=== PATIENT | female | born 1965 | race Caucasian/White ===

== ENCOUNTER → 2016-10-28 | Outpatient (CLI) | payer OTHER ==
--- NOTE | 2016-10-28 10:38 | MR ---
EXAMINATION TYPE: MR cspine/lspine wo con DATE OF EXAM: 10/28/2016 COMPARISON: NONE HISTORY: Cervicalgia and Lumbago per order. Headaches and back pain per patient. Pain for 5 to 10 yea rs radiating into bilateral buttocks and thighs per patient. TECHNIQUE: Multiplanar, multisequence imaging of the cervical and lumbar spine are performed without IV contrast. FINDINGS: C-SPINE: Exam is suboptimal as there is motion artifact degradation present. FINDINGS: Sagittal images of the cervical spine show the craniocervical junction to appear within nor mal limits. The cervical and upper thoracic spinal cord is likely normal in course, caliber, and sig nal, artifact degradation is noted. Vertebral alignment is anatomic. There is mild disc space narro wing C6-C7 level. Posterior disc herniation at this level effaces anterior thecal sac on sagittal galilea ges. The vertebral body and intravertebral disk heights otherwise are normal. The bone marrow signal intensity is within normal limits. No significant spurring is seen. Axial images show the C2-C3, C3-C4, and C4-C5 levels to appear within normal limits. Axial images at C5-C6 level show small focal central disc protrusion mildly effacing anterior thecal sac and axial image 23, bilateral neural foramina are patent. Axial images at C6-C7 level show broad-based posterior disc protrusion effacing anterior thecal sac a nd causing moderate left greater than right neural foraminal narrowing near axial image 16. Axial images at C7-T1 level are felt within normal limits. IMPRESSION: Disc herniation C6-C7 level effaces anterior thecal sac and causes moderate bilateral lef t greater than right neural foraminal narrowing. L-SPINE: There is slight levoconvex scoliotic curvature centered in the upper to mid lumbar spine seen best on survey images. Sagittal images of the lumbar spine show vertebral body heights and alignment to appe ar satisfactory. Multilevel disc desiccation is seen but disc space heights are fairly well-maintaine d. No large posterior disc herniations are seen on sagittal images. The conus medullaris is normal in position and signal ending at T12-L1 disc space level. The bone marrow signal intensity is within n ormal limits. Mild multilevel anterior spurring is seen. Axial images show the T12-L1 and L1-L2 levels to appear within normal limits. Axial images at the L2-L3 and the L3-L4 level show mild facet degenerative changes bilaterally but sp inal canal is preserved and bilateral neural foramina are patent. Axial images at L4-L5 level show mild to moderate facet degenerative changes and ligamentum flavum hy pertrophy mildly effacing posterior lateral thecal sac. There is broad-based left paracentral disc pr otrusion minimally effacing the anterior thecal sac. Bilateral neural foramina are patent. Axial images at the L5-S1 level show mild/moderate facet degenerative changes bilaterally. There is s mall central disc protrusion but spinal canal is preserved and bilateral neural foramina are patent. There is 4 mm T2 hyperintense lesion mid pole level left kidney on axial image 25 2 small to further characterize but favor simple cyst. Paraspinal muscle bulk is preserved. IMPRESSION: Slight scoliotic curvature with multilevel degenerative changes in the mid to lower lumba r spine as detailed above.
== END ==
LOC: RADMRIMAIN 06:58
PROVIDERS: ATTEND Nurse Practitioner Acute Care
DX: M99.71 Connective tissue and disc stenosis of intervertebral foramina of cervical region (principal); M50.223 Other cervical disc displacement at C6-C7 level; M47.816 Spondylosis without myelopathy or radiculopathy, lumbar region; M41.86 Other forms of scoliosis, lumbar region
CPT/HCPCS: 72141; 72148

== ENCOUNTER 2017-07-19 16:38 | Inpatient (IN) | payer OTHER ==
[2017-07-19] MEDS ORDERED: ACETAMINOPHEN TAB 500 MG TAB PO STA (17:37)
[2017-07-19] MEDS ORDERED: SODIUM CHLORIDE 0.9% 1,000 ML IV ONE (17:37)
[2017-07-19] MEDS ORDERED: SODIUM CHLORIDE 0.9% 500 ML IV ONE (17:37)
[2017-07-19] MEDS ORDERED: methylPREDNISolone SOD SUCCI 125 MG/2 ML VIAL IV STA (17:56)
[2017-07-19] MEDS ORDERED: IPRATROPIUM 0.5 MG/2.5 ML NEBU INHALATION STA (17:56)
[2017-07-19] MEDS ORDERED: ALBUTEROL NEBULIZED (CONC) 5 MG, SODIUM CHLORIDE 0.9% NEBULIZ 3 ML INHALATION STA ×2 (17:56)
[2017-07-19 18:02] LABS: Basophils # (A) 0.1 k/uL (0-0.2); Basophils % (A) 1 %; Eosinophils % (A) 1 %; HCT 50.4 % (34.0-46.0); HGB 17.4 gm/dL (11.4-16.0); Lymphocytes # (A) 1.6 k/uL (1.0-4.8); Lymphocytes % (A) 21 %; MCH 31.6 pg (25.0-35.0); MCHC 34.5 g/dL (31.0-37.0); MCV 91.6 fL (80.0-100.0); Monocytes # (A) 0.4 k/uL (0-1.0); Monocytes % (A) 5 %; Neutrophils # (A) 5.3 k/uL (1.3-7.7); Neutrophils % (A) 69 %; Platelet Count 234 k/uL (150-450); RDW 12.7 % (11.5-15.5); WBC 7.7 k/uL (3.8-10.6)
[2017-07-19 18:12] LABS: ALT 169 U/L (9-52); AST 212 U/L (14-36); Albumin 4.2 g/dL (3.5-5.0); Alkaline Phosphatase 70 U/L (38-126); Anion Gap 16 mmol/L; Blood Urea Nitrogen 11 mg/dL (7-17); Calcium 9.5 mg/dL (8.4-10.2); Carbon Dioxide 24 mmol/L (22-30); Chloride 96 mmol/L (98-107); Glucose 181 mg/dL (74-99); Potassium 3.9 mmol/L (3.5-5.1); Sodium 136 mmol/L (137-145); Total Bilirubin 0.6 mg/dL (0.2-1.3)
[2017-07-19 18:21] LABS: Creatine Kinase 567 U/L (30-135)
--- NOTE | 2017-07-19 18:31 | ED ---
Fever HPI - General Chief Complaint: Fever Stated Complaint: Difficulty Breathing Time Seen by Provider: 07/19/17 17:36 Source: patient Mode of arrival: ambulatory Limitations: no limitations - History of Present Illness Initial Comments: 52-year-old female patient presents to the emergency department today for complaints of cough, shortness of breath, and fever. The patient states that she has been coughing since Friday. Patient states that starting yesterday she became short of breath, started coughing up green to yellow sputum, and experiencing chest tightness. States the shortness of breath worsens with activity or lying down. Patient does have a history of COPD and does currently smoke cigarettes. States that she has had fever and chills at home. She denies any nasal congestion, sore throat, or ear pain. Patient denies any recent rash, abdominal pain, nausea, vomiting, diarrhea, constipation, back pain , numbness, tingling, dizziness, weakness, hematuria, dysuria, urinary urgency, urinary frequency, headache, visual changes, or any other complaints. - Related Data Home Medications Medication Instructions Recorded Confirmed Albuterol Inhaler [Ventolin Hfa 1 puff INHALATION RT-Q6H PRN 11/22/15 01/26/16 Inhaler] Aspirin [Adult Low Dose Aspirin EC] 81 mg PO DAILY 11/22/15 01/26/16 Butalb/APAP/Caff 50-325-40Mg 1 tab PO TID PRN 11/22/15 01/26/16 [Fioricet 50-325-40] DULoxetine HCL [Cymbalta] 60 mg PO DAILY 11/22/15 01/26/16 Flunisolide [Aerospan] 2 puff INHALATION RT-BID PRN 11/22/15 01/26/16 Fluticasone Nasal [place] [Flonase 1 spray EA NOSTRIL DAILY PRN 11/22/15 01/26/16 Nasal [place]] HYDROcodone/APAP 5-325MG [[place] 1 tab PO TID PRN 11/22/15 01/26/16 5-325] Levothyroxine Sodium [Synthroid] 75 mcg PO DAILY 11/22/15 01/26/16 Loratadine [Claritin] 10 mg PO DAILY PRN 11/22/15 01/26/16 Montelukast [Singulair] 10 mg PO DAILY 11/22/15 01/26/16 Multivitamins, Thera [Multivitamin] 1 tab PO DAILY 11/22/15 01/26/16 Simvastatin [Zocor] 20 mg PO DAILY 11/22/15 01/26/16 hydrOXYzine HCL [Atarax] 25 mg PO DAILY PRN 11/22/15 01/26/16 tiZANidine [Zanaflex] 4 mg PO Q8HR PRN 11/22/15 01/26/16 Previous Rx's Medication Instructions Recorded Cephalexin [Keflex] 500 mg PO Q8HR #21 cap 01/26/16 Mupirocin 2% Oint [Bactroban 2% 1 applic TOPICAL TID #1 tube 01/26/16 Oint] Allergies Allergy/AdvReac Type Severity Reaction Status Date / Time morphine Allergy Rash/Hives Verified 07/19/17 16:41 pregabalin [From Lyrica] Allergy Unknown Verified 07/19/17 16:41 Review of Systems ROS Statement: Those systems with pertinent positive or pertinent negative responses have been documented in the HPI. ROS Other: All systems not noted in ROS Statement are negative. Past Medical History Past Medical History: Fibromyalgia, Hypertension, Thyroid Disorder Additional Past Medical History / Comment(s): back pain History of Any Multi-Drug Resistant Organisms: None Reported Past Surgical History: Section, Cholecystectomy, Tonsillectomy Additional Past Surgical History / Comment(s): tumor removal leep procedure Past Psychological History: Depression Smoking Status: Current every day smoker Past Alcohol Use History: None Reported Past Drug Use History: None Reported General Exam Limitations: no limitations General appearance: alert, in no apparent distress, other (This is a well- developed, well-nourished adult female patient in no acute distress. Vital signs upon presentation are temperature 101.8F, pulse 118, respirations 20, blood pressure 122/86, pulse ox 92% on room air.) Eye exam: Present: normal appearance, PERRL, EOMI. Absent: scleral icterus, conjunctival injection, periorbital swelling ENT exam: Present: normal exam, normal oropharynx, mucous membranes moist Neck exam: Present: normal inspection. Absent: tenderness, meningismus, lymphadenopathy Respiratory exam: Present: wheezes (Tight expiratory wheezing throughout all posterior lung desouza), decreased breath sounds, other (Minimal air movement). Absent: normal lung sounds bilaterally, respiratory distress, rales, rhonchi, stridor Cardiovascular Exam: Present: normal rhythm, tachycardia, normal heart sounds. Absent: systolic murmur, diastolic murmur, rubs, gallop, clicks GI/Abdominal exam: Present: soft, normal bowel sounds. Absent: distended, tenderness, guarding, rebound, rigid Extremities exam: Present: normal inspection, full ROM, normal capillary refill , other (No edema). Absent: tenderness, pedal edema, joint swelling, calf tenderness Neurological exam: Present: alert, oriented X3, CN II-XII intact Psychiatric exam: Present: normal affect, normal mood Skin exam: Present: warm, dry, intact, normal color. Absent: rash Course Vital Signs 07/19/17 07/19/17 07/19/17 16:39 18:10 18:22 Temperature 101.8 F H Pulse Rate 118 H 105 H 106 H Pulse Rate [ Left Pulse Oximetery] Respiratory 20 20 Rate Blood Pressure 122/86 115/66 Blood Pressure [Left Arm] O2 Sat by Pulse 92 L 96 Oximetry 07/19/17 07/19/17 07/19/17 18:43 20:40 21:36 Temperature 99.3 F Pulse Rate 108 H 94 79 Pulse Rate [ Left Pulse Oximetery] Respiratory 20 20 Rate Blood Pressure 107/61 98/64 Blood Pressure [Left Arm] O2 Sat by Pulse 91 L 94 L Oximetry 07/19/17 07/19/17 21:51 22:25 Temperature 98.0 F Pulse Rate Pulse Rate [ 93 93 Left Pulse Oximetery] Respiratory 16 16 Rate Blood Pressure Blood Pressure 115/61 [Left Arm] O2 Sat by Pulse 93 L Oximetry Medical Decision Making - Medical Decision Making 52-year-old female patient presents to the emergency department today for complaints of dyspnea, cough, and fever. Physical examination reveals tight expiratory wheezing with minimal air movement. Labs reviewed and did show mild elevation in her liver enzymes. White blood cell count is normal. Patient did have a fever of 102 upon arrival. Lactic acid is negative. Chest x-ray is negative for any evidence of pneumonia. Patient does have history of COPD. We will admit for COPD exacerbation. We'll start her on antibiotics that she is meet sepsis criteria. She'll be provided with breathing treatments and steroids as well. - Lab Data Result diagrams: 07/19/17 17:40 07/19/17 17:40 Lab Results 07/19/17 07/19/17 07/19/17 Range/Units 17:40 17:40 17:40 WBC 7.7 (3.8-10.6) k/uL RBC 5.50 H (3.80-5.40) m/uL Hgb 17.4 H (11.4-16.0) gm/dL Hct 50.4 H (34.0-46.0) % MCV 91.6 (80.0-100.0) fL MCH 31.6 (25.0-35.0) pg MCHC 34.5 (31.0-37.0) g/dL RDW 12.7 (11.5-15.5) % Plt Count 234 (150-450) k/uL Neutrophils % 69 % Lymphocytes % 21 % Monocytes % 5 % Eosinophils % 1 % Basophils % 1 % Neutrophils # 5.3 (1.3-7.7) k/uL Lymphocytes # 1.6 (1.0-4.8) k/uL Monocytes # 0.4 (0-1.0) k/uL Eosinophils # 0.0 (0-0.7) k/uL Basophils # 0.1 (0-0.2) k/uL Sodium 136 L (137-145) mmol/L Potassium 3.9 (3.5-5.1) mmol/L Chloride 96 L (98-107) mmol/L Carbon Dioxide 24 (22-30) mmol/L Anion Gap 16 mmol/L BUN 11 (7-17) mg/dL Creatinine 0.60 (0.52-1.04) mg/dL Est GFR (CKD-EPI)AfAm >90 (>60 ml/min/1.73 sqM) Est GFR (CKD-EPI)NonAf >90 (>60 ml/min/1.73 sqM) Glucose 181 H (74-99) mg/dL Plasma Lactic Acid Deandre (0.7-2.0) mmol/L Calcium 9.5 (8.4-10.2) mg/dL Total Bilirubin 0.6 (0.2-1.3) mg/dL AST 212 H (14-36) U/L ALT 169 H (9-52) U/L Alkaline Phosphatase 70 (38-126) U/L Total Creatine Kinase 567 H (30-135) U/L CK-MB (CK-2) 0.3 (0.0-2.4) ng/mL CK-MB (CK-2) Rel Index 0.1 Troponin I <0.012 (0.000-0.034) ng/mL NT-Pro-B Natriuret Pep pg/mL Total Protein 7.0 (6.3-8.2) g/dL Albumin 4.2 (3.5-5.0) g/dL Influenza Type A RNA (Not Detectd) Influenza Type B (PCR) (Not Detectd) 07/19/17 07/19/17 07/19/17 Range/Units 17:40 17:40 18:18 WBC (3.8-10.6) k/uL RBC (3.80-5.40) m/uL Hgb (11.4-16.0) gm/dL Hct (34.0-46.0) % MCV (80.0-100.0) fL MCH (25.0-35.0) pg MCHC (31.0-37.0) g/dL RDW (11.5-15.5) % Plt Count (150-450) k/uL Neutrophils % % Lymphocytes % % Monocytes % % Eosinophils % % Basophils % % Neutrophils # (1.3-7.7) k/uL Lymphocytes # (1.0-4.8) k/uL Monocytes # (0-1.0) k/uL Eosinophils # (0-0.7) k/uL Basophils # (0-0.2) k/uL Sodium (137-145) mmol/L Potassium (3.5-5.1) mmol/L Chloride (98-107) mmol/L Carbon Dioxide (22-30) mmol/L Anion Gap mmol/L BUN (7-17) mg/dL Creatinine (0.52-1.04) mg/dL Est GFR (CKD-EPI)AfAm (>60 ml/min/1.73 sqM) Est GFR (CKD-EPI)NonAf (>60 ml/min/1.73 sqM) Glucose (74-99) mg/dL Plasma Lactic Acid Deandre 1.7 (0.7-2.0) mmol/L Calcium (8.4-10.2) mg/dL Total Bilirubin (0.2-1.3) mg/dL AST (14-36) U/L ALT (9-52) U/L Alkaline Phosphatase (38-126) U/L Total Creatine Kinase (30-135) U/L CK-MB (CK-2) (0.0-2.4) ng/mL CK-MB (CK-2) Rel Index Troponin I (0.000-0.034) ng/mL NT-Pro-B Natriuret Pep 88 pg/mL Total Protein (6.3-8.2) g/dL Albumin (3.5-5.0) g/dL Influenza Type A RNA Not Detected (Not Detectd) Influenza Type B (PCR) Not Detected (Not Detectd) - EKG Data -: EKG Interpreted by Me EKG Comments: EKG obtained at 1734 shows sinus tachycardia with right atrial enlargement. Ventricular rate is 118, LA interval 120, QR anglican 72, QT 332, QTc 465. No evidence of ST elevation or depression. - Radiology Data Radiology results: report reviewed, image reviewed Two-view x-ray of the chest is obtained. There is no focal airspace opacity, pleural effusion, or pneumothorax. There are overlying cardiac leads. The cardiac silhouette size is within normal limits. The osseous structures are intact. Impression by Dr. Richards shows no acute cardiopulmonary process. Disposition Clinical Impression: COPD with acute exacerbation, Hypoxia, Sepsis Disposition: ADMITTED IP TO THIS HOSP Condition: Serious Decision to Admit Reason: Admit from EC Decision Date: 07/19/17 Decision Time: 21:26
[2017-07-19 18:34] LABS: Creatine Kinase MB 0.3 ng/mL (0.0-2.4); Troponin I <0.012 ng/mL (0.000-0.034)
--- NOTE | 2017-07-19 19:54 | XR ---
EXAMINATION TYPE: XR chest 2V DATE OF EXAM: 07/19/2017 COMPARISON: NONE HISTORY: Shortness of breath TECHNIQUE: Frontal and lateral views of the chest are obtained. FINDINGS: There is no focal air space opacity, pleural effusion, or pneumothorax seen. There are ov erlying cardiac leads. The cardiac silhouette size is within normal limits. The osseous structures are intact. IMPRESSION: No acute cardiopulmonary process.
[2017-07-19] MEDS ORDERED: NALOXONE 0.4 MG/ML 1 ML VIAL IV PRN (21:05)
[2017-07-19] MEDS ORDERED: ACETAMINOPHEN TAB 325 MG TAB PO PRN (21:05)
[2017-07-19] MEDS ORDERED: IPRATROPIUM-ALBUTEROL 3 ML NEB INHALATION PRN (21:07)
[2017-07-19] MEDS ORDERED: LEVOFLOXACIN 750MG-D5W PMX 750 MG in DEXTROSE/WATER 1 150ML.BAG IVPB STA (21:07)
[2017-07-19] MEDS: SODIUM CHLORIDE 0.9% 1,000 ML IV SCH (21:33)
[2017-07-19 22:25] VITALS: BMI 30.2
[2017-07-19] MEDS: IPRATROPIUM-ALBUTEROL 3 ML NEB INHALATION SCH (23:15)
[2017-07-19] MEDS: methylPREDNISolone SOD SUCCI 125 MG/2 ML VIAL IV SCH (23:52)
[2017-07-20] MEDS: IPRATROPIUM-ALBUTEROL 3 ML NEB INHALATION SCH ×6 (03:13→20:14)
[2017-07-20] MEDS: methylPREDNISolone SOD SUCCI 125 MG/2 ML VIAL IV SCH ×4 (07:03→23:16)
[2017-07-20] MEDS: SODIUM CHLORIDE 0.9% 1,000 ML IV SCH (11:33)
[2017-07-20 11:50] LABS: ALT 146 U/L (9-52); AST 143 U/L (14-36); Albumin 3.7 g/dL (3.5-5.0); Alkaline Phosphatase 58 U/L (38-126); Anion Gap 13 mmol/L; Blood Urea Nitrogen 10 mg/dL (7-17); Calcium 8.6 mg/dL (8.4-10.2); Carbon Dioxide 24 mmol/L (22-30); Chloride 100 mmol/L (98-107); Glucose 289 mg/dL (74-99); Potassium 3.9 mmol/L (3.5-5.1); Sodium 137 mmol/L (137-145); Total Bilirubin 0.4 mg/dL (0.2-1.3); Total Protein 6.3 g/dL (6.3-8.2)
[2017-07-20 11:56] LABS: Basophils % (A) 1 %; Eosinophils % (A) 0 %; HCT 43.7 % (34.0-46.0); HGB 14.9 gm/dL (11.4-16.0); Lymphocytes % (A) 18 %; MCH 31.4 pg (25.0-35.0); MCHC 34.1 g/dL (31.0-37.0); MCV 92.2 fL (80.0-100.0); Monocytes # (A) 0.2 k/uL (0-1.0); Monocytes % (A) 3 %; Neutrophils # (A) 4.2 k/uL (1.3-7.7); Neutrophils % (A) 74 %; Platelet Count 211 k/uL (150-450); RBC 4.75 m/uL (3.80-5.40); RDW 12.7 % (11.5-15.5); WBC 5.7 k/uL (3.8-10.6)
[2017-07-20] MEDS ORDERED: CYCLOBENZAPRINE 10 MG TAB PO PRN (12:47)
[2017-07-20] MEDS ORDERED: BUTALB/APAP/CAFF 50-325-40MG TAB PO PRN (12:47)
[2017-07-20] MEDS ORDERED: FLUTICASONE 50MCG/SPRAY NASAL 16GM EA NOSTRIL PRN (12:47)
--- NOTE | 2017-07-20 12:56 | P.HPIM ---
History of Present Illness H&P Date: 07/20/17 Chief Complaint: Dyspnea This is 52 years old female who presented to the emergency department with worsening shortness breath. Patient reported starting symptoms on Friday where she was having upper respiratory symptoms including runny [place] runny eyes and felt to be related to her ALLERGIES level patient continue to use her breathing machine without any improvement and the day of yesterday she presented to the emergency with worsening nonproductive cough and worsening shortness breath where patient was using accessory muscles and able to breathe when walking and has to take a break every time she walked inside her house. Patient reported no fever no chills no chest pain or lightheadedness. She and was advised by her primary care physician to quit smoking and went down to 10 cigarettes per day with the nicotine patches metastases back at 1 pack per day as she feels frustrated and cannot quit smoking patient denied alcohol or drug abuse. Patient was worked out with GI specialist outpatient for her elevated liver enzymes are as it runs in her family and both patient and her son has seen GI specialist for the same reason and it has been monitored for a long time Review of Systems All 14 systems reviewed and negative except as above Past Medical History Past Medical History: Fibromyalgia, Hypertension, Thyroid Disorder Additional Past Medical History / Comment(s): back pain History of Any Multi-Drug Resistant Organisms: None Reported Past Surgical History: Section, Cholecystectomy, Tonsillectomy Additional Past Surgical History / Comment(s): tumor removal leep procedure Past Anesthesia/Blood Transfusion Reactions: No Reported Reaction Past Psychological History: Depression Smoking Status: Current every day smoker Past Alcohol Use History: None Reported Past Drug Use History: None Reported Medications and Allergies Home Medications Medication Instructions Recorded Confirmed Type Albuterol Inhaler [Ventolin Hfa 1 puff INHALATION RT-Q6H PRN 11/22/15 07/20/17 History Inhaler] Aspirin [Adult Low Dose Aspirin EC] 81 mg PO DAILY 11/22/15 07/20/17 History Butalb/APAP/Caff 50-325-40Mg 1 tab PO TID PRN 11/22/15 07/20/17 History [Fioricet 50-325-40] DULoxetine HCL [Cymbalta] 60 mg PO DAILY 11/22/15 07/20/17 History Fluticasone Nasal [place] [Flonase 1 spray EA NOSTRIL DAILY PRN 11/22/15 07/20/17 History Nasal [place]] HYDROcodone/APAP 5-325MG [[place] 1 tab PO TID PRN 11/22/15 07/20/17 History 5-325] Levothyroxine Sodium [Synthroid] 75 mcg PO DAILY 11/22/15 07/20/17 History Montelukast [Singulair] 10 mg PO DAILY 11/22/15 07/20/17 History Multivitamins, Thera [Multivitamin] 1 tab PO DAILY 11/22/15 07/20/17 History Simvastatin [Zocor] 20 mg PO HS 11/22/15 07/20/17 History Beclomethasone Dipropionate [Qvar 2 puff INHALATION DAILY 07/20/17 07/20/17 History Redihaler] Bisoprolol-Hctz 10-6.25 mg [[place] 1 tab PO DAILY 07/20/17 07/20/17 History 10-6.25 MG] Cyclobenzaprine [Flexeril] 10 mg PO TID PRN 07/20/17 07/20/17 History Famotidine [Pepcid] 20 mg PO HS 07/20/17 07/20/17 History Mirtazapine [Remeron] 15 mg PO HS 07/20/17 07/20/17 History glipiZIDE [Glucotrol] 5 mg PO AC-BRKFST 07/20/17 07/20/17 History metFORMIN HCL 1,000 mg PO BID 07/20/17 07/20/17 History Allergies Allergy/AdvReac Type Severity Reaction Status Date / Time morphine Allergy Rash/Hives Verified 07/19/17 16:41 pregabalin [From Lyrica] Allergy Unknown Verified 07/19/17 16:41 Physical Exam Vitals: Vital Signs Temp Pulse Pulse Resp BP BP Pulse Ox 07/20/17 11:15 88 07/20/17 11:00 88 07/20/17 07:22 92 07/20/17 07:10 82 07/20/17 07:00 97.7 F 96 18 100/60 95 07/20/17 03:22 84 07/20/17 03:13 88 07/19/17 23:29 84 07/19/17 23:19 91 87 L 07/19/17 22:25 93 16 07/19/17 21:51 98.0 F 93 16 115/61 93 L 07/19/17 21:36 79 20 98/64 94 L 07/19/17 20:40 99.3 F 94 20 107/61 91 L 07/19/17 18:43 108 H 07/19/17 18:22 106 H 07/19/17 18:10 105 H 20 115/66 96 07/19/17 16:39 101.8 F H 118 H 20 122/86 92 L Intake and Output 07/19/17 07/20/17 07/20/17 22:59 06:59 14:59 Intake Total 1100 150 Balance 1100 150 Intake: Amount of Fluid Infused ( 1100 ml) Intake, IV Titration 150 Amount Sodium Chloride 0.9% 1, 150 000 ml @ 75 mls/hr IV . [id number] [facility] Rx#:[id number] Other: Voiding Method Toilet # Voids 2 Weight 72.575 kg 72.575 kg Gen.: In mild distress using accessory muscles during conversation Heart: Normal S1-S2 Lungs: Use wheezing with scattered rhonchi. Positive for decreased air entry Abdomen: Soft, no tenderness, positive bowel sounds in all 4 quadrant no guarding or rebound Skin: No new rash Psych: Alert and oriented 3 Neuro: No focal deficit Results CBC & Chem 7: 07/20/17 11:09 07/20/17 11:09 Labs: Abnormal Lab Results - Last 24 Hours (Table) 07/19/17 07/19/17 07/19/17 Range/Units 17:40 17:40 17:40 RBC 5.50 H (3.80-5.40) m/uL Hgb 17.4 H (11.4-16.0) gm/dL Hct 50.4 H (34.0-46.0) % Sodium 136 L (137-145) mmol/L Chloride 96 L (98-107) mmol/L Creatinine (0.52-1.04) mg/dL Glucose 181 H (74-99) mg/dL AST 212 H (14-36) U/L ALT 169 H (9-52) U/L Total Creatine Kinase 567 H (30-135) U/L 07/20/17 Range/Units 11:09 RBC (3.80-5.40) m/uL Hgb (11.4-16.0) gm/dL Hct (34.0-46.0) % Sodium (137-145) mmol/L Chloride (98-107) mmol/L Creatinine 0.43 L (0.52-1.04) mg/dL Glucose 289 H (74-99) mg/dL AST 143 H (14-36) U/L ALT 146 H (9-52) U/L Total Creatine Kinase (30-135) U/L Thrombosis Risk Factor Assmnt - Choose All That Apply Any of the Below Risk Factors Present?: No Other Risk Factors: No Thrombosis Risk Factor Assessment Level: Very Low Risk Assessment and Plan Assessment: 1. Dyspnea. 2. COPD with acute exacerbation. 3. Recent diagnosis of onset emphysema with moderate COPD level on recent pulmonary function test as patient indicated area 4. Ongoing tobacco abuse. 5. Acute tracheobronchitis. 6. Uncontrolled diabetes with hyperglycemia related to steroids use. 7. Anxiety and depression. 8. Hypertension. 9. Hyperlipidemia. 10. Elevated liver enzymes, chronic. 11. Fibromyalgia. Plan: I would like to start patients on Solu-Medrol 60 every 6, start patients on Zithromax 500 IV daily for total of 5 days, I would like to continue with aggressive pulmonary hygiene and consider starting patient's on Spiriva and steroid-based inhaler per memory recommendation. I have counseled patient regarding smoking cessation and she is willing to try one more time on discharge date. We will have home O2 evaluation prior to discharge. I would like to continue her home regimen for her diabetes including metformin and glipizide and I would like to placed patient's on insulin sliding scale given the current hyperglycemia resume her home medication start patients on proton pump inhibitors while she is on steroids and consider discharge once she is done. I would like to have patient's on Lovenox 40 mg subcu daily for DVT prophylaxis. Plan discussed with the patient in the presence of the nursing staff
[2017-07-20] MEDS: PANTOPRAZOLE 40 MG TABLET PO SCH ×2 (12:57→18:29)
[2017-07-20] MEDS: INSULIN ASPART 100 UNIT/ML 1 ML 10 ML VIAL SQ SCH ×3 (13:08→20:57)
[2017-07-20 13:16] LABS: Glucose,Whole Blood 340 mg/dL (75-99)
[2017-07-20] MEDS: ENOXAPARIN 40 MG/0.4 ML SYRINGE SQ SCH (14:30)
[2017-07-20] MEDS: AZITHROMYCIN 500 MG TAB PO SCH (14:30)
[2017-07-20] MEDS: glipiZIDE 5 MG TAB PO SCH (14:31)
[2017-07-20] MEDS: LEVOTHYROXINE 75 MCG TAB PO SCH (14:31)
[2017-07-20] MEDS: DULoxetine HCL 60 MG CAPSULE.DR PO SCH (14:31)
[2017-07-20] MEDS: BISOPROLOL-HCTZ 10-6.25 MG 1 EACH TAB PO SCH (14:31)
[2017-07-20] MEDS: MONTELUKAST 10 MG TAB PO SCH (14:32)
[2017-07-20] MEDS: HYDROcodone/APAP 5-325MG 1 EACH TAB PO PRN (14:38)
[2017-07-20 17:17] LABS: Glucose,Whole Blood 266 mg/dL (75-99)
--- NOTE | 2017-07-20 17:41 | P.CNPUL ---
History of Present Illness Consult date: 07/20/17 Requesting physician: Antonette Babb Reason for consult: COPD Chief complaint: Shortness of breath, cough and wheezing. History of present illness: This is a 52-year-old female with history of hypertension, fibromyalgia, hypothyroidism, smoker, known history of COPD, maintained on albuterol and Qvar for her COPD. Patient presented to the ER with 4 days history of increased shortness of breath, productive cough, wheezing, and chest tightness. No fever , no chills, no hemoptysis, no nausea no vomiting no abdominal pain, no melena, no hematemesis, no dysuria and no frequency no urgency. Chest x-ray upon evaluation in the ER was relatively unremarkable. Labs were normal. No evidence of leukocytosis, basic metabolic profile was normal. Sugar was noted to be high. Patient was admitted and this consult was initiated. Review of Systems 14 point review of systems were obtained, please refer to pertinent positives in HPI, otherwise remaining systems are negative. Past Medical History Past Medical History: Fibromyalgia, Hypertension, Thyroid Disorder Additional Past Medical History / Comment(s): back pain History of Any Multi-Drug Resistant Organisms: None Reported Past Surgical History: Section, Cholecystectomy, Tonsillectomy Additional Past Surgical History / Comment(s): tumor removal leep procedure Past Anesthesia/Blood Transfusion Reactions: No Reported Reaction Past Psychological History: Depression Smoking Status: Current every day smoker Past Alcohol Use History: None Reported Past Drug Use History: None Reported Medications and Allergies Home Medications Medication Instructions Recorded Confirmed Type Albuterol Inhaler [Ventolin Hfa 2 puff INHALATION RT-Q6H PRN 11/22/15 07/20/17 History Inhaler] Aspirin [Adult Low Dose Aspirin EC] 81 mg PO DAILY 11/22/15 07/20/17 History Butalb/APAP/Caff 50-325-40Mg 1 tab PO Q8H PRN 11/22/15 07/20/17 History [Fioricet 50-325-40] DULoxetine HCL [Cymbalta] 60 mg PO DAILY 11/22/15 07/20/17 History Fluticasone Nasal [place] [Flonase 1 spray EA NOSTRIL DAILY PRN 11/22/15 07/20/17 History Nasal [place]] HYDROcodone/APAP 5-325MG [[place] 1 tab PO TID PRN 11/22/15 07/20/17 History 5-325] Levothyroxine Sodium [Synthroid] 75 mcg PO DAILY 11/22/15 07/20/17 History Montelukast [Singulair] 10 mg PO DAILY 11/22/15 07/20/17 History Multivitamins, Thera [Multivitamin] 1 tab PO DAILY 11/22/15 07/20/17 History Simvastatin [Zocor] 20 mg PO HS 11/22/15 07/20/17 History Beclomethasone Dipropionate [Qvar 2 puff INHALATION RT-BID 07/20/17 07/20/17 History Redihaler] Bisoprolol-Hctz 10-6.25 mg [Ziac 1 tab PO DAILY 07/20/17 07/20/17 History 10-6.25 MG] Cyclobenzaprine [Flexeril] 10 mg PO BID PRN 07/20/17 07/20/17 History Famotidine [Pepcid] 20 mg PO HS 07/20/17 07/20/17 History Loratadine [Claritin] 10 mg PO DAILY PRN 07/20/17 07/20/17 History Mirtazapine [Remeron] 15 mg PO HS 07/20/17 07/20/17 History glipiZIDE XL [Glucotrol Xl] 5 mg PO DAILY 07/20/17 07/20/17 History metFORMIN HCL 1,000 mg PO BID 07/20/17 07/20/17 History Allergies Allergy/AdvReac Type Severity Reaction Status Date / Time morphine Allergy Rash/Hives Verified 07/20/17 14:24 pregabalin [From Lyrica] Allergy Unknown Verified 07/20/17 14:24 Physical Exam Vitals: Vital Signs Temp Pulse Pulse Resp BP BP Pulse Ox 07/20/17 15:06 108 H 07/20/17 15:00 97.1 F L 115 H 20 125/66 91 L 07/20/17 14:52 110 H 94 L 07/20/17 11:15 88 07/20/17 11:00 88 07/20/17 07:22 92 07/20/17 07:10 82 07/20/17 07:00 97.7 F 96 18 100/60 95 07/20/17 03:22 84 07/20/17 03:13 88 07/19/17 23:29 84 07/19/17 23:19 91 87 L 07/19/17 22:25 93 16 07/19/17 21:51 98.0 F 93 16 115/61 93 L 07/19/17 21:36 79 20 98/64 94 L 07/19/17 20:40 99.3 F 94 20 107/61 91 L 07/19/17 18:43 108 H 07/19/17 18:22 106 H 07/19/17 18:10 105 H 20 115/66 96 Intake and Output 07/20/17 07/20/17 07/20/17 06:59 14:59 22:59 Intake Total 150 1385 Balance 150 1385 Intake: Intake, IV Titration 150 375 Amount Sodium Chloride 0.9% 1, 150 375 000 ml @ 75 mls/hr IV . [id number] [facility] Rx#:[id number] Oral 1010 Other: # Voids 2 3 # Bowel Movements 1 Weight 72.575 kg Physical Exam: Revealed a 52-year-old female in no distress. Head: Atraumatic, normocephalic. HEENT: PERRLA, EOMI. [Neck is supple.] [No neck masses.] [No thyromegaly.] [No JVD.] Moist mucous membranes. Chest: [Diffuse rhonchi and wheezes noted bilaterally. Symmetrical chest expansion. No chest wall tenderness.] Cardiac Exam: [Normal S1 and S2, no S3 gallop, no murmur.] Abdomen: [Soft, nontender, no megaly, no rebound, no guarding, normal bowel sounds.] Extremities: [No clubbing, no edema, no cyanosis.] Neurological Exam: [No focal neurologic deficit.] Psychiatric: Normal mood affect and mental status examination. Lymphatics: No lymphadenopathy. Results - Laboratory Findings CBC and BMP: 07/20/17 11:09 07/20/17 11:09 Abnormal lab findings: Abnormal Labs 07/19/17 07/19/17 07/19/17 17:40 17:40 17:40 RBC 5.50 H Hgb 17.4 H Hct 50.4 H Sodium 136 L Chloride 96 L Creatinine Glucose 181 H POC Glucose (mg/dL) AST 212 H ALT 169 H Total Creatine Kinase 567 H 07/20/17 07/20/17 07/20/17 11:09 13:06 17:15 RBC Hgb Hct Sodium Chloride Creatinine 0.43 L Glucose 289 H POC Glucose (mg/dL) 340 H 266 H AST 143 H ALT 146 H Total Creatine Kinase - Diagnostic Findings Chest x-ray: image reviewed (Unremarkable chest, no acute cardiopulmonary process.) Assessment and Plan Assessment: Impression: 1 acute hypoxic respiratory failure secondary to acute exacerbation of COPD 2 acute purulent tracheobronchitis. 3 tobacco dependence syndrome. 4 benign essential hypertension 5 fibromyalgia 6 chronically elevated liver enzymes, will need to be further investigated on outpatient basis. 7 history of anxiety and depression. 8 suspect uncontrolled diabetes with hyperglycemia, worsened with steroids use. Recommendation: Continue present course of bronchodilators including albuterol with Atrovent, Symbicort, continue antibiotics, counseled regarding smoking cessation, placed on Protonix because of her history of severe GERD. We'll continue to follow. Time with Patient: Greater than 30
[2017-07-20] MEDS: SYMBICORT 160-4.5 MCG INHALER INHALATION SCH (18:59)
[2017-07-20 20:48] LABS: Glucose,Whole Blood 220 mg/dL (75-99)
[2017-07-20] MEDS: ATORVASTATIN 10 MG TAB PO SCH (20:58)
[2017-07-20] MEDS: FAMOTIDINE 20 MG TAB PO SCH (20:58)
[2017-07-20] MEDS: MIRTAZAPINE 15 MG TAB PO SCH (20:58)
[2017-07-21] MEDS: methylPREDNISolone SOD SUCCI 125 MG/2 ML VIAL IV SCH (06:19)
[2017-07-21] MEDS: LEVOTHYROXINE 75 MCG TAB PO SCH (06:19)
[2017-07-21 06:59] LABS: Glucose,Whole Blood 294 mg/dL (75-99)
[2017-07-21] MEDS: MONTELUKAST 10 MG TAB PO SCH (07:29)
[2017-07-21] MEDS: INSULIN ASPART 100 UNIT/ML 1 ML 10 ML VIAL SQ SCH ×4 (07:29→22:02)
[2017-07-21] MEDS: PANTOPRAZOLE 40 MG TABLET PO SCH ×2 (07:29→18:17)
[2017-07-21] MEDS: AZITHROMYCIN 500 MG TAB PO SCH (07:29)
[2017-07-21] MEDS: BISOPROLOL-HCTZ 10-6.25 MG 1 EACH TAB PO SCH (07:29)
[2017-07-21] MEDS: ASPIRIN 81 MG PO SCH (07:29)
[2017-07-21] MEDS: glipiZIDE 5 MG TAB PO SCH (07:29)
[2017-07-21] MEDS: ENOXAPARIN 40 MG/0.4 ML SYRINGE SQ SCH (07:29)
[2017-07-21] MEDS: DULoxetine HCL 60 MG CAPSULE.DR PO SCH (07:29)
[2017-07-21] MEDS: IPRATROPIUM-ALBUTEROL 3 ML NEB INHALATION SCH ×4 (07:58→19:29)
[2017-07-21] MEDS: SYMBICORT 160-4.5 MCG INHALER INHALATION SCH ×2 (07:58→19:25)
[2017-07-21] MEDS: metFORMIN 500 MG TAB PO SCH ×2 (10:12→18:17)
[2017-07-21 11:26] LABS: Glucose,Whole Blood 239 mg/dL (75-99)
[2017-07-21] MEDS ORDERED: MULTIVITAMINS, THERA 1 EACH TAB PO SCH (12:00)
[2017-07-21] MEDS: predniSONE 20 MG TAB PO SCH (12:14)
--- NOTE | 2017-07-21 12:28 | P.PN ---
Subjective Progress Note Date: 07/21/17 Principal diagnosis: Respiratory failure, COPD exacerbation, severe tracheal bronchitis, uncontrolled diabetes, hypertension, hyperlipidemia, elevated liver function test. This is 52 years old female who presented to the emergency department with worsening shortness breath. Patient reported starting symptoms on Friday where she was having upper respiratory symptoms including runny [place] runny eyes and felt to be related to her ALLERGIES level patient continue to use her breathing machine without any improvement and the day of yesterday she presented to the emergency with worsening nonproductive cough and worsening shortness breath where patient was using accessory muscles and able to breathe when walking and has to take a break every time she walked inside her house. Patient reported no fever no chills no chest pain or lightheadedness. She and was advised by her primary care physician to quit smoking and went down to 10 cigarettes per day with the nicotine patches metastases back at 1 pack per day as she feels frustrated and cannot quit smoking patient denied alcohol or drug abuse. Patient was worked out with GI specialist outpatient for her elevated liver enzymes are as it runs in her family and both patient and her son has seen GI specialist for the same reason and it has been monitored for a long time 07/21: Patient is feeling much better specially with the steroid dose did very well and responded to azithromycin so far, was seen pulmonary and agree with the current treatment. We'll switch her Solu-Medrol to oral prednisone if she is doing well by tomorrow should be able to let her go home Objective - Vital Signs Vital signs: Vital Signs Temp 97.4 F L 07/21/17 06:56 Pulse 92 07/21/17 08:09 Resp 16 07/21/17 06:56 BP 110/80 07/21/17 06:56 Pulse Ox 90 L 07/21/17 06:56 Intake & Output 07/20/17 07/21/17 07/21/17 18:59 06:59 18:59 Intake Total 1385 540 Balance 1385 540 Weight 72.575 kg Intake: Intake, IV Titration 375 Amount Sodium Chloride 0.9% 1, 375 000 ml @ 75 mls/hr IV . [id number] [facility] Rx#:[id number] Oral 1010 540 Other: Voiding Method Toilet # Voids 3 2 # Bowel Movements 1 - Constitutional General appearance: Present: cooperative, no acute distress. Absent: average body habitus, disheveled, mild distress, morbidly obese, obese, severe distress , thin - EENT Eyes: Present: normal appearance. Absent: abnormal pupil, anicteric sclerae, disc margins sharp, edentulous, EOMI, PERRLA, fundus normal, photophobia, dentition normal, poor dentition, ptosis, scleral icterus ENT: Present: normal oropharynx. Absent: hard of hearing, hearing grossly normal, NA/AT, other, pharyngeal erythema, thrush, tonsillar exudates, tonsillar swelling Ears: bilateral: normal - Neck Neck: Present: normal ROM. Absent: lymphadenopathy, other, rigidity, stridor, thyromegaly Carotids: bilateral: upstroke normal Thyroid: bilateral: normal size - Respiratory Respiratory: bilateral: diminished, dullness, rales, rhonchi, wheezing - Cardiovascular Rhythm: regular Abnormal Heart Sounds: Present: systolic murmur. Absent: diastolic murmur, rub , S3 Gallop, S4 Gallop, click, other - Gastrointestinal General gastrointestinal: Present: decreased bowel sounds, normal bowel sounds, soft. Absent: absent bowel sounds, distended, hepatomegaly, hyperactive bowel sounds, organomegaly, rigid, scaphoid, splenomegaly, tenderness, umbilical hernia, ventral hernia - Integumentary Integumentary: Present: normal, pale. Absent: calor, cellulitis, cyanotic, decreased turgor, flushed, jaundiced, normal turgor, rash, ulcer - Neurologic Neurologic: Present: CNII-XII intact - Musculoskeletal Musculoskeletal: Present: gait normal, generalized weakness, strength equal bilaterally - Psychiatric Psychiatric: Present: A&O x's 3, appropriate affect - Labs CBC & Chem 7: 07/20/17 11:09 07/20/17 11:09 Labs: Abnormal Lab Results - Last 24 Hours (Table) 07/20/17 07/20/17 07/20/17 Range/Units 13:06 17:15 20:23 POC Glucose (mg/dL) 340 H 266 H 220 H (75-99) mg/dL 07/21/17 07/21/17 Range/Units 06:57 11:23 POC Glucose (mg/dL) 294 H 239 H (75-99) mg/dL Microbiology - Last 24 Hours (Table) 07/19/17 17:40 Blood Culture - Preliminary Blood No Growth after 24 hours Assessment and Plan Plan: 1. Dyspnea: Secondary to COPD exacerbation and severe tracheal bronchitis, continue current treatment. 2. COPD with acute exacerbation: Still on steroid was switched to oral prednisone 40 mg daily continue patient on updraft treatment continue on Pulmicort as well. 3. Recent diagnosis of onset emphysema with moderate COPD level on recent pulmonary function test as patient indicated area. 4. Ongoing tobacco abuse: Smoking cessation was addressed and patient will be agreeable to nicotine patch. 5. Acute tracheobronchitis: Continue azithromycin. 6. Uncontrolled diabetes with hyperglycemia related to steroids use. Continue patient on current dose of insulin for now we will titrate longer term insulin needed. 7. Anxiety and depression: Stable and well controlled. 8. Hypertension: Not on any medication currently. 9. Hyperlipidemia, on atorvastatin. 10. Elevated liver enzymes, chronic, will do an ultrasound of the liver also add hepatitis panel. 11. Fibromyalgia, stable and no change. 12 GI prophylaxis: Patient will continue pantoprazole 40 mg daily. 13 DVT prophylaxis: Remain on Lovenox 40 mg a day. CODE STATUS: Full code. Expectation: Patient be discharged home tomorrow.
--- NOTE | 2017-07-21 13:36 | P.PN ---
Subjective Progress Note Date: 07/21/17 Principal diagnosis: Acute hypoxic respiratory failure secondary to acute exacerbation of COPD and acute purulent tracheobronchitis This is a 52-year-old female with history of hypertension, fibromyalgia, hypothyroidism, smoker, known history of COPD, maintained on albuterol and Qvar for her COPD. Patient presented to the ER with 4 days history of increased shortness of breath, productive cough, wheezing, and chest tightness. No fever , no chills, no hemoptysis, no nausea no vomiting no abdominal pain, no melena, no hematemesis, no dysuria and no frequency no urgency. Chest x-ray upon evaluation in the ER was relatively unremarkable. Labs were normal. No evidence of leukocytosis, basic metabolic profile was normal. Sugar was noted to be high. Patient was admitted and this consult was initiated. On 07/21/2017 patient seen in follow-up. She is calm and comfortable, in no acute distress, currently on room air with O2 sat between 90-93%, hemodynamically stable, afebrile. Denies any worsening dyspnea, she states she is feeling somewhat better today, although lung sounds remain tight and wheezy, with diminished breath sounds bilaterally. Chest x-ray was reviewed, showed no acute cardiopulmonary process. Influenza screen was negative, she denies any chest pain, denies any chest wall tightness, denies any hemoptysis. Blood culture is negative after 24 hours. She continues on antibiotics in the form of Zithromax, nebulized bronchodilators, Symbicort, her IV steroids have been transitioned to oral. Smoking cessation was strongly encouraged, she will need outpatient follow-up in the office, continue current medical treatment. Objective - Vital Signs Vital signs: Vital Signs Temp 97.4 F L 07/21/17 06:56 Pulse 88 07/21/17 13:15 Resp 16 07/21/17 06:56 BP 110/80 07/21/17 06:56 Pulse Ox 90 L 07/21/17 06:56 Intake & Output 07/20/17 07/21/17 07/21/17 18:59 06:59 18:59 Intake Total 1385 540 Balance 1385 540 Weight 72.575 kg Intake: Intake, IV Titration 375 Amount Sodium Chloride 0.9% 1, 375 000 ml @ 75 mls/hr IV . [id number] [facility] Rx#:[id number] Oral 1010 540 Other: Voiding Method Toilet # Voids 3 2 # Bowel Movements 1 - Exam Physical Exam: Revealed a 52-year-old female in no distress. Head: Atraumatic, normocephalic. HEENT: PERRLA, EOMI. [Neck is supple.] [No neck masses.] [No thyromegaly.] [No JVD.] Moist mucous membranes. Chest: [Diffuse rhonchi and wheezes noted bilaterally. Symmetrical chest expansion. No chest wall tenderness.] Cardiac Exam: [Normal S1 and S2, no S3 gallop, no murmur.] Abdomen: [Soft, nontender, no megaly, no rebound, no guarding, normal bowel sounds.] Extremities: [No clubbing, no edema, no cyanosis.] Neurological Exam: [No focal neurologic deficit.] Psychiatric: Normal mood affect and mental status examination. Lymphatics: No lymphadenopathy. - Labs CBC & Chem 7: 07/20/17 11:09 07/20/17 11:09 Labs: Abnormal Lab Results - Last 24 Hours (Table) 07/20/17 07/20/17 07/21/17 Range/Units 17:15 20:23 06:57 POC Glucose (mg/dL) 266 H 220 H 294 H (75-99) mg/dL 07/21/17 Range/Units 11:23 POC Glucose (mg/dL) 239 H (75-99) mg/dL Microbiology - Last 24 Hours (Table) 07/19/17 17:40 Blood Culture - Preliminary Blood No Growth after 24 hours Assessment and Plan Plan: Assessment: 1 acute hypoxic respiratory failure secondary to acute exacerbation of COPD 2 acute purulent tracheobronchitis. 3 tobacco dependence syndrome. 4 benign essential hypertension 5 fibromyalgia 6 chronically elevated liver enzymes, will need to be further investigated on outpatient basis. 7 history of anxiety and depression. 8 suspect uncontrolled diabetes with hyperglycemia, worsened with steroids use. Plan: Continue current plan of treatment, continue nebulized bronchodilators, empiric antibiotics, Symbicort. Smoking cessation was again strongly encouraged, patient will need outpatient follow-up in the pulmonary office for outpatient PFT and further optimization of her pulmonary function. I performed a history & physical examination of the patient and discussed their management with my nurse practitioner, Alisia Coombs. I reviewed the nurse practitioner's note and agree with the documented findings and plan of care. Lung sounds are diminished breath sounds, with scattered wheezes and rhonchi. The findings and the impression was discussed with the patient. I attest to the documentation by the nurse practitioner. Time with Patient: Less than 30
[2017-07-21 16:58] LABS: Glucose,Whole Blood 135 mg/dL (75-99)
[2017-07-21 20:28] LABS: Glucose,Whole Blood 274 mg/dL (75-99)
[2017-07-21 20:42] LABS: Hepatitis B Core IgM Non-Reactive (Non-Reactive)
[2017-07-21] MEDS ORDERED: INSULIN ASPART 100 UNIT/ML 1 ML 10 ML VIAL SQ ONE (21:43)
[2017-07-21] MEDS: MIRTAZAPINE 15 MG TAB PO SCH (22:02)
[2017-07-21] MEDS: ATORVASTATIN 10 MG TAB PO SCH (22:02)
[2017-07-21] MEDS: FAMOTIDINE 20 MG TAB PO SCH (22:02)
[2017-07-21 22:54] VITALS: RESP 20
[2017-07-22] MEDS: LEVOTHYROXINE 75 MCG TAB PO SCH (05:38)
[2017-07-22 06:34] VITALS: BP 151/80; TEMP 97.5
[2017-07-22 07:01] LABS: Glucose,Whole Blood 122 mg/dL (75-99)
[2017-07-22] MEDS: SYMBICORT 160-4.5 MCG INHALER INHALATION SCH (07:16)
[2017-07-22] MEDS: IPRATROPIUM-ALBUTEROL 3 ML NEB INHALATION SCH ×2 (07:16→11:25)
[2017-07-22 07:27] VITALS: PULSE 84
[2017-07-22 07:34] LABS: Hepatitis A Antibody IgM Reactive (Non-Reactive)
[2017-07-22] MEDS: INSULIN ASPART 100 UNIT/ML 1 ML 10 ML VIAL SQ SCH (08:03)
[2017-07-22] MEDS: HYDROcodone/APAP 5-325MG 1 EACH TAB PO PRN (08:05)
[2017-07-22] MEDS: predniSONE 20 MG TAB PO SCH (08:06)
[2017-07-22] MEDS: metFORMIN 500 MG TAB PO SCH (08:06)
[2017-07-22] MEDS: ASPIRIN 81 MG PO SCH (08:06)
[2017-07-22] MEDS: PANTOPRAZOLE 40 MG TABLET PO SCH (08:06)
[2017-07-22] MEDS: AZITHROMYCIN 500 MG TAB PO SCH (08:06)
[2017-07-22] MEDS: BISOPROLOL-HCTZ 10-6.25 MG 1 EACH TAB PO SCH (08:07)
[2017-07-22] MEDS: MONTELUKAST 10 MG TAB PO SCH (08:07)
[2017-07-22] MEDS: DULoxetine HCL 60 MG CAPSULE.DR PO SCH (08:07)
[2017-07-22] MEDS: ENOXAPARIN 40 MG/0.4 ML SYRINGE SQ SCH (08:07)
[2017-07-22] MEDS: glipiZIDE 5 MG TAB PO SCH (08:07)
--- NOTE | 2017-07-22 08:28 | US ---
EXAMINATION TYPE: US abdomen complete DATE OF EXAM: 07/22/2017 COMPARISON: CLINICAL HISTORY: 52-year-old female with abnormal LFT. Abnormal labs. Hx of fatty liver. GB remove d x 1-2 years ago. TECHNIQUE: Multiple sonographic images of the abdomen are obtained. FINDINGS: EXAM MEASUREMENTS: Liver Length: 15.2 cm CHD: 0.9 cm Spleen: 8.7 cm Right Kidney: 9.8 x 4.6 x3.7 cm Left Kidney: 9.9 x 4.2 x 4.2 cm Pancreas: Tail obscured by bowel gas. Head and body appears echogenic. Liver: Diffusely echogenic. No focal lesion seen. Gallbladder: Surgically absent Evidence for sonographic Erazo's sign: neg CBD: Dilated but within normal limits postcholecystectomy status. Spleen: wnl Right Kidney: No hydronephrosis. Left Kidney: The optical model maker and tester indicates a Dromedary hump which is not well seen on the provided images . No hydronephrosis. Upper IVC: wnl Abd Aorta: Portions obscured by overlying bowel gas IMPRESSION: Echogenic liver suggesting at least moderate hepatic steatosis. Mild dilatation of the bile duct is w ithin normal limits postcholecystectomy status.
[2017-07-22 09:20] LABS: Basophils % (A) 0 %; Eosinophils % (A) 0 %; HGB 15.1 gm/dL (11.4-16.0); Lymphocytes # (A) 3.9 k/uL (1.0-4.8); Lymphocytes % (A) 29 %; MCH 31.3 pg (25.0-35.0); MCHC 33.5 g/dL (31.0-37.0); MCV 93.3 fL (80.0-100.0); Mean Platelet Volume 7.1; Monocytes # (A) 0.6 k/uL (0-1.0); Monocytes % (A) 4 %; Neutrophils # (A) 8.2 k/uL (1.3-7.7); Neutrophils % (A) 62 %; Platelet Count 298 k/uL (150-450); RBC 4.82 m/uL (3.80-5.40); RDW 12.8 % (11.5-15.5); WBC 13.2 k/uL (3.8-10.6)
[2017-07-22 09:46] LABS: AST 142 U/L (14-36); Albumin 3.5 g/dL (3.5-5.0); Alkaline Phosphatase 56 U/L (38-126); Anion Gap 11 mmol/L; Blood Urea Nitrogen 16 mg/dL (7-17); Calcium 8.4 mg/dL (8.4-10.2); Carbon Dioxide 28 mmol/L (22-30); Chloride 102 mmol/L (98-107); Glucose 116 mg/dL (74-99); Potassium 3.5 mmol/L (3.5-5.1); Sodium 141 mmol/L (137-145); Total Bilirubin 0.4 mg/dL (0.2-1.3); Total Protein 6.1 g/dL (6.3-8.2)
[2017-07-22 09:51] LABS: ALT 131 U/L (9-52)
--- NOTE | 2017-07-22 10:33 | P.PN ---
Subjective Progress Note Date: 07/22/17 Principal diagnosis: Acute hypoxic respiratory failure secondary to acute exacerbation of COPD and acute purulent tracheobronchitis This is a 52-year-old female with history of hypertension, fibromyalgia, hypothyroidism, smoker, known history of COPD, maintained on albuterol and Qvar for her COPD. Patient presented to the ER with 4 days history of increased shortness of breath, productive cough, wheezing, and chest tightness. No fever , no chills, no hemoptysis, no nausea no vomiting no abdominal pain, no melena, no hematemesis, no dysuria and no frequency no urgency. Chest x-ray upon evaluation in the ER was relatively unremarkable. Labs were normal. No evidence of leukocytosis, basic metabolic profile was normal. Sugar was noted to be high. Patient was admitted and this consult was initiated. On 07/21/2017 patient seen in follow-up. She is calm and comfortable, in no acute distress, currently on room air with O2 sat between 90-93%, hemodynamically stable, afebrile. Denies any worsening dyspnea, she states she is feeling somewhat better today, although lung sounds remain tight and wheezy, with diminished breath sounds bilaterally. Chest x-ray was reviewed, showed no acute cardiopulmonary process. Influenza screen was negative, she denies any chest pain, denies any chest wall tightness, denies any hemoptysis. Blood culture is negative after 24 hours. She continues on antibiotics in the form of Zithromax, nebulized bronchodilators, Symbicort, her IV steroids have been transitioned to oral. Smoking cessation was strongly encouraged, she will need outpatient follow-up in the office, continue current medical treatment. On 07/22/2017 patient seen in follow-up. Reports feeling much better, denies any dyspnea dyspnea, chest tightness, chest congestion. 2 L per nasal cannula with O2 sat 91%, afebrile, vital signs are stable. Patient is stable for discharge home today from pulmonary standpoint. Objective - Vital Signs Vital signs: Vital Signs Temp 97.5 F L 07/22/17 06:33 Pulse 84 07/22/17 07:27 Resp 20 07/22/17 06:33 BP 151/80 07/22/17 06:33 Pulse Ox 91 L 07/22/17 07:18 Intake & Output 07/21/17 07/22/17 07/22/17 18:59 06:59 18:59 Intake Total 600 Balance 600 Intake: Oral 600 Other: Voiding Method Toilet # Voids 3 1 - Exam Physical Exam: Revealed a 52-year-old female in no distress. Head: Atraumatic, normocephalic. HEENT: PERRLA, EOMI. [Neck is supple.] [No neck masses.] [No thyromegaly.] [No JVD.] Moist mucous membranes. Chest: [Diffuse minimal wheezes noted bilaterally. Symmetrical chest expansion. No chest wall tenderness.] Cardiac Exam: [Normal S1 and S2, no S3 gallop, no murmur.] Abdomen: [Soft, nontender, no megaly, no rebound, no guarding, normal bowel sounds.] Extremities: [No clubbing, no edema, no cyanosis.] Neurological Exam: [No focal neurologic deficit.] Psychiatric: Normal mood affect and mental status examination. Lymphatics: No lymphadenopathy. - Labs CBC & Chem 7: 07/22/17 08:21 07/22/17 08:21 Labs: Abnormal Lab Results - Last 24 Hours (Table) 07/20/17 07/21/17 07/21/17 Range/Units 11:09 11:23 16:55 WBC (3.8-10.6) k/uL Neutrophils # (1.3-7.7) k/uL Creatinine (0.52-1.04) mg/dL Glucose (74-99) mg/dL POC Glucose (mg/dL) 239 H 135 H (75-99) mg/dL AST (14-36) U/L ALT (9-52) U/L Total Protein (6.3-8.2) g/dL Hepatitis A IgM Ab Reactive H (Non-Reactive) 07/21/17 07/22/17 07/22/17 Range/Units 20:27 06:59 08:21 WBC 13.2 H (3.8-10.6) k/uL Neutrophils # 8.2 H (1.3-7.7) k/uL Creatinine (0.52-1.04) mg/dL Glucose (74-99) mg/dL POC Glucose (mg/dL) 274 H 122 H (75-99) mg/dL AST (14-36) U/L ALT (9-52) U/L Total Protein (6.3-8.2) g/dL Hepatitis A IgM Ab (Non-Reactive) 07/22/17 Range/Units 08:21 WBC (3.8-10.6) k/uL Neutrophils # (1.3-7.7) k/uL Creatinine 0.50 L (0.52-1.04) mg/dL Glucose 116 H (74-99) mg/dL POC Glucose (mg/dL) (75-99) mg/dL AST 142 H (14-36) U/L ALT 131 H (9-52) U/L Total Protein 6.1 L (6.3-8.2) g/dL Hepatitis A IgM Ab (Non-Reactive) Microbiology - Last 24 Hours (Table) 07/19/17 17:40 Blood Culture - Preliminary Blood No Growth after 48 hours Assessment and Plan Plan: Assessment: 1 acute hypoxic respiratory failure secondary to acute exacerbation of COPD 2 acute purulent tracheobronchitis. 3 tobacco dependence syndrome. 4 benign essential hypertension 5 fibromyalgia 6 chronically elevated liver enzymes, will need to be further investigated on outpatient basis. 7 history of anxiety and depression. 8 suspect uncontrolled diabetes with hyperglycemia, worsened with steroids use. Plan: Patient remains stable from pulmonary standpoint, no acute complaints, her breathing is improving, she is tolerating ambulation, she is on room air, no fever, no chills, no chest wall tenderness. Patient will need follow-up with active Edd in the office in 7-10 days. I performed a history & physical examination of the patient and discussed their management with my nurse practitioner, Aliisa Coombs. I reviewed the nurse practitioner's note and agree with the documented findings and plan of care. Lung sounds are diminished breath sounds, with scattered wheezes. The findings and the impression was discussed with the patient. I attest to the documentation by the nurse practitioner. Time with Patient: Less than 30
--- NOTE | 2017-07-22 15:25 | P.DS ---
Providers Date of admission: 07/19/17 21:01 Expected date of discharge: 07/22/17 Attending physician: Antonette Babb Consults: 07/19/17 21:06 Consult Physician Routine Consulting Provider: Rei Vogel Consult Reason/Comments: COPD exacerbation Do you want consulting provider notified?: Yes Primary care physician: [facility] Course: This is 52 years old female who presented to the emergency department with worsening shortness breath. Patient reported starting symptoms on Friday where she was having upper respiratory symptoms including runny [place] runny eyes and felt to be related to her ALLERGIES level patient continue to use her breathing machine without any improvement and the day of yesterday she presented to the emergency with worsening nonproductive cough and worsening shortness breath where patient was using accessory muscles and able to breathe when walking and has to take a break every time she walked inside her house. Patient reported no fever no chills no chest pain or lightheadedness. She and was advised by her primary care physician to quit smoking and went down to 10 cigarettes per day with the nicotine patches metastases back at 1 pack per day as she feels frustrated and cannot quit smoking patient denied alcohol or drug abuse. Patient was worked out with GI specialist outpatient for her elevated liver enzymes are as it runs in her family and both patient and her son has seen GI specialist for the same reason and it has been monitored for a long time 07/21: Patient is feeling much better specially with the steroid dose did very well and responded to azithromycin so far, was seen pulmonary and agree with the current treatment. We'll switch her Solu-Medrol to oral prednisone if she is doing well by tomorrow should be able to let her go home 07/22: Patient has been cleared for discharge by Dr. Park. Patient will be given prednisone taper for home and continue on a Zithromax for 5 more days. At the time of discharge, liver function tests remain elevated with AST 142 and ALT 131. Abdominal x-ray showed moderate hepatic steatosis. Mild dilation of the bile duct is within normal limits. Hepatitis a IgM antibody was reactive. Patient did receive hepatitis B vaccine. Patient's breathing status is improved and she will be discharged home today in stable condition. Discharge diagnoses: 1. Dyspnea: Secondary to COPD exacerbation and severe tracheal bronchitis 2. COPD with acute exacerbation 3. Recent diagnosis of onset emphysema with moderate COPD level on recent pulmonary function test 4. Ongoing tobacco abuse: Smoking cessation was addressed 5. Acute tracheobronchitis 6. Uncontrolled diabetes with hyperglycemia related to steroids use. 7. Generalized anxiety disorder and recurrent depression 8. Hypertension 9. Hyperlipidemia 10. Elevated liver enzymes, chronic, 11. Fibromyalgia, stable Discharge plan: Home Impression and plan of care have been directed as dictated by the signing physician. Orquidea Steibnerg nurse practitioner acting as scribe for signing physician. Patient Condition at Discharge: Good Plan - Discharge Summary Discharge Rx Participant: Yes New Discharge Prescriptions: New Azithromycin [Zithromax] 500 mg PO DAILY #5 tab predniSONE 0 mg PO DIRECTED #40 tab Continue Fluticasone Nasal [place] [Flonase Nasal [place]] 1 spray EA NOSTRIL DAILY PRN PRN Reason: Allergy Symptoms Butalb/APAP/Caff 50-325-40Mg [Fioricet 50-325-40] 1 tab PO Q8H PRN PRN Reason: Headache Albuterol Inhaler [Ventolin Hfa Inhaler] 2 puff INHALATION RT-Q6H PRN PRN Reason: Shortness Of Breath HYDROcodone/APAP 5-325MG [[place] 5-325] 1 tab PO TID PRN PRN Reason: Pain Simvastatin [Zocor] 20 mg PO HS Montelukast [Singulair] 10 mg PO DAILY Levothyroxine Sodium [Synthroid] 75 mcg PO DAILY DULoxetine HCL [Cymbalta] 60 mg PO DAILY Multivitamins, Thera [Multivitamin (formulary)] 1 tab PO DAILY Aspirin [Adult Low Dose Aspirin EC] 81 mg PO DAILY Mirtazapine [Remeron] 15 mg PO HS Cyclobenzaprine [Flexeril] 10 mg PO BID PRN PRN Reason: Muscle Spasm Famotidine [Pepcid] 20 mg PO HS Bisoprolol-Hctz 10-6.25 mg [Ziac 10-6.25 MG] 1 tab PO DAILY Beclomethasone Dipropionate [Qvar Redihaler] 2 puff INHALATION RT-BID metFORMIN HCL 1,000 mg PO BID Loratadine [Claritin] 10 mg PO DAILY PRN PRN Reason: Allergy Symptoms glipiZIDE XL [Glucotrol XL] 5 mg PO DAILY Discharge Medication List Albuterol Inhaler [Ventolin Hfa Inhaler] 2 puff INHALATION RT-Q6H PRN 09/21/16 [ History] Aspirin [Adult Low Dose Aspirin EC] 81 mg PO DAILY 11/22/15 [History] Butalb/APAP/Caff 50-325-40Mg [Fioricet 50-325-40] 1 tab PO Q8H PRN 11/22/15 [ History] DULoxetine HCL [Cymbalta] 60 mg PO DAILY 11/22/15 [History] Fluticasone Nasal [place] [Flonase Nasal [place]] 1 spray EA NOSTRIL DAILY PRN 11/21 [History] HYDROcodone/APAP 5-325MG [[place] 5-325] 1 tab PO TID PRN 11/22/15 [History] Levothyroxine Sodium [Synthroid] 75 mcg PO DAILY 11/22/15 [History] Montelukast [Singulair] 10 mg PO DAILY 11/22/15 [History] Multivitamins, Thera [Multivitamin (formulary)] 1 tab PO DAILY 11/22/15 [History ] Simvastatin [Zocor] 20 mg PO HS 11/22/15 [History] Beclomethasone Dipropionate [Qvar Redihaler] 2 puff INHALATION RT-BID 07/20/17 [ History] Bisoprolol-Hctz 10-6.25 mg [[place] 10-6.25 MG] 1 tab PO DAILY 07/20/17 [History] Cyclobenzaprine [Flexeril] 10 mg PO BID PRN 07/20/17 [History] Famotidine [Pepcid] 20 mg PO HS 07/20/17 [History] Loratadine [Claritin] 10 mg PO DAILY PRN 07/20/17 [History] Mirtazapine [Remeron] 15 mg PO HS 07/20/17 [History] glipiZIDE XL [Glucotrol XL] 5 mg PO DAILY 07/20/17 [History] metFORMIN HCL 1,000 mg PO BID 07/20/17 [History] Azithromycin [Zithromax] 500 mg PO DAILY #5 tab 07/22/17 [Rx] predniSONE 0 mg PO DIRECTED #40 tab 07/22/17 [Rx] Follow up Appointment(s)/Referral(s): Rei Vogel MD [STAFF PHYSICIAN] - 07/31/17 1:30 pm Hayder Mays MD [Primary Care Provider] - 07/29/17 1:30 pm Patient Instructions/Handouts: Prednisone (By mouth), Azithromycin (By mouth), COPD (Chronic Obstructive Pulmonary Disease) (DC), Hypoxia (GEN) Discharge Disposition: HOME SELF-CARE
--- NOTE | 2017-07-26 09:56 | CDI ---
Last Revision, January 2017 Documentation Clarification Form Date: 07/26/17 From: Griselda Esquivel Phone: If you have a question regarding this query, please contact Valencia Addison at [phone] between 8am and 5pm. Admit Date: 07/19/2017 9:01:00 PM Patient Name: Mae Villasenor Visit Number: [id number] Discharge Date: 07/22/17 ATTENTION: The Clinical Documentation Specialists (CDI) and [facility] Coding Staff appreciate your assistance in clarifying documentation. Please respond to the clarification below the line at the bottom and electronically sign. The CDI & [facility] Coding staff will review the response and follow-up if needed. Please note: Queries are made part of the Legal Health Record. If you have any questions, please contact the author of this message via ITS. Dr. Uriah Dinh Sepsis is documented in the ED note. History/Risk Factors: Patient was admitted for COPD exacerbation and acute tracheobronchitis. Clinical Indicators: Fever and chills WBC/Left Shift: 7.7/5.3 on admission Lactic acid: 1.7 Blood cultures: No growth after 144 hours Vitals signs on admission: T. 101.8, P. 118, R. 20, BP 122/86 Treatment: Antibiotics: IV Levofloxacin, PO Zithromax IV Bolus: Sodium Chloride 1,000 mls @ 999 mls/hr In your professional opinion, please clarify if these findings signify one of the following conditions? Sepsis ruled out SIRS, without underlying infectious process Sepsis Severe Sepsis Septic Shock Other, please specify Unable to determine Identify the (suspected) organism Link or clarify if there is associated (due to/with): Organ failure Shock No Sepsis MTDD
== END 2017-07-22 11:30 | disposition home or self-care (01) | DRG 190 ==
LOC: EC 16:38 → 5MS5E 21:01
PROVIDERS: ADMIT Internal Medicine; ATTEND Internal Medicine
DX: J44.0 Chronic obstructive pulmonary disease with (acute) lower respiratory infection (principal); J96.01 Acute respiratory failure with hypoxia; F33.9 Major depressive disorder, recurrent, unspecified; E03.9 Hypothyroidism, unspecified; J44.1 Chronic obstructive pulmonary disease with (acute) exacerbation; E11.65 Type 2 diabetes mellitus with hyperglycemia; E78.5 Hyperlipidemia, unspecified; F17.210 Nicotine dependence, cigarettes, uncomplicated; F41.1 Generalized anxiety disorder; I10 Essential (primary) hypertension; J20.9 Acute bronchitis, unspecified; K76.0 Fatty (change of) liver, not elsewhere classified; M79.7 Fibromyalgia; R74.8 Abnormal levels of other serum enzymes; Z79.84 Long term (current) use of oral hypoglycemic drugs; Z79.82 Long term (current) use of aspirin; Z79.899 Other long term (current) drug therapy; Z79.890 Hormone replacement therapy; Z88.5 Allergy status to narcotic agent; Z88.8 Allergy status to other drugs, medicaments and biological substances; Z71.6 Tobacco abuse counseling
CPT/HCPCS: 36415; 71046; 76700; 80053; 80074; 82550; 82553; 83605; 83880; 84484; 85025; 87040; 87502; 93005; 94640; 94760; 96361; 96365; 96375; 99284

== ENCOUNTER → 2019-02-12 | Outpatient (CLI) | payer OTHER ==
[2019-02-12 18:31] LABS: ALT 60 U/L (8-44); AST 54 U/L (13-35); African American GFR (CKD) 118.9 (60.0-200.0); Alkaline Phosphatase 82 U/L (41-126); BUN/Creat Ratio 18.33 Ratio (12.00-20.00); Bilirubin, Conjugated <0.20 mg/dL (0.20-0.40); Calcium 9.4 mg/dL (8.7-10.3); Carbon Dioxide 25.4 mmol/L (21.6-31.8); Chloride 104 mmol/L (96-109); Globulin 2.1 g/dL (1.6-3.3); Glucose 168 mg/dL (70-110); Non-African American GFR(CKD) 102.6 (60.0-200.0); Potassium 4.3 mmol/L (3.5-5.5); Sodium 139 mmol/L (135-145); Total Bilirubin 0.6 mg/dL (0.2-1.2); Total Protein 6.5 g/dL (6.2-8.2)
== END | disposition home or self-care (01) ==
LOC: LABWHC1 10:27
PROVIDERS: ATTEND Physician Assistant
DX: E03.9 Hypothyroidism, unspecified (principal); E11.9 Type 2 diabetes mellitus without complications; R74.8 Abnormal levels of other serum enzymes
CPT/HCPCS: 36415; 80053; 82248; 83036; 84443

== ENCOUNTER → 2021-06-13 | Outpatient (CLI) | payer OTHER ==
--- NOTE | 2021-06-14 04:03 | MR ---
EXAMINATION TYPE: MR cervical spine wo con DATE OF EXAM: 06/13/2021 COMPARISON: 10/28/2016 HISTORY: Dizziness, pain x 6 months Multiplanar multi echo imaging of the cervical spine without contrast. The cervical vertebra have normal alignment. There is mild narrowing at the C6-7 level. There is post erior concentric disc herniation at C6-7 into the spinal canal. Spinal canal is narrowed to 7.5 mm. C ervical cord shows no definite edema. The brainstem is intact. There is no paraspinal mass. Posterior elements are intact. The other disc spaces of the cervical spine appear intact. IMPRESSION: Degenerative disc space narrowing and posterior disc herniation at C6-7 which has progressed slightly compared to the old exam. Disc herniation slightly increased. No fracture.
== END | disposition home or self-care (01) ==
LOC: RADMRIMAIN 11:08
PROVIDERS: ATTEND Orthopaedic Surgery
DX: M50.223 Other cervical disc displacement at C6-C7 level (principal); M50.30 Other cervical disc degeneration, unspecified cervical region
CPT/HCPCS: 72141

== ENCOUNTER 2021-06-30 18:41 | Inpatient (IN) | payer OTHER ==
--- NOTE | 2021-06-30 19:27 | ED ---
General Adult HPI - General Source: patient, family Mode of arrival: ambulatory Limitations: no limitations <Cornell Isabel - Last Filed: 06/30/21 20:42> <Kiarra Mercedes - Last Filed: 07/01/21 23:56> - General Chief complaint: Arrhythmia/Palpitations Stated complaint: Palpitations Time Seen by Provider: 06/30/21 18:59 - History of Present Illness Initial comments: Patient is a pleasant 56-year-old female presenting to the emergency department with palpitations. Patient had symptoms over the past week, worse today. Patient feels her heart is doing funny things. Patient has associated lightheadedness. Patient checks her heart rate and has been down as low as the 40s or 50s. Sometimes this lasts a couple minutes, today one time that lasted almost 20 minutes. Patient may have had similar episodes once remotely however is unclear. No chest pain. Patient currently symptom-free. (Cornell Isabel) - Related Data Home Medications Medication Instructions Recorded Confirmed Aspirin [Adult Low Dose Aspirin EC] 81 mg PO HS 11/22/15 07/01/21 Butalb/APAP/Caff 50-325-40Mg 1 tab PO TID PRN 11/22/15 07/01/21 [Fioricet 50-325-40] DULoxetine HCL [Cymbalta] 60 mg PO HS 11/22/15 07/01/21 Fluticasone Nasal [place] [Flonase 1 - 2 spr EA NOSTRIL DAILY 11/22/15 07/01/21 Nasal [place]] HYDROcodone/APAP 5-325MG [[place] 1 tab PO TID 11/22/15 07/01/21 5-325] Levothyroxine Sodium [Synthroid] 75 mcg PO DAILY 11/22/15 07/01/21 Montelukast [Singulair] 10 mg PO DAILY 11/22/15 07/01/21 Multivitamins, Thera [Multivitamin 1 tab PO DAILY 11/22/15 07/01/21 (formulary)] Bisoprolol-Hctz 10-6.25 mg [Ziac 1 tab PO DAILY 07/20/17 07/01/21 10-6.25 MG] Cyclobenzaprine [Flexeril] 10 mg PO BID PRN 07/20/17 07/01/21 Loratadine [Claritin] 10 mg PO DAILY 07/20/17 07/01/21 Mirtazapine [Remeron] 15 mg PO HS 07/20/17 07/01/21 metFORMIN HCL [Glucophage] 1,000 mg PO BID 07/20/17 07/01/21 Albuterol Sulfate [Albuterol 2 puff INHALATION RT-QID PRN 07/01/21 07/01/21 Sulfate Hfa] Atorvastatin Calcium [Lipitor] 10 mg PO HS 07/01/21 07/01/21 Diclofenac Sodium Gel [Voltaren 2 gm TOPICAL QID PRN 07/01/21 07/01/21 Gel] Escitalopram [Lexapro] 5 mg PO DAILY 07/01/21 07/01/21 Ibuprofen [Motrin] 800 mg PO BID PRN 07/01/21 07/01/21 Omeprazole 20 mg PO DAILY 07/01/21 07/01/21 glipiZIDE [Glucotrol] 10 mg PO BID 07/01/21 07/01/21 Allergies Allergy/AdvReac Type Severity Reaction Status Date / Time morphine Allergy Rash/Hives/Shortness Verified 07/01/21 12:48 of breath pregabalin [From Lyrica] Allergy Rash/Hives/Skin Verified 07/01/21 12:48 peels Review of Systems ROS Other: All systems not noted in ROS Statement are negative. Constitutional: Denies: fever Eyes: Denies: eye pain ENT: Denies: ear pain Respiratory: Denies: cough Cardiovascular: Reports: as per HPI, palpitations Endocrine: Denies: fatigue Gastrointestinal: Denies: abdominal pain Genitourinary: Denies: dysuria Musculoskeletal: Denies: back pain Skin: Denies: rash Neurological: Denies: weakness <Cornell Isabel - Last Filed: 06/30/21 20:42> ROS Other: All systems not noted in ROS Statement are negative. <Kiarra Mercedes - Last Filed: 07/01/21 23:56> ROS Statement: Those systems with pertinent positive or pertinent negative responses have been documented in the HPI. Past Medical History Past Medical History: Diabetes Mellitus, Fibromyalgia, Hypertension, Thyroid Disorder Additional Past Medical History / Comment(s): back pain History of Any Multi-Drug Resistant Organisms: None Reported Past Surgical History: Section, Cholecystectomy, Tonsillectomy Additional Past Surgical History / Comment(s): tumor removal leep procedure Past Anesthesia/Blood Transfusion Reactions: No Reported Reaction Past Psychological History: Depression Smoking Status: Current every day smoker Past Alcohol Use History: None Reported Past Drug Use History: None Reported - Past Family History Mother Family Medical History: Cancer, COPD, Diabetes Mellitus, GERD/Reflux, Hypertension, Osteoarthritis (OA), Sleep Apnea/CPAP/BIPAP Sister(s) Additional Family Medical History / Comment(s): elevated liver enzymes <Cornell Isabel Last Filed: 06/30/21 20:42> General Exam Limitations: no limitations General appearance: alert, in no apparent distress Head exam: Present: normocephalic Eye exam: Present: normal appearance Neck exam: Present: normal inspection Respiratory exam: Present: normal lung sounds bilaterally Cardiovascular Exam: Present: regular rate, normal rhythm, normal heart sounds Expanded Peripheral pulses: 2+: Radial (R), Radial (L), Dorsalis Pedis (R), Dorsalis Pedis (L) GI/Abdominal exam: Present: soft. Absent: tenderness Extremities exam: Present: normal inspection. Absent: pedal edema, calf tenderness Neurological exam: Present: alert Psychiatric exam: Present: normal affect, normal mood Skin exam: Present: normal color <Cornell Isabel Last Filed: 06/30/21 20:42> Course Vital Signs 06/30/21 06/30/21 06/30/21 18:42 19:54 21:43 Temperature 98.6 F Pulse Rate 51 L 92 84 Respiratory 20 18 20 Rate Blood Pressure 157/112 143/90 134/90 O2 Sat by Pulse 96 95 97 Oximetry 06/30/21 23:44 Temperature Pulse Rate 66 Respiratory 18 Rate Blood Pressure 113/63 O2 Sat by Pulse 97 Oximetry EKG Findings - EKG Comments: EKG Findings:: Sinus rhythm 78. UT 148. QRS 81. QT 34. QTC 418. Normal axis. Normal QRS. Nonspecific ST-T. <Cornell Isabel Last Filed: 06/30/21 20:42> - EKG Comments: EKG Findings:: Repeat EKG done at 2231 demonstrates a sinus rhythm with a rate of 76. UT interval 142. QRS 84. QTC of 415. No acute ST segment elevations or depressions <Kiarra Mercedes - Last Filed: 07/01/21 23:56> Medical Decision Making - Lab Data Result diagrams: 06/30/21 19:41 <Cornell Isabel - Last Filed: 06/30/21 20:42> - Lab Data Result diagrams: 07/01/21 06:03 07/01/21 06:03 <Kiarra Mercedes - Last Filed: 07/01/21 23:56> - Medical Decision Making Case is endorsed Dr. Richards at shift change for final disposition. CT and labs pending. (Cornell Isabel) I was called to evaluate the patient. Nurse had noticed that the patient's began having a heart rate of 160. EKG was attempted however demonstrates normal sinus rhythm. I reviewed the patient's tele monitor which does demonstrate that she went into A. fib with RVR. Because of this the patient is given 1 g of magnesium for her low mag level. I will anticoagulate the patient. Recommended admission for cardiac monitoring and cardiac consultation. Spoke with Dr. Dinh who agreed to admit the patient. Patient did agree to the treatment plan and she is awaiting a bed on the floor (Kiarra Mercedes) - Lab Data Lab Results 06/30/21 06/30/21 06/30/21 Range/Units 19:41 19:41 20:45 WBC 11.2 H (3.8-10.6) k/uL RBC 4.75 (3.80-5.40) m/uL Hgb 15.2 (11.4-16.0) gm/dL Hct 45.0 (34.0-46.0) % MCV 94.6 (80.0-100.0) fL MCH 32.0 (25.0-35.0) pg MCHC 33.8 (31.0-37.0) g/dL RDW 13.7 (11.5-15.5) % Plt Count 372 (150-450) k/uL MPV 7.2 Neutrophils % 49 % Lymphocytes % 43 % Monocytes % 4 % Eosinophils % 2 % Basophils % 1 % Neutrophils # 5.4 (1.3-7.7) k/uL Lymphocytes # 4.8 (1.0-4.8) k/uL Monocytes # 0.4 (0-1.0) k/uL Eosinophils # 0.2 (0-0.7) k/uL Basophils # 0.1 (0-0.2) k/uL PT 10.2 (9.0-12.0) sec INR 0.9 (<1.2) APTT 25.0 (22.0-30.0) sec D-Dimer 1.00 H (<0.60) mg/L FEU Sodium (137-145) mmol/L Potassium (3.5-5.1) mmol/L Chloride (98-107) mmol/L Carbon Dioxide (22-30) mmol/L Anion Gap mmol/L BUN (7-17) mg/dL Creatinine (0.52-1.04) mg/dL Est GFR (CKD-EPI)AfAm (>60 ml/min/1.73 sqM) Est GFR (CKD-EPI)NonAf (>60 ml/min/1.73 sqM) Glucose (74-99) mg/dL Calcium (8.4-10.2) mg/dL Magnesium (1.6-2.3) mg/dL Total Bilirubin (0.2-1.3) mg/dL AST (14-36) U/L ALT (4-34) U/L Alkaline Phosphatase (38-126) U/L Troponin I <0.012 (0.000-0.034) ng/mL Total Protein (6.3-8.2) g/dL Albumin (3.5-5.0) g/dL TSH (0.465-4.680) mIU/L Free T4 (0.78-2.19) ng/dL 06/30/21 Range/Units 20:45 WBC (3.8-10.6) k/uL RBC (3.80-5.40) m/uL Hgb (11.4-16.0) gm/dL Hct (34.0-46.0) % MCV (80.0-100.0) fL MCH (25.0-35.0) pg MCHC (31.0-37.0) g/dL RDW (11.5-15.5) % Plt Count (150-450) k/uL MPV Neutrophils % % Lymphocytes % % Monocytes % % Eosinophils % % Basophils % % Neutrophils # (1.3-7.7) k/uL Lymphocytes # (1.0-4.8) k/uL Monocytes # (0-1.0) k/uL Eosinophils # (0-0.7) k/uL Basophils # (0-0.2) k/uL PT (9.0-12.0) sec INR (<1.2) APTT (22.0-30.0) sec D-Dimer (<0.60) mg/L FEU Sodium 138 (137-145) mmol/L Potassium 3.5 (3.5-5.1) mmol/L Chloride 104 (98-107) mmol/L Carbon Dioxide 27 (22-30) mmol/L Anion Gap 7 mmol/L BUN 12 (7-17) mg/dL Creatinine 0.48 L (0.52-1.04) mg/dL Est GFR (CKD-EPI)AfAm >90 (>60 ml/min/1.73 sqM) Est GFR (CKD-EPI)NonAf >90 (>60 ml/min/1.73 sqM) Glucose 157 H (74-99) mg/dL Calcium 9.1 (8.4-10.2) mg/dL Magnesium 1.7 (1.6-2.3) mg/dL Total Bilirubin 0.6 (0.2-1.3) mg/dL AST 32 (14-36) U/L ALT 24 (4-34) U/L Alkaline Phosphatase 58 (38-126) U/L Troponin I (0.000-0.034) ng/mL Total Protein 6.6 (6.3-8.2) g/dL Albumin 3.8 (3.5-5.0) g/dL TSH 1.190 (0.465-4.680) mIU/L Free T4 1.70 (0.78-2.19) ng/dL Critical Care Time Critical Care Time: Yes <Kiarra Mercedes - Last Filed: 07/01/21 23:56> Critical Care Time: 32 minutes (Kiarra Mercedes) Disposition <Cornell Isabel - Last Filed: 06/30/21 20:42> Is patient prescribed a controlled substance at d/c from ED?: No Decision to Admit Reason: Admit from EC Decision Date: 06/30/21 Decision Time: 22:54 <Kiarra Mercedes - Last Filed: 07/01/21 23:56> Clinical Impression: Atrial fibrillation with RVR, Palpitations Disposition: ADMITTED IP TO THIS HOSP Condition: Stable
[2021-06-30 19:54] LABS: Basophils # (A) 0.1 k/uL (0-0.2); Basophils % (A) 1 %; Eosinophils # (A) 0.2 k/uL (0-0.7); Eosinophils % (A) 2 %; HGB 15.2 gm/dL (11.4-16.0); Lymphocytes # (A) 4.8 k/uL (1.0-4.8); Lymphocytes % (A) 43 %; MCHC 33.8 g/dL (31.0-37.0); MCV 94.6 fL (80.0-100.0); Mean Platelet Volume 7.2; Monocytes # (A) 0.4 k/uL (0-1.0); Monocytes % (A) 4 %; Neutrophils # (A) 5.4 k/uL (1.3-7.7); Neutrophils % (A) 49 %; Platelet Count 372 k/uL (150-450); RBC 4.75 m/uL (3.80-5.40); RDW 13.7 % (11.5-15.5); WBC 11.2 k/uL (3.8-10.6)
[2021-06-30 20:06] LABS: INR 0.9 (<1.2); Prothrombin Time 10.2 sec (9.0-12.0)
[2021-06-30 21:21] LABS: ALT 24 U/L (4-34); AST 32 U/L (14-36); African American GFR (CKD) >90 (>60 ml/min/1.73 sqM); Albumin 3.8 g/dL (3.5-5.0); Alkaline Phosphatase 58 U/L (38-126); Anion Gap 7 mmol/L; Blood Urea Nitrogen 12 mg/dL (7-17); Calcium 9.1 mg/dL (8.4-10.2); Carbon Dioxide 27 mmol/L (22-30); Chloride 104 mmol/L (98-107); Glucose 157 mg/dL (74-99); Magnesium 1.7 mg/dL (1.6-2.3); Non-African American GFR(CKD) >90 (>60 ml/min/1.73 sqM); Potassium 3.5 mmol/L (3.5-5.1); Sodium 138 mmol/L (137-145); Total Bilirubin 0.6 mg/dL (0.2-1.3); Total Protein 6.6 g/dL (6.3-8.2)
--- NOTE | 2021-06-30 22:14 | CT ---
EXAMINATION TYPE: CT angio chest DATE OF EXAM: 06/30/2021 COMPARISON: None HISTORY: palpitations, a fib, elevated d dimer CT DLP: 318.2 mGycm Automated exposure control for dose reduction was used. CONTRAST: Performed with IV Contrast, patient injected with 80 mL of Isovue 370. There are Three-D postprocessed images. There is no pleural effusion. Heart size is normal. No pericardial effusion. Lungs are clear of conso lidation. There is no evidence of a pulmonary mass. There is no mediastinal adenopathy. There are no hilar masses. Thoracic aorta measures 3.9 cm involvi ng the ascending aorta. Descending aorta appears normal. There is no evidence of filling defect in th e pulmonary arteries. The thoracic spine is intact. No compression fracture. No paraspinal mass. Upper abdominal soft tissu es appear intact. IMPRESSION: No evidence of pulmonary embolism. There is mild aneurysm of the ascending aorta.
[2021-06-30] MEDS ORDERED: MAGNESIUM SULFATE-D5W PMX 1 GM in DEXTROSE/WATER 1 100ML.BAG IVPB ONE (22:54)
[2021-06-30] MEDS ORDERED: NALOXONE 0.4 MG/ML 1 ML VIAL IV PRN (22:54)
[2021-06-30] MEDS ORDERED: HEPARIN SODIUM 1,000 UN/ML (10ML VL) IV PRN (22:56)
[2021-06-30] MEDS ORDERED: HEPARIN SOD,PORK IN 0.45% NACL 25,000 UNIT in 0.45% NACL 1 250ML.BAG IV SCH (23:00)
[2021-07-01 06:22] LABS: Basophils # (A) 0.1 k/uL (0-0.2); Basophils % (A) 1 %; Eosinophils # (A) 0.2 k/uL (0-0.7); Eosinophils % (A) 2 %; HCT 44.9 % (34.0-46.0); HGB 14.8 gm/dL (11.4-16.0); Lymphocytes % (A) 36 %; MCH 31.2 pg (25.0-35.0); MCHC 32.9 g/dL (31.0-37.0); Mean Platelet Volume 6.7; Monocytes # (A) 0.5 k/uL (0-1.0); Monocytes % (A) 4 %; Neutrophils # (A) 6.3 k/uL (1.3-7.7); Neutrophils % (A) 56 %; Platelet Count 342 k/uL (150-450); RBC 4.73 m/uL (3.80-5.40); RDW 13.5 % (11.5-15.5); WBC 11.2 k/uL (3.8-10.6)
[2021-07-01 06:49] LABS: African American GFR (CKD) >90 (>60 ml/min/1.73 sqM); Anion Gap 5 mmol/L; Blood Urea Nitrogen 10 mg/dL (7-17); Calcium 8.8 mg/dL (8.4-10.2); Carbon Dioxide 28 mmol/L (22-30); Chloride 106 mmol/L (98-107); Glucose 144 mg/dL (74-99); Non-African American GFR(CKD) >90 (>60 ml/min/1.73 sqM); Potassium 3.7 mmol/L (3.5-5.1); Sodium 139 mmol/L (137-145)
[2021-07-01 06:59] LABS: Glucose,Whole Blood 162 mg/dL (75-99)
[2021-07-01] MEDS ORDERED: LORATADINE 10 MG TAB PO PRN (10:00)
[2021-07-01] MEDS ORDERED: CYCLOBENZAPRINE 10 MG TAB PO PRN (10:00)
[2021-07-01] MEDS ORDERED: ALBUTEROL NEBULIZED 2.5 MG/3 ML INHALATION PRN (10:00)
[2021-07-01] MEDS ORDERED: HYDROcodone/APAP 5-325MG 1 EACH TAB PO PRN (10:00)
[2021-07-01] MEDS ORDERED: FLUTICASONE 50MCG/SPRAY NASAL 16GM EA NOSTRIL PRN (10:00)
[2021-07-01] MEDS ORDERED: BUTALB/APAP/CAFF 50-325-40MG TAB PO PRN (10:00)
[2021-07-01] MEDS: PANTOPRAZOLE 40 MG TABLET PO SCH (10:51)
[2021-07-01] MEDS: glipiZIDE 10 MG TAB PO SCH ×2 (10:53→17:26)
--- NOTE | 2021-07-01 11:10 | P.CRDCN ---
History of Present Illness History of present illness: 56-year-old lady comes to the emergency room complaining of palpitations. Her history is significant for hypertension diabetes and dyslipidemia. She has had on and off episodes of palpitations which she mostly felt has slow heart rates. When she arrived in the emergency room she was in sinus rhythm and apparently has had self-limited runs of atrial fibrillation for which she is started on heparin and admitted to hospital. Since being admitted she has had short runs of atrial fibrillation. She is otherwise very stable and is currently free of cardiac symptoms. Cardiac enzymes have been negative. EKG doesn't reveal ischemic changes. Patient has paroxysmal atrial fibrillation and multiple risk factors for stroke including diabetes and hypertension. I was started on Eliquis 5 mg twice a day. She will need an echo and stress tests which can be done as outpatient. She has seen Dr. Mathis in the office will set it up to him.Constitutional: Denies chills. Denies fever. Eyes: Denies blurred vision. Denies pain. Ears, nose, mouth and throat: Denies headache. Denies sore throat. Cardiovascular: Denies chest pain. Denies shortness of breath. Significant for palpitations Respiratory: Denies cough. Gastrointestinal: Denies abdominal pain. Denies diarrhea. Denies nausea. Denies vomiting. Musculoskeletal: Denies myalgias. Integumentary: Denies pruritus. Denies rash. Neurological: Denies numbness. Denies weakness. Psychiatric: Denies anxiety. Denies depression. Endocrine: Denies fatigue. Denies weight change. Genitourinary: Denies burning, hematuria, frequency of urination. Hematological: No anemia or excess bleeding. General: The patient is awake and alert, in no distress, and does not appear acutely ill. Skin: Skin is warm and dry and no rashes or lesions are noted. Eye: Pupils are equal, round and reactive to light, extra-ocular movements are intact; there is normal conjunctiva bilaterally. Ears, nose, mouth and throat: There are moist mucous membranes and no oral lesions. Neck: The neck is supple, there is no tenderness or JVD. Cardiovascular: There is a regular rate and rhythm. No murmur, rub or gallop is appreciated. Respiratory: Lungs are clear to auscultation, respirations are non-labored, breath sounds are equal. Gastrointestinal: Soft, non-distended, non-tender abdomen without masses or organomegaly noted. There is no rebound or guarding present. Bowel sounds are unremarkable. Back: There is no tenderness to palpation in the midline. There is no obvious deformity. Musculoskeletal: Normal ROM, no tenderness, There is no pedal edema. There is no calf tenderness or swelling. Extremities: No edema. Vascular: Femoral pulse is normal. Posterior tibial pulses are normal .Dorsalis pedis is palpable. Neurological: CN II-XII intact. There are no obvious motor or sensory deficits. Speech is normal. Psychiatric: Cooperative, appropriate mood & affect, normal judgment. Assessment and plan: Paroxysmal atrial fibrillation Hypertension Saa-[id number] diabetes We'll start the patient on Eliquis stop the IV heparin Further workup as outpatient patient is very eager to go home Past Medical History Past Medical History: Diabetes Mellitus, Fibromyalgia, Hypertension, Thyroid Disorder Additional Past Medical History / Comment(s): back pain History of Any Multi-Drug Resistant Organisms: None Reported Past Surgical History: Section, Cholecystectomy, Hysterectomy, Tonsillectomy Additional Past Surgical History / Comment(s): tumor removal leep procedure, Past Anesthesia/Blood Transfusion Reactions: No Reported Reaction Past Psychological History: Depression Smoking Status: Current every day smoker, Smoker, current status unknown Past Alcohol Use History: None Reported Past Drug Use History: None Reported - Past Family History Mother Family Medical History: Cancer, COPD, Diabetes Mellitus, GERD/Reflux, Hypertension, Osteoarthritis (OA), Sleep Apnea/CPAP/BIPAP Sister(s) Additional Family Medical History / Comment(s): elevated liver enzymes Medications and Allergies Home Medications Medication Instructions Recorded Confirmed Type Albuterol Inhaler (Mhu) [Ventolin 2 puff INHALATION RT-Q6H PRN 11/22/15 07/20/17 History Hfa Inhaler (Mhu)] Aspirin [Adult Low Dose Aspirin EC] 81 mg PO DAILY 11/22/15 07/20/17 History Butalb/APAP/Caff 50-325-40Mg 1 tab PO Q8H PRN 11/22/15 07/20/17 History [Fioricet 50-325-40] DULoxetine HCL [Cymbalta] 60 mg PO DAILY 11/22/15 07/20/17 History Fluticasone Nasal [place] [Flonase 1 spray EA NOSTRIL DAILY PRN 11/22/15 07/20/17 History Nasal [place]] HYDROcodone/APAP 5-325MG [[place] 1 tab PO TID PRN 11/22/15 07/20/17 History 5-325] Levothyroxine Sodium [Synthroid] 75 mcg PO DAILY 11/22/15 07/20/17 History Montelukast [Singulair] 10 mg PO DAILY 11/22/15 07/20/17 History Multivitamins, Thera [Multivitamin 1 tab PO DAILY 11/22/15 07/20/17 History (formulary)] Simvastatin [Zocor] 20 mg PO HS 11/22/15 07/20/17 History Beclomethasone Dipropionate [Qvar 2 puff INHALATION RT-BID 07/20/17 07/20/17 History 40 mcg Redihaler] Bisoprolol-Hctz 10-6.25 mg [Ziac 1 tab PO DAILY 07/20/17 07/20/17 History 10-6.25 MG] Cyclobenzaprine [Flexeril] 10 mg PO BID PRN 07/20/17 07/20/17 History Famotidine [Pepcid] 20 mg PO HS 07/20/17 07/20/17 History Loratadine [Claritin] 10 mg PO DAILY PRN 07/20/17 07/20/17 History Mirtazapine [Remeron] 15 mg PO HS 07/20/17 07/20/17 History glipiZIDE XL [Glucotrol XL] 5 mg PO DAILY 07/20/17 07/20/17 History metFORMIN HCL [Glucophage] 1,000 mg PO BID 07/20/17 07/20/17 History Azithromycin [Zithromax] 500 mg PO DAILY #5 tab 07/22/17 Rx predniSONE 0 mg PO DIRECTED #40 tab 07/22/17 Rx Allergies Allergy/AdvReac Type Severity Reaction Status Date / Time morphine Allergy Rash/Hives Verified 06/30/21 18:45 pregabalin [From Lyrica] Allergy Unknown Verified 06/30/21 18:45 Physical Exam Vitals: Vital Signs Temp Pulse Pulse Resp BP BP BP 07/01/21 08:00 47 L 16 07/01/21 07:00 97.9 F 47 L 16 133/86 07/01/21 02:00 17 07/01/21 00:45 97.9 F 47 L 17 137/80 06/30/21 23:44 66 18 113/63 06/30/21 21:43 84 20 134/90 06/30/21 19:54 92 18 143/90 06/30/21 18:42 98.6 F 51 L 20 157/112 Pulse Ox 07/01/21 08:00 07/01/21 07:00 94 L 07/01/21 02:00 07/01/21 00:45 96 06/30/21 23:44 97 06/30/21 21:43 97 06/30/21 19:54 95 06/30/21 18:42 96 Intake and Output 06/30/21 07/01/21 07/01/21 22:59 06:59 14:59 Other: Voiding Method Toilet # Voids 1 Weight 66.678 kg 66.678 kg Results 07/01/21 06:03 07/01/21 06:03 Cardiac Enzymes 06/30/21 06/30/21 06/30/21 Range/Units 20:45 20:45 23:35 AST 32 (14-36) U/L Troponin I <0.012 <0.012 (0.000-0.034) ng/mL 07/01/21 Range/Units 02:29 AST (14-36) U/L Troponin I <0.012 (0.000-0.034) ng/mL Coagulation 06/30/21 07/01/21 Range/Units 19:41 06:03 PT 10.2 (9.0-12.0) sec APTT 25.0 35.5 H (22.0-30.0) sec CBC 06/30/21 07/01/21 Range/Units 19:41 06:03 WBC 11.2 H 11.2 H (3.8-10.6) k/uL RBC 4.75 4.73 (3.80-5.40) m/uL Hgb 15.2 14.8 (11.4-16.0) gm/dL Hct 45.0 44.9 (34.0-46.0) % Plt Count 372 342 (150-450) k/uL Comprehensive Metabolic Panel 06/30/21 07/01/21 Range/Units 20:45 06:03 Sodium 138 139 (137-145) mmol/L Potassium 3.5 3.7 (3.5-5.1) mmol/L Chloride 104 106 (98-107) mmol/L Carbon Dioxide 27 28 (22-30) mmol/L BUN 12 10 (7-17) mg/dL Creatinine 0.48 L 0.49 L (0.52-1.04) mg/dL Glucose 157 H 144 H (74-99) mg/dL Calcium 9.1 8.8 (8.4-10.2) mg/dL AST 32 (14-36) U/L ALT 24 (4-34) U/L Alkaline Phosphatase 58 (38-126) U/L Total Protein 6.6 (6.3-8.2) g/dL Albumin 3.8 (3.5-5.0) g/dL Current Medications Generic Name Dose Route Start Last Admin Trade Name Freq PRN Reason Stop Dose Admin Acetaminophen/Butalbital/Caffeine 1 each 07/01/21 10:00 Butalb/Apap/Caff 50-325-40mg Tab PO Q8H PRN Headache Hydrocodone Bitart/Acetaminophen 1 each 07/01/21 10:00 Hydrocodone/Apap 5-325mg 1 Each Tab PO TID PRN Pain Albuterol Sulfate 2.5 mg 07/01/21 10:00 Albuterol Nebulized 2.5 Mg/3 Ml INHALATION RT-Q6H PRN Shortness Of Breath Apixaban 5 mg 07/01/21 10:45 Apixaban 5 Mg Tab PO BID [facility] Protocol Atorvastatin Calcium 10 mg 07/02/21 09:00 Atorvastatin 10 Mg Tab PO DAILY [facility] Bisoprolol Fumarate 1 each 07/02/21 09:00 Bisoprolol-Hctz 10-6.25 Mg 1 Each Tab PO DAILY [facility] Cyclobenzaprine HCl 10 mg 07/01/21 10:00 Cyclobenzaprine 10 Mg Tab PO BID PRN Muscle Spasm Duloxetine HCl 60 mg 07/02/21 09:00 Duloxetine Hcl 60 Mg Capsule.Dr PO DAILY [facility] Escitalopram Oxalate 10 mg 07/02/21 09:00 Escitalopram 10 Mg Tab PO DAILY [facility] Fluticasone Propionate 1 puff 07/01/21 20:00 Fluticasone 110 Mcg Inhaler INHALATION RT-BID [facility] Fluticasone Propionate 1 spray 07/01/21 10:00 Fluticasone 50mcg/[place] Nasal 16gm EA NOSTRIL DAILY PRN Allergy Symptoms Glipizide 10 mg 07/01/21 10:15 07/01/21 10:53 Glipizide 10 Mg Tab PO 10 mg AC-BID ALYSSA Administration Levothyroxine Sodium 75 mcg 07/02/21 06:30 Levothyroxine 75 Mcg Tab PO DAILY@0630 ALYSSA Loratadine 10 mg 07/01/21 10:00 Loratadine 10 Mg Tab PO DAILY PRN Allergy Symptoms Metformin HCl 1,000 mg 07/01/21 17:30 Metformin 500 Mg Tab PO BID-W/MEALS [facility] Mirtazapine 15 mg 07/01/21 21:00 Mirtazapine 15 Mg Tab PO HS [facility] Montelukast Sodium 10 mg 07/02/21 09:00 Montelukast 10 Mg Tab PO DAILY [facility] Multivitamins 1 each 07/02/21 09:00 Multivitamins, Thera 1 Each Tab PO DAILY ALYSSA Naloxone HCl 0.2 mg 06/30/21 22:54 Naloxone 0.4 Mg/Ml 1 Ml Vial IV Q2M PRN Opioid Reversal Pantoprazole Sodium 40 mg 07/01/21 10:15 07/01/21 10:51 Pantoprazole 40 Mg Tablet PO 40 mg [id number] ALYSSA Administration Intake and Output 06/30/21 07/01/21 07/01/21 22:59 06:59 14:59 Other: Voiding Method Toilet # Voids 1 Weight 66.678 kg 66.678 kg 07/01/21 06:03 07/01/21 06:03
[2021-07-01] MEDS ORDERED: DILTIAZEM DRIP BOLUS FROM BAG 1 MG SOLN IV STA (11:13)
[2021-07-01] MEDS ORDERED: DILTIAZEM 125 MG in SODIUM CHLORIDE 0.9% 100 ML IV SCH (11:15)
[2021-07-01] MEDS: APIXABAN 5 MG TAB PO SCH ×2 (11:35→20:59)
[2021-07-01 12:02] LABS: Glucose,Whole Blood 185 mg/dL (75-99)
--- NOTE | 2021-07-01 14:12 | P.HPIM ---
History of Present Illness H&P Date: 07/01/21 HISTORY OF PRESENT ILLNESS 56-year-old female one of Dr. Medellin Patient with past medical history of type 2 diabetes, fibromyalgia, hypertension, hypothyroidism hyperlipidemia who apparently had procedure this last week by Dr. Katie Esteban on hospital for laparoscopy nephrectomy and acute resection for right cystic mass. Patient was recovering nicely when she felt that her pulse was threatening well. Patient start checking her pulse on one of the electrical device found to be bradycardic and irregular pulse. She ended up coming to the emergency department at [facility] and was evaluated no major finding with to EKG both showed normal sinus rhythm. Found to have mild hypomagnesemia and was doing replacement therapy in the emergency department, patient was supposed to be discharged home when the provider found her to be in A. fib with RVR on a strip patient was started on heparin drip before starting on Cardizem patient was converted back into slower pulse running in the 60s and 70 did not require any Cardizem drip at this time. Patient was started on anticoagulation and admitted to the hospital will be seen cardiology echocardiogram will be done continue to watch her pulse carefully. REVIEW OF SYSTEMS Constitutional: No fever, no chills, no night sweats. No weight change. No weakness, fatigue or lethargy. No daytime sleepiness. EENT: No headache. No blurred vision or double vision, no loss of vision. No loss of Hearing, no ringing in the ears, no dizziness. No nasal drainage or congestion. No epistaxis. No sore throat. Lungs: No shortness of breath, cough, no sputum production. No wheezing. Cardiovascular: Significant arrhythmia or palpitation bradycardia and tachycardia no chest pain or angina. Abdominal: No abdominal pain. No nausea, vomiting. No diarrhea. No constipation. No bloody or tarry stools.. No loss of appetite. Genitourinary: Mild pelvic discomfort since her surgery last week. Musculoskeletal: No myalgias. No muscle weakness, no gait dysfunction, no frequent falls. No back pain. No neck pain. Integumentary: No wounds, no lesions. No rash or pruritus. No unusual bruising. No change in hair or nails. Neurologic: No aphasia. No facial droop. No change in mentation. No head injury. No headache. No paralysis. No paresthesia. Psychiatric: No depression. No anxiety. No mood swings. Endocrine: No abnormal blood sugars. No weight change. No excessive sweating or thirst. No cold intolerance. SOCIAL HISTORY She smokes half pack a day for 40 years, no alcohol abuse, no marijuana use, does not use any CPAP or updraft she does not work she is on disability for back injury. FAMILY HISTORY She has one child who is living and well, 2 siblings with no major medical problem, her father age 76 from CAD, mother age 80 from old age and CAD. PHYSICAL EXAMINATION Gen: This is a well-developed in no acute respiratory distress. HEENT: Head is atraumatic, normocephalic. Pupils equal, round. Sclerae is anicteric. NECK: Supple. No JVD. No lymphadenopathy. No thyromegaly. LUNGS: Clear to auscultation. No wheezes or rhonchi. No intercostal retractions. HEART: Regular rate and rhythm. No murmur. ABDOMEN: Soft. Bowel sounds are present. No masses. No tenderness. EXTREMITIES: No pedal edema. No calf tenderness. NEUROLOGICAL: Patient is awake, alert and oriented x3. Cranial nerves 2 through 12 are grossly intact. ASSESSMENT AND PLAN 1. A. fib with RVR: New onset not clear etiology at this point, patient will be hospitalized will be seen cardiology, echocardiogram was order CK with troponin to be done patient to continue on anticoagulation for now. 2 hypertension: She had been on lisinopril old 12/06.25 mg daily will benefit from adding smaller dose of NARCISO inhibitor and titrate beta ky if needed. 3 type 2 diabetes: Remain on the Glucophage 1000 mg twice a day along with glipizide 10 mg twice a day continue Accu-Chek with sliding scales coverage. 4 hyperlipidemia: Continue atorvastatin 10 mg daily. 5 hypothyroidism: Remain on levothyroxine 75 g daily. 6 electrical imbalance with mild hypo-magnesium anemia: Post replacement therapy . 7 chronic depression: Has been on Lexapro 5 mg a day along with Loxitane and mirtazapine. 8 chronic pain syndrome and chronic fibromyalgia: Has been on Flexeril, and Loxitane and [place]. 9 chronic history of asthma/COPD: Remain on Singulair along with Ventolin HFA. 10 chronic headache and migraine: Remain on Fioricet on as needed basis. 11 GI prophylaxis: Continue patient on omeprazole which will be switched to pantoprazole hospital. 12 DVT prophylaxis: Patient will be on heparin drip. CODE STATUS: Full code. Patient will be admitted to the hospital for a minimum of 2 night stay. Past Medical History Past Medical History: Diabetes Mellitus, Fibromyalgia, Hypertension, Thyroid Disorder Additional Past Medical History / Comment(s): back pain History of Any Multi-Drug Resistant Organisms: None Reported Past Surgical History: Section, Cholecystectomy, Hysterectomy, Tonsillectomy Additional Past Surgical History / Comment(s): tumor removal leep procedure, Past Anesthesia/Blood Transfusion Reactions: No Reported Reaction Past Psychological History: Depression Smoking Status: Current every day smoker, Smoker, current status unknown Past Alcohol Use History: None Reported Past Drug Use History: None Reported - Past Family History Mother Family Medical History: Cancer, COPD, Diabetes Mellitus, GERD/Reflux, Hypertension, Osteoarthritis (OA), Sleep Apnea/CPAP/BIPAP Sister(s) Additional Family Medical History / Comment(s): elevated liver enzymes Medications and Allergies Home Medications Medication Instructions Recorded Confirmed Type Aspirin [Adult Low Dose Aspirin EC] 81 mg PO HS 11/22/15 07/01/21 History Butalb/APAP/Caff 50-325-40Mg 1 tab PO TID PRN 11/22/15 07/01/21 History [Fioricet 50-325-40] DULoxetine HCL [Cymbalta] 60 mg PO HS 11/22/15 07/01/21 History Fluticasone Nasal [place] [Flonase 1 - 2 spr EA NOSTRIL DAILY 11/22/15 07/01/21 History Nasal [place]] HYDROcodone/APAP 5-325MG [[place] 1 tab PO TID 11/22/15 07/01/21 History 5-325] Levothyroxine Sodium [Synthroid] 75 mcg PO DAILY 11/22/15 07/01/21 History Montelukast [Singulair] 10 mg PO DAILY 11/22/15 07/01/21 History Multivitamins, Thera [Multivitamin 1 tab PO DAILY 11/22/15 07/01/21 History (formulary)] Bisoprolol-Hctz 10-6.25 mg [Ziac 1 tab PO DAILY 07/20/17 07/01/21 History 10-6.25 MG] Cyclobenzaprine [Flexeril] 10 mg PO BID PRN 07/20/17 07/01/21 History Loratadine [Claritin] 10 mg PO DAILY 07/20/17 07/01/21 History Mirtazapine [Remeron] 15 mg PO HS 07/20/17 07/01/21 History metFORMIN HCL [Glucophage] 1,000 mg PO BID 07/20/17 07/01/21 History Albuterol Sulfate [Albuterol 2 puff INHALATION RT-QID PRN 07/01/21 07/01/21 History Sulfate Hfa] Atorvastatin Calcium [Lipitor] 10 mg PO HS 07/01/21 07/01/21 History Diclofenac Sodium Gel [Voltaren 2 gm TOPICAL QID PRN 07/01/21 07/01/21 History Gel] Escitalopram [Lexapro] 5 mg PO DAILY 07/01/21 07/01/21 History Ibuprofen [Motrin] 800 mg PO BID PRN 07/01/21 07/01/21 History Omeprazole 20 mg PO DAILY 07/01/21 07/01/21 History glipiZIDE [Glucotrol] 10 mg PO BID 07/01/21 07/01/21 History Allergies Allergy/AdvReac Type Severity Reaction Status Date / Time morphine Allergy Rash/Hives/Shortness Verified 07/01/21 12:48 of breath pregabalin [From Lyrica] Allergy Rash/Hives/Skin Verified 07/01/21 12:48 peels Physical Exam Vitals: Vital Signs Temp Pulse Pulse Resp BP BP BP 07/01/21 08:00 47 L 16 07/01/21 07:00 97.9 F 47 L 16 133/86 07/01/21 02:00 17 07/01/21 00:45 97.9 F 47 L 17 137/80 06/30/21 23:44 66 18 113/63 06/30/21 21:43 84 20 134/90 06/30/21 19:54 92 18 143/90 06/30/21 18:42 98.6 F 51 L 20 157/112 Pulse Ox 07/01/21 08:00 07/01/21 07:00 94 L 07/01/21 02:00 07/01/21 00:45 96 06/30/21 23:44 97 06/30/21 21:43 97 06/30/21 19:54 95 06/30/21 18:42 96 Intake and Output 06/30/21 07/01/21 07/01/21 22:59 06:59 14:59 Other: Voiding Method Toilet # Voids 1 Weight 66.678 kg 66.678 kg Results CBC & Chem 7: 07/01/21 06:03 07/01/21 06:03 Labs: Abnormal Lab Results - Last 24 Hours (Table) 06/30/21 06/30/21 06/30/21 Range/Units 19:41 19:41 20:45 WBC 11.2 H (3.8-10.6) k/uL APTT (22.0-30.0) sec D-Dimer 1.00 H (<0.60) mg/L FEU Creatinine 0.48 L (0.52-1.04) mg/dL Glucose 157 H (74-99) mg/dL POC Glucose (mg/dL) (75-99) mg/dL 07/01/21 07/01/21 07/01/21 Range/Units 06:03 06:03 06:03 WBC 11.2 H (3.8-10.6) k/uL APTT 35.5 H (22.0-30.0) sec D-Dimer (<0.60) mg/L FEU Creatinine 0.49 L (0.52-1.04) mg/dL Glucose 144 H (74-99) mg/dL POC Glucose (mg/dL) (75-99) mg/dL 07/01/21 Range/Units 06:58 WBC (3.8-10.6) k/uL APTT (22.0-30.0) sec D-Dimer (<0.60) mg/L FEU Creatinine (0.52-1.04) mg/dL Glucose (74-99) mg/dL POC Glucose (mg/dL) 162 H (75-99) mg/dL Thrombosis Risk Factor Assmnt - Choose All That Apply Any of the Below Risk Factors Present?: Yes Each Factor Represents 1 point: Age 41-60 years, Obesity (BMI >25) Other Risk Factors: No Other congenital or acquired thrombophilia - If yes, enter type in comment: No Thrombosis Risk Factor Assessment Total Risk Factor Score: 2 Thrombosis Risk Factor Assessment Level: Low Risk
[2021-07-01 16:21] LABS: Glucose,Whole Blood 134 mg/dL (75-99)
[2021-07-01] MEDS: metFORMIN 500 MG TAB PO SCH (17:26)
[2021-07-01] MEDS: FLUTICASONE 110 MCG INHALER INHALATION SCH (20:34)
[2021-07-01 20:39] LABS: Glucose,Whole Blood 93 mg/dL (75-99)
[2021-07-01] MEDS: MIRTAZAPINE 15 MG TAB PO SCH (20:59)
[2021-07-01] MEDS ORDERED: FAMOTIDINE 20 MG TAB PO SCH (21:00)
[2021-07-01] MEDS ORDERED: ATORVASTATIN 10 MG TAB PO SCH (21:00)
[2021-07-02] MEDS: LEVOTHYROXINE 75 MCG TAB PO SCH (05:41)
[2021-07-02 07:40] LABS: Glucose,Whole Blood 161 mg/dL (75-99)
[2021-07-02] MEDS: FLUTICASONE 110 MCG INHALER INHALATION SCH ×2 (07:51→20:36)
[2021-07-02] MEDS: glipiZIDE 10 MG TAB PO SCH ×2 (08:33→18:13)
[2021-07-02] MEDS: METOPROLOL TARTRATE 25 MG TAB PO SCH ×2 (08:33→20:57)
[2021-07-02] MEDS: MONTELUKAST 10 MG TAB PO SCH (08:33)
[2021-07-02] MEDS: ATORVASTATIN 10 MG TAB PO SCH (08:33)
[2021-07-02] MEDS: metFORMIN 500 MG TAB PO SCH ×2 (08:34→18:13)
[2021-07-02] MEDS: APIXABAN 5 MG TAB PO SCH ×2 (08:34→20:30)
[2021-07-02] MEDS: PANTOPRAZOLE 40 MG TABLET PO SCH (08:34)
[2021-07-02] MEDS: MULTIVITAMINS, THERA 1 EACH TAB PO SCH (08:35)
[2021-07-02] MEDS: ESCITALOPRAM 10 MG TAB PO SCH ×2 (08:35)
[2021-07-02] MEDS: DULoxetine HCL 60 MG CAPSULE.DR PO SCH (08:35)
[2021-07-02] MEDS ORDERED: BISOPROLOL-HCTZ 10-6.25 MG 1 EACH TAB PO SCH (09:00)
[2021-07-02] MEDS ORDERED: ASPIRIN 81 MG PO SCH (09:00)
--- NOTE | 2021-07-02 10:04 | P.PN ---
Subjective Progress Note Date: 07/02/21 HISTORY OF PRESENT ILLNESS: 56-year-old lady comes to the emergency room complaining of palpitations. Her history is significant for hypertension diabetes and dyslipidemia. She has had on and off episodes of palpitations which she mostly felt has slow heart rates. When she arrived in the emergency room she was in sinus rhythm and apparently has had self-limited runs of atrial fibrillation for which she is started on heparin and admitted to hospital. Since being admitted she has had short runs of atrial fibrillation. She is otherwise very stable and is currently free of cardiac symptoms. Cardiac enzymes have been negative. EKG doesn't reveal ischemic changes. Patient has paroxysmal atrial fibrillation and multiple risk factors for stroke including diabetes and hypertension. I was started on Eliquis 5 mg twice a day. She will need an echo and stress tests which can be done as outpatient. She has seen Dr. Mathis in the office will set it up to him. 07/02/2021 Patient examined this morning at the bedside. Patient denies chest pain or pressure. She denies shortness of breath. Patient continues to have runs of A. fib with RVR this morning with heart rates up in the 170s. Patient's vital signs are stable. Preliminary echocardiogram reveals preserved LV function. PHYSICAL EXAM: VITAL SIGNS: Reviewed. GENERAL: Well-developed in no acute distress. NECK: Supple. No JVD or thyromegaly LUNGS: Respirations even and unlabored. Lungs essentially clear to auscultation bilaterally. HEART: Irregular rate and rhythm. S1 and S2 heard. Systolic murmur noted. EXTREMITIES: Normal range of motion. No clubbing or cyanosis. Peripheral pulses intact. No lower extremity edema ASSESSMENT: Paroxysmal atrial fibrillation with RVR Hypertension Diabetes Hypothyroidism PLAN: Await final report of 2D echo Continue telemetry monitoring Discontinue Ziac Begin metoprolol 25mg BID. Would ideally like to increase dosage to 50mg BID or add Multaq. However, unsure if patients heart rate will be able to tolerate as she does have some intermittent bradycardia when she is in sinus mechanism. We will adjust medications slowly Further recommendations pending patient course Nurse practitioner note has been reviewed by physician. Signing provider agrees with the documented findings, assessment, and plan of care. Objective - Vital Signs Vital signs: Vital Signs Temp 98.1 F 07/02/21 07:00 Pulse 92 07/02/21 08:00 Resp 18 07/02/21 08:00 BP 137/85 07/02/21 07:00 Pulse Ox 95 07/02/21 07:00 Intake & Output 07/01/21 07/02/21 07/02/21 18:59 06:59 18:59 Intake Total 236 240 Balance 236 240 Intake: Oral 236 240 Other: Voiding Method Toilet Toilet Toilet # Voids 4 2 - Labs CBC & Chem 7: 07/01/21 06:03 07/01/21 06:03 Labs: Abnormal Lab Results - Last 24 Hours (Table) 07/01/21 07/01/21 07/02/21 Range/Units 12:00 16:19 07:23 POC Glucose (mg/dL) 185 H 134 H 161 H (75-99) mg/dL
--- NOTE | 2021-07-02 11:56 | P.PN ---
Subjective Progress Note Date: 07/02/21 HISTORY OF PRESENT ILLNESS 56-year-old female one of Dr. Medellin Patient with past medical history of type 2 diabetes, fibromyalgia, hypertension, hypothyroidism hyperlipidemia who ap parently had procedure this last week by Dr. Katie Esteban on hospital for laparoscopy nephrectomy and acute resection for right cystic mass. Patient was recovering nicely when she felt that her pulse was threatening well. Patient start checking her pulse on one of the electrical device found to be bradycardic and irregular pulse. She ended up coming to the emergency department at [facility] and was evaluated no major finding with to EKG both showed normal sinus rhythm. Found to have mild hypomagnesemia and was doing replacement therapy in the emergency department, patient was supposed to be discharged home when the provider found her to be in A. fib with RVR on a strip patient was started on heparin drip before starting on Cardizem patient was converted back into slower pulse running in the 60s and 70 did not require any Cardizem drip at this time. Patient was started on anticoagulation and admitted to the hospital will be seen cardiology echocardiogram will be done continue to watch her pulse carefully. 07/02: Patient has been seen by cardiology and started patient on eliquis y esterday discontinued heparin and cleared the patient for discharge. chemist water purification has been a sinus rhythm in the 80s and 90s but apparently has had some episodes of RVR. Cardiology would like to monitor overnight and has made some changes to her medications including adding Lopressor 25 mg twice daily and discontinue Ziac.. Blood pressure 137/85 and pulse ox 95% on room air. Capillary blood glucose running 93-161. REVIEW OF SYSTEMS Constitutional: No fever, no chills, no night sweats. No weight change. No weakness, fatigue or lethargy. No daytime sleepiness. EENT: No headache. No blurred vision or double vision, no loss of vision. No loss of Hearing, no ringing in the ears, no dizziness. No nasal drainage or congestion. No epistaxis. No sore throat. Lungs: No shortness of breath, cough, no sputum production. No wheezing. Cardiovascular: Significant arrhythmia denies palpitation, no chest pain or angina. Abdominal: No abdominal pain. No nausea, vomiting. No diarrhea. No constipation. No bloody or tarry stools.. No loss of appetite. Genitourinary: Mild pelvic discomfort since her surgery last week. Musculoskeletal: No myalgias. No muscle weakness, no gait dysfunction, no frequent falls. No back pain. No neck pain. Integumentary: No wounds, no lesions. No rash or pruritus. No unusual bruising. No change in hair or nails. Neurologic: No aphasia. No facial droop. No change in mentation. No head injury. No headache. No paralysis. No paresthesia. Psychiatric: No depression. No anxiety. No mood swings. Endocrine: No abnormal blood sugars. No weight change. No excessive sweating or thirst. No cold intolerance. PHYSICAL EXAMINATION Gen: This is a well-developed 56-year-old female in no acute respiratory distress. HEENT: Head is atraumatic, normocephalic. Pupils equal, round. Sclerae is anict spenser. NECK: Supple. No JVD. No lymphadenopathy. No thyromegaly. LUNGS: Clear to auscultation. No wheezes or rhonchi. No intercostal retractions. HEART: Regular rate and rhythm. No murmur. ABDOMEN: Soft. Bowel sounds are present. No masses. No tenderness. EXTREMITIES: No pedal edema. No calf tenderness. NEUROLOGICAL: Patient is awake, alert and oriented x3. Cranial nerves 2 through 12 are grossly intact. ASSESSMENT AND PLAN 1. A. fib with RVR, paroxysmal atrial fibrillation: New onset not clear etiology at this point, patient will be hospitalized will be seen cardiology, echocardiogram was order CK with troponin to be done patient to continue on anticoagulation for now. 2 hypertension: She had been on lisinopril old 12/06.25 mg daily will benefit from adding smaller dose of NARCISO inhibitor and titrate beta ky if needed. 3 type 2 diabetes: Remain on the Glucophage 1000 mg twice a day along with glipizide 10 mg twice a day continue Accu-Chek with sliding scales coverage. 4 hyperlipidemia: Continue atorvastatin 10 mg daily. 5 hypothyroidism: Remain on levothyroxine 75 g daily. 6 electrical imbalance with mild hypo-magnesium anemia: Post replacement therapy. 7 chronic depression: Has been on Lexapro 5 mg a day along with Loxitane and mirtazapine. 8 chronic pain syndrome and chronic fibromyalgia: Has been on Flexeril, and Loxitane and [place]. 9 chronic history of asthma/COPD: Remain on Singulair along with Ventolin HFA. 10 chronic headache and migraine: Remain on Fioricet on as needed basis. 11 GI prophylaxis: Continue patient on omeprazole which will be switched to pantoprazole hospital. 12 DVT prophylaxis: Patient will be on heparin drip. CODE STATUS: Full code. DISCHARGE PLAN Home Impression and plan of care have been directed as dictated by the signing physician. Orquidea Steinberg nurse practitioner acting as scribe for signing physician. Objective - Vital Signs Vital signs: Vital Signs Temp 98.1 F 07/02/21 07:00 Pulse 92 07/02/21 08:00 Resp 18 07/02/21 08:00 BP 137/85 07/02/21 07:00 Pulse Ox 95 07/02/21 07:00 Intake & Output 07/01/21 07/02/21 07/02/21 18:59 06:59 18:59 Intake Total 236 240 Balance 236 240 Intake: Oral 236 240 Other: Voiding Method Toilet Toilet Toilet # Voids 4 2 - Labs CBC & Chem 7: 07/01/21 06:03 07/01/21 06:03 Labs: Abnormal Lab Results - Last 24 Hours (Table) 07/01/21 07/01/21 07/02/21 Range/Units 12:00 16:19 07:23 POC Glucose (mg/dL) 185 H 134 H 161 H (75-99) mg/dL
[2021-07-02 12:02] LABS: Glucose,Whole Blood 133 mg/dL (75-99)
[2021-07-02 17:46] LABS: Glucose,Whole Blood 188 mg/dL (75-99)
[2021-07-02 20:08] LABS: Glucose,Whole Blood 151 mg/dL (75-99)
[2021-07-02] MEDS: MIRTAZAPINE 15 MG TAB PO SCH (20:30)
[2021-07-03] MEDS: LEVOTHYROXINE 75 MCG TAB PO SCH (05:48)
--- NOTE | 2021-07-03 07:05 | CA ---
Transthoracic Echo Report Name: Mae Villasenor Age: 56 Gender: F : 1965 Exam Date: 07/02/2021 08:03 Exam Location: [facility] Ht (in): 61 Wt (lb): 147 Ordering Physician: Uriah Dinh MD Attending/Referring Phys: Onboarding Specialist Nadia Cheung RDCS Procedure CPT: Indications: lvfunction Cardiac Hx: Hx of SVT and murmur. Technical Quality: Technically difficult study Contrast 1: Lumason Total Dose (mL): .25 Contrast 2: Total Dose (mL): MEASUREMENTS (Male / Female) Normal Values 2D ECHO LV Diastolic Diameter PLAX 3.7 cm 4.2 - 5.9 / 3.9 - 5.3 cm LV Systolic Diameter PLAX 2.8 cm IVS Diastolic Thickness 1.0 cm 0.6 - 1.0 / 0.6 - 0.9 cm LVPW Diastolic Thickness 1.1 cm 0.6 - 1.0 / 0.6 - 0.9 cm LV Relative Wall Thickness 0.6 M-MODE Aortic Root Diameter MM 2.9 cm LA Systolic Diameter MM 2.7 cm LA Ao Ratio MM 0.9 MV E Point Septal Separation 1.6 cm AV Cusp Separation MM 1.7 cm DOPPLER AV Peak Velocity 281.5 cm/s AV Peak Gradient 31.7 mmHg AV Mean Velocity 232.1 cm/s AV Mean Gradient 23.5 mmHg AV Velocity Time Integral 56.8 cm LVOT Peak Velocity 152.4 cm/s LVOT Peak Gradient 9.3 mmHg MV Area PHT 5.7 cm??? MR Peak Velocity 102.5 cm/s MR Peak Gradient 4.2 mmHg Mitral E Point Velocity 77.2 cm/s Mitral A Point Velocity 85.3 cm/s Mitral E to A Ratio 0.9 MV Deceleration Time 134.0 ms TR Peak Velocity 118.0 cm/s TR Peak Gradient 5.6 mmHg Right Ventricular Systolic Press 10.4 mmHg FINDINGS Left Ventricle Mild LVH. Left ventricular ejection fraction is estimated at 55-60left ventricular cavity size normal. %. Right Ventricle Right ventricle not well visualized. Right ventricular systolic pressure within normal limits. Right Atrium Right atrium not well visualized. Left Atrium Normal left atrial size. Mitral Valve Structurally normal mitral valve. Trace mitral regurgitation. Mild mitral regurgitation. Aortic Valve Moderate aortic stenosis with a peak gradient of diffuse thickening of the aortic valve cusps with reduced excursion. 31 mmHg and a mean gradient of 23 mmHg. Tricuspid Valve Structurally normal tricuspid valve without significant stenosis. Pulmonary artery systolic pressure is normal. Mild tricuspid regurgitation. Pulmonic Valve Structurally normal pulmonic valve without significant stenosis. There is no pulmonic regurgitation. Pericardium Normal pericardium without effusion. Aorta Normal aortic root dimension. CONCLUSIONS Preserved LV systolic function with mild-moderate aortic stenosis Previewed by: Dr. Ming Bazzi MD (Electronically Signed) Final Date: 03 Jul 2021 07:04
[2021-07-03 07:48] LABS: Glucose,Whole Blood 161 mg/dL (75-99)
--- NOTE | 2021-07-03 07:49 | P.DS ---
Providers Date of admission: 06/30/21 22:54 Expected date of discharge: 07/03/21 Attending physician: Uriah Dinh Consults: 06/30/21 22:55 Consult Physician Urgent Consulting Provider: [facility] Consult Reason/Comments: acute palpitations, new onset afib Do you want consulting provider notified?: Yes [facility]: HISTORY OF PRESENT ILLNESS 56-year-old female one of Dr. Medellin Patient with past medical history of type 2 diabetes, fibromyalgia, hypertension, hypothyroidism hyperlipidemia who appar ently had procedure this last week by Dr. Katie Esteban on hospital for laparoscopy nephrectomy and acute resection for right cystic mass. Patient was recovering nicely when she felt that her pulse was threatening well. Patient start checking her pulse on one of the electrical device found to be bradycardic and irregular pulse. She ended up coming to the emergency department at [facility] and was evaluated no major finding with to EKG both showed normal sinus rhythm. Found to have mild hypomagnesemia and was doing replacement therapy in the emergency department, patient was supposed to be discharged home when the provider found her to be in A. fib with RVR on a strip patient was started on heparin drip before starting on Cardizem patient was converted back into slower pulse running in the 60s and 70 did not require any Cardizem drip at this time. Patient was started on anticoagulation and admitted to the hospital will be seen cardiology echocardiogram will be done continue to watch her pulse carefully. 07/02: Patient has been seen by cardiology and started patient on eliquis yesterday discontinued heparin and cleared the patient for discharge. night monitor has been a sinus rhythm in the 80s and 90s but apparently has had some episodes of RVR. Cardiology would like to monitor overnight and has made some changes to her medications including adding Lopressor 25 mg twice daily and discontinue Ziac.. Blood pressure 137/85 and pulse ox 95% on room air. Capillary blood glucose running 93-161. 07/03: patient has been afebrile, heart rate from 58-89, blood pressure 141/74, pulse ox 99% on room air. Capillary blood glucose running between 151 and 188. Patient denies any chest pain, shortness of breath, palpitations, lightheadedness or dizziness. Patient will be discharged home today in stable condition. DISCHARGE DIAGNOSES 1. A. fib with RVR: New onset paroxysmal A Fib 2 hypertension 3 type 2 diabetes 4 hyperlipidemia 5 hypothyroidism 6 electrical imbalance with mild hypo-magnesium 7 chronic depression 8 chronic pain syndrome and chronic fibromyalgia 9 chronic history of mild intermittent asthma/COPD without exacerbation 10 chronic headache and migraine DISCHARGE PLAN Home Discharge note Impression and plan of care have been directed as dictated by the signing physician. Orquidea Steinberg nurse practitioner acting as scribe for signing physician. Patient Condition at Discharge: Good Plan - Discharge Summary Discharge Rx Participant: No New Discharge Prescriptions: New Apixaban [Eliquis] 5 mg PO BID #60 tab Metoprolol Tartrate [Lopressor] 25 mg PO BID #60 tab Flecainide [Tambocor] 50 mg PO Q12HR #60 tablet Continue Fluticasone Nasal Dutton [Flonase Nasal Dutton] 1 - 2 spr EA NOSTRIL DAILY Butalb/APAP/Caff 50-325-40Mg [Fioricet 50-325-40] 1 tab PO TID PRN PRN Reason: Headache HYDROcodone/APAP 5-325MG [[place] 5-325] 1 tab PO TID Montelukast [Singulair] 10 mg PO DAILY Levothyroxine Sodium [Synthroid] 75 mcg PO DAILY DULoxetine HCL [Cymbalta] 60 mg PO HS Multivitamins, Thera [Multivitamin (formulary)] 1 tab PO DAILY Aspirin [Adult Low Dose Aspirin EC] 81 mg PO HS Mirtazapine [Remeron] 15 mg PO HS Cyclobenzaprine [Flexeril] 10 mg PO BID PRN PRN Reason: Muscle Spasm metFORMIN HCL [Glucophage] 1,000 mg PO BID Loratadine [Claritin] 10 mg PO DAILY Atorvastatin Calcium [Lipitor] 10 mg PO HS glipiZIDE [Glucotrol] 10 mg PO BID Albuterol Sulfate [Albuterol Sulfate Hfa] 2 puff INHALATION RT-QID PRN PRN Reason: Shortness Of Breath Diclofenac Sodium Gel [Voltaren Gel] 2 gm TOPICAL QID PRN PRN Reason: Pain Escitalopram [Lexapro] 5 mg PO DAILY Omeprazole 20 mg PO DAILY Discontinued Bisoprolol-Hctz 10-6.25 mg [Ziac 10-6.25 MG] 1 tab PO DAILY Ibuprofen [Motrin] 800 mg PO BID PRN PRN Reason: Pain Discharge Medication List Aspirin [Adult Low Dose Aspirin EC] 81 mg PO HS 11/22/15 [History] Butalb/APAP/Caff 50-325-40Mg [Fioricet 50-325-40] 1 tab PO TID PRN 11/22/15 [History] DULoxetine HCL [Cymbalta] 60 mg PO HS 11/22/15 [History] Fluticasone Nasal Dutton [Flonase Nasal Dutton] 1 - 2 spr EA NOSTRIL DAILY 11/22/15 [History] HYDROcodone/APAP 5-325MG [[place] 5-325] 1 tab PO TID 11/22/15 [History] Levothyroxine Sodium [Synthroid] 75 mcg PO DAILY 11/22/15 [History] Montelukast [Singulair] 10 mg PO DAILY 11/22/15 [History] Multivitamins, Thera [Multivitamin (formulary)] 1 tab PO DAILY 11/22/15 [History] Cyclobenzaprine [Flexeril] 10 mg PO BID PRN 07/20/17 [History] Loratadine [Claritin] 10 mg PO DAILY 07/20/17 [History] Mirtazapine [Remeron] 15 mg PO HS 07/20/17 [History] metFORMIN HCL [Glucophage] 1,000 mg PO BID 07/20/17 [History] Albuterol Sulfate [Albuterol Sulfate Hfa] 2 puff INHALATION RT-QID PRN 07/01/21 [History] Atorvastatin Calcium [Lipitor] 10 mg PO HS 07/01/21 [History] Diclofenac Sodium Gel [Voltaren Gel] 2 gm TOPICAL QID PRN 07/01/21 [History] Escitalopram [Lexapro] 5 mg PO DAILY 07/01/21 [History] Omeprazole 20 mg PO DAILY 07/01/21 [History] glipiZIDE [Glucotrol] 10 mg PO BID 07/01/21 [History] Apixaban [Eliquis] 5 mg PO BID #60 tab 07/02/21 [Rx] Flecainide [Tambocor] 50 mg PO Q12HR #60 tablet 07/03/21 [Rx] Metoprolol Tartrate [Lopressor] 25 mg PO BID #60 tab 07/03/21 [Rx] Follow up Appointment(s)/Referral(s): Pantera Jha MD [Primary Care Provider] - 1 Week Hussain Polo MD [STAFF PHYSICIAN] - 1 Week Activity/Diet/Wound Care/Special Instructions: please call dr. dela cruz's office when you are discharged for follow up and staple removal. [phone]. appointment for 07/02/21 at 1 pm was cancelled. Discharge Disposition: HOME SELF-CARE
[2021-07-03 08:00] VITALS: BP 141/74; RESP 18; TEMP 98
[2021-07-03] MEDS: FLUTICASONE 110 MCG INHALER INHALATION SCH (08:43)
[2021-07-03] MEDS ORDERED: FLECAINIDE 50 MG TAB PO SCH (09:00)
[2021-07-03 09:14] VITALS: PULSE 58
[2021-07-03] MEDS: DULoxetine HCL 60 MG CAPSULE.DR PO SCH (09:15)
[2021-07-03] MEDS: glipiZIDE 10 MG TAB PO SCH (09:15)
[2021-07-03] MEDS: APIXABAN 5 MG TAB PO SCH (09:16)
[2021-07-03] MEDS: metFORMIN 500 MG TAB PO SCH (09:16)
[2021-07-03] MEDS: ATORVASTATIN 10 MG TAB PO SCH (09:16)
[2021-07-03] MEDS: ESCITALOPRAM 10 MG TAB PO SCH (09:16)
[2021-07-03] MEDS: MONTELUKAST 10 MG TAB PO SCH (09:16)
[2021-07-03] MEDS: PANTOPRAZOLE 40 MG TABLET PO SCH (09:17)
[2021-07-03] MEDS: METOPROLOL TARTRATE 25 MG TAB PO SCH (09:17)
[2021-07-03] MEDS: MULTIVITAMINS, THERA 1 EACH TAB PO SCH (09:18)
--- NOTE | 2021-07-03 11:14 | P.PN ---
Subjective Progress Note Date: 07/03/21 HISTORY OF PRESENT ILLNESS: 56-year-old lady comes to the emergency room complaining of palpitations. Her history is significant for hypertension diabetes and dyslipidemia. She has had on and off episodes of palpitations which she mostly felt has slow heart rates. When she arrived in the emergency room she was in sinus rhythm and apparently has had self-limited runs of atrial fibrillation for which she is started on heparin and admitted to hospital. Since being admitted she has had short runs of atrial fibrillation. She is otherwise very stable and is currently free of cardiac symptoms. Cardiac enzymes have been negative. EKG doesn't reveal ischemic changes. Patient has paroxysmal atrial fibrillation and multiple risk factors for stroke including diabetes and hypertension. I was started on Eliquis 5 mg twice a day. She will need an echo and stress tests which can be done as outpatient. She has seen Dr. Mathis in the office will set it up to him. 07/02/2021 Patient examined this morning at the bedside. Patient denies chest pain or pressure. She denies shortness of breath. Patient continues to have runs of A. fib with RVR this morning with heart rates up in the 170s. Patient's vital signs are stable. Preliminary echocardiogram reveals preserved LV function. 07/03/2021 patient examined this morning at the bedside. Patient denies chest pain or pressure. She denies shortness of breath. Patient did have a short run of A. fib with RVR this morning PHYSICAL EXAM: VITAL SIGNS: Reviewed. GENERAL: Well-developed in no acute distress. NECK: Supple. No JVD or thyromegaly LUNGS: Respirations even and unlabored. Lungs essentially clear to auscultation bilaterally. HEART: regular rate and rhythm. S1 and S2 heard. Systolic murmur noted. EXTREMITIES: Normal range of motion. No clubbing or cyanosis. Peripheral pulse s intact. No lower extremity edema ASSESSMENT: Paroxysmal atrial fibrillation with RVR Hypertension Diabetes Hypothyroidism PLAN: Continue metoprolol Add flecainide 50 mg twice a day Patient may be discharged home today from a cardiac standpoint and follow up on an outpatient basis Further recommendations pending patient course Nurse practitioner note has been reviewed by physician. Signing provider agrees with the documented findings, assessment, and plan of care. Objective - Vital Signs Vital signs: Vital Signs Temp 98.0 F 07/03/21 07:59 Pulse 58 L 07/03/21 09:14 Resp 18 07/03/21 07:59 BP 141/74 07/03/21 07:59 Pulse Ox 99 07/03/21 07:59 Intake & Output 07/02/21 07/03/21 07/03/21 18:59 06:59 18:59 Intake Total 720 240 Balance 720 240 Intake: Oral 720 240 Other: Voiding Method Toilet Toilet # Voids 1 1 1 - Labs CBC & Chem 7: 07/01/21 06:03 07/01/21 06:03 Labs: Abnormal Lab Results - Last 24 Hours (Table) 07/02/21 07/02/21 07/02/21 Range/Units 11:56 17:35 20:07 POC Glucose (mg/dL) 133 H 188 H 151 H (75-99) mg/dL 07/03/21 Range/Units 07:46 POC Glucose (mg/dL) 161 H (75-99) mg/dL
== END 2021-07-03 11:03 | disposition home or self-care (01) | DRG 310 ==
LOC: EC 18:41 → 6NMEDSUR 22:54 → OBSVTOIN 07-02 11:49
PROVIDERS: ADMIT Internal Medicine Geriatric Medicine; ATTEND Internal Medicine Geriatric Medicine
DX: I48.0 Paroxysmal atrial fibrillation (principal); E03.9 Hypothyroidism, unspecified; D64.9 Anemia, unspecified; E11.9 Type 2 diabetes mellitus without complications; E78.5 Hyperlipidemia, unspecified; E83.42 Hypomagnesemia; F17.210 Nicotine dependence, cigarettes, uncomplicated; F32.A Depression, unspecified; G43.909 Migraine, unspecified, not intractable, without status migrainosus; G89.4 Chronic pain syndrome; I10 Essential (primary) hypertension; R01.1 Cardiac murmur, unspecified; I08.2 Rheumatic disorders of both aortic and tricuspid valves; J44.9 Chronic obstructive pulmonary disease, unspecified; J45.20 Mild intermittent asthma, uncomplicated; M79.7 Fibromyalgia; Z63.4 Disappearance and death of family member; Z79.82 Long term (current) use of aspirin; Z79.84 Long term (current) use of oral hypoglycemic drugs; Z79.890 Hormone replacement therapy; Z79.899 Other long term (current) drug therapy; Z82.49 Family history of ischemic heart disease and other diseases of the circulatory system; Z82.5 Family history of asthma and other chronic lower respiratory diseases; Z83.3 Family history of diabetes mellitus; Z90.5 Acquired absence of kidney; Z90.710 Acquired absence of both cervix and uterus; Z90.49 Acquired absence of other specified parts of digestive tract; Z88.5 Allergy status to narcotic agent; Z88.8 Allergy status to other drugs, medicaments and biological substances
CPT/HCPCS: 36415; 71275; 80048; 80053; 83735; 84439; 84443; 84484; 85025; 85379; 85610; 85730; 93005; 93306; 94640; 94760; 96365; 96368; 99291

== ENCOUNTER 2022-02-03 21:11 | Inpatient (IN) | payer OTHER ==
[2022-02-03 22:35] VITALS: TEMP 97.7
[2022-02-03] MEDS ORDERED: DEXAMETHASONE SOD PHOSPHATE 10 MG/ML 1 ML VIAL IM STA (23:32)
--- NOTE | 2022-02-03 23:35 | ED ---
URI HPI - General Chief Complaint: Upper Respiratory Infection Stated Complaint: COVID+, sob Time Seen by Provider: 02/03/22 23:22 Source: patient, RN notes reviewed, old records reviewed Mode of arrival: ambulatory Limitations: no limitations - History of Present Illness Initial Comments: This is a nontoxic-appearing 48 female that presents to the emergency room with cough and shortness of breath and fevers for the past 2 days. The test at home positive today with peripheral coronavirus. Family at bedside also positive for coronavirus. She does have a history of diabetes, hypertension, fibromyalgia. States that she had a recent cardiac workup and stress test with Dr. Polo that was normal. She is a daily smoker. MD Complaint: fever, cough, other (Shortness of breath) -: days(s) (2) Severity scale (1-10): 5 Associated Symptoms: fever, cough, shortness of breath - Related Data Home Medications Medication Instructions Recorded Confirmed Butalb/APAP/Caff 50-325-40Mg 1 tab PO TID PRN 11/22/15 12/06/21 [Fioricet 50-325-40] DULoxetine HCL [Cymbalta] 60 mg PO HS 11/22/15 12/06/21 Fluticasone Nasal [place] [Flonase 1 - 2 spr EA NOSTRIL DAILY 11/22/15 12/06/21 Nasal [place]] HYDROcodone/APAP 5-325MG [[place] 1 tab PO TID PRN 11/22/15 12/06/21 5-325] Levothyroxine Sodium [Synthroid] 75 mcg PO DAILY 11/22/15 12/11/21 Montelukast [Singulair] 10 mg PO DAILY 11/22/15 12/11/21 Multivitamins, Thera [Multivitamin 1 tab PO DAILY 11/22/15 12/06/21 (formulary)] Cyclobenzaprine [Flexeril] 10 mg PO BID PRN 07/20/17 12/06/21 Loratadine [Claritin] 10 mg PO DAILY 07/20/17 12/11/21 Mirtazapine [Remeron] 15 mg PO HS 07/20/17 12/06/21 Albuterol Sulfate [Albuterol 2 puff INHALATION RT-QID PRN 07/01/21 12/06/21 Sulfate Hfa] Atorvastatin Calcium [Lipitor] 10 mg PO HS 07/01/21 12/06/21 Diclofenac Sodium Gel [Voltaren 2 gm TOPICAL QID PRN 07/01/21 12/06/21 Gel] Omeprazole 20 mg PO DAILY 07/01/21 12/06/21 glipiZIDE [Glucotrol] 10 mg PO BID 07/01/21 12/06/21 Previous Rx's Medication Instructions Recorded Apixaban [Eliquis] 5 mg PO BID #60 tab 07/02/21 Flecainide [Tambocor] 50 mg PO Q12HR #60 tablet 07/03/21 Metoprolol Tartrate [Lopressor] 25 mg PO BID #60 tab 07/03/21 Allergies Allergy/AdvReac Type Severity Reaction Status Date / Time morphine Allergy Rash/Hives/Shortness Verified 02/03/22 22:35 of breath pregabalin [From Lyrica] Allergy Rash/Hives/Skin Verified 02/03/22 22:35 [place] Review of Systems ROS Statement: Those systems with pertinent positive or pertinent negative responses have been documented in the HPI. ROS Other: All systems not noted in ROS Statement are negative. Past Medical History Past Medical History: Diabetes Mellitus, Fibromyalgia, Hyperlipidemia, Hypertension, Osteoarthritis (OA), Thyroid Disorder Additional Past Medical History / Comment(s): back pain "pretty much all the time" History of Any Multi-Drug Resistant Organisms: None Reported Past Surgical History: Section, Cholecystectomy, Hysterectomy, Tonsillectomy Additional Past Surgical History / Comment(s): tumor removal from rt lower pelvis with partial hysterectomy, leep procedure, Past Anesthesia/Blood Transfusion Reactions: No Reported Reaction Past Psychological History: Anxiety, Depression Smoking Status: Current every day smoker Past Alcohol Use History: None Reported Past Drug Use History: None Reported - Past Family History Mother Family Medical History: Cancer, COPD, Diabetes Mellitus, GERD/Reflux, Hypertension, Osteoarthritis (OA), Sleep Apnea/CPAP/BIPAP Sister(s) Additional Family Medical History / Comment(s): elevated liver enzymes General Exam Limitations: no limitations General appearance: alert, in no apparent distress Head exam: Present: atraumatic, normocephalic, normal inspection Eye exam: Present: normal appearance. Absent: scleral icterus, conjunctival injection, periorbital swelling, periorbital tenderness ENT exam: Present: mucous membranes dry Neck exam: Present: normal inspection, full ROM. Absent: tenderness, meningismus, lymphadenopathy Respiratory exam: Present: normal lung sounds bilaterally. Absent: respiratory distress, wheezes, rales, rhonchi, stridor, chest wall tenderness, accessory muscle use Cardiovascular Exam: Present: regular rate GI/Abdominal exam: Present: soft. Absent: distended, tenderness, rigid Extremities exam: Present: normal inspection, full ROM, normal capillary refill. Absent: tenderness, pedal edema Back exam: Present: full ROM. Absent: tenderness, CVA tenderness (R), CVA tenderness (L) Neurological exam: Present: alert, oriented X3 Psychiatric exam: Present: normal affect, normal mood Skin exam: Present: warm, dry, normal color. Absent: cyanosis, diaphoretic, petechiae, pallor Course Vital Signs 02/03/22 02/03/22 02/04/22 22:33 23:48 00:02 Temperature 97.7 F Pulse Rate 93 98 Respiratory 20 18 Rate Blood Pressure 162/96 147/96 O2 Sat by Pulse 93 L 94 L 93 L Oximetry - Reevaluation(s) Reevaluation #1: 02/04/22 00:46 Patient up ambulating in the room oxygen saturation 88% on her pulse ox. She states that she just didn 2 puffs of her inhaler. I did point to her that she should be admitted for hypoxia and she states she just wants to go home. Time: 00:46 Medical Decision Making - Medical Decision Making Patient presents with complaints of oxygen saturation 88% at home, shortness of breath with exertion and tested positive for coronavirus at home today. Has been vaccinated and had boosters for coronavirus. She denies any nausea vomiting or diarrhea. She has had a history of diabetes, fibromyalgia, hypertension, is a daily smoker. She does have an albuterol inhaler that she has been using. She did have a cardiac catheterization performed by Dr. Mathis on 12/11/2021 showed a dominant left coronary system, normal left coronary system area intermediate lesion involving a medium caliber nondominant right coronary artery. Chest x-ray interpreted by me shows no evidence of consolidation. Heart normal size. Radiologist interpretation lungs are clear and normal chest. Pulse ox 93%. No respiratory distress. No retractions Labs show mild leukocytosis. Magnesium is 1.5, given oral Mag-Ox. Case discussed with Dr. Myles who recommended admission. With much hesitation patient is agreeable to this plan of care. - Lab Data Result diagrams: 02/04/22 01:08 02/04/22 01:08 Lab Results 02/04/22 02/04/22 02/04/22 Range/Units 01:08 01:08 01:25 WBC 10.9 H (3.8-10.6) k/uL RBC 4.67 (3.80-5.40) m/uL Hgb 14.6 (11.4-16.0) gm/dL Hct 42.1 (34.0-46.0) % MCV 90.2 (80.0-100.0) fL MCH 31.3 (25.0-35.0) pg MCHC 34.7 (31.0-37.0) g/dL RDW 13.1 (11.5-15.5) % Plt Count 259 (150-450) k/uL MPV 7.4 Neutrophils % 88 % Lymphocytes % 6 % Monocytes % 3 % Eosinophils % 2 % Basophils % 0 % Neutrophils # 9.7 H (1.3-7.7) k/uL Lymphocytes # 0.6 L (1.0-4.8) k/uL Monocytes # 0.3 (0-1.0) k/uL Eosinophils # 0.2 (0-0.7) k/uL Basophils # 0.0 (0-0.2) k/uL PT (9.0-12.0) sec INR (<1.2) APTT (22.0-30.0) sec Sodium 136 L (137-145) mmol/L Potassium 4.2 (3.5-5.1) mmol/L Chloride 102 (98-107) mmol/L Carbon Dioxide 25 (22-30) mmol/L Anion Gap 9 mmol/L BUN 9 (7-17) mg/dL Creatinine 0.41 L (0.52-1.04) mg/dL Est GFR (CKD-EPI)AfAm >90 (>60 ml/min/1.73 sqM) Est GFR (CKD-EPI)NonAf >90 (>60 ml/min/1.73 sqM) Glucose 168 H (74-99) mg/dL Plasma Lactic Acid Deandre (0.7-2.0) mmol/L Calcium 9.3 (8.4-10.2) mg/dL Magnesium 1.5 L (1.6-2.3) mg/dL Total Bilirubin 0.6 (0.2-1.3) mg/dL AST 72 H (14-36) U/L ALT 41 H (4-34) U/L Alkaline Phosphatase 85 (38-126) U/L Lactate Dehydrogenase (313-618) U/L C-Reactive Protein (<1.0) mg/dL Total Protein 7.3 (6.3-8.2) g/dL Albumin 4.3 (3.5-5.0) g/dL Influenza Type A (PCR) Not Detected (Not Detectd) Influenza Type B (PCR) Not Detected (Not Detectd) RSV (PCR) Not Detected (Not Detectd) SARS-CoV-2 (PCR) Detected A (Not Detectd) 02/04/22 02/04/22 02/04/22 Range/Units 01:47 01:47 01:47 WBC (3.8-10.6) k/uL RBC (3.80-5.40) m/uL Hgb (11.4-16.0) gm/dL Hct (34.0-46.0) % MCV (80.0-100.0) fL MCH (25.0-35.0) pg MCHC (31.0-37.0) g/dL RDW (11.5-15.5) % Plt Count (150-450) k/uL MPV Neutrophils % % Lymphocytes % % Monocytes % % Eosinophils % % Basophils % % Neutrophils # (1.3-7.7) k/uL Lymphocytes # (1.0-4.8) k/uL Monocytes # (0-1.0) k/uL Eosinophils # (0-0.7) k/uL Basophils # (0-0.2) k/uL PT 10.6 (9.0-12.0) sec INR 1.0 (<1.2) APTT 26.9 (22.0-30.0) sec Sodium (137-145) mmol/L Potassium (3.5-5.1) mmol/L Chloride (98-107) mmol/L Carbon Dioxide (22-30) mmol/L Anion Gap mmol/L BUN (7-17) mg/dL Creatinine (0.52-1.04) mg/dL Est GFR (CKD-EPI)AfAm (>60 ml/min/1.73 sqM) Est GFR (CKD-EPI)NonAf (>60 ml/min/1.73 sqM) Glucose (74-99) mg/dL Plasma Lactic Acid Deandre 1.1 (0.7-2.0) mmol/L Calcium (8.4-10.2) mg/dL Magnesium 1.5 L (1.6-2.3) mg/dL Total Bilirubin (0.2-1.3) mg/dL AST (14-36) U/L ALT (4-34) U/L Alkaline Phosphatase (38-126) U/L Lactate Dehydrogenase 1068 H (313-618) U/L C-Reactive Protein 2.7 H (<1.0) mg/dL Total Protein (6.3-8.2) g/dL Albumin (3.5-5.0) g/dL Influenza Type A (PCR) (Not Detectd) Influenza Type B (PCR) (Not Detectd) RSV (PCR) (Not Detectd) SARS-CoV-2 (PCR) (Not Detectd) - EKG Data -: EKG Interpreted by Me (Ventricular rate 105, WV interval .152, QRS 0.77, QTC 0.344, normal axis) EKG shows normal: sinus rhythm Rate: tachycardia Disposition Clinical Impression: COVID-19, Hypoxia Disposition: ADMITTED IP TO THIS [facility] Decision Date: 02/04/22 Decision Time: 00:48
--- NOTE | 2022-02-03 23:52 | XR ---
EXAMINATION TYPE: XR chest 2V DATE OF EXAM: 02/03/2022 COMPARISON: 07/31/2017 HISTORY: Short of breath TECHNIQUE: FINDINGS: Heart is normal. Lungs are clear. Diaphragm is normal. Bony thorax appears normal IMPRESSION: Normal chest. No change.
[2022-02-04] MEDS ORDERED: ALBUTEROL HFA INHALER INHALATION STA (00:05)
[2022-02-04] MEDS ORDERED: SODIUM CHLORIDE 0.9% 1,000 ML IV STA (00:51)
[2022-02-04 01:15] LABS: Basophils % (A) 0 %; Eosinophils # (A) 0.2 k/uL (0-0.7); Eosinophils % (A) 2 %; HCT 42.1 % (34.0-46.0); HGB 14.6 gm/dL (11.4-16.0); Lymphocytes # (A) 0.6 k/uL (1.0-4.8); Lymphocytes % (A) 6 %; MCH 31.3 pg (25.0-35.0); MCHC 34.7 g/dL (31.0-37.0); MCV 90.2 fL (80.0-100.0); Mean Platelet Volume 7.4; Monocytes # (A) 0.3 k/uL (0-1.0); Monocytes % (A) 3 %; Neutrophils # (A) 9.7 k/uL (1.3-7.7); Neutrophils % (A) 88 %; Platelet Count 259 k/uL (150-450); RBC 4.67 m/uL (3.80-5.40); RDW 13.1 % (11.5-15.5); WBC 10.9 k/uL (3.8-10.6)
[2022-02-04 01:28] LABS: ALT 41 U/L (4-34); AST 72 U/L (14-36); African American GFR (CKD) >90 (>60 ml/min/1.73 sqM); Albumin 4.3 g/dL (3.5-5.0); Alkaline Phosphatase 85 U/L (38-126); Anion Gap 9 mmol/L; Blood Urea Nitrogen 9 mg/dL (7-17); Calcium 9.3 mg/dL (8.4-10.2); Carbon Dioxide 25 mmol/L (22-30); Chloride 102 mmol/L (98-107); Glucose 168 mg/dL (74-99); Magnesium 1.5 mg/dL (1.6-2.3); Non-African American GFR(CKD) >90 (>60 ml/min/1.73 sqM); Potassium 4.2 mmol/L (3.5-5.1); Sodium 136 mmol/L (137-145); Total Bilirubin 0.6 mg/dL (0.2-1.3); Total Protein 7.3 g/dL (6.3-8.2)
[2022-02-04] MEDS ORDERED: ACETAMINOPHEN TAB 325 MG TAB PO PRN (01:38)
[2022-02-04] MEDS ORDERED: NALOXONE 0.4 MG/ML 1 ML VIAL IV PRN (01:38)
[2022-02-04] MEDS ORDERED: MAGNESIUM OXIDE 400 MG TAB PO STA (01:51)
[2022-02-04 02:16] LABS: Partial Thromboplastin Time 26.9 sec (22.0-30.0); Prothrombin Time 10.6 sec (9.0-12.0)
[2022-02-04 02:17] LABS: C Reactive Protein 2.7 mg/dL (<1.0); Magnesium 1.5 mg/dL (1.6-2.3)
[2022-02-04] MEDS: ALBUTEROL HFA INHALER INHALATION PRN ×2 (07:35→12:04)
[2022-02-04] MEDS ORDERED: IPRATROPIUM-ALBUTEROL 3 ML NEB INHALATION PRN (08:32)
[2022-02-04] MEDS ORDERED: CYCLOBENZAPRINE 10 MG TAB PO PRN (08:32)
[2022-02-04] MEDS ORDERED: BUTALB/APAP/CAFF 50-325-40MG TAB PO PRN (08:32)
[2022-02-04] MEDS ORDERED: HYDROcodone/APAP 5-325MG 1 EACH TAB PO PRN (08:32)
--- NOTE | 2022-02-04 08:35 | P.HPIM ---
History of Present Illness This is a pleasant 56 years old female with past medical history of multiple medical problems as below presents because of dyspnea Presents because of dyspnea of one-day duration associated with some coughing and sneezing. Also she has clear phlegm. Patient says that her symptoms started 1-2 days ago and she tested positive for Covid yesterday as well as her son after he came in from the [employer] game. However she she has chronic headache because of migraine and she follow up with a neurologist Dr. Goodman denies chest pain. She denies any GI symptoms like no vomiting or diarrhea or abdominal pain. Also she denies neurological symptoms, no dysuria urgency. No dizziness or weakness or numbness She does not follow up with psychological anthropologist regularly Patient today she feels well generally and ask when she can be discharged, her questions were answered On admission patient is tachycardic and tachypneic, heart rate of 102, breathing recurrent 18 2020, she is saturating 94% on room air. And she is afebrile. mild leukocytosis of 10.9, rest of cbc, inr, bmp are unremarkable Glucose 168, lactic acid 1.1, magnesium level I.5. LDH is elevated at 1068 and C-reactive protein is 2.7. Coronavirus not detected Chest x-ray looks normal Covid test positive Review of Systems Review of systems CONSTITUTIONAL: No fever, no malaise, no fatigue. HEENT: No recent visual problems or hearing problems. Denied any sore throat. CARDIOVASCULAR: No orthopnea, PND, no palpitations, no syncope. PULMONARY: No chest wall tenderness, no hemoptysis. GASTROINTESTINAL: No diarrhea, no nausea, no vomiting, no abdominal pain. Normoactive bowel sounds. NEUROLOGICAL: No headaches, no weakness, no numbness. HEMATOLOGICAL: Denies any bleeding or petechiae. GENITOURINARY: Denies any burning micturition, frequency, or urgency. MUSCULOSKELETAL/RHEUMATOLOGICAL: Denies any joint pain, swelling, or any muscle pain. ENDOCRINE: Denies any polyuria or polydipsia. Past Medical History Past Medical History: Diabetes Mellitus, Fibromyalgia, Hyperlipidemia, Hypertension, Osteoarthritis (OA), Thyroid Disorder Additional Past Medical History / Comment(s): back pain "pretty much all the time" History of Any Multi-Drug Resistant Organisms: None Reported Past Surgical History: Section, Cholecystectomy, Hysterectomy, Tonsillectomy Additional Past Surgical History / Comment(s): tumor removal from rt lower pelvis with partial hysterectomy, leep procedure, Past Anesthesia/Blood Transfusion Reactions: No Reported Reaction Past Psychological History: Anxiety, Depression Smoking Status: Current every day smoker Past Alcohol Use History: None Reported Past Drug Use History: None Reported - Past Family History Mother Family Medical History: Cancer, COPD, Diabetes Mellitus, GERD/Reflux, Hypertension, Osteoarthritis (OA), Sleep Apnea/CPAP/BIPAP Sister(s) Additional Family Medical History / Comment(s): elevated liver enzymes Medications and Allergies Home Medications Medication Instructions Recorded Confirmed Type Butalb/APAP/Caff 50-325-40Mg 1 tab PO TID PRN 11/22/15 02/04/22 History [Fioricet 50-325-40] DULoxetine HCL [Cymbalta] 60 mg PO HS 11/22/15 02/04/22 History Fluticasone Nasal [place] [Flonase 1 - 2 spr EA NOSTRIL DAILY 11/22/15 02/04/22 History Nasal [place]] HYDROcodone/APAP 5-325MG [[place] 1 tab PO TID PRN 11/22/15 02/04/22 History 5-325] Levothyroxine Sodium [Synthroid] 75 mcg PO DAILY 11/22/15 02/04/22 History Montelukast [Singulair] 10 mg PO DAILY 11/22/15 02/04/22 History Multivitamins, Thera [Multivitamin 1 tab PO DAILY 11/22/15 02/04/22 History (formulary)] Cyclobenzaprine [Flexeril] 10 mg PO BID PRN 07/20/17 02/04/22 History Loratadine [Claritin] 10 mg PO DAILY 07/20/17 02/04/22 History Mirtazapine [Remeron] 15 mg PO HS 07/20/17 02/04/22 History Albuterol Sulfate [Albuterol 2 puff INHALATION RT-QID PRN 07/01/21 02/04/22 History Sulfate Hfa] Atorvastatin Calcium [Lipitor] 10 mg PO HS 07/01/21 02/04/22 History Diclofenac Sodium Gel [Voltaren 2 gm TOPICAL QID PRN 07/01/21 02/04/22 History Gel] Omeprazole 20 mg PO DAILY 07/01/21 02/04/22 History glipiZIDE [Glucotrol] 10 mg PO BID 07/01/21 02/04/22 History Apixaban [Eliquis] 5 mg PO BID #60 tab 07/02/21 02/04/22 Rx Metoprolol Tartrate [Lopressor] 25 mg PO BID #60 tab 07/03/21 02/04/22 Rx Flecainide [Tambocor] 50 mg PO Q12H 02/04/22 02/04/22 History Ipratropium-Albuterol Nebulize 3 ml INHALATION RT-QID PRN 02/04/22 02/04/22 History [Duoneb 0.5 mg-3 mg/3 ml Soln] PARoxetine HCL [Paxil] 30 mg PO DAILY 02/04/22 02/04/22 History metFORMIN HCL [Glucophage] 1,000 mg PO BID 02/04/22 02/04/22 History Allergies Allergy/AdvReac Type Severity Reaction Status Date / Time morphine Allergy Rash/Hives/Shortness Verified 02/04/22 08:03 of breath pregabalin [From Lyrica] Allergy Rash/Hives/Skin Verified 02/04/22 08:03 peels Physical Exam Vitals: Vital Signs Temp Pulse Resp BP Pulse Ox 02/04/22 06:33 102 H 18 133/95 94 L 02/04/22 05:00 101 H 18 02/04/22 04:00 102 H 18 92 L 02/04/22 03:00 100 20 92 L 02/04/22 02:00 105 H 18 159/93 92 L 02/04/22 01:00 106 H 20 91 L 02/04/22 00:02 93 L 02/03/22 23:48 98 18 147/96 94 L 02/03/22 22:33 97.7 F 93 20 162/96 93 L Intake and Output 02/03/22 02/03/22 02/04/22 14:59 22:59 06:59 Other: Weight 64.41 kg GENERAL: The patient is alert and oriented x3, not in any acute distress. Well developed, well nourished. HEENT: Pupils are round and equally reacting to light. EOMI. No scleral icterus. No conjunctival pallor. Normocephalic, atraumatic. No pharyngeal erythema. No thyromegaly. CARDIOVASCULAR: S1 and S2 present. No murmurs, rubs, or gallops. PULMONARY: Chest is clear to auscultation, no wheezing or crackles. ABDOMEN: Soft, nontender, nondistended, normoactive bowel sounds. No palpable organomegaly. MUSCULOSKELETAL: No joint swelling or deformity. EXTREMITIES: No cyanosis, clubbing, or pedal edema. NEUROLOGICAL: Gross neurological examination did not reveal any focal deficits. SKIN: No rashes. no petechiae. Results CBC & Chem 7: 02/04/22 01:08 02/04/22 01:08 Labs: Abnormal Lab Results - Last 24 Hours (Table) 02/04/22 02/04/22 02/04/22 Range/Units 01:08 01:08 01:25 WBC 10.9 H (3.8-10.6) k/uL Neutrophils # 9.7 H (1.3-7.7) k/uL Lymphocytes # 0.6 L (1.0-4.8) k/uL Sodium 136 L (137-145) mmol/L Creatinine 0.41 L (0.52-1.04) mg/dL Glucose 168 H (74-99) mg/dL Magnesium 1.5 L (1.6-2.3) mg/dL AST 72 H (14-36) U/L ALT 41 H (4-34) U/L Lactate Dehydrogenase (313-618) U/L C-Reactive Protein (<1.0) mg/dL SARS-CoV-2 (PCR) Detected A (Not Detectd) 02/04/22 Range/Units 01:47 WBC (3.8-10.6) k/uL Neutrophils # (1.3-7.7) k/uL Lymphocytes # (1.0-4.8) k/uL Sodium (137-145) mmol/L Creatinine (0.52-1.04) mg/dL Glucose (74-99) mg/dL Magnesium 1.5 L (1.6-2.3) mg/dL AST (14-36) U/L ALT (4-34) U/L Lactate Dehydrogenase 1068 H (313-618) U/L C-Reactive Protein 2.7 H (<1.0) mg/dL SARS-CoV-2 (PCR) (Not Detectd) Assessment and Plan Assessment: Covid infection without pneumonia, with increased inflammatory markers History of A. fib Nicotine dependence Diabetes mellitus Hypertension Hyperlipidemia History of fibromyalgia Hypothyroidism History of anxiety and depression, not an active issue Plan: continue with steroids Continue with a bronchodilator oxygen as needed Pulmonary consult Multiple vitamins Labs and medication were reviewed.. Continue same treatment. Continue with symptomatic treatment. Resume home medication. Monitor labs and vitals. DVT and GI prophylaxis. Further recommendations as per clinical course of the patient DVT prophylaxis: Eliquis GI Prophylaxis: Pepcid PT/OT: Pending Prognosis is guarded
[2022-02-04] MEDS ORDERED: FLECAINIDE 50 MG TAB PO SCH (09:00)
[2022-02-04] MEDS ORDERED: PARoxetine 10 MG TAB PO SCH (09:00)
[2022-02-04] MEDS ORDERED: METOPROLOL TARTRATE 25 MG TAB PO SCH (09:00)
[2022-02-04] MEDS ORDERED: LEVOTHYROXINE 75 MCG TAB PO SCH (09:00)
[2022-02-04] MEDS ORDERED: LORATADINE 10 MG TAB PO SCH (09:00)
[2022-02-04] MEDS ORDERED: MONTELUKAST 10 MG TAB PO SCH (09:00)
[2022-02-04] MEDS ORDERED: APIXABAN 5 MG TAB PO SCH (09:00)
[2022-02-04] MEDS ORDERED: MULTIVITAMINS, THERA 1 EACH TAB PO SCH (09:00)
[2022-02-04] MEDS ORDERED: metFORMIN 500 MG TAB PO SCH (09:00)
[2022-02-04] MEDS ORDERED: glipiZIDE 10 MG TAB PO SCH (09:00)
[2022-02-04 09:46] LABS: Ferritin 58.3 ng/mL (10.0-291.0)
--- NOTE | 2022-02-04 10:40 | P.CNPUL ---
History of Present Illness Consult date: 02/04/22 Requesting physician: Krish Aden Reason for consult: dyspnea, cough Chief complaint: cough and shortness of breath. History of present illness: Pulmonary consult dated 02/04/2022. 56-year-old female seen in the emergency department, on February 03. She apparently presented with an upper respiratory tract infection. The patient states that she tested positive for coronavirus yesterday. Both her and her son were not feeling well. The patient states that her primary complaints included cough, mild temperature elevation, and shortness of breath. Currently, she is seen in the emergency room. She is not on any supplemental oxygen or IV fluids. She apparently was read admitted to the hospital but I mention to the nurse that she could probably go home. The patient is okay with that. She does smoke on a daily basis. She has a history of diabetes, fibromyalgia, hyperlipidemia, hypertension, and osteoarthritis. White count 10.9, within normal hemoglobin hematocrit and platelet count. Coagulation studies were normal. Sodium 136, creatinine 0.41, and mild elevations of the AST and ALT. Review of Systems REVIEW OF SYSTEMS: CONSTITUTIONAL: [Negative.] NEUROLOGIC: [ Negative.] HEENT: [ Negative.] CARDIAC: [Negative.] PULMONARY: shortness of breath and cough. GI: [Negative.] : [Negative.] RHEUMATOLOGIC: [ Negative.] IMMUNOLOGIC: [ Negative.] ENDOCRINE: [Negative. ] DERMATOLOGIC: [Negative.] Past Medical History Past Medical History: Diabetes Mellitus, Fibromyalgia, Hyperlipidemia, Hyperten marlene, Osteoarthritis (OA), Thyroid Disorder Additional Past Medical History / Comment(s): back pain "pretty much all the time" History of Any Multi-Drug Resistant Organisms: None Reported Past Surgical History: Section, Cholecystectomy, Hysterectomy, Tonsillectomy Additional Past Surgical History / Comment(s): tumor removal from rt lower pelvis with partial hysterectomy, leep procedure, Past Anesthesia/Blood Transfusion Reactions: No Reported Reaction Past Psychological History: Anxiety, Depression Smoking Status: Current every day smoker Past Alcohol Use History: None Reported Past Drug Use History: None Reported - Past Family History Mother Family Medical History: Cancer, COPD, Diabetes Mellitus, GERD/Reflux, Hypertension, Osteoarthritis (OA), Sleep Apnea/CPAP/BIPAP Sister(s) Additional Family Medical History / Comment(s): elevated liver enzymes Medications and Allergies Home Medications Medication Instructions Recorded Confirmed Type Butalb/APAP/Caff 50-325-40Mg 1 tab PO TID PRN 11/22/15 02/04/22 History [Fioricet 50-325-40] DULoxetine HCL [Cymbalta] 60 mg PO HS 11/22/15 02/04/22 History Fluticasone Nasal [place] [Flonase 1 - 2 spr EA NOSTRIL DAILY 11/22/15 02/04/22 History Nasal [place]] HYDROcodone/APAP 5-325MG [[place] 1 tab PO TID PRN 11/22/15 02/04/22 History 5-325] Levothyroxine Sodium [Synthroid] 75 mcg PO DAILY 11/22/15 02/04/22 History Montelukast [Singulair] 10 mg PO DAILY 11/22/15 02/04/22 History Multivitamins, Thera [Multivitamin 1 tab PO DAILY 11/22/15 02/04/22 History (formulary)] Cyclobenzaprine [Flexeril] 10 mg PO BID PRN 07/20/17 02/04/22 History Loratadine [Claritin] 10 mg PO DAILY 07/20/17 02/04/22 History Mirtazapine [Remeron] 15 mg PO HS 07/20/17 02/04/22 History Albuterol Sulfate [Albuterol 2 puff INHALATION RT-QID PRN 07/01/21 02/04/22 H istory Sulfate Hfa] Atorvastatin Calcium [Lipitor] 10 mg PO HS 07/01/21 02/04/22 History Diclofenac Sodium Gel [Voltaren 2 gm TOPICAL QID PRN 07/01/21 02/04/22 History Gel] Omeprazole 20 mg PO DAILY 07/01/21 02/04/22 History glipiZIDE [Glucotrol] 10 mg PO BID 07/01/21 02/04/22 History Apixaban [Eliquis] 5 mg PO BID #60 tab 07/02/21 02/04/22 Rx Metoprolol Tartrate [Lopressor] 25 mg PO BID #60 tab 07/03/21 02/04/22 Rx Flecainide [Tambocor] 50 mg PO Q12H 02/04/22 02/04/22 History Ipratropium-Albuterol Nebulize 3 ml INHALATION RT-QID PRN 02/04/22 02/04/22 History [Duoneb 0.5 mg-3 mg/3 ml Soln] PARoxetine HCL [Paxil] 30 mg PO DAILY 02/04/22 02/04/22 History metFORMIN HCL [Glucophage] 1,000 mg PO BID 02/04/22 02/04/22 History Allergies Allergy/AdvReac Type Severity Reaction Status Date / Time morphine Allergy Rash/Hives/Shortness Verified 02/04/22 08:03 of breath pregabalin [From Lyrica] Allergy Rash/Hives/Skin Verified 02/04/22 08:03 peels Physical Exam Osteopathic Statement: *. No significant issues noted on an osteopathic structural exam other than those noted in the History and Physical/Consult. Vitals: Vital Signs Temp Pulse Resp BP Pulse Ox 02/04/22 09:09 101 H 16 125/72 94 L 02/04/22 06:33 102 H 18 133/95 94 L 02/04/22 05:00 101 H 18 02/04/22 04:00 102 H 18 92 L 02/04/22 03:00 100 20 92 L 02/04/22 02:00 105 H 18 159/93 92 L 02/04/22 01:00 106 H 20 91 L 02/04/22 00:02 93 L 02/03/22 23:48 98 18 147/96 94 L 02/03/22 22:33 97.7 F 93 20 162/96 93 L Intake and Output 02/03/22 02/04/22 02/04/22 22:59 06:59 14:59 Other: Weight 64.41 kg No acute distress, oriented 3. Frequent cough. HEENT examination is grossly unremarkable. Mucous membranes are moist. No oral lesions. Neck supple. Full range of motion. No adenopathy thyromegaly or neck vein distention. Cardiovascular examination reveals regular rhythm rate. S1-S2 normal. No S3 or S4. No discernible murmur noted. Heart rate 100 bpm. Lungs reveal scattered mild rhonchi. No wheezes. No crackles. Room air saturation 95%. Abdomen soft bowel sounds are heard. No masses or tenderness. Extremities are intact. No cyanosis clubbing or edema. Skin is without rash or lesion. Neurologic examination is brief but nonfocal. Results - Laboratory Findings CBC and BMP: 02/04/22 01:08 02/04/22 01:08 PT/INR, D-dimer PT 10.6 sec (9.0-12.0) 02/04/22 01:47 INR 1.0 (<1.2) 02/04/22 01:47 Abnormal lab findings: Abnormal Labs 02/04/22 02/04/22 02/04/22 01:08 01:08 01:25 WBC 10.9 H Neutrophils # 9.7 H Lymphocytes # 0.6 L Sodium 136 L Creatinine 0.41 L Glucose 168 H Magnesium 1.5 L AST 72 H ALT 41 H Lactate Dehydrogenase C-Reactive Protein SARS-CoV-2 (PCR) Detected A 02/04/22 01:47 WBC Neutrophils # Lymphocytes # Sodium Creatinine Glucose Magnesium 1.5 L AST ALT Lactate Dehydrogenase 1068 H C-Reactive Protein 2.7 H SARS-CoV-2 (PCR) - Diagnostic Findings Chest x-ray: image reviewed Assessment and Plan Assessment: Coronavirus infection, without coronavirus associated pneumonia. Upper respiratory tract infection, likely triggered by coronavirus infection. History of diabetes, fibromyalgia, hyperlipidemia, hypertension,and hypothyroid ism. Plan: Plan dated 02/04/2022. The patient appears rather stable. She's not on any supplemental oxygen. She could be discharged home on a couple days of Decadron, for her cough, and be given a prescription for Paxlovid. I asked the nurse in the emergency room to call the attending physician, and relay my message about possible discharge. The patient can always come back to the emergency room, Time with Patient: Greater than 30
[2022-02-04] MEDS ORDERED: dexAMETHasone 2 MG TAB PO SCH (13:30)
[2022-02-04 13:52] VITALS: BP 117/96; PULSE 86; RESP 18
[2022-02-04] MEDS ORDERED: ATORVASTATIN 10 MG TAB PO SCH (21:00)
[2022-02-04] MEDS ORDERED: DULoxetine HCL 60 MG CAPSULE.DR PO SCH (21:00)
[2022-02-04] MEDS ORDERED: MIRTAZAPINE 15 MG TAB PO SCH (21:00)
== END 2022-02-04 16:40 | disposition home or self-care (01) | DRG 179 ==
LOC: EC 21:11 → 4SSUR 02-04 01:58
PROVIDERS: ADMIT Family Medicine; ATTEND Family Medicine
DX: U07.1 COVID-19 (principal); E03.9 Hypothyroidism, unspecified; Z79.890 Hormone replacement therapy; E11.9 Type 2 diabetes mellitus without complications; E78.5 Hyperlipidemia, unspecified; Z71.6 Tobacco abuse counseling; F17.200 Nicotine dependence, unspecified, uncomplicated; F32.A Depression, unspecified; R00.0 Tachycardia, unspecified; F41.9 Anxiety disorder, unspecified; G43.909 Migraine, unspecified, not intractable, without status migrainosus; I10 Essential (primary) hypertension; M79.7 Fibromyalgia; R09.02 Hypoxemia; Z79.01 Long term (current) use of anticoagulants; Z79.84 Long term (current) use of oral hypoglycemic drugs; Z79.899 Other long term (current) drug therapy; Z90.711 Acquired absence of uterus with remaining cervical stump; Z82.5 Family history of asthma and other chronic lower respiratory diseases; Z82.49 Family history of ischemic heart disease and other diseases of the circulatory system; Z88.5 Allergy status to narcotic agent; Z88.8 Allergy status to other drugs, medicaments and biological substances; Z90.49 Acquired absence of other specified parts of digestive tract
CPT/HCPCS: 36415; 71046; 80053; 82728; 83605; 83615; 83735; 84145; 85025; 85610; 85730; 86140; 87636; 93005; 94640; 96372; 99285

== ENCOUNTER 2023-05-21 10:27 | Emergency (ER) | payer OTHER ==
[2023-05-21 11:01] VITALS: RESP 18; TEMP 98.8
[2023-05-21 11:18] LABS: Basophils % (A) 0 %; Eosinophils # (A) 0.1 k/uL (0-0.7); Eosinophils % (A) 1 %; HCT 33.4 % (34.0-46.0); HGB 10.3 gm/dL (11.4-16.0); Hypochromasia Moderate; Lymphocytes # (A) 2.9 k/uL (1.0-4.8); Lymphocytes % (A) 22 %; MCH 23.7 pg (25.0-35.0); MCHC 30.7 g/dL (31.0-37.0); MCV 77.3 fL (80.0-100.0); Mean Platelet Volume 7.3; Microcytosis Slight; Monocytes # (A) 0.5 k/uL (0-1.0); Monocytes % (A) 4 %; Neutrophils # (A) 9.2 k/uL (1.3-7.7); Neutrophils % (A) 71 %; Platelet Count 390 k/uL (150-450); RBC 4.33 m/uL (3.80-5.40); RDW 15.7 % (11.5-15.5); WBC 12.9 k/uL (3.8-10.6)
[2023-05-21 11:30] LABS: ALT 25 U/L (4-34); AST 44 U/L (14-36); African American GFR (CKD) >90 (>60 ml/min/1.73 sqM); Albumin 4.4 g/dL (3.5-5.0); Alkaline Phosphatase 66 U/L (38-126); Anion Gap 12 mmol/L; Blood Urea Nitrogen 10 mg/dL (7-17); Calcium 9.1 mg/dL (8.4-10.2); Carbon Dioxide 22 mmol/L (22-30); Chloride 104 mmol/L (98-107); Glucose 157 mg/dL (74-99); Non-African American GFR(CKD) >90 (>60 ml/min/1.73 sqM); Potassium 4.1 mmol/L (3.5-5.1); Sodium 138 mmol/L (137-145); Total Bilirubin 0.5 mg/dL (0.2-1.3); Total Protein 7.5 g/dL (6.3-8.2)
[2023-05-21 11:39] LABS: NT-Pro-B-Type Natriuretic Pept 1900 pg/mL
--- NOTE | 2023-05-21 11:46 | XR ---
EXAMINATION TYPE: XR chest 2V DATE OF EXAM: 05/21/2023 COMPARISON: 02/03/2022 HISTORY: 58-year-old female shortness of breath, difficulty breathing TECHNIQUE: Frontal and lateral views FINDINGS: The cardiomediastinal silhouette, aorta, and pulmonary vasculature are within normal limits. Mild int erstitial prominence and some peribronchial cuffing. No consolidation or pleural effusion. IMPRESSION: Correlate for bronchitis or asthma. No focal infiltrate seen.
[2023-05-21 12:14] VITALS: BP 125/98; PULSE 80
--- NOTE | 2023-05-21 12:25 | ED ---
SOB HPI - General Chief Complaint: Shortness of Breath Stated Complaint: SOB,dizziness Time Seen by Provider: 05/21/23 10:35 Source: patient Mode of arrival: ambulatory Limitations: no limitations - History of Present Illness Initial Comments: 58-year-old female past medical history of asthma who presents emergency department reporting shortness of breath. States that she has had shortness of breath for the past week and a half. States her breathing gets worse when she lays down at night to sleep. She will usually wake up from the symptoms. Repo rts that it will persist for a few hours and then eventually go away. She denies fevers, chills or cough. No chest pain. No lower extremity swelling. No history of DVT or PE. No history of congestive heart failure. No other alleviating, precipitating modifying factors - Related Data Home Medications Medication Instructions Recorded Confirmed Butalb/APAP/Caff 50-325-40Mg 1 tab PO TID PRN 11/22/15 05/21/23 [Fioricet 50-325-40] DULoxetine HCL [Cymbalta] 60 mg PO HS 11/22/15 05/21/23 Fluticasone Nasal [place] [Flonase 1 - 2 spr EA NOSTRIL DAILY 11/22/15 05/21/23 Nasal [place]] HYDROcodone/APAP 5-325MG [[place] 1 tab PO TID PRN 11/22/15 05/21/23 5-325] Levothyroxine Sodium [Synthroid] 75 mcg PO DAILY 11/22/15 05/21/23 Montelukast [Singulair] 10 mg PO DAILY 11/22/15 05/21/23 Multivitamins, Thera [Multivitamin 1 tab PO DAILY 11/22/15 05/21/23 (formulary)] Cyclobenzaprine [Flexeril] 10 mg PO BID PRN 07/20/17 05/21/23 Loratadine [Claritin] 10 mg PO DAILY 07/20/17 05/21/23 Mirtazapine [Remeron] 15 mg PO HS 07/20/17 05/21/23 Albuterol Sulfate [Albuterol 2 puff INHALATION RT-QID PRN 07/01/21 05/21/23 Sulfate Hfa] Atorvastatin Calcium [Lipitor] 10 mg PO HS 07/01/21 05/21/23 Diclofenac Sodium Gel [Voltaren 1% 2 gm TOPICAL QID PRN 07/01/21 05/21/23 Gel] Omeprazole 20 mg PO DAILY 07/01/21 05/21/23 glipiZIDE [Glucotrol] 10 mg PO BID 07/01/21 05/21/23 Flecainide [Tambocor] 50 mg PO Q12H 02/04/22 05/21/23 Ipratropium-Albuterol Nebulize 3 ml INHALATION RT-QID PRN 02/04/22 05/21/23 [Duoneb 0.5 mg-3 mg/3 ml Soln] PARoxetine HCL [Paxil] 30 mg PO DAILY 02/04/22 05/21/23 metFORMIN HCL [Glucophage] 1,000 mg PO BID 02/04/22 05/21/23 Previous Rx's Medication Instructions Recorded Apixaban [Eliquis] 5 mg PO BID #60 tab 07/02/21 Metoprolol Tartrate [Lopressor] 25 mg PO BID #60 tab 07/03/21 predniSONE [Deltasone] 20 mg PO BID #10 tab 05/21/23 Allergies Allergy/AdvReac Type Severity Reaction Status Date / Time morphine Allergy Rash/Hives/Shortness Verified 05/21/23 12:25 of breath pregabalin [From Lyrica] Allergy Rash/Hives/Skin Verified 05/21/23 12:25 peels Review of Systems ROS Statement: Those systems with pertinent positive or pertinent negative responses have been documented in the HPI. ROS Other: All systems not noted in ROS Statement are negative. Past Medical History Past Medical History: Atrial Fibrillation, Diabetes Mellitus, Fibromyalgia, Hyperlipidemia, Hypertension, Osteoarthritis (OA), Thyroid Disorder Additional Past Medical History / Comment(s): back pain "pretty much all the time" History of Any Multi-Drug Resistant Organisms: None Reported Past Surgical History: Section, Cholecystectomy, Hysterectomy, Tonsillectomy Additional Past Surgical History / Comment(s): tumor removal from rt lower pelvis with partial hysterectomy, leep procedure, Past Anesthesia/Blood Transfusion Reactions: No Reported Reaction Past Psychological History: Anxiety, Depression Smoking Status: Current every day smoker Past Alcohol Use History: None Reported Past Drug Use History: None Reported - Past Family History Mother Family Medical History: Cancer, COPD, Diabetes Mellitus, GERD/Reflux, Hyper tension, Osteoarthritis (OA), Sleep Apnea/CPAP/BIPAP Sister(s) Additional Family Medical History / Comment(s): elevated liver enzymes General Exam Limitations: no limitations General appearance: alert, in no apparent distress Head exam: Present: atraumatic, normocephalic, normal inspection Eye exam: Present: normal appearance, PERRL, EOMI. Absent: scleral icterus, conjunctival injection, periorbital swelling ENT exam: Present: normal exam, mucous membranes moist Neck exam: Present: normal inspection. Absent: tenderness, meningismus, lymphadenopathy Respiratory exam: Present: normal lung sounds bilaterally. Absent: respiratory distress, wheezes, rales, rhonchi, stridor Cardiovascular Exam: Present: regular rate, normal rhythm, systolic murmur. Absent: diastolic murmur, rubs, gallop, clicks GI/Abdominal exam: Present: soft, normal bowel sounds. Absent: distended, tenderness, guarding, rebound, rigid Extremities exam: Present: normal inspection, full ROM, normal capillary refill. Absent: tenderness, pedal edema, joint swelling, calf tenderness Back exam: Present: normal inspection Neurological exam: Present: alert, oriented X3, CN II-XII intact Psychiatric exam: Present: normal affect, normal mood Skin exam: Present: warm, dry, intact, normal color. Absent: rash Course Vital Signs 05/21/23 05/21/23 10:28 11:55 Temperature 98.8 F Pulse Rate 91 80 Respiratory 18 18 Rate Blood Pressure 167/73 125/98 O2 Sat by Pulse 95 96 Oximetry Procedures - [place] Protocol (Time Out) Nurse: Uriah Friedman Medical Decision Making - Medical Decision Making Was pt. sent in by a medical professional or institution (, PA, MOTION PICTURE PHOTOGRAPHER, urgent care, hospital, or fdc...) When possible be specific @ -No Did you speak to anyone other than the patient for history (EMS, parent, family, police, friend...)? What history was obtained from this source @ -No Did you review nursing and triage notes (agree or disagree)? Why? @ -I reviewed and agree with nursing and triage notes Were old charts reviewed (outside hosp., previous admission, EMS record, old EKG, old radiological studies, urgent care reports/EKG's, fdc records)? Report findings @ -I reviewed echo from July 2021 Differential Diagnosis (chest pain, altered mental status, abdominal pain women, abdominal pain men, vaginal bleeding, weakness, fever, dyspnea, syncope, headache, dizziness, GI bleed, back pain, seizure, CVA, palpatations, mental health, musculoskeletal)? @ -Differential Dyspnea: Coronary syndrome, arrhythmia, tamponade, asthma, COPD, pulmonary embolism, pneumonia, pneumothorax, pulmonary effusion, anaphylaxis, diabetic ketoacidosis, flailed chest, pulmonary contusion, diaphragmatic rupture, anemia, neuromus cular, this is not meant to be an all-inclusive list. EKG interpreted by me (3pts min.). @ -Yes and demonstrates sinus rhythm with a rate of 84. TX interval 151. QRS 85. QTc of 425. No acute ST segment elevations or depressions X-rays interpreted by me (1pt min.). @ -Yes and demonstrates no acute process CT interpreted by me (1pt min.). @ -None done U/S interpreted by me (1pt. min.). @ -None done What testing was considered but not performed or refused? (CT, X-rays, U/S, labs)? Why? @ -None What meds were considered but not given or refused? Why? @ -None Did you discuss the management of the patient with other professionals (professionals i.e. , PA, MOTION PICTURE PHOTOGRAPHER, lab, RT, psych nurse, school social worker, gyroscopic instrument mechanic, teacher, inshore undersea warfare officer, director of casework services)? Give summary @ -No Was smoking cessation discussed for >3mins.? @ -No Was critical care preformed (if so, how long)? @ -No Were there social determinants of health that impacted care today? How? (Homelessness, low income, unemployed, alcoholism, drug addiction, transportation, low edu. Level, literacy, decrease access to med. care, assisted, rehab)? @ -No Was there de-escalation of care discussed even if they declined (Discuss DNR or withdrawal of care, Hospice)? DNR status @ -No What co-morbidities impacted this encounter? (DM, HTN, Smoking, COPD, CAD, Cancer, CVA, ARF, Chemo, Hep., AIDS, mental health diagnosis, sleep apnea, mor bid obesity)? @ -Asthma Was patient admitted / discharged? Hospital course, mention meds given and route, prescriptions, significant lab abnormalities, going to OR and other pertinent info. @ -Upon arrival patient was seen and evaluated in room 26. Thorough history and physical exam was performed. Patient was resting comfortably in the exam room with normal vitals. She does not demonstrate any signs of respiratory distress. Lung sounds are clear. Laboratory studies are conducted. Chest x- ray was performed. Patient does have audible systolic murmur. She states that this is known. She does have an upcoming echo. I discussed the possible diagnosis. Patient is symptom-free at this time. I did discuss the need in getting an echo as the patient does have elevated BNP with known aortic stenosis. Patient will be placed on a course of steroids to see if this helps her symptoms with her underlying history of asthma. Patient is to see your doctor within 2 to 4 days. If she has no alleviation in her symptoms with the steroid burst or has worsening symptoms, or develops chest pain, continues to return to the emergency department. Patient was agreeable to this and she was discharged in stable condition Undiagnosed new problem with uncertain prognosis? @ -Yes Drug Therapy requiring intensive monitoring for toxicity (Heparin, Nitro, Insulin, Cardizem)? @ -No Were any procedures done? @ -No Diagnosis/symptom? @ -Acute dyspnea, possible asthma exacerbation, systolic murmur with known aortic stenosis Acute, or Chronic, or Acute on Chronic? @ -Acute Uncomplicated (without systemic symptoms) or Complicated (systemic symptoms)? @ -Complicated Side effects of treatment? @ -No Exacerbation, Progression, or Severe Exacerbation? @ -No Poses a threat to life or bodily function? How? (Chest pain, [place], [place], pneumonia, PE, COPD, DKA, ARF, appy, cholecystitis, CVA, Diverticulitis, Homicidal, Suicidal, threat to staff... and all critical care pts) @ -No - Lab Data Result diagrams: 05/21/23 11:13 05/21/23 11:13 Lab Results 05/21/23 05/21/23 05/21/23 Range/Units 11:13 11:13 11:13 WBC 12.9 H (3.8-10.6) k/uL RBC 4.33 (3.80-5.40) m/uL Hgb 10.3 L (11.4-16.0) gm/dL Hct 33.4 L (34.0-46.0) % MCV 77.3 L (80.0-100.0) fL MCH 23.7 L (25.0-35.0) pg MCHC 30.7 L (31.0-37.0) g/dL RDW 15.7 H (11.5-15.5) % Plt Count 390 (150-450) k/uL MPV 7.3 Neutrophils % 71 % Lymphocytes % 22 % Monocytes % 4 % Eosinophils % 1 % Basophils % 0 % Neutrophils # 9.2 H (1.3-7.7) k/uL Lymphocytes # 2.9 (1.0-4.8) k/uL Monocytes # 0.5 (0-1.0) k/uL Eosinophils # 0.1 (0-0.7) k/uL Basophils # 0.0 (0-0.2) k/uL Hypochromasia Moderate Microcytosis Slight Sodium 138 (137-145) mmol/L Potassium 4.1 (3.5-5.1) mmol/L Chloride 104 (98-107) mmol/L Carbon Dioxide 22 (22-30) mmol/L Anion Gap 12 mmol/L BUN 10 (7-17) mg/dL Creatinine 0.40 L (0.52-1.04) mg/dL Est GFR (CKD-EPI)AfAm >90 (>60 ml/min/1.73 sqM) Est GFR (CKD-EPI)NonAf >90 (>60 ml/min/1.73 sqM) Glucose 157 H (74-99) mg/dL Lactic Ac Sepsis Rflx Plasma Lactic Acid Deandre 3.7 H* (0.7-2.0) mmol/L Calcium 9.1 (8.4-10.2) mg/dL Total Bilirubin 0.5 (0.2-1.3) mg/dL AST 44 H (14-36) U/L ALT 25 (4-34) U/L Alkaline Phosphatase 66 (38-126) U/L Troponin I (0.000-0.034) ng/mL NT-Pro-B Natriuret Pep 1900 pg/mL Total Protein 7.5 (6.3-8.2) g/dL Albumin 4.4 (3.5-5.0) g/dL Influenza Type A (PCR) (Not Detectd) Influenza Type B (PCR) (Not Detectd) RSV (PCR) (Not Detectd) SARS-CoV-2 (PCR) (Not Detectd) 05/21/23 05/21/23 05/21/23 Range/Units 11:13 11:13 11:42 WBC (3.8-10.6) k/uL RBC (3.80-5.40) m/uL Hgb (11.4-16.0) gm/dL Hct (34.0-46.0) % MCV (80.0-100.0) fL MCH (25.0-35.0) pg MCHC (31.0-37.0) g/dL RDW (11.5-15.5) % Plt Count (150-450) k/uL MPV Neutrophils % % Lymphocytes % % Monocytes % % Eosinophils % % Basophils % % Neutrophils # (1.3-7.7) k/uL Lymphocytes # (1.0-4.8) k/uL Monocytes # (0-1.0) k/uL Eosinophils # (0-0.7) k/uL Basophils # (0-0.2) k/uL Hypochromasia Microcytosis Sodium (137-145) mmol/L Potassium (3.5-5.1) mmol/L Chloride (98-107) mmol/L Carbon Dioxide (22-30) mmol/L Anion Gap mmol/L BUN (7-17) mg/dL Creatinine (0.52-1.04) mg/dL Est GFR (CKD-EPI)AfAm (>60 ml/min/1.73 sqM) Est GFR (CKD-EPI)NonAf (>60 ml/min/1.73 sqM) Glucose (74-99) mg/dL Lactic Ac Sepsis Rflx Y Plasma Lactic Acid Deandre (0.7-2.0) mmol/L Calcium (8.4-10.2) mg/dL Total Bilirubin (0.2-1.3) mg/dL AST (14-36) U/L ALT (4-34) U/L Alkaline Phosphatase (38-126) U/L Troponin I <0.012 (0.000-0.034) ng/mL NT-Pro-B Natriuret Pep pg/mL Total Protein (6.3-8.2) g/dL Albumin (3.5-5.0) g/dL Influenza Type A (PCR) Not Detected (Not Detectd) Influenza Type B (PCR) Not Detected (Not Detectd) RSV (PCR) Not Detected (Not Detectd) SARS-CoV-2 (PCR) Not Detected (Not Detectd) Disposition Clinical Impression: COPD with acute exacerbation, Dyspnea, Elevated brain natriuretic peptide (BNP) level Disposition: HOME SELF-CARE Condition: Stable Instructions (If sedation given, give patient instructions): Dyspnea (ED) Additional Instructions: Please take the steroids starting tomorrow. Use your inhaler or nebulizer every 4 hours. Call the cardiology office to see if you can move up your echo. Ret urn for any new or worsening symptoms Prescriptions: predniSONE [Deltasone] 20 mg PO BID #10 tab Is patient prescribed a controlled substance at d/c from ED?: No Referrals: [facility] [Primary Care Provider] - 1-2 days [facility] [Provider Group] - 1-2 days Time of Disposition: 12:23
[2023-05-21] MEDS: predniSONE 20 MG TAB PO STA (12:41)
== END 2023-05-21 12:57 | disposition home or self-care (01) ==
LOC: EC 10:27
DX: J44.1 Chronic obstructive pulmonary disease with (acute) exacerbation (principal); R79.89 Other specified abnormal findings of blood chemistry; F17.200 Nicotine dependence, unspecified, uncomplicated; Z88.5 Allergy status to narcotic agent; Z88.8 Allergy status to other drugs, medicaments and biological substances
CPT/HCPCS: 36415; 93005; 83880; 80053; 83605; 84484; 85025; 87636; 71046; 99285; J7512

== ENCOUNTER → 2023-07-15 | Outpatient (CLI) | payer OTHER ==
[2023-07-15 18:41] LABS: HCT 42.9 % (37.2-46.3); HGB 12.2 g/dL (12.0-15.0); MCH 24.5 pg (27.0-32.0); MCHC 28.4 g/dL (32.0-37.0); MCV 86.3 FL (80.0-97.0); Mean Platelet Volume 9.4 FL (9.5-12.2); NRBC Per 100 WBC 0 X 10*3/uL (0.00-0.01); Platelet Count 381 X 10*3/uL (140-440); RBC 4.97 X 10*6/uL (4.10-5.20); RDW 23.9 % (11.5-14.5); WBC 10.16 X 10*3/uL (4.50-10.00)
[2023-07-15 20:25] LABS: Blood Urea Nitrogen 11.6 mg/dL (9.0-27.0); Carbon Dioxide 23.8 mmol/L (21.6-31.8); Chloride 100 mmol/L (96-109); Potassium 4.3 mmol/L (3.5-5.5); Sodium 139 mmol/L (135-145)
== END | disposition home or self-care (01) ==
LOC: LABPAT 09:10
PROVIDERS: ATTEND Internal Medicine Interventional Cardiology
DX: Z01.812 Encounter for preprocedural laboratory examination (principal); I35.0 Nonrheumatic aortic (valve) stenosis
CPT/HCPCS: 36415; 80051; 82565; 84520; 85027

== ENCOUNTER → 2023-07-22 | Day surgery (SDC) | payer OTHER ==
[2023-07-18 11:28] VITALS: BMI 25.4
[~2023-07-22] MED LIST: ALPRAZolam 0.25 MG TAB PO PRN; ALPRAZolam 0.5 MG TAB PO PRN; ATORVASTATIN 80 MG TAB PO STA; HEPARIN SODIUM 1,000 UN/ML (10ML VL) ONE; HEPARIN SODIUM,PORCINE (1 ML) 2,500 UNIT in SODIUM CHLORIDE 0.9% 250 ML IRRIGATION PRN; HEPARIN SODIUM,PORCINE 10,000 UNIT in SODIUM CHLORIDE 0.9% 1,000 ML IRRIGATION PRN; LIDOCAINE 1% INJ 10MG/ML (20 ML MDV) ONE; NITROGLYCERIN SL TABS 0.4 MG TAB SUBLINGUAL ONE; NITROGLYCERIN SL TABS 0.4 MG TAB SUBLINGUAL PRN; RX INFO: IV CONTRAST WAS GIVEN 1 EACH MISC MISCELLANE PRN; SODIUM CHLORIDE 0.9% 1,000 ML IV SCH; VERAPAMIL 2.5 MG/ML 2 ML AMP ONE; fentaNYL (PF) 50 MCG/ML 2 ML AMP ONE
[2023-07-22] MEDS: SODIUM CHLORIDE 0.9% 1,000 ML in EMPTY BAG 1 BAG IV SCH (09:35)
[2023-07-22] MEDS: SODIUM CHLORIDE 0.9% 1,000 ML IV ONE ×2 (09:36→12:55)
[2023-07-22 09:44] LABS: Glucose,Whole Blood 144 mg/dL (70-110)
[2023-07-22] MEDS: ASPIRIN 325 MG TAB PO STA (09:45)
[2023-07-22 10:37] VITALS: RESP 16; TEMP 98.3
[2023-07-22] MEDS: BENZOCAINE SPRAY 1 CAN TOPICAL ONE ×2 (12:18→12:42)
[2023-07-22] MEDS: fentaNYL (PF) 50 MCG/ML 2 ML AMP IVP ONE ×2 (12:43→13:04)
[2023-07-22] MEDS: MIDAZOLAM 2 MG/2 ML VIAL IVP ONE ×2 (12:43→12:46)
--- NOTE | 2023-07-22 12:56 | P.PCN ---
Date of Procedure: 07/22/23 Operative Findings: TRANSESOPHAGEAL ECHOCARDIOGRAM AMMUNITION OFFICER: STEFANIA DILLARD MD, RPVI INDICATION: Aortic stenosis SEDATION: Conscious sedation COMPLICATION: None LEVEL OF SEDATION Moderate with sedation length of 20 minutes PROCEDURE DESCRIPTION: After obtaining an informed consent, the patient was brought to transesophageal echocardiogram room. Pulse oximetry and heart monitors were attached to the patient. The patient throat was sprayed using lidocaine. The patient was turned into left lateral position. After that a bite guard was placed. After an appropriate conscious sedation was initiated, the transesophageal echocardiogram was advanced through a bite guard into the mid esophagus. A 2-D echocardiogram images, color Doppler images, continuous wave images, pulse-wave images, of various cardiac structure were performed. After that the transesophageal echocardiogram probe was advanced into the stomach and fixed to obtain transgastric view was. The probe was brought into the mid esophagus. Inter-atrial septum was interrogated using 2D images, color Doppler images, and then contrast study. After that transesophageal echocardiogram was withdrawn out and upon withdrawing the descending thoracic aorta all the way up to the arch was evaluated. CONCLUSION: 1. Bicuspid aortic valve with fusion of the right and left coronary cusps and severe aortic stenosis with a mean gradient of 58 and peak systolic velocity of almost 5 m/s 2. Normal left ventricular dimension and systolic function with mild concentric left ventricular hypertrophy 3. Normal mitral valve leaflets with mild mitral regurgitation 4. Normal tricuspid valve and pulmonary valve 5. Intact left atrial appendage 6. Intact interatrial septum
[2023-07-22] MEDS: LIDOCAINE 1% INJ 10MG/ML (20 ML MDV) SQ ONE (13:01)
[2023-07-22] MEDS: VERAPAMIL SYRINGE (5 MG/10 ML) INTRAARTER ONE (13:01)
[2023-07-22] MEDS: HEPARIN SODIUM 1,000 UN/ML (10ML VL) IVP ONE (13:06)
[2023-07-22] MEDS: NITROGLYCERIN SL TABS 0.4 MG TAB SUBLINGUAL ONE (13:07)
[2023-07-22] MEDS: IOPAMIDOL-370 100ML BTL INJ ONE (13:14)
--- NOTE | 2023-07-22 13:16 | P.PCN ---
Date of Procedure: 07/22/23 Operative Findings: CARDIAC CATHETERIZATION PERFORMING PHYSICIAN: Hussain Polo MD, RPVI PROCEDURE PERFORMED: 1. Selective right and left coronary angiogram 2. Ultrasound-guided access of the right radial artery INDICATION: Aortic stenosis COMPLICATION: None APPROACH: Right radial artery LEVEL OF SEDATION: Moderate with a sedation length of 11 minutes PROCEDURE DESCRIPTION: After obtaining an informed consent, the patient was brought to cardiac medical laboratory assistant. Local anesthesia was performed using lidocaine subcutaneously. The right radial artery was cannulated using Seldinger technique, the guidewire passed easily, following that we advanced a 5-Greenlandic sheath dilator assembly, the wire and dilator were removed and sheath was flushed. Following that, 2 mg of verapamil along with 5000 unit heparin were given. Selective right and left coronary angiogram using a 6-Greenlandic JR4 and JL 3.5 cat heters. The procedure was completed there was no complication. SELECTIVE CORONARY ANGIOGRAM: The right coronary artery: Moderate caliber vessel nondominant vessel Left main: Short and almost nonexistent The left circumflex: Large caliber vessel and a dominant vessel and appears to be angiographically normal. Gives rise into an OM1 which appears to be normal and distally bifurcates into PDA and PLV branches The left anterior descending artery: Large caliber vessel and appears to be angiographically normal and gives rise into the first and second diagonal branches both appear to be normal CONCLUSION: 1. Normal coronary angiogram 2. Dominant left coronary system
[2023-07-22 15:06] LABS: Anisocytosis Moderate; Basophils # (A) 0.1 k/uL (0-0.2); Basophils % (A) 1 %; Eosinophils # (A) 0.2 k/uL (0-0.7); Eosinophils % (A) 3 %; HCT 37.9 % (34.0-46.0); HGB 11.7 gm/dL (11.4-16.0); Hypochromasia Slight; Lymphocytes # (A) 4.1 k/uL (1.0-4.8); Lymphocytes % (A) 47 %; MCH 26.3 pg (25.0-35.0); MCHC 30.9 g/dL (31.0-37.0); Mean Platelet Volume 7.2; Microcytosis Slight; Monocytes # (A) 0.4 k/uL (0-1.0); Monocytes % (A) 5 %; Neutrophils # (A) 3.7 k/uL (1.3-7.7); Neutrophils % (A) 43 %; Platelet Count 287 k/uL (150-450); RBC 4.45 m/uL (3.80-5.40); RDW 21.5 % (11.5-15.5); WBC 8.6 k/uL (3.8-10.6)
[2023-07-22 15:15] LABS: INR 1.1 (<1.2); Prothrombin Time 11.8 sec (10.0-12.5)
[2023-07-22 15:17] LABS: MCV 85.2 fL (80.0-100.0)
[2023-07-22 15:29] LABS: Appearance,Urine Clear (Clear); Bilirubin,Urine Negative (Negative); Blood,Urine Negative (Negative); Color,Urine Yellow; Glucose,Urine (UA) Negative (Negative); Ketones,Urine Trace (Negative); Leukocyte Esterase,Urine Negative (Negative); Nitrite,Urine Negative (Negative); Protein,Urine Trace (Negative); Urobilinogen,Urine <2.0 mg/dL (<2.0)
[2023-07-22 15:45] LABS: ALT 26 U/L (4-34); AST 44 U/L (14-36); African American GFR (CKD) >90 (>60 ml/min/1.73 sqM); Albumin 3.5 g/dL (3.5-5.0); Alkaline Phosphatase 70 U/L (38-126); Anion Gap 6 mmol/L; Blood Urea Nitrogen 8 mg/dL (7-17); Calcium 8.6 mg/dL (8.4-10.2); Carbon Dioxide 25 mmol/L (22-30); Chloride 108 mmol/L (98-107); Glucose 167 mg/dL (74-99); Magnesium 1.6 mg/dL (1.6-2.3); Non-African American GFR(CKD) >90 (>60 ml/min/1.73 sqM); Partial Thromboplastin Time 91.4 sec (22.0-30.0); Potassium 3.6 mmol/L (3.5-5.1); Sodium 139 mmol/L (137-145); Total Bilirubin 0.4 mg/dL (0.2-1.3)
[2023-07-22 15:47] LABS: Specific Gravity,Urine >1.050 (1.001-1.035)
--- NOTE | 2023-07-22 15:47 | P.GSCN ---
History of Present Illness Consult date: 07/22/23 Reason for Consult: Severe aortic valve stenosis Requesting physician: Hussain Polo History of present illness: This is a 58-year-old female patient who follows up for on an outpatient basis with Dr. Pantera Jha for her primary care and with Dr. Polo for her cardiology care. She has a past medical history significant for hypertension, hyperlipidemia, paroxysmal atrial fibrillation on Eliquis for anticoagulation as an outpatient, anemia, a TIA at age 27 with no residual deficits, poor dentition, asthma, COPD, diabetes mellitus type 2, hypothyroid, and remote history of nicotine dependence quit smoking in March 2022. The patient recently presented to the emergency department here at [facility] on May 21, 2023 with complaints of progressive shortness of breath and episodes of dizziness. The patient reports that her shortness of breath is worse when she was laying down at night to sleep. On May 21, 2023 the patient had labs drawn in the emergency department which showed a WBC count of 12.9, hemoglobin 10.3, hematocrit 33.4, platelets 390, sodium 138, potassium 4.1, BUN 10, creatinine 0.40, glucose 157, venous plasma lactic acid 3.7, calcium 9.1, AST 44, ALT 25, troponin less than 0.012 and a proBNP of 1900. The patient also underwent testing for influenza type a, type B, RSV and COVID-19 which all showed not detected. Subsequently, due to the patient's complaints of progre ssive shortness of breath she was seen by Dr. Polo on a routine visit and on June 18, 2023 the patient underwent a transthoracic 2D echocardiogram which demonstrated a normal left ventricular size with normal function, an ejection fraction of 55%, mild concentric left ventricular hypertrophy, possible bicuspid aortic valve, trace aortic valve regurgitation, moderate to severe aortic valve stenosis with an aortic valve area measuring 0.40 cm, a peak gradient of 62 mmHg, a mean gradient of 38 mmHg, mild mitral valve regurgitation, mild tricuspid valve regurgitation, and a pulmonary artery systolic pressure of 27 mmHg. Due to the patient's recent complaints of progressive shortness of breath , episodes of dizziness and findings on the transthoracic 2D echocardiogram the patient was recommended to undergo a cardiac catheterization and transesophageal echocardiogram and which were completed today July 22, [address] Polo. The patient denies any recent fevers, chills, nausea, vomiting, chest pain, chest pressure, headache, visual disturbances, cough, palpitations, presyncope or syncope. The transesophageal echocardiogram completed today revealed a bicuspid aortic valve with fusion of the right and left coronary artery cusps, severe aortic valve stenosis with a mean gradient of 58 mmHg and a peak systolic velocity of almost 5 m/s, a normal left ventricular dimension and systolic f unction with mild concentric left ventricular hypertrophy, normal mitral valve with mild mitral valve regurgitation, and an intact left atrial appendage. The cardiac catheterization demonstrated normal coronary artery angiogram with a dominant left coronary artery system. The findings were discussed with the patient by Dr. Polo and the patient's son and due to the findings on the transesophageal echocardiogram a consult was placed to Dr. Maurice Lind from cardiothoracic surgery for further evaluation and treatment recommendations including surgical aortic valve replacement. Review of Systems A 14 point review of systems was completed and was negative except as mentioned in the HPI. Past Medical History Past Medical History: Atrial Fibrillation, Asthma, COPD, CVA/TIA (TIA at age 27), Diabetes Mellitus, Fibromyalgia, GERD/Reflux, Hyperlipidemia, Hypertension, Osteoarthritis (OA), Thyroid Disorder Additional Past Medical History / Comment(s): heart murmur-Aorta bicuspid valve, SOB, anemia, back pain "pretty much all the time" History of Any Multi-Drug Resistant Organisms: None Reported Past Surgical History: Adenoidectomy, Section, Cholecystectomy, Heart Catheterization, Hysterectomy, Tonsillectomy Additional Past Surgical History / Comment(s): benign tumor removal from rt lower pelvis with partial hysterectomy, leep procedure Past Anesthesia/Blood Transfusion Reactions: Motion Sickness, Postoperative Nausea & Vomiting (PONV) Additional Past Anesthesia/Blood Transfusion Reaction / Comm: no hx blood transfusion. son's hr went into 40s w/ testicular surgery Past Psychological History: Depression Smoking Status: Former smoker (Quit smoking in March 2022) Past Alcohol Use History: None Reported Past Drug Use History: None Reported - Past Family History Mother Family Medical History: Cancer, COPD, Diabetes Mellitus, GERD/Reflux, Hypertension, Osteoarthritis (OA), Sleep Apnea/CPAP/BIPAP Additional Family Medical History / Comment(s): lung CA Sister(s) Family Medical History: Supraventricular Tachycardia (SVT) Additional Family Medical History / Comment(s): elevated liver enzymes,lung CA Son(s) Family Medical History: Cancer, Supraventricular Tachycardia (SVT) Additional Family Medical History / Comment(s): testicular CA Father Additional Family Medical History / Comment(s): Blood clot mesenteric artery Medications and Allergies Home Medications Medication Instructions Recorded Confirmed Type Butalb/APAP/Caff 50-325-40Mg 1 tab PO TID PRN 11/22/15 07/18/23 History [Fioricet 50-325-40] DULoxetine HCL [Cymbalta] 60 mg PO HS 11/22/15 07/18/23 History Fluticasone Nasal [place] [Flonase 1 - 2 spr EA NOSTRIL DAILY PRN 11/22/15 07/18/23 History Nasal [place]] HYDROcodone/APAP 5-325MG [[place] 1 tab PO TID PRN 11/22/15 07/18/23 History 5-325] Levothyroxine Sodium [Synthroid] 75 mcg PO DAILY 11/22/15 07/18/23 History Montelukast [Singulair] 10 mg PO DAILY 11/22/15 07/22/23 History Multivitamins, Thera [Multivitamin 1 tab PO DAILY 11/22/15 07/18/23 History (formulary)] Cyclobenzaprine [Flexeril] 10 mg PO BID PRN 07/20/17 07/18/23 History Loratadine [Claritin] 10 mg PO DAILY 07/20/17 07/22/23 History Mirtazapine [Remeron] 15 mg PO HS 07/20/17 07/18/23 History Albuterol Sulfate [Albuterol 2 puff INHALATION RT-QID PRN 07/01/21 07/18/23 History Sulfate Hfa] Atorvastatin Calcium [Lipitor] 10 mg PO HS 07/01/21 07/18/23 History Omeprazole 20 mg PO DAILY 07/01/21 07/22/23 History glipiZIDE [Glucotrol] 10 mg PO BID 07/01/21 07/22/23 History Metoprolol Tartrate [Lopressor] 25 mg PO BID #60 tab 07/03/21 07/22/23 Rx Flecainide [Tambocor] 50 mg PO Q12H 02/04/22 07/22/23 History Ipratropium-Albuterol Nebulize 3 ml INHALATION RT-QID PRN 12/05/22 05/17/24 History [Duoneb 0.5 mg-3 mg/3 ml Soln] PARoxetine HCL [Paxil] 30 mg PO DAILY 02/04/22 07/18/23 History Ascorbic Acid [Vitamin C] 500 mg PO DAILY 07/18/23 07/18/23 History Ferrous Sulfate [Iron (65 MG 325 mg PO DAILY 07/18/23 07/18/23 History Elemental)] Furosemide [Lasix] 20 mg PO DAILY 07/18/23 07/18/23 History Loperamide [Imodium] 2 mg PO QID PRN 07/18/23 07/18/23 History Allergies Allergy/AdvReac Type Severity Reaction Status Date / Time morphine Allergy Rash/Hives/Shortness Verified 07/18/23 10:42 of breath pregabalin [From Lyrica] Allergy Rash/Hives/Skin Verified 07/18/23 10:42 peels Surgical - Exam Vital Signs Temp Pulse Resp BP Pulse Ox 98.3 F 80 16 169/77 97 07/22/23 09:43 07/22/23 09:43 07/22/23 09:43 07/22/23 09:43 07/22/23 09:43 - General well developed, well nourished, no distress, no pain, chronically ill - Eyes PERRL, normal ocular movement, no pale, no icteric - ENT normal pinna, normal nares, normal mucosa, no hearing loss, no congestion, poor jail - Neck Neck is supple, no lymphadenopathy. no masses, no bruits, trachea midline, no venous distension - Respiratory Lung sounds essentially clear throughout, diminished to her bilateral bases. Respirations are symmetrical and nonlabored. No wheezes, rhonchi or crackles. - Cardiovascular Regular rhythm and rate. S1 and S2 present, negative for S3 or gallop. Systolic murmur heard best to her right sternal border. No peripheral edema. Bedside telemetry showing normal sinus rhythm heart rate 70 bpm. - Abdomen Abdomen is soft, nontender and nondistended. Active bowel sounds present all 4 abdominal quadrants. No guarding or rigidity. No organomegaly appreciated. - Genitourinary Deferred - Rectum Deferred - Integumentary Skin is warm and dry. No clubbing or cyanosis is present. no rash, no growths, no abnormal pigmentation - Neurologic No focal deficits. normal coordination, normal sensation - Musculoskeletal Strength is equal bilateral. Moves all 4 extremities. normal gait, normal posture - Psychiatric oriented to time, oriented to person, oriented to place, speech is normal, memory intact Results - Labs 07/22/23 14:38 07/22/23 14:38 Abnormal Lab Results - Last 24 Hours (Table) 07/22/23 Range/Units 09:40 POC Glucose (mg/dL) 144 H (70-110) mg/dL Assessment and Plan Assessment: Severe aortic valve stenosis by transesophageal echocardiogram with a peak velocity of almost 5 m/s and a mean gradient of 58 mmHg Progressive shortness of breath, likely secondary to above Hypertension Hyperlipidemia Diabetes mellitus type 2 Paroxysmal atrial fibrillation on Eliquis for anticoagulation as an outpatient, currently in normal sinus rhythm Asthma Chronic obstructive pulmonary disease GERD Hypothyroid on levothyroxine as an outpatient History of anemia History of TIA with no residual effects at age 27 Remote history of nicotine dependence quit smoking in March 2022 ADDENDUM: 58-year-old woman with bicuspid aortic valve and severe calcific aortic stenosis. She is quite symptomatic with exertional dyspnea. No chest pain or syncopal symptoms. CT scan from 2 years ago shows 4.2 cm ascending aorta. Patient has paroxysmal atrial fibrillation which was diagnosed about a year and a half ago. Patient is appropriate candidate for surgical aortic valve replacement. She will need dental clearance. We will also obtain a repeat CT angiogram of the ascending aorta to assess size, she may require a ascending aortic replacement versus aortoplasty. We will also perform bilateral pulmonary vein ablation and clipping of the left atrial appendage to try to treat her paroxysmal AF. This plan was discussed with the patient and she is agreeable. Plan for surgery in 2 weeks time. Plan: The patient was seen and examined in conjunction with Dr. Maurice iLnd at her bedside in the extended stay unit. The the patient's son was also present at her bedside. Dr. Lind reviewed the findings on the patient's transesophageal echocardiogram and cardiac cath. Treatment options were discussed including surgical aortic valve replacement. Risks and benefits of surgical aortic valve replacement were discussed with the patient by Dr. Lind and knowing and understanding the risks the patient wished to proceed with the surgical option. The patient will need to have dental clearance prior to surgical aortic valve replacement. Her CTA of the chest from June 30, [address] Maurice Lind. We will obtain a CTA of the chest as an outpatient which is scheduled for July 30, 2023 at 11 AM, the CTA of the chest is to evaluate her a ascending aorta. A 5 m walk test was completed with the patient, the patient tolerated well without complaints. Time 1: 2.23 seconds, time 2: 2.99 seconds, time 3 2.46 seconds. A clinical frailty score was also calculated which equals 3, demonstrating mild frailty. Once all of her preoperative testing has been collected we will calculate an STS risk or which will be discussed with the patient. Preoperative teaching and preoperative testing has been initiated. She is tentatively scheduled for August 06, 2023 for an elective aortic valve repl acement, exclusion left atrial appendage, bilateral pulmonary vein isolation and intraoperative transesophageal echocardiogram to be completed by Dr. Maurice Lind. The surgery is scheduled pending her dental clearance. Continue to maximize medical management. Medical management and other comorbidities per primary care service and cardiology service. Thank you Dr. Polo for this consult and we look forward to working with you in the care of this patient. I have personally seen and examined the patient, performed the documentation and the assessment and plan as written. Number of minutes spent on the visit: 30. MACHO Dawson
[2023-07-22 16:16] VITALS: BP 125/67; PULSE 79
--- NOTE | 2023-07-22 19:50 | US ---
EXAMINATION TYPE: US arterial LE single level DATE OF EXAM: 07/22/2023 4:25 PM CLINICAL INDICATION: Female, 58 years old with history of Ankle Brachial Index (KELLIE) ; pre open heart History of: Smoker: previous Hypertension: y Diabetic: y Hyperlipidemia: y TIA/CVA: n Previous Vascular Surgery: n CAD: n [place]: n Vascular Ulcers: n Claudication: n Gangrene: n Doppler Waveforms: Right: Multiphasic Left: Multiphasic Right Brachial Pressure: deferred, radial cath Left Brachial Pressure: 124 Ankle-Brachial Indices: Right: 1.2 Left: 1.2 (Vessel hardening > 1.4; Normal 0.9 - 1.4, Moderate 0.7 - 0.9, Severe 0.5-0.7) Toe Brachial Indices: Right: 1.2 Left: 1.3 IMPRESSION: Normal ankle brachial indices bilaterally.
--- NOTE | 2023-07-22 19:51 | US ---
EXAMINATION TYPE: US vein mapping BILAT DATE OF EXAM: 07/22/2023 4:05 PM COMPARISON: NONE CLINICAL INDICATION: Female, 58 years old with history of PreOp Cardiac Surgery; pre open heart SIDE PERFORMED: Bilateral TECHNIQUE: Lower extremity saphenous vein is examined and measured utilizing real time linear array sonography. Patient History: Smoker: previous Heart Disease: n Previous DVT: n Vascular Surgery: n Discoloration: n Hypertension: y Diabetes: y Paralysis: n Varicosities: n Edema: n DUPLEX FINDINGS: Greater Saphenous: Color flow seen Measurements in mm: Right Greater Saphenous: Groin: 8.9 x 8.8 mm High Thigh: 4.5 x 5.5 mm Mid Thigh: 3.7 x 4.3 mm Above Knee: 4.3 x 4.9 mm Knee: 3.0 x 3.4 mm Below Knee: 2.2 x 3.1 mm Mid Calf: 1.5 x 1.7 mm At Ankle: 2.3 x 2.8 mm Left Greater Saphenous: Groin: 7.1 x 8.6 mm High Thigh: 4.4 x 4.6 mm Mid Thigh: 3.6 x 3.7 mm Above Knee: 3.7 x 4.5 mm Knee: 3.1 x 4.3 mm Below Knee: 2.8 x 3.1 mm Mid Calf: 1.7 x 1.8 mm At Ankle: 1.9 x 2.3 mm IMPRESSION: 1. Bilateral GSV measurements listed above. 2. Performing surgeon to determine viability as conduit.
--- NOTE | 2023-07-22 19:53 | US ---
EXAMINATION TYPE: US carotid duplex BILAT DATE OF EXAM: 07/22/2023 COMPARISON: NONE CLINICAL INDICATION: Female, 58 years old with history of Pre-Op Cardiac Surgery; pre mitral valve TECHNIQUE: Carotid duplex ultrasound examination. Indirect Doppler criteria was utilized. FINDINGS: EXAM MEASUREMENTS: RIGHT: Peak Systolic Velocity (PSV) cm/sec ----- Right CCA: 77.5 ----- Right ICA: 96.4 ----- Right ECA: 126 ICA/CCA ratio: 1.2 RIGHT: End Diastole cm/sec ----- Right CCA: 19.5 ----- Right ICA: 27.5 ----- Right ECA: 9.0 LEFT: Peak Systolic Velocity (PSV) cm/sec ----- Left CCA: 78.6 ----- Left ICA: 127.0 ----- Left ECA: 96.7 ICA/CCA ratio: 1.6 LEFT: End Diastole cm/sec ----- Left CCA: 26.2 ----- Left ICA: 30.8 ----- Left ECA: 0.0 VERTEBRALS (direction of flow): Right Vertebral: Antegrade Left Vertebral: Antegrade Rhythm: Normal COPY CHIEF NOTES: Mild homogeneous plaque with no stenosis seen IMPRESSION: 1. Less than 50% right carotid bifurcation 2. 50-69% stenosis of the left carotid bifurcation there is peak systolic velocity. Criteria for Assigning % of Stenosis / Diameter reduction (Estimation based on the indirect measurements of the internal carotid artery velocities (ICA PSV). 1. Normal (no stenosis)=ICA PSV < 125 cm/s: ratio < 2.0: ICA EDV<40 cm/s. 2. Less than 50% stenosis=ICA PSV < 125 cm/s: ratio < 2.0: ICA EDV<40 cm/s. 3. 50 to 69% stenosis=ICA PSV of 125 to 230 cm/s: ration 2.0 ? 4.0: ICA EDV 40-100 cm/s. 4. Greater than 70% stenosis to near occlusion= ICA PSV > 230 cm/s: ratio > 4.0: ICA EDV > 100 cm/s. 5. Near occlusion= ICA PSV velocities may be low or undetectable: variable ratio and ICA EDV. 6. Total occlusion=unable to detect flow.
[2023-07-23 00:59] LABS: Hepatitis A Antibody IgM Nonreactive (Nonreactive); Hepatitis B Core IgM Nonreactive (Nonreactive); Hepatitis B Surface Antigen Nonreactive (Nonreactive); Hepatitis C IgG Antibody Nonreactive (Nonreactive)
[2023-07-23 05:25] LABS: Chol/HDL Ratio 2.93 Ratio; LDL Cholesterol,Calculated 79.5 mg/dL (0.0-131.0); VLDL Calculation 19.96 mg/dL (5.00-40.00)
== END ==
LOC: CATHCVL 09:15
PROVIDERS: ATTEND Internal Medicine Interventional Cardiology
DX: I08.0 Rheumatic disorders of both mitral and aortic valves (principal); I25.10 Atherosclerotic heart disease of native coronary artery without angina pectoris; I11.9 Hypertensive heart disease without heart failure; F32.A Depression, unspecified; E78.5 Hyperlipidemia, unspecified; E11.51 Type 2 diabetes mellitus with diabetic peripheral angiopathy without gangrene; E03.9 Hypothyroidism, unspecified; I48.0 Paroxysmal atrial fibrillation; J44.89 Other specified chronic obstructive pulmonary disease; K21.9 Gastro-esophageal reflux disease without esophagitis; M19.90 Unspecified osteoarthritis, unspecified site; M79.7 Fibromyalgia; F17.200 Nicotine dependence, unspecified, uncomplicated; Z79.01 Long term (current) use of anticoagulants; Z79.84 Long term (current) use of oral hypoglycemic drugs; Z79.890 Hormone replacement therapy; Z86.73 Personal history of transient ischemic attack (TIA), and cerebral infarction without residual deficits; Z79.899 Other long term (current) drug therapy
CPT/HCPCS: 93312; 93320; 93325; 93454; 76937; 80061; 80053; 80074; 84443; 83735; 85025; 85610; 85730; 81003; 87070; 83036; 93970; 93922; 93880; C1769; C1894; J2250; J2001; J3010; J1644; Q9967

== ENCOUNTER → 2023-07-30 | Outpatient (CLI) | payer OTHER | END | disposition home or self-care (01) | LOC: RADCTMAIN 10:33 | PROVIDERS: ATTEND Thoracic Surgery (Cardiothoracic Vascular Surgery) | DX: Z53.9 Procedure and treatment not carried out, unspecified reason (principal) ==

== ENCOUNTER → 2023-07-30 | Outpatient (CLI) | payer OTHER ==
[2023-07-30 10:13] LABS: Partial Thromboplastin Time 24.8 sec (22.0-30.0)
[2023-07-30 10:47] LABS: ALT 28 U/L (4-34); AST 41 U/L (14-36); African American GFR (CKD) >90 (>60 ml/min/1.73 sqM); Albumin/Globulin Ratio 1.6; Alkaline Phosphatase 76 U/L (38-126); Anion Gap 4 mmol/L; Blood Urea Nitrogen 10 mg/dL (7-17); Calcium 8.9 mg/dL (8.4-10.2); Carbon Dioxide 28 mmol/L (22-30); Chloride 105 mmol/L (98-107); Globulin 2.5 g/dL; Glucose 221 mg/dL (74-99); Non-African American GFR(CKD) >90 (>60 ml/min/1.73 sqM); Potassium 4.3 mmol/L (3.5-5.1); Sodium 137 mmol/L (137-145); Total Bilirubin 0.4 mg/dL (0.2-1.3); Total Protein 6.5 g/dL (6.3-8.2)
--- NOTE | 2023-07-30 12:38 | CT ---
EXAMINATION TYPE: CT angio chest, without and with contrast DATE OF EXAM: 07/30/2023 COMPARISON: 06/30/2021 HISTORY: 58-year-old female Z01.818, pre op imaging for aorta valve TECHNIQUE: Contiguous axial scanning of the chest before and after the administration of 100 mL of Is ovue 370. Coronal/sagittal reconstructions performed. 3-D reconstructions generated on a dedicated [employer] workstation. CT DLP: 393.2mGycm. Automatic exposure control utilized for a dose reduction. FINDINGS: The heart is normal size without pericardial effusion. [id number] LAD coronary artery calcifica tions. Severe aortic valvular calcifications. Mild aneurysm ascending aorta 4.0 cm similar compared to 3.9 cm, previously. Mild atherosclerotic arch calcifications with conventional arch vessel branching anatomy. No thoracic lymphadenopathy by CT size criteria. Mild to moderate upper lung predominant centrilobular emphysema. Bronchial wall thickening mid and lo wer lung. Some new patchy opacity medial right middle lobe. No other consolidation or pleural effusio n. Visualized upper abdomen shows cholecystectomy clips. Bones: No osseous destructive process. IMPRESSION: 1. Severe aortic valvular calcifications with mild aneurysm of the ascending aorta at 4.0 cm, fairly similar compared to 3.9 cm, previously. 2. COPD with mild to moderate upper lung predominant emphysema. 3. Bronchial wall thickening mid and lower lungs could reflect a prominent component of chronic bronc hitis or superimposed acute bronchitis. Clinically correlate. 4. Some new patchy density medial right middle lobe could represent atelectasis or an early patchy in filtrate. Correlate with symptoms.
[2023-07-30 14:40] LABS: HCT 40.8 % (37.2-46.3); HGB 12.6 g/dL (12.0-15.0); MCH 26.7 pg (27.0-32.0); MCHC 30.9 g/dL (32.0-37.0); MCV 86.4 FL (80.0-97.0); Mean Platelet Volume 10.2 FL (9.5-12.2); NRBC Per 100 WBC 0 X 10*3/uL (0.00-0.01); Platelet Count 315 X 10*3/uL (140-440); RBC 4.72 X 10*6/uL (4.10-5.20); RDW 21.5 % (11.5-14.5); WBC 6.97 X 10*3/uL (4.50-10.00)
== END | disposition home or self-care (01) ==
LOC: LABWHC1 09:10
PROVIDERS: ATTEND Thoracic Surgery (Cardiothoracic Vascular Surgery)
DX: Z01.812 Encounter for preprocedural laboratory examination (principal); I35.0 Nonrheumatic aortic (valve) stenosis
CPT/HCPCS: 80053; 85027; 85610; 85730; 71275; 36415; Q9967; 86850; 86900; 86901; 86920

== ENCOUNTER 2023-08-06 06:00 | Inpatient (IN) | payer OTHER ==
[2023-08-06] MEDS: IV FLUID CONTINUATION 1,000 ML IV ONE (06:07)
[2023-08-06 06:36] LABS: Glucose,Whole Blood 147 mg/dL (70-110)
[2023-08-06] MEDS: LACTATED RINGERS 1,000 ML IV ONE (06:38)
[2023-08-06] MEDS ORDERED: TRANEXAMIC 1,000 MG/100ML-NACL PREMIX BAG ONE (07:58)
[2023-08-06] MEDS ORDERED: VASOPRESSIN 20 UNIT/ML 1 ML VIAL ONE (07:58)
[2023-08-06] MEDS ORDERED: PROPOFOL 10 MG/ML 20 ML VIAL IV ONE (07:58)
[2023-08-06] MEDS ORDERED: fentaNYL (PF) 50 MCG/ML 50 ML VIAL ONE (07:58)
[2023-08-06] MEDS ORDERED: SODIUM CHLORIDE 0.9% IRRIG 1,000 ML BTL IRRIGATION ONE (07:58)
[2023-08-06] MEDS ORDERED: ALBUMIN HUMAN 5% (25gm) 500 ML VIAL IVPB ONE (07:58)
[2023-08-06] MEDS ORDERED: PROTAMINE SULFATE 10 MG/ML 25 ML VIAL IV ONE (07:58)
[2023-08-06] MEDS ORDERED: ELECTROLYTE-R (PH 7.4) 1,000 ML IV.SOLN IV ONE (07:58)
[2023-08-06] MEDS ORDERED: INSULIN REGULAR 100 UNIT/ML VIAL (IV) ONE (07:58)
[2023-08-06] MEDS ORDERED: MIDAZOLAM HCL 10 MG/10 ML VIAL ONE (07:58)
[2023-08-06] MEDS ORDERED: HEPARIN SODIUM,PORCINE 5,000 UNIT/ML 1 ML VIAL ONE (07:58)
[2023-08-06] MEDS ORDERED: HEPARIN SODIUM,PORCINE 10,000 UNIT/ML 1 ML VIAL ONE (07:58)
[2023-08-06] MEDS ORDERED: VECURONIUM 10 MG VIAL IV ONE (07:58)
[2023-08-06 08:34] LABS: ABG Base Excess -0.7 mmol/L; ABG HCO3 26 mmol/L (21-25); ABG Hematocrit 31 % (34.0-46.0); ABG Ionized Calcium 4.8 mg/dL (4.5-5.3); ABG Oxygen Saturation >99.4 % (94-97); ABG PCO2 53 mmHg (35-45); ABG PO2 265 mmHg (83-108); ABG Potassium Whole Blood 3.5 mmol/L (3.4-4.5); ABG Sodium Whole Blood 143 mmol/L (135-146); Allen Test Performed? Yes
[2023-08-06] MEDS: HEPARIN SODIUM,PORCINE (1 ML) 5,000 UNIT in SODIUM CHLORIDE 0.9% 500 ML 500 ML IV ONE (09:10)
[2023-08-06] MEDS: ceFAZolin 1,000 MG in SODIUM CHLORIDE 0.9% IRRIGATIO 1,000 ML IRRIGATION ONE (09:11)
[2023-08-06 09:15] LABS: ABG Base Excess -1.7 mmol/L; ABG HCO3 24 mmol/L (21-25); ABG Hematocrit 28 % (34.0-46.0); ABG Ionized Calcium 4.5 mg/dL (4.5-5.3); ABG Oxygen Saturation 99.3 % (94-97); ABG PCO2 47 mmHg (35-45); ABG PH 7.33 (7.35-7.45); ABG PO2 206 mmHg (83-108); ABG Potassium Whole Blood 3.3 mmol/L (3.4-4.5); ABG Sodium Whole Blood 143 mmol/L (135-146); Allen Test Performed? Yes
[2023-08-06 09:33] LABS: ABG Base Excess 2.5 mmol/L; ABG HCO3 27 mmol/L (21-25); ABG Ionized Calcium 3.7 mg/dL (4.5-5.3); ABG Oxygen Saturation >99.4 % (94-97); ABG PCO2 38 mmHg (35-45); ABG PH 7.45 (7.35-7.45); ABG Potassium Whole Blood 3.6 mmol/L (3.4-4.5); ABG Sodium Whole Blood 144 mmol/L (135-146); Allen Test Performed? Yes
[2023-08-06 10:10] LABS: ABG Base Excess 1.2 mmol/L; ABG HCO3 26 mmol/L (21-25); ABG Ionized Calcium 4.2 mg/dL (4.5-5.3); ABG Oxygen Saturation >99.4 % (94-97); ABG PCO2 38 mmHg (35-45); ABG PH 7.43 (7.35-7.45); ABG Potassium Whole Blood 3.8 mmol/L (3.4-4.5); ABG Sodium Whole Blood 142 mmol/L (135-146); Allen Test Performed? Yes
[2023-08-06 10:39] LABS: ABG Base Excess 1.4 mmol/L; ABG HCO3 25 mmol/L (21-25); ABG Ionized Calcium 4.3 mg/dL (4.5-5.3); ABG Oxygen Saturation >99.4 % (94-97); ABG PCO2 36 mmHg (35-45); ABG PH 7.46 (7.35-7.45); ABG Potassium Whole Blood 4.1 mmol/L (3.4-4.5); ABG Sodium Whole Blood 142 mmol/L (135-146); Allen Test Performed? Yes
[2023-08-06 11:06] LABS: ABG HCO3 25 mmol/L (21-25); ABG Ionized Calcium 4.3 mg/dL (4.5-5.3); ABG Oxygen Saturation >99.4 % (94-97); ABG PCO2 41 mmHg (35-45); ABG PH 7.39 (7.35-7.45); ABG Potassium Whole Blood 4.4 mmol/L (3.4-4.5); ABG Sodium Whole Blood 142 mmol/L (135-146); Allen Test Performed? Yes
[2023-08-06] MEDS: ALBUMIN HUMAN 25% 50 ML IV ONE (11:23)
[2023-08-06] MEDS: ALBUMIN HUMAN 5% 500 ML IVPB ONE (11:23)
[2023-08-06] MEDS: CARDIOPLEGIC SOLN (K+ 16 MEQ/L 1,000 ML with SODIUM BICARB (1 MEQ/ML) 20 ML, LIDOCAINE ... PERFUSION ONE (11:24)
[2023-08-06] MEDS: ASPIRIN 325 MG TAB PO ONE (11:24)
[2023-08-06] MEDS: CLEVIDIPINE BUTYRATE 25 MG in EMPTY BAG 1 BAG IV ONE (11:24)
[2023-08-06] MEDS: CALCIUM CHLORIDE 100 MG/ML 10 ML SYRINGE IV ONE (11:24)
[2023-08-06] MEDS: ATORVASTATIN 10 MG TAB PO ONE (11:24)
[2023-08-06] MEDS: CHLORHEXIDINE GLUCONATE 15 ML CUP MUCOUS MEM ONE (11:24)
[2023-08-06] MEDS: METOPROLOL TARTRATE 12.5 MG TAB PO ONE (11:25)
[2023-08-06] MEDS: MANNITOL 25% 12.5 GM/50 ML VIAL IV ONE (11:25)
[2023-08-06] MEDS: HEPARIN SODIUM 1,000 UN/ML (10ML VL) IV ONE (11:25)
[2023-08-06] MEDS: INSULIN REGULAR 100 UNIT in SODIUM CHLORIDE 0.9% 100 ML IV ONE (11:25)
[2023-08-06] MEDS: MAGNESIUM SULFATE 16.24 MEQ in EMPTY SYRINGE 1 SYR IV ONE (11:25)
[2023-08-06] MEDS: PHENYLEPHRINE 10 MG/ML VIAL IV ONE (11:26)
[2023-08-06] MEDS: NITROGLYCERIN SL TABS 0.4 MG TAB SUBLINGUAL ONE (11:26)
[2023-08-06] MEDS: PHENYLEPHRINE 40 MG in SODIUM CHLORIDE 0.9% 250 ML IV ONE (11:26)
[2023-08-06] MEDS: NITROGLYCERIN-D5W PMX 25 MG/250 ML BTL IV ONE (11:26)
[2023-08-06] MEDS: NOREPINEPHRINE 4 MG in SODIUM CHLORIDE 0.9% 250 ML IV ONE (11:26)
[2023-08-06] MEDS: NITROGLYCERIN-D5W PMX 50 MG in DEXTROSE/WATER 1 250ML.BAG IV ONE (11:26)
[2023-08-06] MEDS: PROTAMINE SULFATE 10 MG/ML 25 ML VIAL IV ONE (11:27)
[2023-08-06] MEDS: propofoL 1,000 MG/100 ML VIAL IV ONE (11:27)
[2023-08-06] MEDS: TRANEXAMIC ACID 2,000 MG in SODIUM CHLORIDE 0.9% 80 ML IV ONE (11:27)
[2023-08-06] MEDS: SODIUM BICARB 8.4% 50 ML SYR (1 MEQ/ML) IV ONE (11:27)
[2023-08-06] MEDS: PROTAMINE SULFATE 250 MG in EMPTY BAG 1 BAG IV ONE (11:27)
[2023-08-06] MEDS: SODIUM CHLORIDE 0.9% 1,000 ML IV ONE (11:27)
[2023-08-06 11:52] LABS: ABG Glucose Whole Blood 128 mg/dL (75-99); ABG Lactic Acid Whole Blood 1.1 mmol/L (0.5-1.6)
[2023-08-06 11:53] LABS: ABG Glucose Whole Blood 121 mg/dL (75-99); ABG Lactic Acid Whole Blood 0.8 mmol/L (0.5-1.6)
[2023-08-06 11:53] LABS: ABG Base Excess -3.1 mmol/L; ABG HCO3 23 mmol/L (21-25); ABG Hematocrit 29 % (34.0-46.0); ABG Ionized Calcium 4.7 mg/dL (4.5-5.3); ABG Oxygen Saturation >99.4 % (94-97); ABG PCO2 44 mmHg (35-45); ABG PH 7.32 (7.35-7.45); ABG Potassium Whole Blood 3.8 mmol/L (3.4-4.5); ABG Sodium Whole Blood 144 mmol/L (135-146); Allen Test Performed? Yes
[2023-08-06 11:54] LABS: ABG Glucose Whole Blood 116 mg/dL (75-99); ABG Hematocrit 20 % (34.0-46.0); ABG PO2 >420 mmHg (83-108)
[2023-08-06 12:00] LABS: ABG Glucose Whole Blood 129 mg/dL (75-99); ABG PO2 >420 mmHg (83-108)
[2023-08-06 12:01] LABS: ABG Hematocrit 22 % (34.0-46.0); ABG Lactic Acid Whole Blood 0.8 mmol/L (0.5-1.6)
[2023-08-06 12:08] LABS: ABG Glucose Whole Blood 132 mg/dL (75-99); ABG Lactic Acid Whole Blood 0.9 mmol/L (0.5-1.6); ABG PO2 >420 mmHg (83-108)
[2023-08-06 12:09] LABS: ABG Hematocrit 21 % (34.0-46.0)
[2023-08-06 12:11] LABS: ABG Glucose Whole Blood 155 mg/dL (75-99); ABG Hematocrit 21 % (34.0-46.0); ABG Lactic Acid Whole Blood 1.6 mmol/L (0.5-1.6); ABG PO2 >420 mmHg (83-108)
[2023-08-06 12:12] LABS: ABG Glucose Whole Blood 185 mg/dL (75-99); ABG Lactic Acid Whole Blood 2.2 mmol/L (0.5-1.6); ABG PO2 >420 mmHg (83-108)
[2023-08-06] MEDS ORDERED: Magnesium Replacement Protocol 1 EACH MISC MISCELLANE PRN (12:43)
[2023-08-06] MEDS ORDERED: CYCLOBENZAPRINE 10 MG TAB PO PRN (12:43)
[2023-08-06] MEDS ORDERED: Potassium Replacement Protocol 1 EACH MISC MISCELLANE PRN (12:43)
[2023-08-06] MEDS ORDERED: CALCIUM GLUCONATE IN NACL 2 GM in SALINE 1 100ML.BAG IVPB PRN (12:43)
[2023-08-06] MEDS ORDERED: ONDANSETRON 4 MG/2 ML VIAL IVP PRN (12:43)
[2023-08-06] MEDS ORDERED: hydrALAZINE HCL 20 MG/ML 1 ML VIAL IVP PRN (12:43)
[2023-08-06] MEDS ORDERED: METOCLOPRAMIDE 5 MG/ML 2 ML VIAL IVP PRN (12:43)
[2023-08-06] MEDS ORDERED: IPRATROPIUM-ALBUTEROL 3 ML NEB INHALATION PRN (12:43)
[2023-08-06] MEDS ORDERED: DEXTROSE 50% SYRINGE 50 ML IVP PRN ×2 (12:43)
[2023-08-06] MEDS ORDERED: DEXMEDETOMIDINE/0.9% NACL(PMX) 400 MCG in EMPTY BAG 1 BAG IV SCH (12:43)
--- NOTE | 2023-08-06 12:55 | P.OP ---
Date of Procedure: 08/06/23 Preoperative Diagnosis: Calcific symptomatic congenital bicuspid aortic stenosis, paroxysmal atrial fibrillation Postoperative Diagnosis: Same Procedure(s) Performed: Aortic valve replacement with 23 mm Inspiris bovine pericardial valve, bilateral pulmonary vein ablation with AtriCure RF clamp, closure of the left atrial appendage with a 35 mm AtriCure clip, epiaortic ultrasonography Implants: 23 mm Inspiris bovine pericardial valve, 35 mm AtriCure clip Anesthesia: GETOmer Surgeon: Maurice Lind Batch Attendant #1: Malcom Reyes Batch Attendant #2: Carito Ramos Estimated Blood Loss (ml): 1,000 IV fluids (ml): 2,000 Urine output (ml): 500 Pathology: other (Aortic valve) Condition: stable Disposition: ICU Indications for Procedure: 58-year-old female with symptomatic calcific aortic stenosis. Echocardiography was consistent with congenital bicuspid aortic valvular disease. Discussion was held with the senior hr business partner and it was felt the best treatment was surgical aortic valve replacement. She also had history of paroxysmal atrial fibrillation. Simultaneous pulmonary vein ablation was planned. Operative Findings: Tissues were very friable. This was particularly true of the right atrial tissue which was very very thin. Aortic valve was bicuspid with fusion of the left and right aortic cusps with a median raphae. There was calcification of the distal ascending aorta as well as calcification of the aortic root and annulus. There was also a bar of calcium that extended down from the aortic mitral curtain onto the anterior leaflet of the mitral valve. Postoperative MEHRAN demonstrated very mild paravalvular leak across the aortic valve as well as mild central mitral regurgitation. Ventricular function was good. Description of Procedure: Patient was brought to the operating room and placed supine on the operating table. Preoperative monitoring lines have been placed in the preop holding area. General anesthesia was induced and MEHRAN probe was placed. The anterior torso and bilateral lower extremities were sterilely prepped and draped in standard fashion. Midline sternotomy was performed. Bilateral pleural spaces were opened. Pericardium was opened in the midline. The heart was exposed with pericardial sutures. Patient was systemically heparinized. Epiaortic ultrasound was performed with findings as noted above. Patient was cannulated for cardiopulmonary bypass with a 6 mm soft flow cannula in the distal ascending aorta and a two-stage venous cannula through the 8 right atrial appendage into the inferior vena cava. Antegrade and retrograde cardioplegia lines were placed in standard fashion. Patient was placed on cardiopulmonary bypass and stabilized. Dissection was carried out around the right-sided pulmonary veins and the left atrium was ablated with multiple firings of the AtriCure clamp at the insertion of the pulmonary veins on the right. Next the left pulmonary veins were exposed. The ligament of Harjit was divided with electrocautery. The left pulmonary veins were encircled with gentle dissection and the left atrium was ablated at the insertion of the left pulmonary veins with multiple firings of the AtriCure clamp. 35 mm AtriCure clip was placed at the base of the left atrial appendage. Heart was lowered in anatomic position. The aorta was crossclamped and arrested with cold crystalloid cardioplegia followed by retrograde cardioplegia. Left atrial vent was placed to the right superior pulmonary vein. Transverse aortotomy was made above the level of the sinotubular junction and carried down to just above the left noncommissure. The aortic valve was exposed and excised. There was complete fusion of the left and right cusps. The annulus was decalcified. Calcium extending onto the anterior leaflet of the mitral valve was excised. Copious irrigation was performed. Circumferential valve sutures with pledgeted 2-0 Tycron were placed with the pledgets on the ventricular side to allow a supra annular implant. The annulus was sized and a 23 mm Inspiris valve was brought up onto the field. Valve sutures were placed through th sewing ring of the valve and it was seated without difficulty. Sutures were tied and cut. Valve was noted to seat well with plenty of space for the coronary ostia. After further irrigation, the aorta was closed with a 2 layer running closure. 4-0 Prolene was utilized. This was reinforced with some CoSeal. Left atrial vent was removed and the pursestring suture tied. Patient was placed in Trendelenburg and the cross- clamp was removed. The heart was de-aired through the aortic root vent. De- airing was monitored on MEHRAN. Lungs were reinflated and after assuring good de- airing, the aortic vent line was removed and the site was reinforced with a 4 oh pledgeted Prolene suture. After appropriate rewarming and reperfusion, the patient was weaned from cardiopulmonary bypass without the need for inotropic support. Patient was decannulated in standard fashion. The right atrial cannulation sites required additional reinforcement sutures with pledgets. Good hemostasis was obtained. The radial arterial line was noted to be 6 severely dampened and a right femoral arterial line was placed under ultrasound guidance. A 4 Danish sheath was utilized for blood pressure monitoring. Postoperative MEHRAN was performed with findings as noted above. Following decannulation and reversal of heparin good hemostasis was obtained. The aortic cannulation sites were reinforced with 4 oh pledgeted Prolene. Bilateral 32 Danish chest tubes were placed in the pleural spaces brought out through separate stab incisions and secured with 0 Ethibond suture. Mediastinum was irrigated with antibiotic solution. 36 Danish chest tube was used to drain the mediastinum. Sternum was closed with 8 sternal wires after assuring good hemostasis. Fascia was closed with 0 Ethibond and the subcutaneous and subcuticular layers were closed with layers of Vicryl suture. Patient was transferred to ICU in stable condition. She did receive 2 units of packed red blood cells.
[2023-08-06] MEDS: LACTATED RINGERS 1,000 ML IV SCH (13:05)
[2023-08-06] MEDS: ALBUMIN HUMAN 5% 250 ML in EMPTY BAG 1 BAG IVPB PRN (13:10)
[2023-08-06 13:26] LABS: Anisocytosis Slight; Basophils % (A) 0 %; Eosinophils # (A) 0.1 k/uL (0-0.7); Eosinophils % (A) 1 %; HCT 28.7 % (34.0-46.0); Hypochromasia Slight; Lymphocytes # (A) 2.3 k/uL (1.0-4.8); Lymphocytes % (A) 25 %; MCH 28.1 pg (25.0-35.0); MCHC 31.6 g/dL (31.0-37.0); MCV 88.7 fL (80.0-100.0); Mean Platelet Volume 8.5; Monocytes # (A) 0.2 k/uL (0-1.0); Monocytes % (A) 2 %; Neutrophils # (A) 6.7 k/uL (1.3-7.7); Neutrophils % (A) 72 %; RBC 3.24 m/uL (3.80-5.40); RDW 18.6 % (11.5-15.5); WBC 9.3 k/uL (3.8-10.6)
[2023-08-06 13:28] LABS: Glucose,Whole Blood 123 mg/dL (70-110)
[2023-08-06 13:32] LABS: ABG Base Excess -5.6 mmol/L; ABG HCO3 23 mmol/L (21-25); ABG Oxygen Saturation 100.4 % (94-97); ABG PCO2 59 mmHg (35-45); ABG PO2 356 mmHg (83-108); ABG TCO2 25 mmol/L (19-24)
[2023-08-06 13:34] LABS: HGB 9.1 gm/dL (11.4-16.0)
[2023-08-06 13:41] LABS: Ionized Calcium 4.6 mg/dL (4.5-5.3)
[2023-08-06 13:44] LABS: INR 1.4 (<1.2); Partial Thromboplastin Time 42.6 sec (22.0-30.0); Prothrombin Time 14.9 sec (10.0-12.5)
[2023-08-06 13:54] LABS: Platelet Count 92 k/uL (150-450)
[2023-08-06] MEDS: CLEVIDIPINE BUTYRATE 25 MG in EMPTY BAG 1 BAG IV SCH (13:55)
[2023-08-06] MEDS: DEXTROSE 5% IN WATER 100 ML with AMIODARONE 150 MG IV PRN (13:58)
[2023-08-06] MEDS: AMIODARONE 360 MG in DEXTROSE 5% IN WATER 200 ML IV ONE (14:00)
[2023-08-06 14:13] LABS: Glucose,Whole Blood 125 mg/dL (70-110)
[2023-08-06 14:17] LABS: ALT 22 U/L (4-34); African American GFR (CKD) >90 (>60 ml/min/1.73 sqM); Albumin 3.5 g/dL (3.5-5.0); Anion Gap 6 mmol/L; Blood Urea Nitrogen 8 mg/dL (7-17); Calcium 7.5 mg/dL (8.4-10.2); Carbon Dioxide 24 mmol/L (22-30); Chloride 114 mmol/L (98-107); Glucose 107 mg/dL (74-99); Non-African American GFR(CKD) >90 (>60 ml/min/1.73 sqM); Sodium 144 mmol/L (137-145); Total Bilirubin 0.9 mg/dL (0.2-1.3); Total Protein 4.9 g/dL (6.3-8.2)
[2023-08-06 14:20] LABS: AST 69 U/L (14-36); Alkaline Phosphatase 34 U/L (38-126); Potassium 3.5 mmol/L (3.5-5.1)
--- NOTE | 2023-08-06 14:25 | XR ---
EXAMINATION TYPE: XR chest 1V portable DATE OF EXAM: 08/06/2023 1:40 PM CLINICAL INDICATION:Female, 58 years old with history of Post Operative Cardiac Surgery; [facility] COMPARISON: Chest radiographs from 05/21/2023 TECHNIQUE: XR chest 1V portable Frontal view of the chest. FINDINGS: Lungs/Pleura: There is no evidence of pleural effusion, focal consolidation, or pneumothorax. Pulmonary vascularity: Unremarkable. Heart/mediastinum: Cardiomediastinal silhouette is unremarkable. Atherosclerotic calcifications are seen in the aorta. Post aortic valve repair changes. Left atrial appendage occlusion device is presen t. Musculoskeletal: No acute osseous pathology. Other findings: None Lines/Tubes: Endotracheal tube with distal tip 3.9 cm above the ade. Nasogastric tube with its distal tip and side-port projecting under the diaphragm. Bilateral thoracotomy tubes are present without evidence of pneumothorax. There is a [place]-Brandy catheter with tip projecting over the left heart and not crossing midline possib ly migrated to. IMPRESSION: Postsurgical changes with [place]-Brandy catheter tip projecting left of midline, correlate for migrated p lacement.
[2023-08-06] MEDS ORDERED: MUPIROCIN 2% OINT 22 GM TUBE NASAL ONE (14:45)
[2023-08-06] MEDS: POTASSIUM CHLORIDE 20 MEQ in WATER FOR INJECTION 1 100ML.BAG IVPB SCH (14:50)
[2023-08-06] MEDS: INSULIN REGULAR 100 UNIT in SODIUM CHLORIDE 0.9% 100 ML IV SCH (15:00)
[2023-08-06 15:01] LABS: Glucose,Whole Blood 144 mg/dL (70-110)
--- NOTE | 2023-08-06 15:33 | P.CNPUL ---
History of Present Illness Consult date: 08/06/23 Requesting physician: Maurice Lind Reason for consult: other (Ventilator/critical care management) Chief complaint: Shortness of breath and dizziness History of present illness: This is a 58-year-old female patient with a history of hypertension, hyperlipidemia, diabetes mellitus, paroxysmal atrial fibrillation anticoagulated with Eliquis, gastroesophageal reflux disease, hypothyroidism, chronic obstructive pulmonary disease, former smoker. She presented here to the emergency room last month with progressive shortness of breath. She was found to have a bicuspid aortic valve with severe aortic valve stenosis. She was brought back today electively for surgery. She had undergone aortic valve replacement with 23 mm Inspiris bovine pericardial valve, bilateral pulmonary vein ablation with atrial cure RF clamp, closure of the left atrial appendage with a 35 mm atrial cure clip and epi aortic ultrasonography. She is seen today postoperatively in the intensive care unit. She is intubated on the mechanical ventilator and assist-control mode at a rate of 12, tidal volume 350, FiO2 100% and a PEEP of 5. Blood gases reveal a PaO2 of 356, pCO2 59 and a pH of 7.19. She is currently sedated on propofol at 30 mcg/kg/min. Amiodarone drip at 1 mg/min. Lactated Ringer's at 20 MLS per hour. She has a right, left and mediastinal split chest tubes in place. She has pacemaker wires in place currently atrial paced. Her cardiac output is 3.4. Cardiac index 2.1. PA pressures 43/14 with a CVP of 22. She has a right IJ Watts-Brandy catheter in place. Right radial arterial line in place. She has received 2 units of packed red blood cells. Current hemoglobin 9.1. Platelets 92,000. White count 9.3. INR 1.4. Sodium 144. Potassium 3.5. Bicarb 24. BUN 8. Creatinine 0.49. Glucose 107. AST 69. ALT 22. Chest x-ray reveals postsurgical changes with Watts-Brandy catheter tip in place. Chest tubes in place. No evidence of pneumothorax. Review of Systems ROS unobtainable: due to endotracheal tube Past Medical History Past Medical History: Atrial Fibrillation, COPD, Diabetes Mellitus, Fibro myalgia, Hyperlipidemia, Hypertension, Osteoarthritis (OA), Thyroid Disorder Additional Past Medical History / Comment(s): back pain "pretty much all the time", SOB w/exertion History of Any Multi-Drug Resistant Organisms: None Reported Past Surgical History: Section, Cholecystectomy, Hysterectomy, Tonsillectomy Additional Past Surgical History / Comment(s): tumor removal from rt lower pe lvis with partial hysterectomy, leep procedure, Past Anesthesia/Blood Transfusion Reactions: No Reported Reaction Smoking Status: Former smoker - Past Family History Mother Family Medical History: Cancer, COPD, Diabetes Mellitus, GERD/Reflux, Hypertension, Osteoarthritis (OA), Sleep Apnea/CPAP/BIPAP Additional Family Medical History / Comment(s): lung CA Sister(s) Family Medical History: Supraventricular Tachycardia (SVT) Additional Family Medical History / Comment(s): elevated liver enzymes,lung CA Son(s) Family Medical History: Cancer, Supraventricular Tachycardia (SVT) Additional Family Medical History / Comment(s): testicular CA Father Additional Family Medical History / Comment(s): Blood clot mesenteric artery Medications and Allergies Home Medications Medication Instructions Recorded Confirmed Type Butalb/APAP/Caff 50-325-40Mg 1 tab PO TID PRN 11/22/15 08/06/23 History [Fioricet 50-325-40] DULoxetine HCL [Cymbalta] 60 mg PO HS 11/22/15 08/06/23 History HYDROcodone/APAP 5-325MG [Mobile 1 tab PO TID PRN 11/22/15 08/06/23 History 5-325] Levothyroxine Sodium [Synthroid] 75 mcg PO DAILY 11/22/15 08/06/23 History Montelukast [Singulair] 10 mg PO DAILY 11/22/15 08/06/23 History Multivitamins, Thera [Multivitamin 1 tab PO DAILY 11/22/15 08/06/23 History (formulary)] Cyclobenzaprine [Flexeril] 10 mg PO BID PRN 07/20/17 08/06/23 History Loratadine [Claritin] 10 mg PO DAILY 07/20/17 08/06/23 History Mirtazapine [Remeron] 15 mg PO HS 07/20/17 08/06/23 History Albuterol Sulfate [Albuterol 2 puff INHALATION RT-QID PRN 07/01/21 08/06/23 History Sulfate Hfa] Atorvastatin Calcium [Lipitor] 10 mg PO HS 07/01/21 08/06/23 History Omeprazole 20 mg PO DAILY 07/01/21 08/06/23 History glipiZIDE [Glucotrol] 10 mg PO BID 07/01/21 08/06/23 History Metoprolol Tartrate [Lopressor] 25 mg PO BID #60 tab 07/03/21 08/06/23 Rx Flecainide [Tambocor] 50 mg PO Q12H 02/04/22 08/06/23 History Ipratropium-Albuterol Nebulize 3 ml INHALATION RT-QID PRN 02/04/22 08/06/23 History [Duoneb 0.5 mg-3 mg/3 ml Soln] PARoxetine HCL [Paxil] 30 mg PO DAILY 02/04/22 08/06/23 History Ascorbic Acid [Vitamin C] 500 mg PO DAILY 07/18/23 08/06/23 History Ferrous Sulfate [Iron (65 MG 325 mg PO DAILY 07/18/23 08/06/23 History Elemental)] Furosemide [Lasix] 20 mg PO DAILY PRN 07/18/23 08/06/23 History Apixaban [Eliquis] 5 mg PO BID 07/30/23 08/06/23 History Fluticasone/Umeclidin/Vilanter 1 inhalation INHALATION DAILY 07/30/23 08/06/23 History [Gabi Figueroata 100-62.5-25] Mupirocin [Mupirocin 2%] 1 applic NASAL BID 07/30/23 08/06/23 History Aspirin 325 mg PO DAILY 08/06/23 08/06/23 History Allergies Allergy/AdvReac Type Severity Reaction Status Date / Time morphine Allergy Rash/Hives/Shortness Verified 08/06/23 06:08 of breath pregabalin [From Lyrica] Allergy Rash/Hives/Skin Verified 08/06/23 06:08 peels Physical Exam Vitals: Vital Signs Temp Pulse Pulse Resp BP BP BP 08/06/23 15:00 96.6 F L 80 18 96/65 08/06/23 14:45 80 18 08/06/23 14:30 80 18 08/06/23 14:15 80 18 08/06/23 14:00 96.1 F L 80 14 96/71 08/06/23 13:48 08/06/23 13:45 80 12 08/06/23 13:30 80 12 08/06/23 13:15 95.5 F L 62 12 85/62 08/06/23 13:00 08/06/23 06:35 97.0 F L 79 16 147/77 162/76 Pulse Ox FiO2 08/06/23 15:00 99 08/06/23 14:45 98 08/06/23 14:30 99 08/06/23 14:15 100 08/06/23 14:00 99 50 08/06/23 13:48 50 08/06/23 13:45 100 08/06/23 13:30 100 08/06/23 13:15 100 08/06/23 13:00 100 08/06/23 06:35 95 Intake and Output 08/06/23 08/06/23 08/06/23 06:59 14:59 22:59 Intake Total 1284.95 Output Total 710 Balance 574.95 Intake: IV 101 ns for cardiac output 40 ns for pressure flush 9 Intake, IV Titration 563.95 Amount Albumin Human 5% 250 ml 500 In Empty Bag 1 bag @ 250 mls/hr IVPB Q1HR PRN Rx#: [id number] Lactated Ringers 1,000 ml 50 @ 50 mls/hr IV .Q20H [facility] Rx#:[id number] propofoL 1,000 mg In 13.95 Empty Bag 1 bag @ Titrate IV .Q0M [facility] Rx#: [id number] Blood Product 620 As-1 Unit 310 [id number] As-1 Unit 310 [id number] Output: Chest Tube Drainage 55 Chest Tube Left 0 Chest Tube Mediastinal 50 Chest Tube Right 5 Urine 155 Estimated Blood Loss 500 Other: Weight 63.5 kg ABP, PAP, CO, CI - Last 8 Hours Arterial Blood Pressure 98/57 Arterial Blood Pressure 100/54 Arterial Blood Pressure 108/60 Arterial Blood Pressure 115/59 Arterial Blood Pressure 116/64 Arterial Blood Pressure 109/54 Arterial Blood Pressure 139/73 Arterial Blood Pressure 86/54 Pulmonary Artery Pressure 42/15 Pulmonary Artery Pressure 44/15 Pulmonary Artery Pressure 44/16 Pulmonary Artery Pressure 45/14 Pulmonary Artery Pressure 49/18 Pulmonary Artery Pressure 49/11 Pulmonary Artery Pressure 52/19 Pulmonary Artery Pressure 41/10 Cardiac Output 3.4 Cardiac Output 3.8 Cardiac Output 3.2 Cardiac Output 2 Cardiac Index 2.1 Cardiac Index 2.3 Cardiac Index 2 Cardiac Index 1.2 GENERAL EXAM: Intubated, sedated 58-year-old female, on the mechanical ventilator, in no apparent distress. HEAD: Normocephalic. EYES: Sluggish reaction of pupils, equal size. NOSE: Clear with pink turbinates. THROAT: Oral endotracheal and gastric tube secured in place. No erythema or exudates. NECK: No masses, no JVD. Right IJ Watts-Brandy catheter in place. CHEST: Sternal dressing dry and intact. Right, left, mediastinal x [address] Pacer wires in place. LUNGS: Equal air entry with no crackles, wheeze, rhonchi or dullness. CVS: S1 and S2 normal with no audible murmur, regular rhythm. ABDOMEN: No hepatosplenomegaly, no guarding or rigidity. SPINE: No scoliosis or deformity SKIN: No rashes CENTRAL NERVOUS SYSTEM: Sedated, tone is normal in all 4 extremities. EXTREMITIES: Right radial arterial line in place. There is no peripheral edema. Peripheral pulses are intact. Results - Laboratory Findings CBC and BMP: 08/06/23 13:15 08/06/23 13:15 ABG ABG pH 7.32 (7.35-7.45) L 08/06/23 11:54 ABG pCO2 44 mmHg (35-45) 08/06/23 11:54 ABG pO2 >420 mmHg (83-108) H 08/06/23 11:54 ABG O2 Saturation >99.4 % (94-97) H 08/06/23 11:54 PT/INR, D-dimer PT 14.9 sec (10.0-12.5) H 08/06/23 13:15 INR 1.4 (<1.2) H 08/06/23 13:15 Abnormal lab findings: Abnormal Labs 07/30/23 08/06/23 08/06/23 09:32 06:33 08:30 RBC Hgb Hct RDW Plt Count PT INR APTT ABG pH 7.30 L ABG pCO2 53 H ABG pO2 265 H ABG HCO3 26 H ABG O2 Saturation >99.4 H ABG Hematocrit 31 L ABG Potassium ABG Ionized Calcium ABG Glucose 128 H ABG Lactic Acid Hemoglobin 10.3 L Chloride Creatinine Glucose POC Glucose (mg/dL) 147 H Calcium Magnesium AST Alkaline Phosphatase Total Protein Arterial Blood Potassium Arterial Blood Glucose 128 H Crossmatch See Detail 08/06/23 08/06/23 08/06/23 09:17 09:36 10:11 RBC Hgb Hct RDW Plt Count PT INR APTT ABG pH 7.33 L ABG pCO2 47 H ABG pO2 206 H >420 H >420 H ABG HCO3 27 H 26 H ABG O2 Saturation 99.3 H >99.4 H >99.4 H ABG Hematocrit 28 L 20 L* 22 L ABG Potassium 3.3 L ABG Ionized Calcium 3.7 L 4.2 L ABG Glucose 121 H 116 H 129 H ABG Lactic Acid Hemoglobin 9.3 L 6.6 L* 7.1 L Chloride Creatinine Glucose POC Glucose (mg/dL) Calcium Magnesium AST Alkaline Phosphatase Total Protein Arterial Blood Potassium 3.3 L Arterial Blood Glucose 121 H 116 H 129 H Crossmatch 08/06/23 08/06/23 08/06/23 10:11 11:07 11:54 RBC Hgb Hct RDW Plt Count PT INR APTT ABG pH 7.46 H 7.32 L ABG pCO2 ABG pO2 >420 H >420 H >420 H ABG HCO3 ABG O2 Saturation >99.4 H >99.4 H >99.4 H ABG Hematocrit 21 L 21 L 29 L ABG Potassium ABG Ionized Calcium 4.3 L 4.3 L ABG Glucose 132 H 155 H 185 H ABG Lactic Acid 2.2 H* Hemoglobin 6.7 L* 6.7 L* 9.5 L Chloride Creatinine Glucose POC Glucose (mg/dL) Calcium Magnesium AST Alkaline Phosphatase Total Protein Arterial Blood Potassium Arterial Blood Glucose 132 H 155 H 185 H Crossmatch 08/06/23 08/06/23 08/06/23 13:15 13:15 13:15 RBC 3.24 L Hgb 9.1 L D Hct 28.7 L RDW 18.6 H Plt Count 92 L D PT 14.9 H INR 1.4 H APTT 42.6 H ABG pH ABG pCO2 ABG pO2 ABG HCO3 ABG O2 Saturation ABG Hematocrit ABG Potassium ABG Ionized Calcium ABG Glucose ABG Lactic Acid Hemoglobin Chloride 114 H Creatinine 0.49 L Glucose 107 H POC Glucose (mg/dL) Calcium 7.5 L Magnesium 3.0 H AST 69 H Alkaline Phosphatase 34 L Total Protein 4.9 L Arterial Blood Potassium Arterial Blood Glucose Crossmatch 08/06/23 08/06/23 08/06/23 13:16 14:11 15:00 RBC Hgb Hct RDW Plt Count PT INR APTT ABG pH ABG pCO2 ABG pO2 ABG HCO3 ABG O2 Saturation ABG Hematocrit ABG Potassium ABG Ionized Calcium ABG Glucose ABG Lactic Acid Hemoglobin Chloride Creatinine Glucose POC Glucose (mg/dL) 123 H 125 H 144 H Calcium Magnesium AST Alkaline Phosphatase Total Protein Arterial Blood Potassium Arterial Blood Glucose Crossmatch - Diagnostic Findings Chest x-ray: image reviewed Assessment and Plan Assessment: Symptomatic congenital bicuspid aortic stenosis. Status post aortic valve replacement with 23 mm Inspiris bovine pericardial valve, bilateral pulmonary vein ablation with atricure RF clamp, closure of the left atrial appendage with a 35 mm atricure clip. Postoperative day #0 History of paroxysmal atrial fibrillation, anticoagulated with Eliquis Chronic obstructive pulmonary disease Former smoker Hypothyroidism Hypertension Hyperlipidemia Diabetes mellitus Gastroesophageal reflux disease History of anemia Plan: The patient was seen and evaluated Chest x-ray, ABGs, labs and medications reviewed Increase the ventilator rate to 18 Decrease the FiO2 to 50% Plan for early extubation protocol if tolerated Continue bronchodilators Heparin for DVT prophylaxis We will continue to follow and make further recommendations based on her clinical status I have personally seen and examined the patient, performed the documentation and the assessment and plan as written. Number of minutes spent on the visit: 20.
[2023-08-06 16:06] LABS: Glucose,Whole Blood 194 mg/dL (70-110)
[2023-08-06] MEDS: ALBUMIN HUMAN 5% 250 ML in EMPTY BAG 1 BAG IVPB STA (16:17)
[2023-08-06 16:26] LABS: Anisocytosis Slight; Basophils % (A) 0 %; Eosinophils % (A) 0 %; HGB 9.6 gm/dL (11.4-16.0); Hypochromasia Slight; Lymphocytes # (A) 1.1 k/uL (1.0-4.8); Lymphocytes % (A) 11 %; MCH 28.1 pg (25.0-35.0); MCHC 31.8 g/dL (31.0-37.0); MCV 88.4 fL (80.0-100.0); Mean Platelet Volume 8.1; Monocytes # (A) 0.4 k/uL (0-1.0); Monocytes % (A) 4 %; Neutrophils # (A) 8.6 k/uL (1.3-7.7); Neutrophils % (A) 84 %; Platelet Count 105 k/uL (150-450); RDW 18.7 % (11.5-15.5); WBC 10.2 k/uL (3.8-10.6)
[2023-08-06] MEDS: HEPARIN SODIUM,PORCINE 5,000 UNIT/ML 1 ML VIAL SQ SCH (16:35)
[2023-08-06] MEDS: ALBUMIN HUMAN 5% 250 ML in EMPTY BAG 1 BAG IVPB ONE (16:45)
[2023-08-06] MEDS: IPRATROPIUM-ALBUTEROL 3 ML NEB INHALATION SCH ×2 (17:09→21:00)
[2023-08-06 17:14] LABS: Glucose,Whole Blood 240 mg/dL (70-110)
[2023-08-06] MEDS: MILRINONE-D5W PMX 20 MG in DEXTROSE/WATER 1 100ML.BAG IV SCH (17:29)
[2023-08-06 18:10] LABS: Glucose,Whole Blood 222 mg/dL (70-110)
[2023-08-06 18:33] LABS: ABG PH 7.19 (7.35-7.45)
[2023-08-06 18:57] LABS: Glucose,Whole Blood 205 mg/dL (70-110)
[2023-08-06] MEDS: ACETAMINOPHEN IV (For NPO) 1,000 MG in EMPTY BAG 1 BAG IVPB SCH (19:05)
[2023-08-06 19:22] LABS: Anisocytosis Slight; Basophils % (A) 0 %; Eosinophils % (A) 0 %; HCT 29.2 % (34.0-46.0); HGB 9.4 gm/dL (11.4-16.0); Hypochromasia Slight; Lymphocytes # (A) 0.9 k/uL (1.0-4.8); Lymphocytes % (A) 8 %; MCH 28.4 pg (25.0-35.0); MCHC 32.1 g/dL (31.0-37.0); MCV 88.5 fL (80.0-100.0); Mean Platelet Volume 7.8; Monocytes # (A) 0.3 k/uL (0-1.0); Monocytes % (A) 3 %; Neutrophils # (A) 9.4 k/uL (1.3-7.7); Neutrophils % (A) 88 %; Platelet Count 115 k/uL (150-450); RDW 18.9 % (11.5-15.5); WBC 10.7 k/uL (3.8-10.6)
--- NOTE | 2023-08-06 19:22 | P.ANPRN ---
Procedure Note - Anesthesia - Invasive Line Right Time Out Performed: Yes Date of Procedure: 08/06/23 Location of Patient: PreOp Preparation: Sterile Prep, Sterile Dressing Central Line Location: Internal Jugular Ultrasound Used: Yes Purpose - Visualization and Identification of Vasculature: Yes Image Stored and Saved: Yes Narrative: Invasive line placement per sterile protocol utilized. Informed consent obtained.Right Internal jugular vein cannulated under aseptic precautions. 3cc 1% lidocaine infiltrated initially after cleaning with iodine based prep and draping. Ultrasound used to locate the vein and Seldinger technique used. 9Fr introduced sheath inserted and after the finding the needle with airline transport pilot needle/catheter. The introducer sheath was sutured in place. After the insertion of PA Catheter the insertion site was dressed with biopatch and tegaderm. Patient tolerated the procedure well. Right [place] Brandy Time Out Performed: Yes Date of Procedure: 08/06/23 Location of Patient: PreOp Preparation: Sterile Prep, Sterile Dressing Central Line Location: Internal Jugular [place] Brandy Line Location: Internal Jugular Ultrasound Used: No Narrative: Invasive line placement per sterile protocol utilized. 8Ff PA catheter threaded through the Right IJ introducer sheath under asepsis with continuous waveform monitoring. Catheter at 52 cms seb. - MEHRAN Intraop Pre Bypass MEHRAN Intraop - Anesthesia Indication: Aortic valve replacement Date of Procedure: 08/06/23 Pre-operative Diagnosis: Severe aortic stenosis Post-operative Diagnosis: Severe aortic stenosis status post aortic valve replacement Surgeon: Maurice Lind Ejection Fraction: Normal Regional Wall Motion Abnormalities: None Left Ventricle Hypertrophy: Yes (Mild) R. Ventricle Function: Normal Aortic Valve: Severely calcified aortic valve noted. Peak gradient across the aortic valve is 58 mm of mercury and mean gradient is 34 mmHg. Anatomy: Trileaflet Aortic Stenosis: Severe Aortic Regurgitation: Mild Mitral Stenosis: None Mitral Regurgitation: Trace Tricuspid Stenosis: Mild Tricuspid Regurgitation: Trace Pulmonic Stenosis: None R. Atrial Dilation: No R. Atrial PFO: No L. Atrial Dilation: No Aortic Dissection: No Aortic Calcification: None - MEHRAN Intraop Post Bypass MEHRAN Intraop Post Bypass Procedure Performed: Aortic valve replacement Ejection Fraction: Normal [place] Wall Motion Abnormalities: None R. Ventricle Function: Normal Aortic Valve: Prosthetic aortic valve noted. Appears to be well seated .There is a mild paravalvular leak which doesn't appear to be hemodynamically significant. Peak gradient across the prosthetic valve is 6 mm of hg and mean gradient is 3 mmHg. Mitral Valve: Unchanged Tricuspid: Unchanged Aortic Dissection: No
[2023-08-06] MEDS: AMIODARONE 450 MG in DEXTROSE 5% IN WATER 250 ML IV SCH (19:52)
[2023-08-06 20:13] LABS: Glucose,Whole Blood 172 mg/dL (70-110)
[2023-08-06 20:22] LABS: ABG HCO3 24 mmol/L (21-25); ABG PCO2 61 mmHg (35-45); ABG PH 7.21 (7.35-7.45); ABG PO2 93 mmHg (83-108); ABG TCO2 26 mmol/L (19-24); Allen Test Performed? Yes
[2023-08-06 21:20] LABS: Glucose,Whole Blood 150 mg/dL (70-110)
[2023-08-06 22:15] LABS: Glucose,Whole Blood 149 mg/dL (70-110)
[2023-08-06] MEDS: DULoxetine HCL 60 MG CAPSULE.DR PO SCH (22:52)
[2023-08-06] MEDS: ATORVASTATIN 10 MG TAB PO SCH (22:52)
[2023-08-06 23:14] LABS: Glucose,Whole Blood 142 mg/dL (70-110)
[2023-08-06] MEDS: MUPIROCIN 2% OINT 22 GM TUBE NASAL SCH (23:54)
[2023-08-07 00:17] LABS: Glucose,Whole Blood 130 mg/dL (70-110)
[2023-08-07 01:08] LABS: Glucose,Whole Blood 123 mg/dL (70-110)
[2023-08-07 02:18] LABS: Glucose,Whole Blood 124 mg/dL (70-110)
[2023-08-07 03:03] LABS: Glucose,Whole Blood 128 mg/dL (70-110)
[2023-08-07 04:06] LABS: Glucose,Whole Blood 123 mg/dL (70-110)
[2023-08-07 04:29] LABS: Anisocytosis Slight; Basophils % (A) 0 %; Eosinophils % (A) 0 %; Hypochromasia Slight; Lymphocytes # (A) 1.7 k/uL (1.0-4.8); Lymphocytes % (A) 14 %; MCH 27.4 pg (25.0-35.0); MCHC 31.1 g/dL (31.0-37.0); MCV 88.1 fL (80.0-100.0); Mean Platelet Volume 8.8; Monocytes # (A) 0.5 k/uL (0-1.0); Monocytes % (A) 4 %; Neutrophils # (A) 9.6 k/uL (1.3-7.7); Neutrophils % (A) 81 %; Platelet Count 123 k/uL (150-450); Poikilocytosis Slight; RBC 3.29 m/uL (3.80-5.40); RDW 18.9 % (11.5-15.5); WBC 11.9 k/uL (3.8-10.6)
[2023-08-07 04:33] LABS: Ionized Calcium 4.8 mg/dL (4.5-5.3)
[2023-08-07 05:05] LABS: Glucose,Whole Blood 109 mg/dL (70-110)
[2023-08-07 06:06] LABS: Glucose,Whole Blood 144 mg/dL (70-110)
[2023-08-07] MEDS: LEVOTHYROXINE 75 MCG TAB PO SCH (06:55)
[2023-08-07 07:01] LABS: Glucose,Whole Blood 136 mg/dL (70-110)
[2023-08-07 07:06] LABS: ALT 31 U/L (4-34); AST 99 U/L (14-36); African American GFR (CKD) >90 (>60 ml/min/1.73 sqM); Albumin 3.9 g/dL (3.5-5.0); Alkaline Phosphatase 38 U/L (38-126); Anion Gap 6 mmol/L; Blood Urea Nitrogen 12 mg/dL (7-17); Carbon Dioxide 22 mmol/L (22-30); Chloride 112 mmol/L (98-107); Glucose 104 mg/dL (74-99); Magnesium 2.5 mg/dL (1.6-2.3); Non-African American GFR(CKD) >90 (>60 ml/min/1.73 sqM); Potassium 4.4 mmol/L (3.5-5.1); Sodium 140 mmol/L (137-145); Total Bilirubin 0.8 mg/dL (0.2-1.3); Total Protein 5.2 g/dL (6.3-8.2)
--- NOTE | 2023-08-07 07:33 | P.CRDCN ---
History of Present Illness Consult date: 08/07/23 Chief complaint: status post aortic valve replacement History of present illness: The patient is a pleasant 58-year-old female patient with a past medical history significant for valvular heart disease and known severe symptomatic aortic stenosis and paroxysmal atrial fibrillation as well as multiple comorbid conditions who was diagnosed recently with severe symptomatic aortic stenosis documented to be bicuspid aortic valve by transesophageal echocardiogram. The patient subsequently underwent a heart catheterization which revealed normal coronaries. Then she referred to undergo aortic valve replacement. Yesterday she underwent electively aortic valve replacement using bioprosthetic valve. This is postoperation day #1. The patient overall seems to be stable. She has been maintaining normal sinus mechanism. Currently she is on amiodarone IV. She will be restarted back on flecainide orally and she was on the flecainide before the surgery. No need for the patient to go on oral amiodarone along with flecainide. Urine output has been adequate. Blood work including CBC and BMP came in to be unremarkable as well. The chest x-ray seems to be slightly wet but she does have marginally low blood pressure. Otherwise she is on aspirin and she is on a statin. The examination is remarkable for stable vital signs with soft blood pressure and diminished breathing sounds bilaterally and she has mild upper and lower extremities edema noted. Assessment Status post aortic valve replacement for severe symptomatic bicuspid aortic valve stenosis Paroxysmal atrial fibrillation Multiple comorbid conditions Plan DC amiodarone and restart the patient back on flecainide Restart the patient back on oral anticoagulation once her pacer wires and lines out Continue monitor the kidney function and electrolytes Continue monitor the urine output Follow-up with the patient Past Medical History Past Medical History: Atrial Fibrillation, COPD, Diabetes Mellitus, Fibromyalgia, Hyperlipidemia, Hypertension, Osteoarthritis (OA), Thyroid Disorder Additional Past Medical History / Comment(s): back pain "pretty much all the time", SOB w/exertion History of Any Multi-Drug Resistant Organisms: None Reported Past Surgical History: Section, Cholecystectomy, Hysterectomy, Tonsillectomy Additional Past Surgical History / Comment(s): tumor removal from rt lower pelvis with partial hysterectomy, leep procedure, Past Anesthesia/Blood Transfusion Reactions: No Reported Reaction Smoking Status: Former smoker - Past Family History Mother Family Medical History: Cancer, COPD, Diabetes Mellitus, GERD/Reflux, Hypertension, Osteoarthritis (OA), Sleep Apnea/CPAP/BIPAP Additional Family Medical History / Comment(s): lung CA Sister(s) Family Medical History: Supraventricular Tachycardia (SVT) Additional Family Medical History / Comment(s): elevated liver enzymes,lung CA Son(s) Family Medical History: Cancer, Supraventricular Tachycardia (SVT) Additional Family Medical History / Comment(s): testicular CA Father Additional Family Medical History / Comment(s): Blood clot mesenteric artery Medications and Allergies Home Medications Medication Instructions Recorded Confirmed Type Butalb/APAP/Caff 50-325-40Mg 1 tab PO TID PRN 11/22/15 08/06/23 History [Fioricet 50-325-40] DULoxetine HCL [Cymbalta] 60 mg PO HS 11/22/15 08/06/23 History HYDROcodone/APAP 5-325MG [[place] 1 tab PO TID PRN 11/22/15 08/06/23 History 5-325] Levothyroxine Sodium [Synthroid] 75 mcg PO DAILY 11/22/15 08/06/23 History Montelukast [Singulair] 10 mg PO DAILY 11/22/15 08/06/23 History Multivitamins, Thera [Multivitamin 1 tab PO DAILY 11/22/15 08/06/23 History (formulary)] Cyclobenzaprine [Flexeril] 10 mg PO BID PRN 07/20/17 08/06/23 History Loratadine [Claritin] 10 mg PO DAILY 07/20/17 08/06/23 History Mirtazapine [Remeron] 15 mg PO HS 07/20/17 08/06/23 History Albuterol Sulfate [Albuterol 2 puff INHALATION RT-QID PRN 07/01/21 08/06/23 History Sulfate Hfa] Atorvastatin Calcium [Lipitor] 10 mg PO HS 07/01/21 08/06/23 History Omeprazole 20 mg PO DAILY 07/01/21 08/06/23 History glipiZIDE [Glucotrol] 10 mg PO BID 07/01/21 08/06/23 History Metoprolol Tartrate [Lopressor] 25 mg PO BID #60 tab 07/03/21 08/06/23 Rx Flecainide [Tambocor] 50 mg PO Q12H 02/04/22 08/06/23 History Ipratropium-Albuterol Nebulize 3 ml INHALATION RT-QID PRN 02/04/22 08/06/23 History [Duoneb 0.5 mg-3 mg/3 ml Soln] PARoxetine HCL [Paxil] 30 mg PO DAILY 02/04/22 08/06/23 History Ascorbic Acid [Vitamin C] 500 mg PO DAILY 07/18/23 08/06/23 History Ferrous Sulfate [Iron (65 MG 325 mg PO DAILY 07/18/23 08/06/23 History Elemental)] Furosemide [Lasix] 20 mg PO DAILY PRN 07/18/23 08/06/23 History Apixaban [Eliquis] 5 mg PO BID 07/30/23 08/06/23 History Fluticasone/Umeclidin/Vilanter 1 inhalation INHALATION DAILY 07/30/23 08/06/23 History [Tatelepanfilo Ellipta 100-62.5-25] Mupirocin [Mupirocin 2%] 1 applic NASAL BID 07/30/23 08/06/23 History Aspirin 325 mg PO DAILY 08/06/23 08/06/23 History Allergies Allergy/AdvReac Type Severity Reaction Status Date / Time morphine Allergy Rash/Hives/Shortness Verified 08/06/23 06:08 of breath pregabalin [From Lyrica] Allergy Rash/Hives/Skin Verified 08/06/23 06:08 peels Physical Exam Vitals: Vital Signs Temp Pulse Resp BP Pulse Ox FiO2 08/07/23 07:00 80 23 106/56 96 08/07/23 06:30 80 20 106/56 97 08/07/23 06:00 80 25 H 114/61 95 08/07/23 05:30 71 23 96 08/07/23 05:00 72 20 96 08/07/23 04:30 71 19 97 08/07/23 04:00 97.9 F 70 16 117/82 97 08/07/23 03:30 72 18 97 08/07/23 03:00 71 17 98 08/07/23 02:30 80 16 97 08/07/23 02:00 80 16 137/76 97 08/07/23 01:30 80 12 137/76 98 08/07/23 01:00 80 11 L 145/74 97 08/07/23 00:30 80 12 134/80 97 08/07/23 00:00 98.0 F 80 16 103/79 98 05 23:30 80 10 L 103/79 97 08/06/23 23:00 80 28 H 106/85 95 08/06/23 22:30 80 19 106/85 95 08/06/23 22:20 80 20 106/85 97 08/06/23 22:15 80 16 106/85 96 08/06/23 22:00 80 13 105/62 97 08/06/23 21:45 80 15 105/62 96 08/06/23 21:30 80 14 105/62 95 08/06/23 21:15 80 11 L 105/62 96 08/06/23 21:11 80 0605 21:02 80 96 08/06/23 21:00 80 13 95 08/06/23 20:45 80 14 96/61 98 08/06/23 20:30 80 14 98 50 08/06/23 20:15 80 14 96/61 97 08/06/23 20:00 98.3 F 80 14 107/65 97 50 08/06/23 19:45 80 19 107/65 93 L 08/06/23 19:38 50 08/06/23 19:30 80 18 107/65 97 05 19:15 80 17 107/65 98 08/06/23 19:00 97.0 F L 80 18 107/65 98 08/06/23 18:45 80 18 98 08/06/23 18:30 80 18 98 08/06/23 18:15 80 18 97 08/06/23 18:00 97.3 F L 80 18 98 08/06/23 17:45 80 18 98 08/06/23 17:30 80 18 99 08/06/23 17:21 84 08/06/23 17:15 80 18 100 08/06/23 17:09 80 08/06/23 17:06 50 08/06/23 17:00 97.3 F L 80 18 87/60 99 08/06/23 16:45 79 8 L 100 08/06/23 16:30 80 18 98 08/06/23 16:15 80 18 99 08/06/23 16:00 97.0 F L 80 18 98/67 99 50 08/06/23 15:45 80 18 99 08/06/23 15:30 80 18 99 08/06/23 15:15 80 18 99 08/06/23 15:00 96.6 F L 80 18 96/65 99 08/06/23 14:45 80 18 98 08/06/23 14:30 80 18 99 08/06/23 14:15 80 18 100 08/06/23 14:00 96.1 F L 80 14 96/71 99 50 08/06/23 13:48 50 08/06/23 13:45 80 12 100 08/06/23 13:30 80 12 100 50 08/06/23 13:15 95.5 F L 62 12 85/62 100 08/06/23 13:00 100 Intake and Output 08/06/23 08/07/23 08/07/23 22:59 06:59 14:59 Intake Total 3670.108 1931.888 81.222 Output Total 741 733 40 Balance 983.160 367.888 41.222 Intake: IV 402 572 79 Lactated Ringers 1,000 ml 150 400 50 @ 50 mls/hr IV .Q20H [facility] Rx#:[id number] ns for cardiac output 180 100 20 ns for pressure flush 72 72 9 Intake, IV Titration 1322.160 528.888 2.222 Amount ACETAMINOPHEN IV (For NPO 400 ) 1,000 mg In Empty Bag 1 bag @ 400 mls/hr IVPB Q6HR [facility] Rx#:[id number] Albumin Human 5% 250 ml 250 In Empty Bag 1 bag @ 250 mls/hr IVPB ONCE ONE Rx#: [id number] Albumin Human 5% 250 ml 250 In Empty Bag 1 bag @ 250 mls/hr IVPB ONCE ST[facility] Rx#: [id number] Amiodarone 360 mg In 133.2 Dextrose 5% in Water 200 ml @ 1 MG/MIN 33.333 mls/ hr IV .Q6H ONE Rx#: [id number] Dextrose 5% in Water 100 100 ml @ 618 mls/hr IV .Q10M PRN with Amiodarone 150 mg Rx#:[id number] Insulin Regular 100 unit 26.741 23.188 2.222 In Sodium Chloride 0.9% 100 ml @ Per Protocol IV .Q0M [facility] Rx#:[id number] Lactated Ringers 1,000 ml 250 50 @ 50 mls/hr IV .Q20H [facility] Rx#:[id number] Milrinone-D5w Pmx 20 mg 28.5 5.7 In Dextrose/Water 1 100ml .bag @ 0.3 MCG/KG/MIN 5. 715 mls/hr IV .[id number] [facility] Rx#:[id number] Potassium Chloride 20 meq 200 In Water For Injection 1 100ml.bag @ 50 mls/hr IVPB Q2H [facility] Rx#: [id number] ceFAZolin 2 gm In Sodium 50 50 Chloride 0.9% 50 ml @ 100 mls/hr IVPB Q8HR [facility] Rx# :[id number] propofoL 1,000 mg In 33.719 Empty Bag 1 bag @ Titrate IV .Q0M [facility] Rx#: [id number] Output: Chest Tube Drainage 466 408 0 Chest Tube Left 106 44 0 Chest Tube Mediastinal 240 210 0 Chest Tube Right 120 154 0 Urine 275 325 40 Other: Voiding Method Indwelling Catheter Indwelling Catheter Weight 70.6 kg ABP, PAP, CO, CI - Last 8 Hours Arterial Blood Pressure 111/42 Arterial Blood Pressure 115/43 Arterial Blood Pressure 126/51 Arterial Blood Pressure 117/50 Arterial Blood Pressure 136/55 Arterial Blood Pressure 119/74 Arterial Blood Pressure 144/57 Arterial Blood Pressure 140/57 Arterial Blood Pressure 147/61 Arterial Blood Pressure 135/58 Arterial Blood Pressure 147/62 Arterial Blood Pressure 129/60 Arterial Blood Pressure 153/67 Arterial Blood Pressure 147/65 Arterial Blood Pressure 139/63 Pulmonary Artery Pressure 38/3 Pulmonary Artery Pressure 33/0 Pulmonary Artery Pressure 40/6 Pulmonary Artery Pressure 38/4 Pulmonary Artery Pressure 41/7 Pulmonary Artery Pressure 43/9 Pulmonary Artery Pressure 45/7 Pulmonary Artery Pressure 38/7 Pulmonary Artery Pressure 45/8 Pulmonary Artery Pressure 43/8 Pulmonary Artery Pressure 46/6 Pulmonary Artery Pressure 44/7 Pulmonary Artery Pressure 47/11 Pulmonary Artery Pressure 44/10 Pulmonary Artery Pressure 47/12 Cardiac Output 4.5 Cardiac Output 4.5 Cardiac Output 4.1 Cardiac Output 4.5 Cardiac Output 4.5 Cardiac Output 4.5 Cardiac Output 4.7 Cardiac Output 4.7 Cardiac Output 4.4 Cardiac Index 2.8 Cardiac Index 2.8 Cardiac Index 2.5 Cardiac Index 2.8 Cardiac Index 2.8 Cardiac Index 2.8 Cardiac Index 2.9 Cardiac Index 2.9 Cardiac Index 2.7 Results 08/07/23 04:00 08/07/23 04:00 Cardiac Enzymes 08/06/23 08/07/23 Range/Units 13:15 04:00 AST 69 H 99 H (14-36) U/L Coagulation 08/06/23 Range/Units 13:15 PT 14.9 H (10.0-12.5) sec APTT 42.6 H (22.0-30.0) sec CBC 08/06/23 08/06/23 08/06/23 Range/Units 13:15 16:05 18:55 WBC 9.3 10.2 10.7 H (3.8-10.6) k/uL RBC 3.24 L 3.40 L 3.30 L (3.80-5.40) m/uL Hgb 9.1 L D 9.6 L 9.4 L (11.4-16.0) gm/dL Hct 28.7 L 30.0 L 29.2 L (34.0-46.0) % Plt Count 92 L D 105 L 115 L (150-450) k/uL 08/07/23 Range/Units 04:00 WBC 11.9 H (3.8-10.6) k/uL RBC 3.29 L (3.80-5.40) m/uL Hgb 9.0 L (11.4-16.0) gm/dL Hct 29.0 L (34.0-46.0) % Plt Count 123 L (150-450) k/uL Comprehensive Metabolic Panel 08/06/23 08/07/23 Range/Units 13:15 04:00 Sodium 144 140 (137-145) mmol/L Potassium 3.5 4.4 (3.5-5.1) mmol/L Chloride 114 H 112 H (98-107) mmol/L Carbon Dioxide 24 22 (22-30) mmol/L BUN 8 12 (7-17) mg/dL Creatinine 0.49 L 0.51 L (0.52-1.04) mg/dL Glucose 107 H 104 H (74-99) mg/dL Calcium 7.5 L 8.0 L (8.4-10.2) mg/dL AST 69 H 99 H (14-36) U/L ALT 22 31 (4-34) U/L Alkaline Phosphatase 34 L 38 (38-126) U/L Total Protein 4.9 L 5.2 L (6.3-8.2) g/dL Albumin 3.5 3.9 (3.5-5.0) g/dL Current Medications Generic Name Dose Route Start Last Admin Trade Name Freq PRN Reason Stop Dose Admin Acetaminophen 650 mg 08/07/23 07:01 Acetaminophen Tab 325 Mg Tab PO Q4HR PRN Fever and/ or Mild Pain Albuterol/Ipratropium 3 ml 08/06/23 12:43 Ipratropium-Albuterol 3 Ml Neb INHALATION RT-Q2H PRN Shortness Of Breath Or Wheezing Albuterol/Ipratropium 3 ml 08/06/23 20:00 08/06/23 21:00 Ipratropium-Albuterol 3 Ml Neb INHALATION 3 ml RT-QID [facility] Administration Ascorbic Acid 500 mg 08/07/23 09:00 Ascorbic Acid 500 Mg Tab PO DAILY [facility] Aspirin 325 mg 08/07/23 09:00 Aspirin 325 Mg Tab PO DAILY [facility] Atorvastatin Calcium 10 mg 08/06/23 21:00 08/06/23 22:52 Atorvastatin 10 Mg Tab PO 10 mg HS [facility] Administration Benzocaine/Menthol 1 each 08/06/23 12:43 Benzocaine/Menthol Lozeng 1 Each Lozenge MUCOUS MEM Q2H PRN Sore Throat Bisacodyl 10 mg 08/07/23 09:00 Bisacodyl 10 Mg Supp RECTAL DAILY PRN Constipation Clopidogrel Bisulfate 75 mg 08/07/23 09:00 Clopidogrel 75 Mg Tab PO DAILY [facility] Cyclobenzaprine HCl 10 mg 08/06/23 12:43 Cyclobenzaprine 10 Mg Tab PO BID PRN Muscle Spasm Dextrose/Water 25 ml 08/06/23 12:43 Dextrose 50% Syringe 50 Ml IVP PER PROTOCOL PRN Hypoglycemia Protocol Dextrose/Water 50 ml 08/06/23 12:43 Dextrose 50% Syringe 50 Ml IVP PER PROTOCOL PRN Hypoglycemia Protocol Duloxetine HCl 60 mg 08/06/23 21:00 08/06/23 22:52 Duloxetine Hcl 60 Mg Capsule.Dr PO 60 mg HS [facility] Administration Ferrous Sulfate 325 mg 08/07/23 09:00 Ferrous Sulfate 325 Mg Tab PO DAILY [facility] Flecainide Acetate 50 mg 08/07/23 09:00 Flecainide 50 Mg Tab PO Q12HR [facility] Heparin Sodium (Porcine) 5,000 unit 08/06/23 16:00 08/06/23 23:54 Heparin Sodium,Porcine 5,000 Unit/Ml 1 Ml Vial SQ 5,000 unit Q8HR [facility] Administration Amiodarone HCl 450 mg/ 250 mls @ 16.667 mls/hr 08/06/23 19:15 08/06/23 19:52 Dextrose/Water IV 08/07/23 13:14 0.5 mg/min .Q15H [facility] 16.667 mls/hr Administration Protocol 0.5 MG/MIN Amiodarone HCl 150 mg/ 103 mls @ 618 mls/hr 08/06/23 13:00 08/06/23 13:58 Dextrose/Water IV 618 mls/hr .Q10M PRN Administration A.FIB/FLUTTER Albumin Human 250 ml/ IV 250 mls @ 250 mls/hr 08/06/23 12:43 08/06/23 13:30 Solution IVPB 08/08/23 12:44 250 mls/hr Q1HR PRN Administration For Volume Protocol Cefazolin Sodium 2 gm/ Sodium 50 mls @ 100 mls/hr 08/06/23 16:00 08/06/23 23:55 Chloride IVPB 08/07/23 08:29 100 mls/hr Q8HR [facility] Administration Protocol Calcium Gluconate/Sodium 100 mls @ 100 mls/hr 08/06/23 12:43 Chloride 2 gm/ IV Solution IVPB 08/09/23 12:44 ONCE PRN Ionized Calcium less than 4.4 Lactated Ringer's 1,000 mls @ 50 mls/hr 08/06/23 12:43 08/06/23 13:05 Lactated Ringers IV 50 mls/hr .Q20H [facility] Administration Insulin Human Regular 100 unit 101 mls @ 0 mls/hr 08/06/23 13:00 08/07/23 07:04 / Sodium Chloride IV 3 unit/hr .Q0M [facility] 3.03 mls/hr Titration Protocol Per Protocol Milrinone Lactate/Dextrose 20 100 mls @ 5.715 mls/hr 08/06/23 17:30 08/06/23 17:29 mg/ IV Solution IV 0.3 mcg/kg/min .[id number] [facility] 5.715 mls/hr Administration 0.3 MCG/KG/MIN Levothyroxine Sodium 75 mcg 08/07/23 07:30 08/07/23 06:55 Levothyroxine 75 Mcg Tab PO 75 mcg DAILY@0730 [facility] Administration Loratadine 10 mg 08/07/23 09:00 Loratadine 10 Mg Tab PO DAILY [facility] Magnesium Hydroxide 2,400 mg 08/07/23 09:00 Magnesium Hydroxide 2,400 Mg/30 Ml Cup PO BID PRN Constipation Metoclopramide HCl 10 mg 08/06/23 12:43 Metoclopramide 5 Mg/Ml 2 Ml Vial IVP Q4H PRN Nausea And Vomiting Metoprolol Tartrate 12.5 mg 08/07/23 09:00 Metoprolol Tartrate 12.5 Mg Tab PO BID [facility] Miscellaneous Information 1 each 08/06/23 12:43 Potassium Replacement Protocol 1 Each Misc MISCELLANE DAILY PRN Per Protocol Protocol Miscellaneous Information 1 each 08/06/23 12:43 Magnesium Replacement Protocol 1 Each Misc MISCELLANE DAILY PRN Per Protocol Protocol Montelukast Sodium 10 mg 08/07/23 09:00 Montelukast 10 Mg Tab PO DAILY [facility] Multivitamins 1 each 08/07/23 09:00 Multivitamins, Thera 1 Each Tab PO DAILY [facility] Mupirocin 1 applic 08/06/23 21:00 08/06/23 23:54 Mupirocin 2% Oint 22 Gm Tube NASAL 08/09/23 21:01 1 applic BID [facility] Administration Ondansetron HCl 4 mg 08/06/23 12:43 Ondansetron 4 Mg/2 Ml Vial IVP Q6HR PRN Nausea And Vomiting Oxycodone HCl 5 mg 08/06/23 12:43 08/07/23 04:36 Oxycodone Hcl 5 Mg Tab PO 5 mg Q4HR PRN Administration Moderate Pain (Scale 4 to 6) Oxycodone HCl 10 mg 08/06/23 12:43 08/07/23 06:34 Oxycodone Hcl 5 Mg Tab PO 10 mg Q4HR PRN Administration Severe Pain (Scale 7 to 10) Pantoprazole Sodium 40 mg 08/07/23 09:00 Pantoprazole 40 Mg/10 Ml Vial IVP 08/07/23 10:00 DAILY [facility] Pantoprazole Sodium 40 mg 08/08/23 07:30 Pantoprazole 40 Mg Tablet PO AC-BRKFST [facility] Paroxetine HCl 30 mg 08/07/23 09:00 Paroxetine 10 Mg Tab PO DAILY [facility] Senna/Docusate Sodium 2 each 08/07/23 21:00 Sennosides-Docusate Sodium 1 Each Tab PO HS [facility] Sodium Chloride 10 ml 08/06/23 21:00 08/06/23 22:52 Sodium Chloride 0.9% Flush 10 Ml Syringe IV 10 ml BID [facility] Administration Intake and Output 08/06/23 08/07/23 08/07/23 22:59 06:59 14:59 Intake Total 1779.486 0765.888 81.222 Output Total 741 733 40 Balance 983.160 367.888 41.222 Intake: IV 402 572 79 Lactated Ringers 1,000 ml 150 400 50 @ 50 mls/hr IV .Q20H [facility] Rx#:[id number] ns for cardiac output 180 100 20 ns for pressure flush 72 72 9 Intake, IV Titration 1322.160 528.888 2.222 Amount ACETAMINOPHEN IV (For NPO 400 ) 1,000 mg In Empty Bag 1 bag @ 400 mls/hr IVPB Q6HR [facility] Rx#:[id number] Albumin Human 5% 250 ml 250 In Empty Bag 1 bag @ 250 mls/hr IVPB ONCE ONE Rx#: [id number] Albumin Human 5% 250 ml 250 In Empty Bag 1 bag @ 250 mls/hr IVPB ONCE [facility] Rx#: [id number] Amiodarone 360 mg In 133.2 Dextrose 5% in Water 200 ml @ 1 MG/MIN 33.333 mls/ hr IV .Q6H [facility] Rx#: [id number] Dextrose 5% in Water 100 100 ml @ 618 mls/hr IV .Q10M PRN with Amiodarone 150 mg Rx#:[id number] Insulin Regular 100 unit 26.741 23.188 2.222 In Sodium Chloride 0.9% 100 ml @ Per Protocol IV .Q0M [facility] Rx#:[id number] Lactated Ringers 1,000 ml 250 50 @ 50 mls/hr IV .Q20H [facility] Rx#:[id number] Milrinone-D5w Pmx 20 mg 28.5 5.7 In Dextrose/Water 1 100ml .bag @ 0.3 MCG/KG/MIN 5. 715 mls/hr IV .[id number] [facility] Rx#:[id number] Potassium Chloride 20 meq 200 In Water For Injection 1 100ml.bag @ 50 mls/hr IVPB Q2H [facility] Rx#: [id number] ceFAZolin 2 gm In Sodium 50 50 Chloride 0.9% 50 ml @ 100 mls/hr IVPB Q8HR [facility] Rx# :[id number] propofoL 1,000 mg In 33.719 Empty Bag 1 bag @ Titrate IV .Q0M [facility] Rx#: [id number] Output: Chest Tube Drainage 466 408 0 Chest Tube Left 106 44 0 Chest Tube Mediastinal 240 210 0 Chest Tube Right 120 154 0 Urine 275 325 40 Other: Voiding Method Indwelling Catheter Indwelling Catheter Weight 70.6 kg 08/07/23 04:00 08/07/23 04:00
--- NOTE | 2023-08-07 07:44 | XR ---
EXAMINATION TYPE: XR chest 1V portable DATE OF EXAM: 08/07/2023 Comparison: 08/06/2023 Clinical History: 58-year-old female Post Operative Cardiac Surgery Findings: Right IJ Quincy-Brandy catheter is abnormally positioned. It has been pulled back but the tip may be comi ng back into the right ventricle. Median sternotomy wires with prosthetic aortic valve. Mediastinal d rain. Interval extubation and removal of NG tube. I lateral chest tubes in place. No appreciable pneu mothorax. Heart mildly enlarged. Interstitial densities persist. Patchy density at the right base sli ghtly increased. No sizable pleural effusion. Impression: 1. The right IJ Quincy-Brandy catheter remains malpositioned. It is looping back probably with tip in the right ventricle. 2. Ongoing interstitial densities, probably mild interstitial pulmonary edema. Some patchy density at the right base is increasing.
[2023-08-07 08:05] LABS: Glucose,Whole Blood 125 mg/dL (70-110)
[2023-08-07] MEDS ORDERED: AMIODARONE 450 MG in DEXTROSE 5% IN WATER 250 ML IV SCH (08:27)
[2023-08-07] MEDS: FLECAINIDE 50 MG TAB PO SCH (08:57)
[2023-08-07] MEDS: MONTELUKAST 10 MG TAB PO SCH (08:58)
[2023-08-07] MEDS: CLOPIDOGREL 75 MG TAB PO SCH (08:58)
[2023-08-07] MEDS: FERROUS SULFATE 325 MG TAB PO SCH (08:58)
[2023-08-07] MEDS: PARoxetine 10 MG TAB PO SCH (08:58)
[2023-08-07] MEDS: METOPROLOL TARTRATE 12.5 MG TAB PO SCH (08:58)
[2023-08-07] MEDS: ASCORBIC ACID 500 MG TAB PO SCH (08:58)
[2023-08-07] MEDS: PANTOPRAZOLE 40 MG/10 ML VIAL IVP SCH (08:58)
[2023-08-07] MEDS: ASPIRIN 325 MG TAB PO SCH (08:58)
[2023-08-07 09:02] LABS: Glucose,Whole Blood 100 mg/dL (70-110)
[2023-08-07] MEDS: LORATADINE 10 MG TAB PO SCH (09:02)
[2023-08-07] MEDS: MULTIVITAMINS, THERA 1 EACH TAB PO SCH (09:06)
--- NOTE | 2023-08-07 09:12 | P.PN ---
Subjective Progress Note Date: 08/07/23 Principal diagnosis: Calcific symptomatic congenital bicuspid aortic stenosis, paroxysmal atrial fibrillation. Previous medical history of hypertension, hyperlipidemia, diabetes mellitus type 2, paroxysmal atrial fibrillation on Eliquis for anticoagulation, asthma, severe chronic obstructive pulmonary disease, previous tobacco dependence, GERD, hypothyroid, anemia, TIA with no residual effects, bilateral internal carotid artery stenosis POD #1 aortic valve replacement with 23 mm Inspiris bovine pericardial valve, bilateral pulmonary vein ablation with AtriCure RF clamp, closure of the left atrial appendage with a 35 mm AtriCure clip, epiaortic ultrasonography Postoperative acute blood loss anemia, expected given hemodilution and cardiopulmonary bypass pump as well as history of anemia The patient was seen and examined with Dr. Lind this morning while sitting up in recliner in the intensive care unit in no acute distress. She was successfully extubated last night at 20:49. Currently in sinus rhythm with sinus arrhythmia, hemodynamically stable although blood pressure a bit soft, mean arterial pressures stable in the 60-80s. Currently on IV Primacor as well as IV amiodarone. States expected postoperative pain controlled with current medication regimen, denies shortness of breath. Currently on 2 L nasal cannula, able to achieve 1000 mL on her incentive spirometer. Right internal jugular [place]/Cordis, left radial arterial line, mediastinal/right/left pleural chest tubes present. No other new concerns. Objective - Vital Signs Vital signs: Vital Signs Temp 97.7 F 08/07/23 08:00 Pulse 71 08/07/23 08:00 Resp 23 08/07/23 08:00 BP 106/56 08/07/23 07:00 Pulse Ox 93 L 08/07/23 08:00 FiO2 50 08/06/23 20:30 Intake & Output 08/06/23 08/07/23 08/07/23 18:59 06:59 18:59 Intake Total 2619.332 1490.666 438.342 Output Total 1080 1104 90 Balance 1539.332 386.666 348.342 Weight 70.6 kg Intake: IV 237 838 158 Lactated Ringers 1,000 ml 550 100 @ 50 mls/hr IV .Q20H [facility] Rx#:[id number] ns for cardiac output 140 180 40 ns for pressure flush 45 108 18 Intake, IV Titration 1762.332 652.666 160.342 Amount ACETAMINOPHEN IV (For NPO 400 ) 1,000 mg In Empty Bag 1 bag @ 400 mls/hr IVPB Q6HR [facility] Rx#:[id number] Albumin Human 5% 250 ml 250 In Empty Bag 1 bag @ 250 mls/hr IVPB ONCE ONE Rx#: [id number] Albumin Human 5% 250 ml 250 In Empty Bag 1 bag @ 250 mls/hr IVPB ONCE STA Rx#: [id number] Albumin Human 5% 250 ml 500 In Empty Bag 1 bag @ 250 mls/hr IVPB Q1HR PRN Rx#: [id number] Amiodarone 360 mg In 99.9 33.3 Dextrose 5% in Water 200 ml @ 1 MG/MIN 33.333 mls/ hr IV .Q6H ONE Rx#: [id number] Amiodarone 450 mg In 16.6 Dextrose 5% in Water 250 ml @ 0.5 MG/MIN 16.667 mls/hr IV .Q15H [facility] Rx#: [id number] Dextrose 5% in Water 100 100 ml @ 618 mls/hr IV .Q10M PRN with Amiodarone 150 mg Rx#:[id number] Insulin Regular 100 unit 11.540 38.389 2.222 In Sodium Chloride 0.9% 100 ml @ Per Protocol IV .Q0M [facility] Rx#:[id number] Lactated Ringers 1,000 ml 250 100 @ 50 mls/hr IV .Q20H [facility] Rx#:[id number] Milrinone-D5w Pmx 20 mg 5.7 28.5 91.52 In Dextrose/Water 1 100ml .bag @ 0.3 MCG/KG/MIN 5. 715 mls/hr IV .[id number] [facility] Rx#:[id number] Potassium Chloride 20 meq 200 In Water For Injection 1 100ml.bag @ 50 mls/hr IVPB Q2H [facility] Rx#: [id number] ceFAZolin 2 gm In Sodium 50 50 50 Chloride 0.9% 50 ml @ 100 mls/hr IVPB Q8HR [facility] Rx# :[id number] propofoL 1,000 mg In 45.192 2.477 Empty Bag 1 bag @ Titrate IV .Q0M [facility] Rx#: [id number] Oral 120 Blood Product 620 Rc As-1 Unit 310 [id number] Rc As-1 Unit 310 [id number] Output: Chest Tube Drainage 325 604 30 Chest Tube Left 70 80 10 Chest Tube Mediastinal 180 320 20 Chest Tube Right 75 204 0 Urine 255 500 60 Estimated Blood Loss 500 Other: Voiding Method Indwelling Catheter Indwelling Catheter ABP, PAP, CO, CI - Last Documented Arterial Blood Pressure 117/44 Pulmonary Artery Pressure 36/2 Cardiac Output 3.7 Cardiac Index 2.3 - Exam CONSTITUTIONAL: Appears comfortable, cooperative, no acute distress RESPIRATORY: Lungs sounds diminished bilaterally. Respirations even, nonlabored. Currently on 2 L nasal cannula with oxygen saturation 97%. Able to achieve 1000 mL on incentive spirometry. Strong cough. CARDIOVASCULAR: S1, S2 present. Regular rate and rhythm, sinus rhythm with sinus arrhythmia on telemetry. Sternum stable. Palpable peripheral pulses bilaterally. Generalized edema present. No calf pain or tenderness noted. Heart hugger in place with patient demonstrating appropriate use. Antiembolism stockings, SCDs present. GASTROINTESTINAL: Abdomen soft, nontender, nondistended. Hypoactive bowel sounds present 4 quadrants. Tolerating minimal clear liquids. Denies flatus GENITOURINARY: Cartwright present draining clear, yellow urine. Output overnight 35-50 mL per hour INTEGUMENTARY: Skin is warm and dry with evidence of good perfusion. Anterior chest incision well approximated and covered with dry intact dressing NEUROLOGIC: Cranial nerves II through XII intact MUSKULOSKELETAL: Able to move all extremities, strength equal bilaterally PSYCHIATRIC: Alert and oriented to person place and time, appropriate affect, intact judgment and insight INVASIVE LINES AND TUBES: Mediastinal/left/right pleural chest tubes present and connected to wall suction, no air leaks present. Mediastinal tube with 210 mL serosanguineous drainage overnight, 500 mL since surgery. Left pleural chest tube with 40 mL serosanguineous drainage overnight, 210 mL since surgery. Right pleural chest tube with 150 mL serosanguineous drainage overnight, 300 mL since surgery. A/V epicardial pacemaker wires present, connected to generator, turned off. Right internal jugular [place]/Cordis, left radial arterial line present. Last CO/CI 4.5/2.8, PA 37/0, CVP 21. - Allied health notes Allied health notes reviewed: nursing - Labs CBC & Chem 7: 08/07/23 04:00 08/07/23 04:00 Labs: Abnormal Lab Results - Last 24 Hours (Table) 07/30/23 08/06/23 08/06/23 Range/Units 09:32 08:30 09:17 WBC (3.8-10.6) k/uL RBC (3.80-5.40) m/uL Hgb (11.4-16.0) gm/dL Hct (34.0-46.0) % RDW (11.5-15.5) % Plt Count (150-450) k/uL Neutrophils # (1.3-7.7) k/uL Lymphocytes # (1.0-4.8) k/uL PT (10.0-12.5) sec INR (<1.2) APTT (22.0-30.0) sec ABG pH 7.30 L 7.33 L (7.35-7.45) ABG pCO2 53 H 47 H (35-45) mmHg ABG pO2 265 H 206 H (83-108) mmHg ABG HCO3 26 H (21-25) mmol/L ABG Total CO2 (19-24) mmol/L ABG O2 Saturation >99.4 H 99.3 H (94-97) % ABG Hematocrit 31 L 28 L (34.0-46.0) % ABG Potassium 3.3 L (3.4-4.5) mmol/L ABG Ionized Calcium (4.5-5.3) mg/dL ABG Glucose 128 H 121 H (75-99) mg/dL ABG Lactic Acid (0.5-1.6) mmol/L Hemoglobin 10.3 L 9.3 L (11.4-16.0) gm/dL Chloride (98-107) mmol/L Creatinine (0.52-1.04) mg/dL Glucose (74-99) mg/dL POC Glucose (mg/dL) (70-110) mg/dL Calcium (8.4-10.2) mg/dL Magnesium (1.6-2.3) mg/dL AST (14-36) U/L Alkaline Phosphatase (38-126) U/L Total Protein (6.3-8.2) g/dL Arterial Blood Potassium 3.3 L (3.4-4.5) mmol/L Arterial Blood Glucose 128 H 121 H (75-99) mg/dL Crossmatch See Detail 08/06/23 08/06/23 08/06/23 Range/Units 09:36 10:11 10:11 WBC (3.8-10.6) k/uL RBC (3.80-5.40) m/uL Hgb (11.4-16.0) gm/dL Hct (34.0-46.0) % RDW (11.5-15.5) % Plt Count (150-450) k/uL Neutrophils # (1.3-7.7) k/uL Lymphocytes # (1.0-4.8) k/uL PT (10.0-12.5) sec INR (<1.2) APTT (22.0-30.0) sec ABG pH 7.46 H (7.35-7.45) ABG pCO2 (35-45) mmHg ABG pO2 >420 H >420 H >420 H (83-108) mmHg ABG HCO3 27 H 26 H (21-25) mmol/L ABG Total CO2 (19-24) mmol/L ABG O2 Saturation >99.4 H >99.4 H >99.4 H (94-97) % ABG Hematocrit 20 L* 22 L 21 L (34.0-46.0) % ABG Potassium (3.4-4.5) mmol/L ABG Ionized Calcium 3.7 L 4.2 L 4.3 L (4.5-5.3) mg/dL ABG Glucose 116 H 129 H 132 H (75-99) mg/dL ABG Lactic Acid (0.5-1.6) mmol/L Hemoglobin 6.6 L* 7.1 L 6.7 L* (11.4-16.0) gm/dL Chloride (98-107) mmol/L Creatinine (0.52-1.04) mg/dL Glucose (74-99) mg/dL POC Glucose (mg/dL) (70-110) mg/dL Calcium (8.4-10.2) mg/dL Magnesium (1.6-2.3) mg/dL AST (14-36) U/L Alkaline Phosphatase (38-126) U/L Total Protein (6.3-8.2) g/dL Arterial Blood Potassium (3.4-4.5) mmol/L Arterial Blood Glucose 116 H 129 H 132 H (75-99) mg/dL Crossmatch 08/06/23 08/06/23 08/06/23 Range/Units 11:07 11:54 13:15 WBC (3.8-10.6) k/uL RBC 3.24 L (3.80-5.40) m/uL Hgb 9.1 L D (11.4-16.0) gm/dL Hct 28.7 L (34.0-46.0) % RDW 18.6 H (11.5-15.5) % Plt Count 92 L D (150-450) k/uL Neutrophils # (1.3-7.7) k/uL Lymphocytes # (1.0-4.8) k/uL PT (10.0-12.5) sec INR (<1.2) APTT (22.0-30.0) sec ABG pH 7.32 L (7.35-7.45) ABG pCO2 (35-45) mmHg ABG pO2 >420 H >420 H (83-108) mmHg ABG HCO3 (21-25) mmol/L ABG Total CO2 (19-24) mmol/L ABG O2 Saturation >99.4 H >99.4 H (94-97) % ABG Hematocrit 21 L 29 L (34.0-46.0) % ABG Potassium (3.4-4.5) mmol/L ABG Ionized Calcium 4.3 L (4.5-5.3) mg/dL ABG Glucose 155 H 185 H (75-99) mg/dL ABG Lactic Acid 2.2 H* (0.5-1.6) mmol/L Hemoglobin 6.7 L* 9.5 L (11.4-16.0) gm/dL Chloride (98-107) mmol/L Creatinine (0.52-1.04) mg/dL Glucose (74-99) mg/dL POC Glucose (mg/dL) (70-110) mg/dL Calcium (8.4-10.2) mg/dL Magnesium (1.6-2.3) mg/dL AST (14-36) U/L Alkaline Phosphatase (38-126) U/L Total Protein (6.3-8.2) g/dL Arterial Blood Potassium (3.4-4.5) mmol/L Arterial Blood Glucose 155 H 185 H (75-99) mg/dL Crossmatch 08/06/23 08/06/23 08/06/23 Range/Units 13:15 13:15 13:16 WBC (3.8-10.6) k/uL RBC (3.80-5.40) m/uL Hgb (11.4-16.0) gm/dL Hct (34.0-46.0) % RDW (11.5-15.5) % Plt Count (150-450) k/uL Neutrophils # (1.3-7.7) k/uL Lymphocytes # (1.0-4.8) k/uL PT 14.9 H (10.0-12.5) sec INR 1.4 H (<1.2) APTT 42.6 H (22.0-30.0) sec ABG pH (7.35-7.45) ABG pCO2 (35-45) mmHg ABG pO2 (83-108) mmHg ABG HCO3 (21-25) mmol/L ABG Total CO2 (19-24) mmol/L ABG O2 Saturation (94-97) % ABG Hematocrit (34.0-46.0) % ABG Potassium (3.4-4.5) mmol/L ABG Ionized Calcium (4.5-5.3) mg/dL ABG Glucose (75-99) mg/dL ABG Lactic Acid (0.5-1.6) mmol/L Hemoglobin (11.4-16.0) gm/dL Chloride 114 H (98-107) mmol/L Creatinine 0.49 L (0.52-1.04) mg/dL Glucose 107 H (74-99) mg/dL POC Glucose (mg/dL) 123 H (70-110) mg/dL Calcium 7.5 L (8.4-10.2) mg/dL Magnesium 3.0 H (1.6-2.3) mg/dL AST 69 H (14-36) U/L Alkaline Phosphatase 34 L (38-126) U/L Total Protein 4.9 L (6.3-8.2) g/dL Arterial Blood Potassium (3.4-4.5) mmol/L Arterial Blood Glucose (75-99) mg/dL Crossmatch 08/06/23 08/06/23 08/06/23 Range/Units 13:27 14:11 15:00 WBC (3.8-10.6) k/uL RBC (3.80-5.40) m/uL Hgb (11.4-16.0) gm/dL Hct (34.0-46.0) % RDW (11.5-15.5) % Plt Count (150-450) k/uL Neutrophils # (1.3-7.7) k/uL Lymphocytes # (1.0-4.8) k/uL PT (10.0-12.5) sec INR (<1.2) APTT (22.0-30.0) sec ABG pH 7.19 L* (7.35-7.45) ABG pCO2 59 H (35-45) mmHg ABG pO2 356 H (83-108) mmHg ABG HCO3 (21-25) mmol/L ABG Total CO2 25 H (19-24) mmol/L ABG O2 Saturation 100.4 H (94-97) % ABG Hematocrit (34.0-46.0) % ABG Potassium (3.4-4.5) mmol/L ABG Ionized Calcium (4.5-5.3) mg/dL ABG Glucose (75-99) mg/dL ABG Lactic Acid (0.5-1.6) mmol/L Hemoglobin (11.4-16.0) gm/dL Chloride (98-107) mmol/L Creatinine (0.52-1.04) mg/dL Glucose (74-99) mg/dL POC Glucose (mg/dL) 125 H 144 H (70-110) mg/dL Calcium (8.4-10.2) mg/dL Magnesium (1.6-2.3) mg/dL AST (14-36) U/L Alkaline Phosphatase (38-126) U/L Total Protein (6.3-8.2) g/dL Arterial Blood Potassium (3.4-4.5) mmol/L Arterial Blood Glucose (75-99) mg/dL Crossmatch 08/06/23 08/06/23 08/06/23 Range/Units 16:04 16:05 17:12 WBC (3.8-10.6) k/uL RBC 3.40 L (3.80-5.40) m/uL Hgb 9.6 L (11.4-16.0) gm/dL Hct 30.0 L (34.0-46.0) % RDW 18.7 H (11.5-15.5) % Plt Count 105 L (150-450) k/uL Neutrophils # 8.6 H (1.3-7.7) k/uL Lymphocytes # (1.0-4.8) k/uL PT (10.0-12.5) sec INR (<1.2) APTT (22.0-30.0) sec ABG pH (7.35-7.45) ABG pCO2 (35-45) mmHg ABG pO2 (83-108) mmHg ABG HCO3 (21-25) mmol/L ABG Total CO2 (19-24) mmol/L ABG O2 Saturation (94-97) % ABG Hematocrit (34.0-46.0) % ABG Potassium (3.4-4.5) mmol/L ABG Ionized Calcium (4.5-5.3) mg/dL ABG Glucose (75-99) mg/dL ABG Lactic Acid (0.5-1.6) mmol/L Hemoglobin (11.4-16.0) gm/dL Chloride (98-107) mmol/L Creatinine (0.52-1.04) mg/dL Glucose (74-99) mg/dL POC Glucose (mg/dL) 194 H 240 H (70-110) mg/dL Calcium (8.4-10.2) mg/dL Magnesium (1.6-2.3) mg/dL AST (14-36) U/L Alkaline Phosphatase (38-126) U/L Total Protein (6.3-8.2) g/dL Arterial Blood Potassium (3.4-4.5) mmol/L Arterial Blood Glucose (75-99) mg/dL Crossmatch 08/06/23 08/06/23 08/06/23 Range/Units 18:08 18:55 18:55 WBC 10.7 H (3.8-10.6) k/uL RBC 3.30 L (3.80-5.40) m/uL Hgb 9.4 L (11.4-16.0) gm/dL Hct 29.2 L (34.0-46.0) % RDW 18.9 H (11.5-15.5) % Plt Count 115 L (150-450) k/uL Neutrophils # 9.4 H (1.3-7.7) k/uL Lymphocytes # 0.9 L (1.0-4.8) k/uL PT (10.0-12.5) sec INR (<1.2) APTT (22.0-30.0) sec ABG pH (7.35-7.45) ABG pCO2 (35-45) mmHg ABG pO2 (83-108) mmHg ABG HCO3 (21-25) mmol/L ABG Total CO2 (19-24) mmol/L ABG O2 Saturation (94-97) % ABG Hematocrit (34.0-46.0) % ABG Potassium (3.4-4.5) mmol/L ABG Ionized Calcium (4.5-5.3) mg/dL ABG Glucose (75-99) mg/dL ABG Lactic Acid (0.5-1.6) mmol/L Hemoglobin (11.4-16.0) gm/dL Chloride (98-107) mmol/L Creatinine (0.52-1.04) mg/dL Glucose (74-99) mg/dL POC Glucose (mg/dL) 222 H 205 H (70-110) mg/dL Calcium (8.4-10.2) mg/dL Magnesium (1.6-2.3) mg/dL AST (14-36) U/L Alkaline Phosphatase (38-126) U/L Total Protein (6.3-8.2) g/dL Arterial Blood Potassium (3.4-4.5) mmol/L Arterial Blood Glucose (75-99) mg/dL Crossmatch 08/06/23 08/06/23 08/06/23 Range/Units 20:01 20:19 21:08 WBC (3.8-10.6) k/uL RBC (3.80-5.40) m/uL Hgb (11.4-16.0) gm/dL Hct (34.0-46.0) % RDW (11.5-15.5) % Plt Count (150-450) k/uL Neutrophils # (1.3-7.7) k/uL Lymphocytes # (1.0-4.8) k/uL PT (10.0-12.5) sec INR (<1.2) APTT (22.0-30.0) sec ABG pH 7.21 L (7.35-7.45) ABG pCO2 61 H (35-45) mmHg ABG pO2 (83-108) mmHg ABG HCO3 (21-25) mmol/L ABG Total CO2 26 H (19-24) mmol/L ABG O2 Saturation (94-97) % ABG Hematocrit (34.0-46.0) % ABG Potassium (3.4-4.5) mmol/L ABG Ionized Calcium (4.5-5.3) mg/dL ABG Glucose (75-99) mg/dL ABG Lactic Acid (0.5-1.6) mmol/L Hemoglobin (11.4-16.0) gm/dL Chloride (98-107) mmol/L Creatinine (0.52-1.04) mg/dL Glucose (74-99) mg/dL POC Glucose (mg/dL) 172 H 150 H (70-110) mg/dL Calcium (8.4-10.2) mg/dL Magnesium (1.6-2.3) mg/dL AST (14-36) U/L Alkaline Phosphatase (38-126) U/L Total Protein (6.3-8.2) g/dL Arterial Blood Potassium (3.4-4.5) mmol/L Arterial Blood Glucose (75-99) mg/dL Crossmatch 08/06/23 08/06/23 08/07/23 Range/Units 22:13 23:12 00:16 WBC (3.8-10.6) k/uL RBC (3.80-5.40) m/uL Hgb (11.4-16.0) gm/dL Hct (34.0-46.0) % RDW (11.5-15.5) % Plt Count (150-450) k/uL Neutrophils # (1.3-7.7) k/uL Lymphocytes # (1.0-4.8) k/uL PT (10.0-12.5) sec INR (<1.2) APTT (22.0-30.0) sec ABG pH (7.35-7.45) ABG pCO2 (35-45) mmHg ABG pO2 (83-108) mmHg ABG HCO3 (21-25) mmol/L ABG Total CO2 (19-24) mmol/L ABG O2 Saturation (94-97) % ABG Hematocrit (34.0-46.0) % ABG Potassium (3.4-4.5) mmol/L ABG Ionized Calcium (4.5-5.3) mg/dL ABG Glucose (75-99) mg/dL ABG Lactic Acid (0.5-1.6) mmol/L Hemoglobin (11.4-16.0) gm/dL Chloride (98-107) mmol/L Creatinine (0.52-1.04) mg/dL Glucose (74-99) mg/dL POC Glucose (mg/dL) 149 H 142 H 130 H (70-110) mg/dL Calcium (8.4-10.2) mg/dL Magnesium (1.6-2.3) mg/dL AST (14-36) U/L Alkaline Phosphatase (38-126) U/L Total Protein (6.3-8.2) g/dL Arterial Blood Potassium (3.4-4.5) mmol/L Arterial Blood Glucose (75-99) mg/dL Crossmatch 08/07/23 08/07/23 08/07/23 Range/Units 01:06 02:08 03:02 WBC (3.8-10.6) k/uL RBC (3.80-5.40) m/uL Hgb (11.4-16.0) gm/dL Hct (34.0-46.0) % RDW (11.5-15.5) % Plt Count (150-450) k/uL Neutrophils # (1.3-7.7) k/uL Lymphocytes # (1.0-4.8) k/uL PT (10.0-12.5) sec INR (<1.2) APTT (22.0-30.0) sec ABG pH (7.35-7.45) ABG pCO2 (35-45) mmHg ABG pO2 (83-108) mmHg ABG HCO3 (21-25) mmol/L ABG Total CO2 (19-24) mmol/L ABG O2 Saturation (94-97) % ABG Hematocrit (34.0-46.0) % ABG Potassium (3.4-4.5) mmol/L ABG Ionized Calcium (4.5-5.3) mg/dL ABG Glucose (75-99) mg/dL ABG Lactic Acid (0.5-1.6) mmol/L Hemoglobin (11.4-16.0) gm/dL Chloride (98-107) mmol/L Creatinine (0.52-1.04) mg/dL Glucose (74-99) mg/dL POC Glucose (mg/dL) 123 H 124 H 128 H (70-110) mg/dL Calcium (8.4-10.2) mg/dL Magnesium (1.6-2.3) mg/dL AST (14-36) U/L Alkaline Phosphatase (38-126) U/L Total Protein (6.3-8.2) g/dL Arterial Blood Potassium (3.4-4.5) mmol/L Arterial Blood Glucose (75-99) mg/dL Crossmatch 08/07/23 08/07/23 08/07/23 Range/Units 04:00 04:00 04:05 WBC 11.9 H (3.8-10.6) k/uL RBC 3.29 L (3.80-5.40) m/uL Hgb 9.0 L (11.4-16.0) gm/dL Hct 29.0 L (34.0-46.0) % RDW 18.9 H (11.5-15.5) % Plt Count 123 L (150-450) k/uL Neutrophils # 9.6 H (1.3-7.7) k/uL Lymphocytes # (1.0-4.8) k/uL PT (10.0-12.5) sec INR (<1.2) APTT (22.0-30.0) sec ABG pH (7.35-7.45) ABG pCO2 (35-45) mmHg ABG pO2 (83-108) mmHg ABG HCO3 (21-25) mmol/L ABG Total CO2 (19-24) mmol/L ABG O2 Saturation (94-97) % ABG Hematocrit (34.0-46.0) % ABG Potassium (3.4-4.5) mmol/L ABG Ionized Calcium (4.5-5.3) mg/dL ABG Glucose (75-99) mg/dL ABG Lactic Acid (0.5-1.6) mmol/L Hemoglobin (11.4-16.0) gm/dL Chloride 112 H (98-107) mmol/L Creatinine 0.51 L (0.52-1.04) mg/dL Glucose 104 H (74-99) mg/dL POC Glucose (mg/dL) 123 H (70-110) mg/dL Calcium 8.0 L (8.4-10.2) mg/dL Magnesium 2.5 H (1.6-2.3) mg/dL AST 99 H (14-36) U/L Alkaline Phosphatase (38-126) U/L Total Protein 5.2 L (6.3-8.2) g/dL Arterial Blood Potassium (3.4-4.5) mmol/L Arterial Blood Glucose (75-99) mg/dL Crossmatch 08/07/23 08/07/23 08/07/23 Range/Units 06:05 07:00 08:04 WBC (3.8-10.6) k/uL RBC (3.80-5.40) m/uL Hgb (11.4-16.0) gm/dL Hct (34.0-46.0) % RDW (11.5-15.5) % Plt Count (150-450) k/uL Neutrophils # (1.3-7.7) k/uL Lymphocytes # (1.0-4.8) k/uL PT (10.0-12.5) sec INR (<1.2) APTT (22.0-30.0) sec ABG pH (7.35-7.45) ABG pCO2 (35-45) mmHg ABG pO2 (83-108) mmHg ABG HCO3 (21-25) mmol/L ABG Total CO2 (19-24) mmol/L ABG O2 Saturation (94-97) % ABG Hematocrit (34.0-46.0) % ABG Potassium (3.4-4.5) mmol/L ABG Ionized Calcium (4.5-5.3) mg/dL ABG Glucose (75-99) mg/dL ABG Lactic Acid (0.5-1.6) mmol/L Hemoglobin (11.4-16.0) gm/dL Chloride (98-107) mmol/L Creatinine (0.52-1.04) mg/dL Glucose (74-99) mg/dL POC Glucose (mg/dL) 144 H 136 H 125 H (70-110) mg/dL Calcium (8.4-10.2) mg/dL Magnesium (1.6-2.3) mg/dL AST (14-36) U/L Alkaline Phosphatase (38-126) U/L Total Protein (6.3-8.2) g/dL Arterial Blood Potassium (3.4-4.5) mmol/L Arterial Blood Glucose (75-99) mg/dL Crossmatch - Imaging and Cardiology Chest x-ray: report reviewed, image reviewed Assessment and Plan Assessment: Calcific symptomatic congenital bicuspid aortic stenosis, status post aortic valve replacement with 23 mm Inspiris bovine pericardial valve Hypertension Hyperlipidemia, treated, cholesterol 151, LDL 79 Diabetes mellitus type 2, hemoglobin A1c 6.3% Paroxysmal atrial fibrillation on Eliquis for anticoagulation and flecainide as an outpatient, status post bilateral pulmonary vein ablation with AtriCure RF clamp, closure of the left atrial appendage with a 35 mm AtriCure clip Asthma Severe chronic obstructive pulmonary disease, preoperative FEV1 40% of predicted with DLCO 46% of predicted Previous tobacco dependence, quit March 2022 GERD Hypothyroid, on Synthroid, TSH 0.843 Anemia TIA with no residual effects Bilateral internal carotid artery stenosis 50 to 69% Acute blood loss anemia, expected Plan: Continue to maximize medical therapy with aspirin, statin, Plavix, beta-ky. Will increase beta-ky therapy as tolerated. Upon discharge will discontinue Plavix, decrease aspirin to baby aspirin, and re-add Eliquis per home dose Discontinue amiodarone, reinitiate flecainide per patient's home dose. No Eliquis until all lines/tubes are discontinued Decrease IV Primacor to 0.2 mcg/kg/min Continue [place] for another 24 hours Will monitor daily labs and x-rays. Electrolyte replacement per protocol Wean O2 as tolerated. Encourage incentive spirometry use 10 times every hour while awake. Bronchodilators per pulmonology Increase activity, ambulate as tolerated. PT/OT/cardiac rehab consulted Pain control per current medication regimen Insulin management per internal medicine. Patient should remain on IV insulin for another 24 hours, then may transition to subcutaneous insulin per protocol Will discontinue right and left pleural chest tubes. Continue mediastinal chest tube for another 24 hours, monitor output Continue Cartwright catheter for another 24 hours, continue to record strict accurate intake and output Daily weights More recommendations to follow based on patient's progress
[2023-08-07 09:28] LABS: Glucose,Whole Blood 100 mg/dL (70-110)
[2023-08-07 10:50] LABS: Glucose,Whole Blood 124 mg/dL (70-110)
[2023-08-07 11:32] VITALS: BMI 29.4
--- NOTE | 2023-08-07 11:35 | P.PN ---
Subjective Progress Note Date: 08/07/23 This is a 58-year-old female patient with a history of hypertension, hyperlipidemia, diabetes mellitus, paroxysmal atrial fibrillation anticoagulated with Eliquis, gastroesophageal reflux disease, hypothyroidism, chronic obstructive pulmonary disease, former smoker. She presented here to the emergency room last month with progressive shortness of breath. She was found to have a bicuspid aortic valve with severe aortic valve stenosis. She was brought back today electively for surgery. She had undergone aortic valve replacement with 23 mm Inspiris bovine pericardial valve, bilateral pulmonary vein ablation with atrial cure RF clamp, closure of the left atrial appendage with a 35 mm atrial cure clip and epi aortic ultrasonography. She is seen today postoperatively in the intensive care unit. She is intubated on the mechanical ventilator and assist-control mode at a rate of 12, tidal volume 350, FiO2 100% and a PEEP of 5. Blood gases reveal a PaO2 of 356, pCO2 59 and a pH of 7.19. She is currently sedated on propofol at 30 mcg/kg/min. Amiodarone drip at 1 mg/min. Lactated Ringer's at 20 MLS per hour. She has a right, left and mediastinal split chest tubes in place. She has pacemaker wires in place currently atrial paced. Her cardiac output is 3.4. Cardiac index 2.1. PA pres sures 43/14 with a CVP of 22. She has a right IJ [place] catheter in place. Right radial arterial line in place. She has received 2 units of packed red blood cells. Current hemoglobin 9.1. Platelets 92,000. White count 9.3. INR 1.4. Sodium 144. Potassium 3.5. Bicarb 24. BUN 8. Creatinine 0.49. Glucose 107. AST 69. ALT 22. Chest x-ray reveals postsurgical changes with [place] catheter tip in place. Chest tubes in place. No evidence of pneumothorax. The patient is seen today August 07, 2023 in follow-up in the intensive care unit. She is awake and alert in no acute distress. Sitting up in a chair at the bedside. Postoperative day #1. She is maintaining O2 saturations in the 90s on 2 L/min per nasal cannula. She is on a Primacor drip at 0.2 mcg/kg/min. Insulin drip at 3 units/h. Lactated Ringer's at 50 MLS per hour. Chest x-ray shows basilar atelectasis. Mediastinal, left and right chest tubes remain in place. Right internal jugular [place] catheter remains in place. Cardiac output 3.7. Cardiac index 2.3. Pressure 43/5. CVP 12. Blood pressure stable. White count 11.9. Hemoglobin 9.0. Platelets 123. Sodium 140. Potassium 4.4. Bicarb 22. BUN 12. Creatinine 0.51. Glucose 104. AST 99. ALT 31. She is working well with the incentive spirometer. She is continued on bronchodilators. Heparin for DVT prophylaxis. Objective - Vital Signs Vital signs: Vital Signs Temp 97.7 F 08/07/23 08:00 Pulse 73 08/07/23 11:00 Resp 19 08/07/23 11:00 BP 115/69 08/07/23 11:00 Pulse Ox 92 L 08/07/23 11:00 FiO2 50 08/06/23 20:30 Intake & Output 08/06/23 08/07/23 08/07/23 18:59 06:59 18:59 Intake Total 2619.332 1490.666 652.024 Output Total 1080 1104 270 Balance 1539.332 386.666 382.024 Weight 70.6 kg Intake: IV 237 838 355 Lactated Ringers 1,000 ml 550 250 @ 50 mls/hr IV .Q20H [facility] Rx#:[id number] ns for cardiac output 140 180 60 ns for pressure flush 45 108 45 Intake, IV Titration 1762.332 652.666 177.024 Amount ACETAMINOPHEN IV (For NPO 400 ) 1,000 mg In Empty Bag 1 bag @ 400 mls/hr IVPB Q6HR [facility] Rx#:[id number] Albumin Human 5% 250 ml 250 In Empty Bag 1 bag @ 250 mls/hr IVPB ONCE ONE Rx#: [id number] Albumin Human 5% 250 ml 250 In Empty Bag 1 bag @ 250 mls/hr IVPB ONCE STA Rx#: [id number] Albumin Human 5% 250 ml 500 In Empty Bag 1 bag @ 250 mls/hr IVPB Q1HR PRN Rx#: [id number] Amiodarone 360 mg In 99.9 33.3 Dextrose 5% in Water 200 ml @ 1 MG/MIN 33.333 mls/ hr IV .Q6H [facility] Rx#: [id number] Amiodarone 450 mg In 16.6 Dextrose 5% in Water 250 ml @ 0.5 MG/MIN 16.667 mls/hr IV .Q15H [facility] Rx#: [id number] Dextrose 5% in Water 100 100 ml @ 618 mls/hr IV .Q10M PRN with Amiodarone 150 mg Rx#:[id number] Insulin Regular 100 unit 11.540 38.389 9.696 In Sodium Chloride 0.9% 100 ml @ Per Protocol IV .Q0M [facility] Rx#:[id number] Lactated Ringers 1,000 ml 250 100 @ 50 mls/hr IV .Q20H [facility] Rx#:[id number] Milrinone-D5w Pmx 20 mg 5.7 28.5 100.728 In Dextrose/Water 1 100ml .bag @ 0.2 MCG/KG/MIN 3. 81 mls/hr IV .Q24H [facility] Rx #:[id number] Potassium Chloride 20 meq 200 In Water For Injection 1 100ml.bag @ 50 mls/hr IVPB Q2H [facility] Rx#: [id number] ceFAZolin 2 gm In Sodium 50 50 50 Chloride 0.9% 50 ml @ 100 mls/hr IVPB Q8HR [facility] Rx# :[id number] propofoL 1,000 mg In 45.192 2.477 Empty Bag 1 bag @ Titrate IV .Q0M [facility] Rx#: [id number] Oral 120 Blood Product 620 Rc As-1 Unit 310 [id number] Rc As-1 Unit 310 [id number] Output: Chest Tube Drainage 325 604 100 Chest Tube Left 70 80 10 Chest Tube Mediastinal 180 320 80 Chest Tube Right 75 204 10 Urine 255 500 170 Estimated Blood Loss 500 Other: Voiding Method Indwelling Catheter Indwelling Catheter Indwelling Catheter ABP, PAP, CO, CI - Last Documented Arterial Blood Pressure 128/46 Pulmonary Artery Pressure 43/1 Cardiac Output 4.5 Cardiac Index 2.8 - Exam GENERAL EXAM: Awake, alert 58-year-old female, on 2 L nasal cannula, up in a chair, in no apparent distress. HEAD: Normocephalic. EYES: Normal reaction of pupils, equal size. NOSE: Clear with pink turbinates. THROAT: No erythema or exudates. NECK: No masses, no JVD. Right IJ [place] catheter in place. CHEST: Sternal dressing dry and intact. Heart hugger in place. Right, left, mediastinal x [address] Pacer wires in place. LUNGS: Equal air entry with no crackles, wheeze, rhonchi or dullness. CVS: S1 and S2 normal with no audible murmur, regular rhythm. ABDOMEN: No hepatosplenomegaly, no guarding or rigidity. SPINE: No scoliosis or deformity SKIN: No rashes CENTRAL NERVOUS SYSTEM: No focal deficits, tone is normal in all 4 extremities. EXTREMITIES: Right radial arterial line in place. There is no peripheral edema. Peripheral pulses are intact. - Labs CBC & Chem 7: 08/07/23 04:00 08/07/23 04:00 Labs: Abnormal Lab Results - Last 24 Hours (Table) 07/30/23 08/06/23 08/06/23 Range/Units 09:32 08:30 09:17 WBC (3.8-10.6) k/uL RBC (3.80-5.40) m/uL Hgb (11.4-16.0) gm/dL Hct (34.0-46.0) % RDW (11.5-15.5) % Plt Count (150-450) k/uL Neutrophils # (1.3-7.7) k/uL Lymphocytes # (1.0-4.8) k/uL PT (10.0-12.5) sec INR (<1.2) APTT (22.0-30.0) sec ABG pH 7.30 L 7.33 L (7.35-7.45) ABG pCO2 53 H 47 H (35-45) mmHg ABG pO2 265 H 206 H (83-108) mmHg ABG HCO3 26 H (21-25) mmol/L ABG Total CO2 (19-24) mmol/L ABG O2 Saturation >99.4 H 99.3 H (94-97) % ABG Hematocrit 31 L 28 L (34.0-46.0) % ABG Potassium 3.3 L (3.4-4.5) mmol/L ABG Ionized Calcium (4.5-5.3) mg/dL ABG Glucose 128 H 121 H (75-99) mg/dL ABG Lactic Acid (0.5-1.6) mmol/L Hemoglobin 10.3 L 9.3 L (11.4-16.0) gm/dL Chloride (98-107) mmol/L Creatinine (0.52-1.04) mg/dL Glucose (74-99) mg/dL POC Glucose (mg/dL) (70-110) mg/dL Calcium (8.4-10.2) mg/dL Magnesium (1.6-2.3) mg/dL AST (14-36) U/L Alkaline Phosphatase (38-126) U/L Total Protein (6.3-8.2) g/dL Arterial Blood Potassium 3.3 L (3.4-4.5) mmol/L Arterial Blood Glucose 128 H 121 H (75-99) mg/dL Crossmatch See Detail 08/06/23 08/06/23 08/06/23 Range/Units 09:36 10:11 10:11 WBC (3.8-10.6) k/uL RBC (3.80-5.40) m/uL Hgb (11.4-16.0) gm/dL Hct (34.0-46.0) % RDW (11.5-15.5) % Plt Count (150-450) k/uL Neutrophils # (1.3-7.7) k/uL Lymphocytes # (1.0-4.8) k/uL PT (10.0-12.5) sec INR (<1.2) APTT (22.0-30.0) sec ABG pH 7.46 H (7.35-7.45) ABG pCO2 (35-45) mmHg ABG pO2 >420 H >420 H >420 H (83-108) mmHg ABG HCO3 27 H 26 H (21-25) mmol/L ABG Total CO2 (19-24) mmol/L ABG O2 Saturation >99.4 H >99.4 H >99.4 H (94-97) % ABG Hematocrit 20 L* 22 L 21 L (34.0-46.0) % ABG Potassium (3.4-4.5) mmol/L ABG Ionized Calcium 3.7 L 4.2 L 4.3 L (4.5-5.3) mg/dL ABG Glucose 116 H 129 H 132 H (75-99) mg/dL ABG Lactic Acid (0.5-1.6) mmol/L Hemoglobin 6.6 L* 7.1 L 6.7 L* (11.4-16.0) gm/dL Chloride (98-107) mmol/L Creatinine (0.52-1.04) mg/dL Glucose (74-99) mg/dL POC Glucose (mg/dL) (70-110) mg/dL Calcium (8.4-10.2) mg/dL Magnesium (1.6-2.3) mg/dL AST (14-36) U/L Alkaline Phosphatase (38-126) U/L Total Protein (6.3-8.2) g/dL Arterial Blood Potassium (3.4-4.5) mmol/L Arterial Blood Glucose 116 H 129 H 132 H (75-99) mg/dL Crossmatch 08/06/23 08/06/23 08/06/23 Range/Units 11:07 11:54 13:15 WBC (3.8-10.6) k/uL RBC 3.24 L (3.80-5.40) m/uL Hgb 9.1 L D (11.4-16.0) gm/dL Hct 28.7 L (34.0-46.0) % RDW 18.6 H (11.5-15.5) % Plt Count 92 L D (150-450) k/uL Neutrophils # (1.3-7.7) k/uL Lymphocytes # (1.0-4.8) k/uL PT (10.0-12.5) sec INR (<1.2) APTT (22.0-30.0) sec ABG pH 7.32 L (7.35-7.45) ABG pCO2 (35-45) mmHg ABG pO2 >420 H >420 H (83-108) mmHg ABG HCO3 (21-25) mmol/L ABG Total CO2 (19-24) mmol/L ABG O2 Saturation >99.4 H >99.4 H (94-97) % ABG Hematocrit 21 L 29 L (34.0-46.0) % ABG Potassium (3.4-4.5) mmol/L ABG Ionized Calcium 4.3 L (4.5-5.3) mg/dL ABG Glucose 155 H 185 H (75-99) mg/dL ABG Lactic Acid 2.2 H* (0.5-1.6) mmol/L Hemoglobin 6.7 L* 9.5 L (11.4-16.0) gm/dL Chloride (98-107) mmol/L Creatinine (0.52-1.04) mg/dL Glucose (74-99) mg/dL POC Glucose (mg/dL) (70-110) mg/dL Calcium (8.4-10.2) mg/dL Magnesium (1.6-2.3) mg/dL AST (14-36) U/L Alkaline Phosphatase (38-126) U/L Total Protein (6.3-8.2) g/dL Arterial Blood Potassium (3.4-4.5) mmol/L Arterial Blood Glucose 155 H 185 H (75-99) mg/dL Crossmatch 08/06/23 08/06/23 08/06/23 Range/Units 13:15 13:15 13:16 WBC (3.8-10.6) k/uL RBC (3.80-5.40) m/uL Hgb (11.4-16.0) gm/dL Hct (34.0-46.0) % RDW (11.5-15.5) % Plt Count (150-450) k/uL Neutrophils # (1.3-7.7) k/uL Lymphocytes # (1.0-4.8) k/uL PT 14.9 H (10.0-12.5) sec INR 1.4 H (<1.2) APTT 42.6 H (22.0-30.0) sec ABG pH (7.35-7.45) ABG pCO2 (35-45) mmHg ABG pO2 (83-108) mmHg ABG HCO3 (21-25) mmol/L ABG Total CO2 (19-24) mmol/L ABG O2 Saturation (94-97) % ABG Hematocrit (34.0-46.0) % ABG Potassium (3.4-4.5) mmol/L ABG Ionized Calcium (4.5-5.3) mg/dL ABG Glucose (75-99) mg/dL ABG Lactic Acid (0.5-1.6) mmol/L Hemoglobin (11.4-16.0) gm/dL Chloride 114 H (98-107) mmol/L Creatinine 0.49 L (0.52-1.04) mg/dL Glucose 107 H (74-99) mg/dL POC Glucose (mg/dL) 123 H (70-110) mg/dL Calcium 7.5 L (8.4-10.2) mg/dL Magnesium 3.0 H (1.6-2.3) mg/dL AST 69 H (14-36) U/L Alkaline Phosphatase 34 L (38-126) U/L Total Protein 4.9 L (6.3-8.2) g/dL Arterial Blood Potassium (3.4-4.5) mmol/L Arterial Blood Glucose (75-99) mg/dL Crossmatch 08/06/23 08/06/23 08/06/23 Range/Units 13:27 14:11 15:00 WBC (3.8-10.6) k/uL RBC (3.80-5.40) m/uL Hgb (11.4-16.0) gm/dL Hct (34.0-46.0) % RDW (11.5-15.5) % Plt Count (150-450) k/uL Neutrophils # (1.3-7.7) k/uL Lymphocytes # (1.0-4.8) k/uL PT (10.0-12.5) sec INR (<1.2) APTT (22.0-30.0) sec ABG pH 7.19 L* (7.35-7.45) ABG pCO2 59 H (35-45) mmHg ABG pO2 356 H (83-108) mmHg ABG HCO3 (21-25) mmol/L ABG Total CO2 25 H (19-24) mmol/L ABG O2 Saturation 100.4 H (94-97) % ABG Hematocrit (34.0-46.0) % ABG Potassium (3.4-4.5) mmol/L ABG Ionized Calcium (4.5-5.3) mg/dL ABG Glucose (75-99) mg/dL ABG Lactic Acid (0.5-1.6) mmol/L Hemoglobin (11.4-16.0) gm/dL Chloride (98-107) mmol/L Creatinine (0.52-1.04) mg/dL Glucose (74-99) mg/dL POC Glucose (mg/dL) 125 H 144 H (70-110) mg/dL Calcium (8.4-10.2) mg/dL Magnesium (1.6-2.3) mg/dL AST (14-36) U/L Alkaline Phosphatase (38-126) U/L Total Protein (6.3-8.2) g/dL Arterial Blood Potassium (3.4-4.5) mmol/L Arterial Blood Glucose (75-99) mg/dL Crossmatch 08/06/23 08/06/23 08/06/23 Range/Units 16:04 16:05 17:12 WBC (3.8-10.6) k/uL RBC 3.40 L (3.80-5.40) m/uL Hgb 9.6 L (11.4-16.0) gm/dL Hct 30.0 L (34.0-46.0) % RDW 18.7 H (11.5-15.5) % Plt Count 105 L (150-450) k/uL Neutrophils # 8.6 H (1.3-7.7) k/uL Lymphocytes # (1.0-4.8) k/uL PT (10.0-12.5) sec INR (<1.2) APTT (22.0-30.0) sec ABG pH (7.35-7.45) ABG pCO2 (35-45) mmHg ABG pO2 (83-108) mmHg ABG HCO3 (21-25) mmol/L ABG Total CO2 (19-24) mmol/L ABG O2 Saturation (94-97) % ABG Hematocrit (34.0-46.0) % ABG Potassium (3.4-4.5) mmol/L ABG Ionized Calcium (4.5-5.3) mg/dL ABG Glucose (75-99) mg/dL ABG Lactic Acid (0.5-1.6) mmol/L Hemoglobin (11.4-16.0) gm/dL Chloride (98-107) mmol/L Creatinine (0.52-1.04) mg/dL Glucose (74-99) mg/dL POC Glucose (mg/dL) 194 H 240 H (70-110) mg/dL Calcium (8.4-10.2) mg/dL Magnesium (1.6-2.3) mg/dL AST (14-36) U/L Alkaline Phosphatase (38-126) U/L Total Protein (6.3-8.2) g/dL Arterial Blood Potassium (3.4-4.5) mmol/L Arterial Blood Glucose (75-99) mg/dL Crossmatch 08/06/23 08/06/23 08/06/23 Range/Units 18:08 18:55 18:55 WBC 10.7 H (3.8-10.6) k/uL RBC 3.30 L (3.80-5.40) m/uL Hgb 9.4 L (11.4-16.0) gm/dL Hct 29.2 L (34.0-46.0) % RDW 18.9 H (11.5-15.5) % Plt Count 115 L (150-450) k/uL Neutrophils # 9.4 H (1.3-7.7) k/uL Lymphocytes # 0.9 L (1.0-4.8) k/uL PT (10.0-12.5) sec INR (<1.2) APTT (22.0-30.0) sec ABG pH (7.35-7.45) ABG pCO2 (35-45) mmHg ABG pO2 (83-108) mmHg ABG HCO3 (21-25) mmol/L ABG Total CO2 (19-24) mmol/L ABG O2 Saturation (94-97) % ABG Hematocrit (34.0-46.0) % ABG Potassium (3.4-4.5) mmol/L ABG Ionized Calcium (4.5-5.3) mg/dL ABG Glucose (75-99) mg/dL ABG Lactic Acid (0.5-1.6) mmol/L Hemoglobin (11.4-16.0) gm/dL Chloride (98-107) mmol/L Creatinine (0.52-1.04) mg/dL Glucose (74-99) mg/dL POC Glucose (mg/dL) 222 H 205 H (70-110) mg/dL Calcium (8.4-10.2) mg/dL Magnesium (1.6-2.3) mg/dL AST (14-36) U/L Alkaline Phosphatase (38-126) U/L Total Protein (6.3-8.2) g/dL Arterial Blood Potassium (3.4-4.5) mmol/L Arterial Blood Glucose (75-99) mg/dL Crossmatch 08/06/23 08/06/23 08/06/23 Range/Units 20:01 20:19 21:08 WBC (3.8-10.6) k/uL RBC (3.80-5.40) m/uL Hgb (11.4-16.0) gm/dL Hct (34.0-46.0) % RDW (11.5-15.5) % Plt Count (150-450) k/uL Neutrophils # (1.3-7.7) k/uL Lymphocytes # (1.0-4.8) k/uL PT (10.0-12.5) sec INR (<1.2) APTT (22.0-30.0) sec ABG pH 7.21 L (7.35-7.45) ABG pCO2 61 H (35-45) mmHg ABG pO2 (83-108) mmHg ABG HCO3 (21-25) mmol/L ABG Total CO2 26 H (19-24) mmol/L ABG O2 Saturation (94-97) % ABG Hematocrit (34.0-46.0) % ABG Potassium (3.4-4.5) mmol/L ABG Ionized Calcium (4.5-5.3) mg/dL ABG Glucose (75-99) mg/dL ABG Lactic Acid (0.5-1.6) mmol/L Hemoglobin (11.4-16.0) gm/dL Chloride (98-107) mmol/L Creatinine (0.52-1.04) mg/dL Glucose (74-99) mg/dL POC Glucose (mg/dL) 172 H 150 H (70-110) mg/dL Calcium (8.4-10.2) mg/dL Magnesium (1.6-2.3) mg/dL AST (14-36) U/L Alkaline Phosphatase (38-126) U/L Total Protein (6.3-8.2) g/dL Arterial Blood Potassium (3.4-4.5) mmol/L Arterial Blood Glucose (75-99) mg/dL Crossmatch 08/06/23 08/06/23 08/07/23 Range/Units 22:13 23:12 00:16 WBC (3.8-10.6) k/uL RBC (3.80-5.40) m/uL Hgb (11.4-16.0) gm/dL Hct (34.0-46.0) % RDW (11.5-15.5) % Plt Count (150-450) k/uL Neutrophils # (1.3-7.7) k/uL Lymphocytes # (1.0-4.8) k/uL PT (10.0-12.5) sec INR (<1.2) APTT (22.0-30.0) sec ABG pH (7.35-7.45) ABG pCO2 (35-45) mmHg ABG pO2 (83-108) mmHg ABG HCO3 (21-25) mmol/L ABG Total CO2 (19-24) mmol/L ABG O2 Saturation (94-97) % ABG Hematocrit (34.0-46.0) % ABG Potassium (3.4-4.5) mmol/L ABG Ionized Calcium (4.5-5.3) mg/dL ABG Glucose (75-99) mg/dL ABG Lactic Acid (0.5-1.6) mmol/L Hemoglobin (11.4-16.0) gm/dL Chloride (98-107) mmol/L Creatinine (0.52-1.04) mg/dL Glucose (74-99) mg/dL POC Glucose (mg/dL) 149 H 142 H 130 H (70-110) mg/dL Calcium (8.4-10.2) mg/dL Magnesium (1.6-2.3) mg/dL AST (14-36) U/L Alkaline Phosphatase (38-126) U/L Total Protein (6.3-8.2) g/dL Arterial Blood Potassium (3.4-4.5) mmol/L Arterial Blood Glucose (75-99) mg/dL Crossmatch 08/07/23 08/07/23 08/07/23 Range/Units 01:06 02:08 03:02 WBC (3.8-10.6) k/uL RBC (3.80-5.40) m/uL Hgb (11.4-16.0) gm/dL Hct (34.0-46.0) % RDW (11.5-15.5) % Plt Count (150-450) k/uL Neutrophils # (1.3-7.7) k/uL Lymphocytes # (1.0-4.8) k/uL PT (10.0-12.5) sec INR (<1.2) APTT (22.0-30.0) sec ABG pH (7.35-7.45) ABG pCO2 (35-45) mmHg ABG pO2 (83-108) mmHg ABG HCO3 (21-25) mmol/L ABG Total CO2 (19-24) mmol/L ABG O2 Saturation (94-97) % ABG Hematocrit (34.0-46.0) % ABG Potassium (3.4-4.5) mmol/L ABG Ionized Calcium (4.5-5.3) mg/dL ABG Glucose (75-99) mg/dL ABG Lactic Acid (0.5-1.6) mmol/L Hemoglobin (11.4-16.0) gm/dL Chloride (98-107) mmol/L Creatinine (0.52-1.04) mg/dL Glucose (74-99) mg/dL POC Glucose (mg/dL) 123 H 124 H 128 H (70-110) mg/dL Calcium (8.4-10.2) mg/dL Magnesium (1.6-2.3) mg/dL AST (14-36) U/L Alkaline Phosphatase (38-126) U/L Total Protein (6.3-8.2) g/dL Arterial Blood Potassium (3.4-4.5) mmol/L Arterial Blood Glucose (75-99) mg/dL Crossmatch 08/07/23 08/07/23 08/07/23 Range/Units 04:00 04:00 04:05 WBC 11.9 H (3.8-10.6) k/uL RBC 3.29 L (3.80-5.40) m/uL Hgb 9.0 L (11.4-16.0) gm/dL Hct 29.0 L (34.0-46.0) % RDW 18.9 H (11.5-15.5) % Plt Count 123 L (150-450) k/uL Neutrophils # 9.6 H (1.3-7.7) k/uL Lymphocytes # (1.0-4.8) k/uL PT (10.0-12.5) sec INR (<1.2) APTT (22.0-30.0) sec ABG pH (7.35-7.45) ABG pCO2 (35-45) mmHg ABG pO2 (83-108) mmHg ABG HCO3 (21-25) mmol/L ABG Total CO2 (19-24) mmol/L ABG O2 Saturation (94-97) % ABG Hematocrit (34.0-46.0) % ABG Potassium (3.4-4.5) mmol/L ABG Ionized Calcium (4.5-5.3) mg/dL ABG Glucose (75-99) mg/dL ABG Lactic Acid (0.5-1.6) mmol/L Hemoglobin (11.4-16.0) gm/dL Chloride 112 H (98-107) mmol/L Creatinine 0.51 L (0.52-1.04) mg/dL Glucose 104 H (74-99) mg/dL POC Glucose (mg/dL) 123 H (70-110) mg/dL Calcium 8.0 L (8.4-10.2) mg/dL Magnesium 2.5 H (1.6-2.3) mg/dL AST 99 H (14-36) U/L Alkaline Phosphatase (38-126) U/L Total Protein 5.2 L (6.3-8.2) g/dL Arterial Blood Potassium (3.4-4.5) mmol/L Arterial Blood Glucose (75-99) mg/dL Crossmatch 08/07/23 08/07/23 08/07/23 Range/Units 06:05 07:00 08:04 WBC (3.8-10.6) k/uL RBC (3.80-5.40) m/uL Hgb (11.4-16.0) gm/dL Hct (34.0-46.0) % RDW (11.5-15.5) % Plt Count (150-450) k/uL Neutrophils # (1.3-7.7) k/uL Lymphocytes # (1.0-4.8) k/uL PT (10.0-12.5) sec INR (<1.2) APTT (22.0-30.0) sec ABG pH (7.35-7.45) ABG pCO2 (35-45) mmHg ABG pO2 (83-108) mmHg ABG HCO3 (21-25) mmol/L ABG Total CO2 (19-24) mmol/L ABG O2 Saturation (94-97) % ABG Hematocrit (34.0-46.0) % ABG Potassium (3.4-4.5) mmol/L ABG Ionized Calcium (4.5-5.3) mg/dL ABG Glucose (75-99) mg/dL ABG Lactic Acid (0.5-1.6) mmol/L Hemoglobin (11.4-16.0) gm/dL Chloride (98-107) mmol/L Creatinine (0.52-1.04) mg/dL Glucose (74-99) mg/dL POC Glucose (mg/dL) 144 H 136 H 125 H (70-110) mg/dL Calcium (8.4-10.2) mg/dL Magnesium (1.6-2.3) mg/dL AST (14-36) U/L Alkaline Phosphatase (38-126) U/L Total Protein (6.3-8.2) g/dL Arterial Blood Potassium (3.4-4.5) mmol/L Arterial Blood Glucose (75-99) mg/dL Crossmatch 08/07/23 Range/Units 10:48 WBC (3.8-10.6) k/uL RBC (3.80-5.40) m/uL Hgb (11.4-16.0) gm/dL Hct (34.0-46.0) % RDW (11.5-15.5) % Plt Count (150-450) k/uL Neutrophils # (1.3-7.7) k/uL Lymphocytes # (1.0-4.8) k/uL PT (10.0-12.5) sec INR (<1.2) APTT (22.0-30.0) sec ABG pH (7.35-7.45) ABG pCO2 (35-45) mmHg ABG pO2 (83-108) mmHg ABG HCO3 (21-25) mmol/L ABG Total CO2 (19-24) mmol/L ABG O2 Saturation (94-97) % ABG Hematocrit (34.0-46.0) % ABG Potassium (3.4-4.5) mmol/L ABG Ionized Calcium (4.5-5.3) mg/dL ABG Glucose (75-99) mg/dL ABG Lactic Acid (0.5-1.6) mmol/L Hemoglobin (11.4-16.0) gm/dL Chloride (98-107) mmol/L Creatinine (0.52-1.04) mg/dL Glucose (74-99) mg/dL POC Glucose (mg/dL) 124 H (70-110) mg/dL Calcium (8.4-10.2) mg/dL Magnesium (1.6-2.3) mg/dL AST (14-36) U/L Alkaline Phosphatase (38-126) U/L Total Protein (6.3-8.2) g/dL Arterial Blood Potassium (3.4-4.5) mmol/L Arterial Blood Glucose (75-99) mg/dL Crossmatch Assessment and Plan Assessment: Symptomatic congenital bicuspid aortic stenosis. Status post aortic valve replacement with 23 mm Inspiris bovine pericardial valve, bilateral pulmonary vein ablation with atricure RF clamp, closure of the left atrial appendage with a 35 mm atricure clip. Postoperative day #1 History of paroxysmal atrial fibrillation, anticoagulated with Eliquis in the outpatient setting Chronic obstructive pulmonary disease Former smoker Hypothyroidism Hypertension Hyperlipidemia Diabetes mellitus Gastroesophageal reflux disease History of anemia Plan: The patient was seen and evaluated Chest x-ray, labs and medications reviewed Stable and on 2 L nasal cannula Working with the incentive spirometer Continue bronchodilators Heparin for DVT prophylaxis Increase her activity as tolerated We will continue to follow I have personally seen and examined the patient, performed the documentation and the assessment and plan as written. Number of minutes spent on the visit: 10.
[2023-08-07 12:09] LABS: Glucose,Whole Blood 132 mg/dL (70-110)
--- NOTE | 2023-08-07 13:18 | P.HPIM ---
History of Present Illness Patient pleasant 58-year-old female is admitted for elective aortic valve replacement with a bovine pericardial valve bilateral pulmonary ablation and closure of the left atrial appendage. Patient is extubated at this time patient has Varney-Brandy in place which is being managed by cardiothoracic surgery. Patient does have a history of COPD has been some wheezing. Patient is also on milrinone drip patient is CVP of 22 cardiac index of 2.1. Patient is on insulin drip he is diabetic, uses glipizide 10 mg p.o. twice daily. Patient has a mediastinal chest tube left pleural and right pleural chest tubes were removed. Patient does have some leukocytosis patient is complaining of some soreness at the surgical site area. REVIEW OF SYSTEMS: CONSTITUTIONAL: No fever, no malaise, no fatigue. HEENT: No recent visual problems or hearing problems. Denied any sore throat. CARDIOVASCULAR: No chest pain, orthopnea, PND, no palpitations, no syncope. PULMONARY: No shortness of breath, no cough, no hemoptysis. GASTROINTESTINAL: No diarrhea, no nausea, no vomiting, no abdominal pain. NEUROLOGICAL: No headaches, no weakness, no numbness. HEMATOLOGICAL: Denies any bleeding or petechiae. GENITOURINARY: Denies any burning micturition, frequency, or urgency. MUSCULOSKELETAL/RHEUMATOLOGICAL: Denies any joint pain, swelling, or any muscle pain. ENDOCRINE: Denies any polyuria or polydipsia. The rest of the 14-point review of systems is negative. PHYSICAL EXAMINATION: GENERAL: The patient is alert and oriented x3, not in any acute distress. Well developed, well nourished. Multiple lines as mentioned above and chest tube as mentioned above HEENT: Pupils are round and equally reacting to light. EOMI. No scleral icterus. No conjunctival pallor. Normocephalic, atraumatic. No pharyngeal erythema. No thyromegaly. CARDIOVASCULAR: S1 and S2 present. No murmurs, rubs, or gallops. PULMONARY: Chest is clear to auscultation, no wheezing or crackles. ABDOMEN: Soft, nontender, nondistended, normoactive bowel sounds. No palpable organomegaly. MUSCULOSKELETAL: No joint swelling or deformity. EXTREMITIES: No cyanosis, clubbing, or pedal edema. NEUROLOGICAL: Gross neurological examination did not reveal any focal deficits. SKIN: No rashes. Assessment and plan -Symptomatic anastomotic stenosis patient had a bicuspid aortic valve status post replacement along with above-mentioned procedures. Patient is on milrinone drip, being managed by cardiothoracic surgery. -Paroxysmal atrial fibrillation patient is presently sinus rhythm status post left atrial appendage closure, patient is on anticoagulation with Eliquis which is being continued -COPD with mild acute exacerbation patient is on bronchodilators for this -Hypothyroidism resumed on levothyroxine -Type 2 diabetes mellitus patient is on IV insulin at this time which can be transition to sliding scale tomorrow can be resumed on oral at the time of dis charge -Hyperlipidemia -Gastroesophageal reflux disease DVT prophylaxis: As per primary service Past Medical History Past Medical History: Atrial Fibrillation, COPD, Diabetes Mellitus, Fibromyalgia, Hyperlipidemia, Hypertension, Osteoarthritis (OA), Thyroid Disorder Additional Past Medical History / Comment(s): back pain "pretty much all the time", SOB w/exertion History of Any Multi-Drug Resistant Organisms: None Reported Past Surgical History: Section, Cholecystectomy, Hysterectomy, Tonsillectomy Additional Past Surgical History / Comment(s): tumor removal from rt lower pelvis with partial hysterectomy, leep procedure, Past Anesthesia/Blood Transfusion Reactions: No Reported Reaction Smoking Status: Former smoker - Past Family History Mother Family Medical History: Cancer, COPD, Diabetes Mellitus, GERD/Reflux, Hyperten marlene, Osteoarthritis (OA), Sleep Apnea/CPAP/BIPAP Additional Family Medical History / Comment(s): lung CA Sister(s) Family Medical History: Supraventricular Tachycardia (SVT) Additional Family Medical History / Comment(s): elevated liver enzymes,lung CA Son(s) Family Medical History: Cancer, Supraventricular Tachycardia (SVT) Additional Family Medical History / Comment(s): testicular CA Father Additional Family Medical History / Comment(s): Blood clot mesenteric artery Medications and Allergies Home Medications Medication Instructions Recorded Confirmed Type Butalb/APAP/Caff 50-325-40Mg 1 tab PO TID PRN 11/22/15 08/06/23 History [Fioricet 50-325-40] DULoxetine HCL [Cymbalta] 60 mg PO HS 11/22/15 08/06/23 History HYDROcodone/APAP 5-325MG [[place] 1 tab PO TID PRN 11/22/15 08/06/23 History 5-325] Levothyroxine Sodium [Synthroid] 75 mcg PO DAILY 11/22/15 08/06/23 History Montelukast [Singulair] 10 mg PO DAILY 11/22/15 08/06/23 History Multivitamins, Thera [Multivitamin 1 tab PO DAILY 11/22/15 08/06/23 History (formulary)] Cyclobenzaprine [Flexeril] 10 mg PO BID PRN 07/20/17 08/06/23 History Loratadine [Claritin] 10 mg PO DAILY 07/20/17 08/06/23 History Mirtazapine [Remeron] 15 mg PO HS 07/20/17 08/06/23 History Albuterol Sulfate [Albuterol 2 puff INHALATION RT-QID PRN 07/01/21 08/06/23 History Sulfate Hfa] Atorvastatin Calcium [Lipitor] 10 mg PO HS 07/01/21 08/06/23 History Omeprazole 20 mg PO DAILY 07/01/21 08/06/23 History glipiZIDE [Glucotrol] 10 mg PO BID 07/01/21 08/06/23 History Metoprolol Tartrate [Lopressor] 25 mg PO BID #60 tab 07/03/21 08/06/23 Rx Flecainide [Tambocor] 50 mg PO Q12H 02/04/22 08/06/23 History Ipratropium-Albuterol Nebulize 3 ml INHALATION RT-QID PRN 02/04/22 08/06/23 History [Duoneb 0.5 mg-3 mg/3 ml Soln] PARoxetine HCL [Paxil] 30 mg PO DAILY 02/04/22 08/06/23 History Ascorbic Acid [Vitamin C] 500 mg PO DAILY 07/18/23 08/06/23 History Ferrous Sulfate [Iron (65 MG 325 mg PO DAILY 07/18/23 08/06/23 History Elemental)] Furosemide [Lasix] 20 mg PO DAILY PRN 07/18/23 08/06/23 History Apixaban [Eliquis] 5 mg PO BID 07/30/23 08/06/23 History Fluticasone/Umeclidin/Vilanter 1 inhalation INHALATION DAILY 07/30/23 08/06/23 History [Trelegy Ellipta 100-62.5-25] Mupirocin [Mupirocin 2%] 1 applic NASAL BID 07/30/23 08/06/23 History Aspirin 325 mg PO DAILY 08/06/23 08/06/23 History Allergies Allergy/AdvReac Type Severity Reaction Status Date / Time morphine Allergy Rash/Hives/Shortness Verified 08/06/23 06:08 of breath pregabalin [From Lyrica] Allergy Rash/Hives/Skin Verified 08/06/23 06:08 peels Physical Exam Vitals: Vital Signs Temp Pulse Resp BP Pulse Ox FiO2 08/07/23 13:01 68 08/07/23 12:46 68 08/07/23 12:00 70 18 120/44 92 L 08/07/23 11:00 73 19 115/69 92 L 08/07/23 10:00 77 18 93 L 08/07/23 09:30 75 19 94 L 08/07/23 09:27 72 08/07/23 09:15 74 08/07/23 09:00 72 17 93 L 08/07/23 08:30 76 18 93 L 08/07/23 08:00 97.7 F 71 23 93 L 08/07/23 07:30 80 14 91 L 08/07/23 07:00 80 23 106/56 96 08/07/23 06:30 80 20 106/56 97 08/07/23 06:00 80 25 H 114/61 95 08/07/23 05:30 71 23 96 08/07/23 05:00 72 20 96 08/07/23 04:30 71 19 97 08/07/23 04:00 97.9 F 70 16 117/82 97 08/07/23 03:30 72 18 97 08/07/23 03:00 71 17 98 08/07/23 02:30 80 16 97 08/07/23 02:00 80 16 137/76 97 08/07/23 01:30 80 12 137/76 98 08/07/23 01:00 80 11 L 145/74 97 08/07/23 00:30 80 12 134/80 97 08/07/23 00:00 98.0 F 80 16 103/79 98 08/06/23 23:30 80 10 L 103/79 97 08/06/23 23:00 80 28 H 106/85 95 08/06/23 22:30 80 19 106/85 95 08/06/23 22:20 80 20 106/85 97 08/06/23 22:15 80 16 106/85 96 08/06/23 22:00 80 13 105/62 97 08/06/23 21:45 80 15 105/62 96 08/06/23 21:30 80 14 105/62 95 08/06/23 21:15 80 11 L 105/62 96 08/06/23 21:11 80 08/06/23 21:02 80 96 08/06/23 21:00 80 13 95 08/06/23 20:45 80 14 96/61 98 08/06/23 20:30 80 14 98 50 08/06/23 20:15 80 14 96/61 97 08/06/23 20:00 98.3 F 80 14 107/65 97 50 08/06/23 19:45 80 19 107/65 93 L 08/06/23 19:38 50 08/06/23 19:30 80 18 107/65 97 08/06/23 19:15 80 17 107/65 98 08/06/23 19:00 97.0 F L 80 18 107/65 98 08/06/23 18:45 80 18 98 08/06/23 18:30 80 18 98 08/06/23 18:15 80 18 97 08/06/23 18:00 97.3 F L 80 18 98 08/06/23 17:45 80 18 98 08/06/23 17:30 80 18 99 08/06/23 17:21 84 08/06/23 17:15 80 18 100 08/06/23 17:09 80 08/06/23 17:06 50 08/06/23 17:00 97.3 F L 80 18 87/60 99 08/06/23 16:45 79 8 L 100 08/06/23 16:30 80 18 98 08/06/23 16:15 80 18 99 08/06/23 16:00 97.0 F L 80 18 98/67 99 50 08/06/23 15:45 80 18 99 08/06/23 15:30 80 18 99 08/06/23 15:15 80 18 99 08/06/23 15:00 96.6 F L 80 18 96/65 99 08/06/23 14:45 80 18 98 08/06/23 14:30 80 18 99 08/06/23 14:15 80 18 100 08/06/23 14:00 96.1 F L 80 14 96/71 99 50 08/06/23 13:48 50 08/06/23 13:45 80 12 100 08/06/23 13:30 80 12 100 50 Intake and Output 08/06/23 08/07/23 08/07/23 22:59 06:59 14:59 Intake Total 0010.698 7632.888 733.717 Output Total 741 733 340 Balance 983.160 367.888 393.717 Intake: IV 402 572 434 Lactated Ringers 1,000 ml 150 400 300 @ 50 mls/hr IV .Q20H [facility] Rx#:[id number] ns for cardiac output 180 100 80 ns for pressure flush 72 72 54 Intake, IV Titration 1322.160 528.888 179.717 Amount ACETAMINOPHEN IV (For NPO 400 ) 1,000 mg In Empty Bag 1 bag @ 400 mls/hr IVPB Q6HR [facility] Rx#:[id number] Albumin Human 5% 250 ml 250 In Empty Bag 1 bag @ 250 mls/hr IVPB ONCE ONE Rx#: [id number] Albumin Human 5% 250 ml 250 In Empty Bag 1 bag @ 250 mls/hr IVPB ONCE STA Rx#: [id number] Amiodarone 360 mg In 133.2 Dextrose 5% in Water 200 ml @ 1 MG/MIN 33.333 mls/ hr IV .Q6H [facility] Rx#: [id number] Amiodarone 450 mg In 16.6 Dextrose 5% in Water 250 ml @ 0.5 MG/MIN 16.667 mls/hr IV .Q15H [facility] Rx#: [id number] Dextrose 5% in Water 100 100 ml @ 618 mls/hr IV .Q10M PRN with Amiodarone 150 mg Rx#:[id number] Insulin Regular 100 unit 26.741 23.188 12.389 In Sodium Chloride 0.9% 100 ml @ Per Protocol IV .Q0M [facility] Rx#:[id number] Lactated Ringers 1,000 ml 250 50 @ 50 mls/hr IV .Q20H [facility] Rx#:[id number] Milrinone-D5w Pmx 20 mg 28.5 5.7 100.728 In Dextrose/Water 1 100ml .bag @ 0.2 MCG/KG/MIN 3. 81 mls/hr IV .Q24H [facility] Rx #:[id number] Potassium Chloride 20 meq 200 In Water For Injection 1 100ml.bag @ 50 mls/hr IVPB Q2H [facility] Rx#: [id number] ceFAZolin 2 gm In Sodium 50 50 50 Chloride 0.9% 50 ml @ 100 mls/hr IVPB Q8HR [facility] Rx# :[id number] propofoL 1,000 mg In 33.719 Empty Bag 1 bag @ Titrate IV .Q0M [facility] Rx#: [id number] Oral 120 Output: Chest Tube Drainage 466 408 140 Chest Tube Left 106 44 10 Chest Tube Mediastinal 240 210 120 Chest Tube Right 120 154 10 Urine 275 325 200 Other: Voiding Method Indwelling Catheter Indwelling Catheter Indwelling Catheter Weight 70.6 kg 70.6 kg ABP, PAP, CO, CI - Last 8 Hours Arterial Blood Pressure 90/40 Arterial Blood Pressure 128/46 Arterial Blood Pressure 135/46 Arterial Blood Pressure 127/46 Arterial Blood Pressure 110/42 Arterial Blood Pressure 124/49 Arterial Blood Pressure 117/44 Arterial Blood Pressure 110/39 Arterial Blood Pressure 111/42 Arterial Blood Pressure 115/43 Arterial Blood Pressure 126/51 Pulmonary Artery Pressure 45/9 Pulmonary Artery Pressure 43/1 Pulmonary Artery Pressure 43/5 Pulmonary Artery Pressure 31/1 Pulmonary Artery Pressure 34/1 Pulmonary Artery Pressure 36/2 Pulmonary Artery Pressure 38/3 Pulmonary Artery Pressure 33/0 Pulmonary Artery Pressure 40/6 Cardiac Output 3.5 Cardiac Output 4.5 Cardiac Output 3.7 Cardiac Output 4.5 Cardiac Output 4.5 Cardiac Index 2.1 Cardiac Index 2.8 Cardiac Index 2.3 Cardiac Index 2.8 Cardiac Index 2.8 Results CBC & Chem 7: 08/07/23 04:00 08/07/23 04:00 Labs: Abnormal Lab Results - Last 24 Hours (Table) 07/30/23 08/06/23 08/06/23 Range/Units 09:32 13:15 13:15 WBC (3.8-10.6) k/uL RBC 3.24 L (3.80-5.40) m/uL Hgb 9.1 L D (11.4-16.0) gm/dL Hct 28.7 L (34.0-46.0) % RDW 18.6 H (11.5-15.5) % Plt Count 92 L D (150-450) k/uL Neutrophils # (1.3-7.7) k/uL Lymphocytes # (1.0-4.8) k/uL PT 14.9 H (10.0-12.5) sec INR 1.4 H (<1.2) APTT 42.6 H (22.0-30.0) sec ABG pH (7.35-7.45) ABG pCO2 (35-45) mmHg ABG pO2 (83-108) mmHg ABG Total CO2 (19-24) mmol/L ABG O2 Saturation (94-97) % Chloride (98-107) mmol/L Creatinine (0.52-1.04) mg/dL Glucose (74-99) mg/dL POC Glucose (mg/dL) (70-110) mg/dL Calcium (8.4-10.2) mg/dL Magnesium (1.6-2.3) mg/dL AST (14-36) U/L Alkaline Phosphatase (38-126) U/L Total Protein (6.3-8.2) g/dL Crossmatch See Detail 08/06/23 08/06/23 08/06/23 Range/Units 13:15 13:16 13:27 WBC (3.8-10.6) k/uL RBC (3.80-5.40) m/uL Hgb (11.4-16.0) gm/dL Hct (34.0-46.0) % RDW (11.5-15.5) % Plt Count (150-450) k/uL Neutrophils # (1.3-7.7) k/uL Lymphocytes # (1.0-4.8) k/uL PT (10.0-12.5) sec INR (<1.2) APTT (22.0-30.0) sec ABG pH 7.19 L* (7.35-7.45) ABG pCO2 59 H (35-45) mmHg ABG pO2 356 H (83-108) mmHg ABG Total CO2 25 H (19-24) mmol/L ABG O2 Saturation 100.4 H (94-97) % Chloride 114 H (98-107) mmol/L Creatinine 0.49 L (0.52-1.04) mg/dL Glucose 107 H (74-99) mg/dL POC Glucose (mg/dL) 123 H (70-110) mg/dL Calcium 7.5 L (8.4-10.2) mg/dL Magnesium 3.0 H (1.6-2.3) mg/dL AST 69 H (14-36) U/L Alkaline Phosphatase 34 L (38-126) U/L Total Protein 4.9 L (6.3-8.2) g/dL Crossmatch 08/06/23 08/06/23 08/06/23 Range/Units 14:11 15:00 16:04 WBC (3.8-10.6) k/uL RBC (3.80-5.40) m/uL Hgb (11.4-16.0) gm/dL Hct (34.0-46.0) % RDW (11.5-15.5) % Plt Count (150-450) k/uL Neutrophils # (1.3-7.7) k/uL Lymphocytes # (1.0-4.8) k/uL PT (10.0-12.5) sec INR (<1.2) APTT (22.0-30.0) sec ABG pH (7.35-7.45) ABG pCO2 (35-45) mmHg ABG pO2 (83-108) mmHg ABG Total CO2 (19-24) mmol/L ABG O2 Saturation (94-97) % Chloride (98-107) mmol/L Creatinine (0.52-1.04) mg/dL Glucose (74-99) mg/dL POC Glucose (mg/dL) 125 H 144 H 194 H (70-110) mg/dL Calcium (8.4-10.2) mg/dL Magnesium (1.6-2.3) mg/dL AST (14-36) U/L Alkaline Phosphatase (38-126) U/L Total Protein (6.3-8.2) g/dL Crossmatch 08/06/23 08/06/23 08/06/23 Range/Units 16:05 17:12 18:08 WBC (3.8-10.6) k/uL RBC 3.40 L (3.80-5.40) m/uL Hgb 9.6 L (11.4-16.0) gm/dL Hct 30.0 L (34.0-46.0) % RDW 18.7 H (11.5-15.5) % Plt Count 105 L (150-450) k/uL Neutrophils # 8.6 H (1.3-7.7) k/uL Lymphocytes # (1.0-4.8) k/uL PT (10.0-12.5) sec INR (<1.2) APTT (22.0-30.0) sec ABG pH (7.35-7.45) ABG pCO2 (35-45) mmHg ABG pO2 (83-108) mmHg ABG Total CO2 (19-24) mmol/L ABG O2 Saturation (94-97) % Chloride (98-107) mmol/L Creatinine (0.52-1.04) mg/dL Glucose (74-99) mg/dL POC Glucose (mg/dL) 240 H 222 H (70-110) mg/dL Calcium (8.4-10.2) mg/dL Magnesium (1.6-2.3) mg/dL AST (14-36) U/L Alkaline Phosphatase (38-126) U/L Total Protein (6.3-8.2) g/dL Crossmatch 08/06/23 08/06/23 08/06/23 Range/Units 18:55 18:55 20:01 WBC 10.7 H (3.8-10.6) k/uL RBC 3.30 L (3.80-5.40) m/uL Hgb 9.4 L (11.4-16.0) gm/dL Hct 29.2 L (34.0-46.0) % RDW 18.9 H (11.5-15.5) % Plt Count 115 L (150-450) k/uL Neutrophils # 9.4 H (1.3-7.7) k/uL Lymphocytes # 0.9 L (1.0-4.8) k/uL PT (10.0-12.5) sec INR (<1.2) APTT (22.0-30.0) sec ABG pH (7.35-7.45) ABG pCO2 (35-45) mmHg ABG pO2 (83-108) mmHg ABG Total CO2 (19-24) mmol/L ABG O2 Saturation (94-97) % Chloride (98-107) mmol/L Creatinine (0.52-1.04) mg/dL Glucose (74-99) mg/dL POC Glucose (mg/dL) 205 H 172 H (70-110) mg/dL Calcium (8.4-10.2) mg/dL Magnesium (1.6-2.3) mg/dL AST (14-36) U/L Alkaline Phosphatase (38-126) U/L Total Protein (6.3-8.2) g/dL Crossmatch 08/06/23 08/06/23 08/06/23 Range/Units 20:19 21:08 22:13 WBC (3.8-10.6) k/uL RBC (3.80-5.40) m/uL Hgb (11.4-16.0) gm/dL Hct (34.0-46.0) % RDW (11.5-15.5) % Plt Count (150-450) k/uL Neutrophils # (1.3-7.7) k/uL Lymphocytes # (1.0-4.8) k/uL PT (10.0-12.5) sec INR (<1.2) APTT (22.0-30.0) sec ABG pH 7.21 L (7.35-7.45) ABG pCO2 61 H (35-45) mmHg ABG pO2 (83-108) mmHg ABG Total CO2 26 H (19-24) mmol/L ABG O2 Saturation (94-97) % Chloride (98-107) mmol/L Creatinine (0.52-1.04) mg/dL Glucose (74-99) mg/dL POC Glucose (mg/dL) 150 H 149 H (70-110) mg/dL Calcium (8.4-10.2) mg/dL Magnesium (1.6-2.3) mg/dL AST (14-36) U/L Alkaline Phosphatase (38-126) U/L Total Protein (6.3-8.2) g/dL Crossmatch 08/06/23 08/07/23 08/07/23 Range/Units 23:12 00:16 01:06 WBC (3.8-10.6) k/uL RBC (3.80-5.40) m/uL Hgb (11.4-16.0) gm/dL Hct (34.0-46.0) % RDW (11.5-15.5) % Plt Count (150-450) k/uL Neutrophils # (1.3-7.7) k/uL Lymphocytes # (1.0-4.8) k/uL PT (10.0-12.5) sec INR (<1.2) APTT (22.0-30.0) sec ABG pH (7.35-7.45) ABG pCO2 (35-45) mmHg ABG pO2 (83-108) mmHg ABG Total CO2 (19-24) mmol/L ABG O2 Saturation (94-97) % Chloride (98-107) mmol/L Creatinine (0.52-1.04) mg/dL Glucose (74-99) mg/dL POC Glucose (mg/dL) 142 H 130 H 123 H (70-110) mg/dL Calcium (8.4-10.2) mg/dL Magnesium (1.6-2.3) mg/dL AST (14-36) U/L Alkaline Phosphatase (38-126) U/L Total Protein (6.3-8.2) g/dL Crossmatch 08/07/23 08/07/23 08/07/23 Range/Units 02:08 03:02 04:00 WBC 11.9 H (3.8-10.6) k/uL RBC 3.29 L (3.80-5.40) m/uL Hgb 9.0 L (11.4-16.0) gm/dL Hct 29.0 L (34.0-46.0) % RDW 18.9 H (11.5-15.5) % Plt Count 123 L (150-450) k/uL Neutrophils # 9.6 H (1.3-7.7) k/uL Lymphocytes # (1.0-4.8) k/uL PT (10.0-12.5) sec INR (<1.2) APTT (22.0-30.0) sec ABG pH (7.35-7.45) ABG pCO2 (35-45) mmHg ABG pO2 (83-108) mmHg ABG Total CO2 (19-24) mmol/L ABG O2 Saturation (94-97) % Chloride (98-107) mmol/L Creatinine (0.52-1.04) mg/dL Glucose (74-99) mg/dL POC Glucose (mg/dL) 124 H 128 H (70-110) mg/dL Calcium (8.4-10.2) mg/dL Magnesium (1.6-2.3) mg/dL AST (14-36) U/L Alkaline Phosphatase (38-126) U/L Total Protein (6.3-8.2) g/dL Crossmatch 08/07/23 08/07/23 08/07/23 Range/Units 04:00 04:05 06:05 WBC (3.8-10.6) k/uL RBC (3.80-5.40) m/uL Hgb (11.4-16.0) gm/dL Hct (34.0-46.0) % RDW (11.5-15.5) % Plt Count (150-450) k/uL Neutrophils # (1.3-7.7) k/uL Lymphocytes # (1.0-4.8) k/uL PT (10.0-12.5) sec INR (<1.2) APTT (22.0-30.0) sec ABG pH (7.35-7.45) ABG pCO2 (35-45) mmHg ABG pO2 (83-108) mmHg ABG Total CO2 (19-24) mmol/L ABG O2 Saturation (94-97) % Chloride 112 H (98-107) mmol/L Creatinine 0.51 L (0.52-1.04) mg/dL Glucose 104 H (74-99) mg/dL POC Glucose (mg/dL) 123 H 144 H (70-110) mg/dL Calcium 8.0 L (8.4-10.2) mg/dL Magnesium 2.5 H (1.6-2.3) mg/dL AST 99 H (14-36) U/L Alkaline Phosphatase (38-126) U/L Total Protein 5.2 L (6.3-8.2) g/dL Crossmatch 08/07/23 08/07/23 08/07/23 Range/Units 07:00 08:04 10:48 WBC (3.8-10.6) k/uL RBC (3.80-5.40) m/uL Hgb (11.4-16.0) gm/dL Hct (34.0-46.0) % RDW (11.5-15.5) % Plt Count (150-450) k/uL Neutrophils # (1.3-7.7) k/uL Lymphocytes # (1.0-4.8) k/uL PT (10.0-12.5) sec INR (<1.2) APTT (22.0-30.0) sec ABG pH (7.35-7.45) ABG pCO2 (35-45) mmHg ABG pO2 (83-108) mmHg ABG Total CO2 (19-24) mmol/L ABG O2 Saturation (94-97) % Chloride (98-107) mmol/L Creatinine (0.52-1.04) mg/dL Glucose (74-99) mg/dL POC Glucose (mg/dL) 136 H 125 H 124 H (70-110) mg/dL Calcium (8.4-10.2) mg/dL Magnesium (1.6-2.3) mg/dL AST (14-36) U/L Alkaline Phosphatase (38-126) U/L Total Protein (6.3-8.2) g/dL Crossmatch 08/07/23 Range/Units 12:05 WBC (3.8-10.6) k/uL RBC (3.80-5.40) m/uL Hgb (11.4-16.0) gm/dL Hct (34.0-46.0) % RDW (11.5-15.5) % Plt Count (150-450) k/uL Neutrophils # (1.3-7.7) k/uL Lymphocytes # (1.0-4.8) k/uL PT (10.0-12.5) sec INR (<1.2) APTT (22.0-30.0) sec ABG pH (7.35-7.45) ABG pCO2 (35-45) mmHg ABG pO2 (83-108) mmHg ABG Total CO2 (19-24) mmol/L ABG O2 Saturation (94-97) % Chloride (98-107) mmol/L Creatinine (0.52-1.04) mg/dL Glucose (74-99) mg/dL POC Glucose (mg/dL) 132 H (70-110) mg/dL Calcium (8.4-10.2) mg/dL Magnesium (1.6-2.3) mg/dL AST (14-36) U/L Alkaline Phosphatase (38-126) U/L Total Protein (6.3-8.2) g/dL Crossmatch Thrombosis Risk Factor Assmnt - Choose All That Apply Any of the Below Risk Factors Present?: Yes Each Factor Represents 1 point: Age 41-60 years, History of prior major surgery (<1month) Other Risk Factors: Yes Each Risk Factor Represents 2 Points: Central venous access, Major surgery Thrombosis Risk Factor Assessment Total Risk Factor Score: 6 Thrombosis Risk Factor Assessment Level: High Risk
[2023-08-07 13:38] LABS: Glucose,Whole Blood 133 mg/dL (70-110)
[2023-08-07] MEDS: ALBUMIN HUMAN 25% 50 ML in EMPTY BAG 1 BAG IVPB ONE (13:54)
[2023-08-07 15:01] LABS: Glucose,Whole Blood 118 mg/dL (70-110)
[2023-08-07 16:03] LABS: Glucose,Whole Blood 106 mg/dL (70-110)
[2023-08-07 17:40] LABS: Glucose,Whole Blood 135 mg/dL (70-110)
[2023-08-07 18:57] LABS: Glucose,Whole Blood 130 mg/dL (70-110)
[2023-08-07 20:39] LABS: Glucose,Whole Blood 124 mg/dL (70-110)
[2023-08-07] MEDS: SENNOSIDES-DOCUSATE SODIUM 1 EACH TAB PO SCH (21:29)
[2023-08-07 21:39] LABS: Glucose,Whole Blood 112 mg/dL (70-110)
[2023-08-07 22:17] LABS: Glucose,Whole Blood 147 mg/dL (70-110)
[2023-08-07 23:00] LABS: Glucose,Whole Blood 141 mg/dL (70-110)
[2023-08-07 23:55] LABS: Glucose,Whole Blood 130 mg/dL (70-110)
[2023-08-08 01:12] LABS: Glucose,Whole Blood 110 mg/dL (70-110)
[2023-08-08 02:07] LABS: Glucose,Whole Blood 128 mg/dL (70-110)
[2023-08-08 03:02] LABS: Glucose,Whole Blood 134 mg/dL (70-110)
[2023-08-08 03:54] LABS: Glucose,Whole Blood 133 mg/dL (70-110)
[2023-08-08 04:26] LABS: Anisocytosis Slight; Basophils % (A) 0 %; Eosinophils % (A) 0 %; HCT 27.8 % (34.0-46.0); HGB 8.9 gm/dL (11.4-16.0); Hypochromasia Slight; Lymphocytes # (A) 1.2 k/uL (1.0-4.8); Lymphocytes % (A) 10 %; MCH 28.5 pg (25.0-35.0); MCV 89.1 fL (80.0-100.0); Mean Platelet Volume 9.6; Monocytes # (A) 0.4 k/uL (0-1.0); Monocytes % (A) 4 %; Neutrophils # (A) 9.4 k/uL (1.3-7.7); Neutrophils % (A) 84 %; Platelet Count 121 k/uL (150-450); RBC 3.12 m/uL (3.80-5.40); RDW 19.7 % (11.5-15.5); WBC 11.1 k/uL (3.8-10.6)
[2023-08-08 04:40] LABS: ALT 86 U/L (4-34); AST 198 U/L (14-36); African American GFR (CKD) >90 (>60 ml/min/1.73 sqM); Albumin 3.7 g/dL (3.5-5.0); Alkaline Phosphatase 47 U/L (38-126); Anion Gap 5 mmol/L; Blood Urea Nitrogen 17 mg/dL (7-17); Calcium 8.7 mg/dL (8.4-10.2); Carbon Dioxide 21 mmol/L (22-30); Chloride 110 mmol/L (98-107); Glucose 115 mg/dL (74-99); Non-African American GFR(CKD) >90 (>60 ml/min/1.73 sqM); Potassium 4.4 mmol/L (3.5-5.1); Sodium 136 mmol/L (137-145); Total Bilirubin 1.2 mg/dL (0.2-1.3); Total Protein 5.1 g/dL (6.3-8.2)
[2023-08-08 05:49] LABS: Glucose,Whole Blood 124 mg/dL (70-110)
[2023-08-08] MEDS: PANTOPRAZOLE 40 MG TABLET PO SCH (06:44)
--- NOTE | 2023-08-08 07:14 | P.PN ---
Subjective Progress Note Date: 08/08/23 Principal diagnosis: The patient is a pleasant 58-year-old female patient with a past medical history significant for valvular heart disease and known severe symptomatic aortic fransisco nosis and paroxysmal atrial fibrillation as well as multiple comorbid conditions who was diagnosed recently with severe symptomatic aortic stenosis documented to be bicuspid aortic valve by transesophageal echocardiogram. The patient subsequently underwent a heart catheterization which revealed normal coronaries. Then she referred to undergo aortic valve replacement. Yesterday she underwent electively aortic valve replacement using bioprosthetic valve. This is postoperation day #1. The patient overall seems to be stable. She has been maintaining normal sinus mechanism. Currently she is on amiodarone IV. She will be restarted back on flecainide orally and she was on the flecainide before the surgery. No need for the patient to go on oral amiodarone along with flecainide. Urine output has been adequate. Blood work including CBC and BMP came in to be unremarkable as well. The chest x-ray seems to be slightly wet but she does have marginally low blood pressure. Otherwise she is on aspirin and she is on a statin. The examination is remarkable for stable vital signs with soft blood pressure and diminished breathing sounds bilaterally and she has mild upper and lower extremities edema noted. August 08, 2023 The patient was seen and evaluated this morning. She seems to be congested. The chest x-ray appears to be wet as well. Urine output has been low as well. With that being said I am going to give patient 20 mg of IV Lasix. She continues to be on Primacor. Cardiac index continues to be marginally low. Otherwise she is on Plavix. She continues to be on flecainide. I would consider increasing the dose of flecainide from 50 mg p.o. twice daily to 100 mg p.o. twice daily. Restart the patient back on oral anticoagulation once her pacer and lines are out. The examination is remarkable for diminished breathing sounds bilaterally and the patient appears to be quite congested and coughing and regular rate and rhythm and no edema was noted in the lower extremities. Assessment Status post aortic valve replacement for severe symptomatic bicuspid aortic valve stenosis Paroxysmal atrial fibrillation Multiple comorbid conditions Plan Continue the current medical regimen Consider increasing the dose of flecainide Give the patient 20 mg of Lasix IV once Restart the patient back on oral anticoagulation once the pacer and lines out Follow-up with the patient Objective - Vital Signs Vital signs: Vital Signs Temp 99.5 F 08/07/23 18:30 Pulse 70 08/08/23 07:00 Resp 28 H 08/08/23 07:00 BP 108/63 08/08/23 06:00 Pulse Ox 94 L 08/08/23 07:00 FiO2 50 08/06/23 20:30 Intake & Output 08/07/23 08/08/23 08/08/23 18:59 06:59 18:59 Intake Total 9754.621 1373.283 Output Total 540 415 Balance 9106.110 2137.283 Weight 70.6 kg 71.8 kg Intake: IV 888 948 Lactated Ringers 1,000 ml 600 600 @ 50 mls/hr IV .Q20H [facility] Rx#:[id number] ns for cardiac output 180 240 ns for pressure flush 108 108 Intake, IV Titration 238.967 14.283 Amount Albumin Human 25% 50 ml 50 In Empty Bag 1 bag @ 50 mls/hr IVPB ONCE ONE Rx#: [id number] Amiodarone 450 mg In 16.6 Dextrose 5% in Water 250 ml @ 0.5 MG/MIN 16.667 mls/hr IV .Q15H [facility] Rx#: [id number] Insulin Regular 100 unit 21.639 14.283 In Sodium Chloride 0.9% 100 ml @ Per Protocol IV .Q0M [facility] Rx#:[id number] Milrinone-D5w Pmx 20 mg 100.728 In Dextrose/Water 1 100ml .bag @ 0.2 MCG/KG/MIN 3. 81 mls/hr IV .Q24H [facility] Rx #:[id number] ceFAZolin 2 gm In Sodium 50 Chloride 0.9% 50 ml @ 100 mls/hr IVPB Q8HR [facility] Rx# :[id number] Oral 540 500 Output: Chest Tube Drainage 230 180 Chest Tube Left 10 Chest Tube Mediastinal 210 180 Chest Tube Right 10 Urine 310 235 Other: Voiding Method Indwelling Catheter Indwelling Catheter ABP, PAP, CO, CI - Last Documented Arterial Blood Pressure 117/42 Pulmonary Artery Pressure 34/5 Cardiac Output 3.1 Cardiac Index 1.9 - Labs CBC & Chem 7: 08/08/23 04:10 08/08/23 04:10 Labs: Abnormal Lab Results - Last 24 Hours (Table) 07/30/23 08/07/23 08/07/23 Range/Units 09:32 08:04 10:48 WBC (3.8-10.6) k/uL RBC (3.80-5.40) m/uL Hgb (11.4-16.0) gm/dL Hct (34.0-46.0) % RDW (11.5-15.5) % Plt Count (150-450) k/uL Neutrophils # (1.3-7.7) k/uL Sodium (137-145) mmol/L Chloride (98-107) mmol/L Carbon Dioxide (22-30) mmol/L Creatinine (0.52-1.04) mg/dL Glucose (74-99) mg/dL POC Glucose (mg/dL) 125 H 124 H (70-110) mg/dL AST (14-36) U/L ALT (4-34) U/L Total Protein (6.3-8.2) g/dL Crossmatch See Detail 08/07/23 08/07/23 08/07/23 Range/Units 12:05 13:36 14:59 WBC (3.8-10.6) k/uL RBC (3.80-5.40) m/uL Hgb (11.4-16.0) gm/dL Hct (34.0-46.0) % RDW (11.5-15.5) % Plt Count (150-450) k/uL Neutrophils # (1.3-7.7) k/uL Sodium (137-145) mmol/L Chloride (98-107) mmol/L Carbon Dioxide (22-30) mmol/L Creatinine (0.52-1.04) mg/dL Glucose (74-99) mg/dL POC Glucose (mg/dL) 132 H 133 H 118 H (70-110) mg/dL AST (14-36) U/L ALT (4-34) U/L Total Protein (6.3-8.2) g/dL Crossmatch 08/07/23 08/07/23 08/07/23 Range/Units 17:37 18:53 20:38 WBC (3.8-10.6) k/uL RBC (3.80-5.40) m/uL Hgb (11.4-16.0) gm/dL Hct (34.0-46.0) % RDW (11.5-15.5) % Plt Count (150-450) k/uL Neutrophils # (1.3-7.7) k/uL Sodium (137-145) mmol/L Chloride (98-107) mmol/L Carbon Dioxide (22-30) mmol/L Creatinine (0.52-1.04) mg/dL Glucose (74-99) mg/dL POC Glucose (mg/dL) 135 H 130 H 124 H (70-110) mg/dL AST (14-36) U/L ALT (4-34) U/L Total Protein (6.3-8.2) g/dL Crossmatch 08/07/23 08/07/23 08/07/23 Range/Units 21:38 22:15 22:59 WBC (3.8-10.6) k/uL RBC (3.80-5.40) m/uL Hgb (11.4-16.0) gm/dL Hct (34.0-46.0) % RDW (11.5-15.5) % Plt Count (150-450) k/uL Neutrophils # (1.3-7.7) k/uL Sodium (137-145) mmol/L Chloride (98-107) mmol/L Carbon Dioxide (22-30) mmol/L Creatinine (0.52-1.04) mg/dL Glucose (74-99) mg/dL POC Glucose (mg/dL) 112 H 147 H 141 H (70-110) mg/dL AST (14-36) U/L ALT (4-34) U/L Total Protein (6.3-8.2) g/dL Crossmatch 08/07/23 08/08/23 08/08/23 Range/Units 23:53 02:06 03:01 WBC (3.8-10.6) k/uL RBC (3.80-5.40) m/uL Hgb (11.4-16.0) gm/dL Hct (34.0-46.0) % RDW (11.5-15.5) % Plt Count (150-450) k/uL Neutrophils # (1.3-7.7) k/uL Sodium (137-145) mmol/L Chloride (98-107) mmol/L Carbon Dioxide (22-30) mmol/L Creatinine (0.52-1.04) mg/dL Glucose (74-99) mg/dL POC Glucose (mg/dL) 130 H 128 H 134 H (70-110) mg/dL AST (14-36) U/L ALT (4-34) U/L Total Protein (6.3-8.2) g/dL Crossmatch 08/08/23 08/08/23 08/08/23 Range/Units 03:53 04:10 04:10 WBC 11.1 H (3.8-10.6) k/uL RBC 3.12 L (3.80-5.40) m/uL Hgb 8.9 L (11.4-16.0) gm/dL Hct 27.8 L (34.0-46.0) % RDW 19.7 H (11.5-15.5) % Plt Count 121 L (150-450) k/uL Neutrophils # 9.4 H (1.3-7.7) k/uL Sodium 136 L (137-145) mmol/L Chloride 110 H (98-107) mmol/L Carbon Dioxide 21 L (22-30) mmol/L Creatinine 0.49 L (0.52-1.04) mg/dL Glucose 115 H (74-99) mg/dL POC Glucose (mg/dL) 133 H (70-110) mg/dL AST 198 H (14-36) U/L ALT 86 H (4-34) U/L Total Protein 5.1 L (6.3-8.2) g/dL Crossmatch 08/08/23 Range/Units 05:47 WBC (3.8-10.6) k/uL RBC (3.80-5.40) m/uL Hgb (11.4-16.0) gm/dL Hct (34.0-46.0) % RDW (11.5-15.5) % Plt Count (150-450) k/uL Neutrophils # (1.3-7.7) k/uL Sodium (137-145) mmol/L Chloride (98-107) mmol/L Carbon Dioxide (22-30) mmol/L Creatinine (0.52-1.04) mg/dL Glucose (74-99) mg/dL POC Glucose (mg/dL) 124 H (70-110) mg/dL AST (14-36) U/L ALT (4-34) U/L Total Protein (6.3-8.2) g/dL Crossmatch
[2023-08-08 07:19] LABS: Glucose,Whole Blood 117 mg/dL (70-110)
--- NOTE | 2023-08-08 07:49 | XR ---
EXAMINATION TYPE: XR chest 1V portable DATE OF EXAM: 08/08/2023 Comparison: 08/07/2023 Clinical History: 58-year-old female Post Operative Cardiac Surgery Findings: Right IJ Sasabe-Brandy catheter appears to remain malpositioned with tip curled back probably into the ri ght ventricle. Mediastinal drain in place. Median sternotomy wires and prosthetic aortic valve. Heart mildly enlarged. Interstitial densities persist but with slight improvement. Some hazy bibasilar opa cities probably representing small effusions. Impression: 1. Right IJ Sasabe-Brandy catheter remains malpositioned, tip turned back probably in the right ventricle . Clinically correlate. 2. Improving pulmonary vascular congestion. Suspect continued small effusions.
[2023-08-08 08:00] LABS: Glucose,Whole Blood 145 mg/dL (70-110)
[2023-08-08] MEDS: FUROSEMIDE 10 MG/ML 2 ML VIAL IV ONE (08:09)
--- NOTE | 2023-08-08 08:46 | P.PN ---
Subjective Progress Note Date: 08/08/23 Principal diagnosis: Calcific symptomatic congenital bicuspid aortic stenosis, paroxysmal atrial fibrillation. Previous medical history of hypertension, hyperlipidemia, diabetes mellitus type 2, paroxysmal atrial fibrillation on Eliquis for anticoagulation, asthma, severe chronic obstructive pulmonary disease, previous tobacco dependence, GERD, hypothyroid, anemia, TIA with no residual effects, bilateral internal carotid artery stenosis POD #2 aortic valve replacement with 23 mm Inspiris bovine pericardial valve, bilateral pulmonary vein ablation with AtriCure RF clamp, closure of the left atrial appendage with a 35 mm AtriCure clip, epiaortic ultrasonography Postoperative acute blood loss anemia, expected given hemodilution and cardiopulmonary bypass pump as well as history of anemia The patient was seen and examined this morning while sitting up in recliner in the intensive care unit in no acute distress. Currently in sinus rhythm with sinus arrhythmia, hemodynamically stable. Currently on IV Primacor. States expected postoperative pain controlled with current medication regimen, denies shortness of breath. Currently on 3 L nasal cannula, able to achieve 750-1000 mL on her incentive spirometer. Right internal jugular Deadwood/Cordis, left radial arterial line, mediastinal chest tube present. Labs, chest x-rays reviewed. Was given IV Lasix this morning by cardiology. She did ambulate a bit yesterday with assistance. No other new concerns. Objective - Vital Signs Vital signs: Vital Signs Temp 99.5 F 08/07/23 18:30 Pulse 70 08/08/23 07:00 Resp 28 H 08/08/23 07:00 BP 108/63 08/08/23 06:00 Pulse Ox 94 L 08/08/23 07:00 FiO2 50 08/06/23 20:30 Intake & Output 08/07/23 08/08/23 08/08/23 18:59 06:59 18:59 Intake Total 5060.089 6126.283 246.654 Output Total 540 415 80 Balance 7468.910 9294.283 166.654 Weight 70.6 kg 71.8 kg Intake: IV 888 948 158 Lactated Ringers 1,000 ml 600 600 100 @ 50 mls/hr IV .Q20H [facility] Rx#:[id number] ns for cardiac output 180 240 40 ns for pressure flush 108 108 18 Intake, IV Titration 238.967 14.283 88.654 Amount Albumin Human 25% 50 ml 50 In Empty Bag 1 bag @ 50 mls/hr IVPB ONCE ONE Rx#: [id number] Amiodarone 450 mg In 16.6 Dextrose 5% in Water 250 ml @ 0.5 MG/MIN 16.667 mls/hr IV .Q15H [facility] Rx#: [id number] Insulin Regular 100 unit 21.639 14.283 8.644 In Sodium Chloride 0.9% 100 ml @ Per Protocol IV .Q0M [facility] Rx#:[id number] Milrinone-D5w Pmx 20 mg 100.728 80.01 In Dextrose/Water 1 100ml .bag @ 0.2 MCG/KG/MIN 3. 81 mls/hr IV .Q24H [facility] Rx #:[id number] ceFAZolin 2 gm In Sodium 50 Chloride 0.9% 50 ml @ 100 mls/hr IVPB Q8HR [facility] Rx# :[id number] Oral 540 500 Output: Chest Tube Drainage 230 180 50 Chest Tube Left 10 Chest Tube Mediastinal 210 180 50 Chest Tube Right 10 Urine 310 235 30 Other: Voiding Method Indwelling Catheter Indwelling Catheter ABP, PAP, CO, CI - Last Documented Arterial Blood Pressure 117/42 Pulmonary Artery Pressure 34/5 Cardiac Output 3.1 Cardiac Index 1.9 - Exam CONSTITUTIONAL: Appears comfortable, cooperative, no acute distress RESPIRATORY: Lungs sounds diminished bilaterally. Respirations even, nonlabored. Currently on 3 L nasal cannula with oxygen saturation 94%. Able to achieve 750-1000 mL on incentive spirometry. Strong cough. CARDIOVASCULAR: S1, S2 present. Regular rate and rhythm, sinus rhythm with sinus arrhythmia on telemetry. Sternum stable. Palpable peripheral pulses bilaterally. Generalized edema present. No calf pain or tenderness noted. Heart hugger in place with patient demonstrating appropriate use. Antiembolism stockings, SCDs present. GASTROINTESTINAL: Abdomen soft, nontender, nondistended. Active bowel sounds present 4 quadrants. Tolerating clear liquids. Positive flatus GENITOURINARY: Cartwright present draining clear, yellow urine. Output overnight 15-20 mL per hour, 510 mL in the last 24 hours INTEGUMENTARY: Skin is warm and dry with evidence of good perfusion. Anterior chest incision well approximated and covered with dry intact dressing NEUROLOGIC: Cranial nerves II through XII intact MUSKULOSKELETAL: Able to move all extremities, strength equal bilaterally PSYCHIATRIC: Alert and oriented to person place and time, appropriate affect, intact judgment and insight INVASIVE LINES AND TUBES: Mediastinal chest tube present and connected to wall suction, no air leak present, 110 mL serosanguineous drainage overnight, 500 mL in the last 24 hours. A/V epicardial pacemaker wires present, connected to generator, turned off. Right internal jugular Deadwood/Cordis, left radial arterial line present. Last CO/CI 3.1/1.9, PA 29/2, CVP 8. - Allied health notes Allied health notes reviewed: nursing - Labs CBC & Chem 7: 08/08/23 04:10 08/08/23 04:10 Labs: Abnormal Lab Results - Last 24 Hours (Table) 07/30/23 08/07/23 08/07/23 Range/Units 09:32 10:48 12:05 WBC (3.8-10.6) k/uL RBC (3.80-5.40) m/uL Hgb (11.4-16.0) gm/dL Hct (34.0-46.0) % RDW (11.5-15.5) % Plt Count (150-450) k/uL Neutrophils # (1.3-7.7) k/uL Sodium (137-145) mmol/L Chloride (98-107) mmol/L Carbon Dioxide (22-30) mmol/L Creatinine (0.52-1.04) mg/dL Glucose (74-99) mg/dL POC Glucose (mg/dL) 124 H 132 H (70-110) mg/dL AST (14-36) U/L ALT (4-34) U/L Total Protein (6.3-8.2) g/dL Crossmatch See Detail 08/07/23 08/07/23 08/07/23 Range/Units 13:36 14:59 17:37 WBC (3.8-10.6) k/uL RBC (3.80-5.40) m/uL Hgb (11.4-16.0) gm/dL Hct (34.0-46.0) % RDW (11.5-15.5) % Plt Count (150-450) k/uL Neutrophils # (1.3-7.7) k/uL Sodium (137-145) mmol/L Chloride (98-107) mmol/L Carbon Dioxide (22-30) mmol/L Creatinine (0.52-1.04) mg/dL Glucose (74-99) mg/dL POC Glucose (mg/dL) 133 H 118 H 135 H (70-110) mg/dL AST (14-36) U/L ALT (4-34) U/L Total Protein (6.3-8.2) g/dL Crossmatch 08/07/23 08/07/23 08/07/23 Range/Units 18:53 20:38 21:38 WBC (3.8-10.6) k/uL RBC (3.80-5.40) m/uL Hgb (11.4-16.0) gm/dL Hct (34.0-46.0) % RDW (11.5-15.5) % Plt Count (150-450) k/uL Neutrophils # (1.3-7.7) k/uL Sodium (137-145) mmol/L Chloride (98-107) mmol/L Carbon Dioxide (22-30) mmol/L Creatinine (0.52-1.04) mg/dL Glucose (74-99) mg/dL POC Glucose (mg/dL) 130 H 124 H 112 H (70-110) mg/dL AST (14-36) U/L ALT (4-34) U/L Total Protein (6.3-8.2) g/dL Crossmatch 08/07/23 08/07/23 08/07/23 Range/Units 22:15 22:59 23:53 WBC (3.8-10.6) k/uL RBC (3.80-5.40) m/uL Hgb (11.4-16.0) gm/dL Hct (34.0-46.0) % RDW (11.5-15.5) % Plt Count (150-450) k/uL Neutrophils # (1.3-7.7) k/uL Sodium (137-145) mmol/L Chloride (98-107) mmol/L Carbon Dioxide (22-30) mmol/L Creatinine (0.52-1.04) mg/dL Glucose (74-99) mg/dL POC Glucose (mg/dL) 147 H 141 H 130 H (70-110) mg/dL AST (14-36) U/L ALT (4-34) U/L Total Protein (6.3-8.2) g/dL Crossmatch 08/08/23 08/08/23 08/08/23 Range/Units 02:06 03:01 03:53 WBC (3.8-10.6) k/uL RBC (3.80-5.40) m/uL Hgb (11.4-16.0) gm/dL Hct (34.0-46.0) % RDW (11.5-15.5) % Plt Count (150-450) k/uL Neutrophils # (1.3-7.7) k/uL Sodium (137-145) mmol/L Chloride (98-107) mmol/L Carbon Dioxide (22-30) mmol/L Creatinine (0.52-1.04) mg/dL Glucose (74-99) mg/dL POC Glucose (mg/dL) 128 H 134 H 133 H (70-110) mg/dL AST (14-36) U/L ALT (4-34) U/L Total Protein (6.3-8.2) g/dL Crossmatch 08/08/23 08/08/23 08/08/23 Range/Units 04:10 04:10 05:47 WBC 11.1 H (3.8-10.6) k/uL RBC 3.12 L (3.80-5.40) m/uL Hgb 8.9 L (11.4-16.0) gm/dL Hct 27.8 L (34.0-46.0) % RDW 19.7 H (11.5-15.5) % Plt Count 121 L (150-450) k/uL Neutrophils # 9.4 H (1.3-7.7) k/uL Sodium 136 L (137-145) mmol/L Chloride 110 H (98-107) mmol/L Carbon Dioxide 21 L (22-30) mmol/L Creatinine 0.49 L (0.52-1.04) mg/dL Glucose 115 H (74-99) mg/dL POC Glucose (mg/dL) 124 H (70-110) mg/dL AST 198 H (14-36) U/L ALT 86 H (4-34) U/L Total Protein 5.1 L (6.3-8.2) g/dL Crossmatch 08/08/23 08/08/23 Range/Units 07:17 07:59 WBC (3.8-10.6) k/uL RBC (3.80-5.40) m/uL Hgb (11.4-16.0) gm/dL Hct (34.0-46.0) % RDW (11.5-15.5) % Plt Count (150-450) k/uL Neutrophils # (1.3-7.7) k/uL Sodium (137-145) mmol/L Chloride (98-107) mmol/L Carbon Dioxide (22-30) mmol/L Creatinine (0.52-1.04) mg/dL Glucose (74-99) mg/dL POC Glucose (mg/dL) 117 H 145 H (70-110) mg/dL AST (14-36) U/L ALT (4-34) U/L Total Protein (6.3-8.2) g/dL Crossmatch - Imaging and Cardiology Chest x-ray: report reviewed, image reviewed Assessment and Plan Assessment: Calcific symptomatic congenital bicuspid aortic stenosis, status post aortic valve replacement with 23 mm Inspiris bovine pericardial valve Hypertension Hyperlipidemia, treated, cholesterol 151, LDL 79 Diabetes mellitus type 2, hemoglobin A1c 6.3% Paroxysmal atrial fibrillation on Eliquis for anticoagulation and flecainide as an outpatient, status post bilateral pulmonary vein ablation with AtriCure RF clamp, closure of the left atrial appendage with a 35 mm AtriCure clip Asthma Severe chronic obstructive pulmonary disease, preoperative FEV1 40% of predicted with DLCO 46% of predicted Previous tobacco dependence, quit March 2022 GERD Hypothyroid, on Synthroid, TSH 0.843 Anemia TIA with no residual effects Bilateral internal carotid artery stenosis 50 to 69% Acute blood loss anemia, expected Plan: Continue to maximize medical therapy with aspirin, statin, Plavix, beta-ky. Will increase beta-ky therapy as tolerated. Upon discharge will discontinue Plavix, decrease aspirin to baby aspirin, and re-add Eliquis per home dose Will add cozaar for afterload reduction Continue flecainide per patient's home dose. No Eliquis until all lines/tubes are discontinued Decrease IV Primacor to 0.1 mcg/kg/min Discontinue Deadwood this afternoon Will monitor daily labs and x-rays. Electrolyte replacement per protocol. No more lasix today Wean O2 as tolerated. Encourage incentive spirometry use 10 times every hour while awake. Bronchodilators per pulmonology Increase activity, ambulate as tolerated. PT/OT/cardiac rehab consulted GI/DVT prophylaxis Pain control per current medication regimen Insulin management per internal medicine Continue mediastinal chest tube for another 24 hours, monitor output Continue Cartwright catheter for another 24 hours, continue to record strict accurate intake and output Daily weights More recommendations to follow based on patient's progress
[2023-08-08 09:03] LABS: Glucose,Whole Blood 154 mg/dL (70-110)
[2023-08-08] MEDS: FUROSEMIDE 10 MG/ML 2 ML VIAL ONE (09:15)
[2023-08-08] MEDS: LOSARTAN 25 MG TAB PO SCH (09:17)
[2023-08-08 10:09] LABS: Glucose,Whole Blood 155 mg/dL (70-110)
[2023-08-08 11:08] LABS: Glucose,Whole Blood 140 mg/dL (70-110)
--- NOTE | 2023-08-08 11:29 | P.PN ---
Subjective Progress Note Date: 08/08/23 This is a 58-year-old female patient with a history of hypertension, hyperlipidemia, diabetes mellitus, paroxysmal atrial fibrillation anticoagulated with Eliquis, gastroesophageal reflux disease, hypothyroidism, chronic obstructive pulmonary disease, former smoker. She presented here to the emergency room last month with progressive shortness of breath. She was found to have a bicuspid aortic valve with severe aortic valve stenosis. She was brought back today electively for surgery. She had undergone aortic valve replacement with 23 mm Inspiris bovine pericardial valve, bilateral pulmonary vein ablation with atrial cure RF clamp, closure of the left atrial appendage with a 35 mm atrial cure clip and epi aortic ultrasonography. She is seen today postoperatively in the intensive care unit. She is intubated on the mechanical ventilator and assist-control mode at a rate of 12, tidal volume 350, FiO2 100% and a PEEP of 5. Blood gases reveal a PaO2 of 356, pCO2 59 and a pH of 7.19. She is currently sedated on propofol at 30 mcg/kg/min. Amiodarone drip at 1 mg/min. Lactated Ringer's at 20 MLS per hour. She has a right, left and mediastinal split chest tubes in place. She has pacemaker wires in place currently atrial paced. Her cardiac output is 3.4. Cardiac index 2.1. PA pres sures 43/14 with a CVP of 22. She has a right IJ [place]-Brandy catheter in place. Right radial arterial line in place. She has received 2 units of packed red blood cells. Current hemoglobin 9.1. Platelets 92,000. White count 9.3. INR 1.4. Sodium 144. Potassium 3.5. Bicarb 24. BUN 8. Creatinine 0.49. Glucose 107. AST 69. ALT 22. Chest x-ray reveals postsurgical changes with [place]-Brandy catheter tip in place. Chest tubes in place. No evidence of pneumothorax. The patient is seen today August 07, 2023 in follow-up in the intensive care unit. She is awake and alert in no acute distress. Sitting up in a chair at the bedside. Postoperative day #1. She is maintaining O2 saturations in the 90s on 2 L/min per nasal cannula. She is on a Primacor drip at 0.2 mcg/kg/min. Insulin drip at 3 units/h. Lactated Ringer's at 50 MLS per hour. Chest x-ray shows basilar atelectasis. Mediastinal, left and right chest tubes remain in place. Right internal jugular [place]-Brandy catheter remains in place. Cardiac output 3.7. Cardiac index 2.3. Pressure 43/5. CVP 12. Blood pressure stable. White count 11.9. Hemoglobin 9.0. Platelets 123. Sodium 140. Potassium 4.4. Bicarb 22. BUN 12. Creatinine 0.51. Glucose 104. AST 99. ALT 31. She is working well with the incentive spirometer. She is continued on bronchodilators. Heparin for DVT prophylaxis. The patient is seen today August 08, 2023 in follow-up in the intensive care unit. Postoperative day #2. She remains awake and alert in no acute distress. Sitting up in a chair at the bedside. Maintaining O2 saturations in the 90s on 3 L/min per nasal cannula. She has lactated Ringer's at 50 MLS per hour. Insulin drip at 2 units/h. Continues with chest tubes in place. Cardiac output 3.7. Cardiac index 2.3. CVP 7. Is afebrile. Hemodynamically stable. Chest x-ray reveals improving pulmonary vascular congestion. Suspect continued small effusions. She did receive 2 units of packed red blood cells this admission. Current hemoglobin 8.9. Platelets 121. White count 11.1. Sodium 136. Potassium 4.4. Bicarb 21. BUN 17. Creatinine 0.49. Glucose 140. AST 198. ALT 86. She remains on bronchodilators. Heparin for DVT prophylaxis. Working well with the incentive spirometer. Objective - Vital Signs Vital signs: Vital Signs Temp 99.1 F 08/08/23 08:00 Pulse 76 08/08/23 10:30 Resp 23 08/08/23 10:30 BP 134/76 08/08/23 10:30 Pulse Ox 94 L 08/08/23 10:30 FiO2 50 08/06/23 20:30 Intake & Output 08/07/23 08/08/23 08/08/23 18:59 06:59 18:59 Intake Total 9413.372 5981.283 566.809 Output Total 540 415 655 Balance 2508.285 1145.283 -88.191 Weight 70.6 kg 71.8 kg Intake: IV 888 948 276 Lactated Ringers 1,000 ml 600 600 200 @ 50 mls/hr IV .Q20H [facility] Rx#:[id number] ns for cardiac output 180 240 40 ns for pressure flush 108 108 36 Intake, IV Titration 238.967 14.283 90.809 Amount Albumin Human 25% 50 ml 50 In Empty Bag 1 bag @ 50 mls/hr IVPB ONCE ONE Rx#: [id number] Amiodarone 450 mg In 16.6 Dextrose 5% in Water 250 ml @ 0.5 MG/MIN 16.667 mls/hr IV .Q15H [facility] Rx#: [id number] Insulin Regular 100 unit 21.639 14.283 10.799 In Sodium Chloride 0.9% 100 ml @ Per Protocol IV .Q0M [facility] Rx#:[id number] Milrinone-D5w Pmx 20 mg 100.728 80.01 In Dextrose/Water 1 100ml .bag @ 0.2 MCG/KG/MIN 3. 81 mls/hr IV .Q24H [facility] Rx #:[id number] ceFAZolin 2 gm In Sodium 50 Chloride 0.9% 50 ml @ 100 mls/hr IVPB Q8HR [facility] Rx# :[id number] Oral 540 500 200 Output: Chest Tube Drainage 230 180 50 Chest Tube Left 10 Chest Tube Mediastinal 210 180 50 Chest Tube Right 10 Urine 310 235 605 Other: Voiding Method Indwelling Catheter Indwelling Catheter Indwelling Catheter ABP, PAP, CO, CI - Last Documented Arterial Blood Pressure 143/57 Pulmonary Artery Pressure 34/5 Cardiac Output 3.7 Cardiac Index 2.3 - Exam GENERAL EXAM: Awake, alert 58-year-old female, on 3 L nasal cannula, in no apparent distress. HEAD: Normocephalic. EYES: Normal reaction of pupils, equal size. NOSE: Clear with pink turbinates. THROAT: No erythema or exudates. NECK: No masses, no JVD. Right IJ [place]-Brandy catheter in place. CHEST: Sternal dressing dry and intact. Heart hugger in place. Right, left, mediastinal x [address] Pacer wires in place. LUNGS: Equal air entry with no crackles, wheeze, rhonchi or dullness. CVS: S1 and S2 normal with no audible murmur, regular rhythm. ABDOMEN: No hepatosplenomegaly, no guarding or rigidity. SPINE: No scoliosis or deformity SKIN: No rashes CENTRAL NERVOUS SYSTEM: No focal deficits, tone is normal in all 4 extremities. EXTREMITIES: Right radial arterial line in place. There is no peripheral edema. Peripheral pulses are intact. - Labs CBC & Chem 7: 08/08/23 04:10 08/08/23 04:10 Labs: Abnormal Lab Results - Last 24 Hours (Table) 07/30/23 08/07/23 08/07/23 Range/Units 09:32 12:05 13:36 WBC (3.8-10.6) k/uL RBC (3.80-5.40) m/uL Hgb (11.4-16.0) gm/dL Hct (34.0-46.0) % RDW (11.5-15.5) % Plt Count (150-450) k/uL Neutrophils # (1.3-7.7) k/uL Sodium (137-145) mmol/L Chloride (98-107) mmol/L Carbon Dioxide (22-30) mmol/L Creatinine (0.52-1.04) mg/dL Glucose (74-99) mg/dL POC Glucose (mg/dL) 132 H 133 H (70-110) mg/dL AST (14-36) U/L ALT (4-34) U/L Total Protein (6.3-8.2) g/dL Crossmatch See Detail 08/07/23 08/07/23 08/07/23 Range/Units 14:59 17:37 18:53 WBC (3.8-10.6) k/uL RBC (3.80-5.40) m/uL Hgb (11.4-16.0) gm/dL Hct (34.0-46.0) % RDW (11.5-15.5) % Plt Count (150-450) k/uL Neutrophils # (1.3-7.7) k/uL Sodium (137-145) mmol/L Chloride (98-107) mmol/L Carbon Dioxide (22-30) mmol/L Creatinine (0.52-1.04) mg/dL Glucose (74-99) mg/dL POC Glucose (mg/dL) 118 H 135 H 130 H (70-110) mg/dL AST (14-36) U/L ALT (4-34) U/L Total Protein (6.3-8.2) g/dL Crossmatch 08/07/23 08/07/23 08/07/23 Range/Units 20:38 21:38 22:15 WBC (3.8-10.6) k/uL RBC (3.80-5.40) m/uL Hgb (11.4-16.0) gm/dL Hct (34.0-46.0) % RDW (11.5-15.5) % Plt Count (150-450) k/uL Neutrophils # (1.3-7.7) k/uL Sodium (137-145) mmol/L Chloride (98-107) mmol/L Carbon Dioxide (22-30) mmol/L Creatinine (0.52-1.04) mg/dL Glucose (74-99) mg/dL POC Glucose (mg/dL) 124 H 112 H 147 H (70-110) mg/dL AST (14-36) U/L ALT (4-34) U/L Total Protein (6.3-8.2) g/dL Crossmatch 08/07/23 08/07/23 08/08/23 Range/Units 22:59 23:53 02:06 WBC (3.8-10.6) k/uL RBC (3.80-5.40) m/uL Hgb (11.4-16.0) gm/dL Hct (34.0-46.0) % RDW (11.5-15.5) % Plt Count (150-450) k/uL Neutrophils # (1.3-7.7) k/uL Sodium (137-145) mmol/L Chloride (98-107) mmol/L Carbon Dioxide (22-30) mmol/L Creatinine (0.52-1.04) mg/dL Glucose (74-99) mg/dL POC Glucose (mg/dL) 141 H 130 H 128 H (70-110) mg/dL AST (14-36) U/L ALT (4-34) U/L Total Protein (6.3-8.2) g/dL Crossmatch 08/08/23 08/08/23 08/08/23 Range/Units 03:01 03:53 04:10 WBC 11.1 H (3.8-10.6) k/uL RBC 3.12 L (3.80-5.40) m/uL Hgb 8.9 L (11.4-16.0) gm/dL Hct 27.8 L (34.0-46.0) % RDW 19.7 H (11.5-15.5) % Plt Count 121 L (150-450) k/uL Neutrophils # 9.4 H (1.3-7.7) k/uL Sodium (137-145) mmol/L Chloride (98-107) mmol/L Carbon Dioxide (22-30) mmol/L Creatinine (0.52-1.04) mg/dL Glucose (74-99) mg/dL POC Glucose (mg/dL) 134 H 133 H (70-110) mg/dL AST (14-36) U/L ALT (4-34) U/L Total Protein (6.3-8.2) g/dL Crossmatch 08/08/23 08/08/23 08/08/23 Range/Units 04:10 05:47 07:17 WBC (3.8-10.6) k/uL RBC (3.80-5.40) m/uL Hgb (11.4-16.0) gm/dL Hct (34.0-46.0) % RDW (11.5-15.5) % Plt Count (150-450) k/uL Neutrophils # (1.3-7.7) k/uL Sodium 136 L (137-145) mmol/L Chloride 110 H (98-107) mmol/L Carbon Dioxide 21 L (22-30) mmol/L Creatinine 0.49 L (0.52-1.04) mg/dL Glucose 115 H (74-99) mg/dL POC Glucose (mg/dL) 124 H 117 H (70-110) mg/dL AST 198 H (14-36) U/L ALT 86 H (4-34) U/L Total Protein 5.1 L (6.3-8.2) g/dL Crossmatch 08/08/23 08/08/23 08/08/23 Range/Units 07:59 09:02 10:08 WBC (3.8-10.6) k/uL RBC (3.80-5.40) m/uL Hgb (11.4-16.0) gm/dL Hct (34.0-46.0) % RDW (11.5-15.5) % Plt Count (150-450) k/uL Neutrophils # (1.3-7.7) k/uL Sodium (137-145) mmol/L Chloride (98-107) mmol/L Carbon Dioxide (22-30) mmol/L Creatinine (0.52-1.04) mg/dL Glucose (74-99) mg/dL POC Glucose (mg/dL) 145 H 154 H 155 H (70-110) mg/dL AST (14-36) U/L ALT (4-34) U/L Total Protein (6.3-8.2) g/dL Crossmatch 08/08/23 Range/Units 11:06 WBC (3.8-10.6) k/uL RBC (3.80-5.40) m/uL Hgb (11.4-16.0) gm/dL Hct (34.0-46.0) % RDW (11.5-15.5) % Plt Count (150-450) k/uL Neutrophils # (1.3-7.7) k/uL Sodium (137-145) mmol/L Chloride (98-107) mmol/L Carbon Dioxide (22-30) mmol/L Creatinine (0.52-1.04) mg/dL Glucose (74-99) mg/dL POC Glucose (mg/dL) 140 H (70-110) mg/dL AST (14-36) U/L ALT (4-34) U/L Total Protein (6.3-8.2) g/dL Crossmatch Assessment and Plan Assessment: Symptomatic congenital bicuspid aortic stenosis. Status post aortic valve replacement with 23 mm Inspiris bovine pericardial valve, bilateral pulmonary vein ablation with atricure RF clamp, closure of the left atrial appendage with a 35 mm atricure clip. Postoperative day #2 History of paroxysmal atrial fibrillation, anticoagulated with Eliquis in the outpatient setting Chronic obstructive pulmonary disease Former smoker Hypothyroidism Hypertension Hyperlipidemia Diabetes mellitus Gastroesophageal reflux disease History of anemia Plan: The patient was seen and evaluated Chest x-ray, labs and medications reviewed Continue the current treatment plan Stable and on 3 L nasal cannula Working well with the incentive spirometer Increase her activity as tolerated We will continue to follow I have personally seen and examined the patient, performed the documentation and the assessment and plan as written. Number of minutes spent on the visit: 10.
[2023-08-08] MEDS: ACETAMINOPHEN TAB 325 MG TAB PO PRN (11:44)
[2023-08-08 12:14] LABS: Glucose,Whole Blood 122 mg/dL (70-110)
[2023-08-08 13:44] LABS: Glucose,Whole Blood 127 mg/dL (70-110)
[2023-08-08 15:02] LABS: Glucose,Whole Blood 125 mg/dL (70-110)
[2023-08-08 16:12] LABS: Glucose,Whole Blood 133 mg/dL (70-110)
[2023-08-08 17:51] LABS: Glucose,Whole Blood 126 mg/dL (70-110)
[2023-08-08 19:03] LABS: Glucose,Whole Blood 135 mg/dL (70-110)
[2023-08-08 20:17] LABS: Glucose,Whole Blood 127 mg/dL (70-110)
[2023-08-08 21:27] LABS: Glucose,Whole Blood 137 mg/dL (70-110)
[2023-08-08 23:06] LABS: Glucose,Whole Blood 132 mg/dL (70-110)
[2023-08-09 00:12] LABS: Glucose,Whole Blood 127 mg/dL (70-110)
[2023-08-09 02:11] LABS: Glucose,Whole Blood 125 mg/dL (70-110)
[2023-08-09 04:04] LABS: Glucose,Whole Blood 120 mg/dL (70-110)
[2023-08-09 05:26] LABS: Anisocytosis Slight; Basophils % (A) 0 %; Eosinophils # (A) 0.1 k/uL (0-0.7); Eosinophils % (A) 1 %; HCT 26.9 % (34.0-46.0); HGB 8.3 gm/dL (11.4-16.0); Lymphocytes # (A) 1.4 k/uL (1.0-4.8); Lymphocytes % (A) 15 %; MCH 27.5 pg (25.0-35.0); MCHC 30.9 g/dL (31.0-37.0); Mean Platelet Volume 8.4; Monocytes # (A) 0.4 k/uL (0-1.0); Monocytes % (A) 4 %; Neutrophils # (A) 7.5 k/uL (1.3-7.7); Neutrophils % (A) 79 %; Platelet Count 122 k/uL (150-450); RBC 3.03 m/uL (3.80-5.40); RDW 19.9 % (11.5-15.5); WBC 9.4 k/uL (3.8-10.6)
[2023-08-09 05:36] LABS: ALT 131 U/L (4-34); AST 200 U/L (14-36); African American GFR (CKD) >90 (>60 ml/min/1.73 sqM); Albumin 3.4 g/dL (3.5-5.0); Alkaline Phosphatase 52 U/L (38-126); Anion Gap 3 mmol/L; Blood Urea Nitrogen 19 mg/dL (7-17); Calcium 8.6 mg/dL (8.4-10.2); Carbon Dioxide 24 mmol/L (22-30); Chloride 108 mmol/L (98-107); Glucose 104 mg/dL (74-99); Non-African American GFR(CKD) >90 (>60 ml/min/1.73 sqM); Sodium 135 mmol/L (137-145); Total Bilirubin 1.4 mg/dL (0.2-1.3)
--- NOTE | 2023-08-09 05:54 | P.PN ---
Subjective Progress Note Date: 08/08/23 Patient pleasant 58-year-old female is admitted for elective aortic valve replacement with a bovine pericardial valve bilateral pulmonary ablation and closure of the left atrial appendage. Patient is extubated at this time patient has [place]-Brandy in place which is being managed by cardiothoracic surgery. Patient does have a history of COPD has been some wheezing. Patient is also on milrinone drip patient is CVP of 22 cardiac index of 2.1. Patient is on insulin drip he is diabetic, uses glipizide 10 mg p.o. twice daily. Patient has a mediastinal chest tube left pleural and right pleural chest tubes were removed. Patient does have some leukocytosis patient is complaining of some soreness at the surgical site area. 08/08/2023 Patient seen and evaluated in follow-up today post aortic valve replacement and currently sitting up in the chair lethargic although arousable. Patient is a diabetic currently maintained on insulin drip and will transition to sliding scale along with long-acting as needed with Accu-Cheks ACHS. Hemoglobin is stable above 8 and platelets being monitored recommend follow-up labs in the a.m. chest x-ray reveals some improving vascular congestion. Patient is curren tly afebrile and white count has normalized. Patient reports some shortness of breath with chest wall pain with no reports of palpitations noted. Review of systems: Constitutional: reports of fatigue, no fever, or chills Cardiovascular: No reports of chest pain or palpitations, reports chest wall pain Respiratory: reports of shortness of breath and occasional cough GI: No reports of nausea, vomiting, or diarrhea, reports not much of an appetite : No reports of dysuria or retention Neurovascular: reports of generalized weakness All medications have been reviewed PHYSICAL EXAMINATION: GENERAL: The patient is asleep although easily arousable, alert and oriented x3, not in any acute distress. Well developed, well nourished. HEENT: Pupils are round and equally reacting to light. EOMI. No scleral icterus. No conjunctival pallor. Normocephalic, atraumatic. No pharyngeal erythema. No thyromegaly. CARDIOVASCULAR: S1 and S2 muffled PULMONARY: Diminished breath sounds bilaterally otherwise chest is clear to auscultation, no wheezing, few noted crackles at the bases. ABDOMEN: Soft, nontender, nondistended, normoactive bowel sounds. No palpable organomegaly. MUSCULOSKELETAL: No joint swelling or deformity. EXTREMITIES: No cyanosis, clubbing, or pedal edema. Generalized edema noted of lower extremities NEUROLOGICAL: Gross neurological examination did not reveal any focal deficits. Diffusely weak SKIN: No rashes. Pale Assessment and plan -Symptomatic anastomotic stenosis patient had a bicuspid aortic valve status post replacement along with above-mentioned procedures. Patient remains on milrinone drip, being managed by cardiothoracic surgery. -Paroxysmal atrial fibrillation patient is presently sinus rhythm status post left atrial appendage closure, patient is on anticoagulation with Eliquis which is being continued -COPD with mild acute exacerbation patient is on bronchodilators for this -Hypothyroidism resumed on levothyroxine -Type 2 diabetes mellitus patient is on IV insulin at this time and we will transition to sliding scale as well as long-acting as needed and recommend Accu- Cheks before meals and at bedtime and 2 AM. Continue holding oral diabetic agents at this time and resume on discharge -Hyperlipidemia history -Gastroesophageal reflux disease, continue Protonix -DVT prophylaxis: As per primary service -GI prophylaxis -Full code Plan: Patient is status post aortic valve replacement maintained in the ICU with multiple medical consultations following. Patient is continued on insulin drip and will transition to sliding scale with Accu-Cheks ACHS and 2 AM. Will add long-acting and monitor blood sugar closely for tight glycemic control Incentive spirometer at the bedside encouraged to continue using at least 10 times every hour while awake Patient with history of COPD recommend to continue with DuoNeb treatments and supplemental oxygen. Wean FiO2 as tolerated, currently on 2 L PT/OT therapy to work with the patient We will continue to follow with cardiothoracic surgery hospitalization. Thank you kindly for this consultation. The impression and plan of care has been dictated by Lidia Marrero, Nurse Practitioner as directed. Dr. Mailck MD I have performed a history and examination and MDM of this patient, discussed the same with the dictator, and agree with the dictator's assessment and plan as written ,documented as a scribe. Based on total visit time, I have performed more than 50% of the visit. Objective - Vital Signs Vital signs: Vital Signs Temp 98.3 F 08/09/23 04:00 Pulse 88 08/09/23 04:30 Resp 22 08/09/23 04:30 BP 121/58 08/09/23 04:00 Pulse Ox 96 08/09/23 04:30 FiO2 50 08/06/23 20:30 Intake & Output 08/08/23 08/08/23 08/09/23 06:59 18:59 06:59 Intake Total 6283.451 3177.252 470.327 Output Total 415 1060 310 Balance 1047.283 204.252 160.327 Weight 71.8 kg Intake: IV 948 749 460 Lactated Ringers 1,000 ml 600 570 400 @ 20 mls/hr IV .Q24H [facility] Rx#:[id number] ns for cardiac output 240 80 ns for pressure flush 108 99 60 Intake, IV Titration 14.283 115.252 10.327 Amount Insulin Regular 100 unit 14.283 18.795 10.327 In Sodium Chloride 0.9% 100 ml @ Per Protocol IV .Q0M [facility] Rx#:[id number] Milrinone-D5w Pmx 20 mg 96.457 In Dextrose/Water 1 100ml .bag @ 0.1 MCG/KG/MIN 1. 905 mls/hr IV .Q24H [facility] Rx#:[id number] Oral 500 400 Output: Chest Tube Drainage 180 70 Chest Tube Mediastinal 180 70 Urine 235 990 310 Other: Voiding Method Indwelling Catheter Indwelling Catheter Indwelling Catheter ABP, PAP, CO, CI - Last Documented Arterial Blood Pressure 134/60 Pulmonary Artery Pressure 34/3 Cardiac Output 3.5 Cardiac Index 2.1 - Labs CBC & Chem 7: 08/09/23 05:00 08/09/23 05:00 Labs: Abnormal Lab Results - Last 24 Hours (Table) 08/08/23 08/08/23 08/08/23 Range/Units 05:47 07:17 07:59 RBC (3.80-5.40) m/uL Hgb (11.4-16.0) gm/dL Hct (34.0-46.0) % MCHC (31.0-37.0) g/dL RDW (11.5-15.5) % Plt Count (150-450) k/uL Sodium (137-145) mmol/L Chloride (98-107) mmol/L BUN (7-17) mg/dL Creatinine (0.52-1.04) mg/dL Glucose (74-99) mg/dL POC Glucose (mg/dL) 124 H 117 H 145 H (70-110) mg/dL Total Bilirubin (0.2-1.3) mg/dL AST (14-36) U/L ALT (4-34) U/L Total Protein (6.3-8.2) g/dL Albumin (3.5-5.0) g/dL 08/08/23 08/08/23 08/08/23 Range/Units 09:02 10:08 11:06 RBC (3.80-5.40) m/uL Hgb (11.4-16.0) gm/dL Hct (34.0-46.0) % MCHC (31.0-37.0) g/dL RDW (11.5-15.5) % Plt Count (150-450) k/uL Sodium (137-145) mmol/L Chloride (98-107) mmol/L BUN (7-17) mg/dL Creatinine (0.52-1.04) mg/dL Glucose (74-99) mg/dL POC Glucose (mg/dL) 154 H 155 H 140 H (70-110) mg/dL Total Bilirubin (0.2-1.3) mg/dL AST (14-36) U/L ALT (4-34) U/L Total Protein (6.3-8.2) g/dL Albumin (3.5-5.0) g/dL 08/08/23 08/08/23 08/08/23 Range/Units 12:12 13:43 15:02 RBC (3.80-5.40) m/uL Hgb (11.4-16.0) gm/dL Hct (34.0-46.0) % MCHC (31.0-37.0) g/dL RDW (11.5-15.5) % Plt Count (150-450) k/uL Sodium (137-145) mmol/L Chloride (98-107) mmol/L BUN (7-17) mg/dL Creatinine (0.52-1.04) mg/dL Glucose (74-99) mg/dL POC Glucose (mg/dL) 122 H 127 H 125 H (70-110) mg/dL Total Bilirubin (0.2-1.3) mg/dL AST (14-36) U/L ALT (4-34) U/L Total Protein (6.3-8.2) g/dL Albumin (3.5-5.0) g/dL 08/08/23 08/08/23 08/08/23 Range/Units 16:06 17:49 19:02 RBC (3.80-5.40) m/uL Hgb (11.4-16.0) gm/dL Hct (34.0-46.0) % MCHC (31.0-37.0) g/dL RDW (11.5-15.5) % Plt Count (150-450) k/uL Sodium (137-145) mmol/L Chloride (98-107) mmol/L BUN (7-17) mg/dL Creatinine (0.52-1.04) mg/dL Glucose (74-99) mg/dL POC Glucose (mg/dL) 133 H 126 H 135 H (70-110) mg/dL Total Bilirubin (0.2-1.3) mg/dL AST (14-36) U/L ALT (4-34) U/L Total Protein (6.3-8.2) g/dL Albumin (3.5-5.0) g/dL 08/08/23 08/08/23 08/08/23 Range/Units 20:16 21:25 23:05 RBC (3.80-5.40) m/uL Hgb (11.4-16.0) gm/dL Hct (34.0-46.0) % MCHC (31.0-37.0) g/dL RDW (11.5-15.5) % Plt Count (150-450) k/uL Sodium (137-145) mmol/L Chloride (98-107) mmol/L BUN (7-17) mg/dL Creatinine (0.52-1.04) mg/dL Glucose (74-99) mg/dL POC Glucose (mg/dL) 127 H 137 H 132 H (70-110) mg/dL Total Bilirubin (0.2-1.3) mg/dL AST (14-36) U/L ALT (4-34) U/L Total Protein (6.3-8.2) g/dL Albumin (3.5-5.0) g/dL 08/09/23 08/09/23 08/09/23 Range/Units 00:11 02:10 04:03 RBC (3.80-5.40) m/uL Hgb (11.4-16.0) gm/dL Hct (34.0-46.0) % MCHC (31.0-37.0) g/dL RDW (11.5-15.5) % Plt Count (150-450) k/uL Sodium (137-145) mmol/L Chloride (98-107) mmol/L BUN (7-17) mg/dL Creatinine (0.52-1.04) mg/dL Glucose (74-99) mg/dL POC Glucose (mg/dL) 127 H 125 H 120 H (70-110) mg/dL Total Bilirubin (0.2-1.3) mg/dL AST (14-36) U/L ALT (4-34) U/L Total Protein (6.3-8.2) g/dL Albumin (3.5-5.0) g/dL 08/09/23 08/09/23 Range/Units 05:00 05:00 RBC 3.03 L (3.80-5.40) m/uL Hgb 8.3 L (11.4-16.0) gm/dL Hct 26.9 L (34.0-46.0) % MCHC 30.9 L (31.0-37.0) g/dL RDW 19.9 H (11.5-15.5) % Plt Count 122 L (150-450) k/uL Sodium 135 L (137-145) mmol/L Chloride 108 H (98-107) mmol/L BUN 19 H (7-17) mg/dL Creatinine 0.37 L (0.52-1.04) mg/dL Glucose 104 H (74-99) mg/dL POC Glucose (mg/dL) (70-110) mg/dL Total Bilirubin 1.4 H (0.2-1.3) mg/dL AST 200 H (14-36) U/L ALT 131 H (4-34) U/L Total Protein 5.0 L (6.3-8.2) g/dL Albumin 3.4 L (3.5-5.0) g/dL
[2023-08-09] MEDS ORDERED: DEXTROSE 50% SYRINGE 50 ML IVP PRN ×2 (05:55)
[2023-08-09 06:36] LABS: Glucose,Whole Blood 118 mg/dL (70-110)
[2023-08-09] MEDS: INSULIN ASPART (NovoLOG) 100 UNIT/ML VIAL SQ SCH (06:41)
--- NOTE | 2023-08-09 07:11 | XR ---
EXAMINATION TYPE: XR chest 1V portable DATE OF EXAM: 08/09/2023 5:11 AM CLINICAL INDICATION:Female, 58 years old with history of post cardiac surgery; COMPARISON: Chest radiographs from 08/08/2023 TECHNIQUE: XR chest 1V portable Frontal view of the chest. FINDINGS: Lungs/Pleura: There is no evidence of pleural effusion, focal consolidation, or pneumothorax. Pulmonary vascularity: Unremarkable. Heart/mediastinum: Cardiomediastinal silhouette is prominent in size. Atherosclerotic calcifications are seen in the aorta. Left atrial appendage occlusion device is present. Aortic valve repair change s. Musculoskeletal: No acute osseous pathology. Other findings: None Lines/Tubes: Drainage tubes with tips projecting over the mediastinum. There is a [place]-Brandy catheter sheath projects over the right shoulder. IMPRESSION: Postsurgical changes exam/ lung parenchyma is stable.
--- NOTE | 2023-08-09 08:29 | P.PN ---
Subjective Progress Note Date: 08/09/23 Principal diagnosis: VHD The patient is a pleasant 58-year-old female patient with a past medical history significant for valvular heart disease and known severe symptomatic aortic stenosis and paroxysmal atrial fibrillation as well as multiple comorbid conditions who was diagnosed recently with severe symptomatic aortic stenosis documented to be bicuspid aortic valve by transesophageal echocardiogram. The patient subsequently underwent a heart catheterization which revealed normal coronaries. Then she referred to undergo aortic valve replacement. Yesterday she underwent electively aortic valve replacement using bioprosthetic valve. This is postoperation day #1. The patient overall seems to be stable. She has been maintaining normal sinus mechanism. Currently she is on amiodarone IV. She will be restarted back on flecainide orally and she was on the flecainide before the surgery. No need for the patient to go on oral amiodarone along with flecainide. Urine output has been adequate. Blood work including CBC and BMP came in to be unremarkable as well. The chest x-ray seems to be slightly wet but she does have marginally low blood pressure. Otherwise she is on aspirin and she is on a statin. The examination is remarkable for stable vital signs with soft blood pressure and diminished breathing sounds bilaterally and she has mild upper and lower extremities edema noted. August 08, 2023 The patient was seen and evaluated this morning. She seems to be congested. The chest x-ray appears to be wet as well. Urine output has been low as well. With that being said I am going to give patient 20 mg of IV Lasix. She continues to be on Primacor. Cardiac index continues to be marginally low. Otherwise she is on Plavix. She continues to be on flecainide. I would consider increasing the dose of flecainide from 50 mg p.o. twice daily to 100 mg p.o. twice daily. Restart the patient back on oral anticoagulation once her pacer and lines are out. The examination is remarkable for diminished breathing sounds bilaterally and the patient appears to be quite congested and coughing and regular rate and rhythm and no edema was noted in the lower extremities. August 09, 2023 The patient was seen and evaluated this morning. She continues to have con gestion and she does have bilateral rhonchi. Her CVP was elevated. She continues to be on Primacor. The chest x-ray was reviewed and seems to be slightly better than yesterday. Urine output has been on the low end. With all of that I am going to give the patient 20 mg of Lasix IV and continue monitor the kidney function and electrolytes and follow-up with the patient. The examination is remarkable for diminished breathing sounds bilaterally and bilateral rhonchi and regular rhythm. Assessment Status post aortic valve replacement for severe symptomatic bicuspid aortic valve stenosis Paroxysmal atrial fibrillation Multiple comorbid conditions Plan Continue the current medical regimen Consider increasing the dose of flecainide Give the patient 20 mg of Lasix IV once Restart the patient back on oral anticoagulation once the pacer and lines out Follow-up with the patient Objective - Vital Signs Vital signs: Vital Signs Temp 98.3 F 08/09/23 04:00 Pulse 87 08/09/23 07:00 Resp 24 08/09/23 07:00 BP 129/64 08/09/23 07:00 Pulse Ox 96 08/09/23 07:00 FiO2 50 08/06/23 20:30 Intake & Output 08/08/23 08/09/23 08/09/23 18:59 06:59 18:59 Intake Total 1264.252 562.327 92 Output Total 1060 360 15 Balance 204.252 202.327 77 Weight 71.2 kg Intake: IV 749 552 92 Lactated Ringers 1,000 ml 570 480 80 @ 20 mls/hr IV .Q24H [facility] Rx#:[id number] ns for cardiac output 80 ns for pressure flush 99 72 12 Intake, IV Titration 115.252 10.327 Amount Insulin Regular 100 unit 18.795 10.327 In Sodium Chloride 0.9% 100 ml @ Per Protocol IV .Q0M [facility] Rx#:[id number] Milrinone-D5w Pmx 20 mg 96.457 In Dextrose/Water 1 100ml .bag @ 0.1 MCG/KG/MIN 1. 905 mls/hr IV .Q24H [facility] Rx#:[id number] Oral 400 Output: Chest Tube Drainage 70 Chest Tube Mediastinal 70 Urine 990 360 15 Other: Voiding Method Indwelling Catheter Indwelling Catheter ABP, PAP, CO, CI - Last Documented Arterial Blood Pressure 112/98 Pulmonary Artery Pressure 34/3 Cardiac Output 3.5 Cardiac Index 2.1 - Labs CBC & Chem 7: 08/09/23 05:00 08/09/23 05:00 Labs: Abnormal Lab Results - Last 24 Hours (Table) 08/08/23 08/08/23 08/08/23 Range/Units 09:02 10:08 11:06 RBC (3.80-5.40) m/uL Hgb (11.4-16.0) gm/dL Hct (34.0-46.0) % MCHC (31.0-37.0) g/dL RDW (11.5-15.5) % Plt Count (150-450) k/uL Sodium (137-145) mmol/L Chloride (98-107) mmol/L BUN (7-17) mg/dL Creatinine (0.52-1.04) mg/dL Glucose (74-99) mg/dL POC Glucose (mg/dL) 154 H 155 H 140 H (70-110) mg/dL Total Bilirubin (0.2-1.3) mg/dL AST (14-36) U/L ALT (4-34) U/L Total Protein (6.3-8.2) g/dL Albumin (3.5-5.0) g/dL 08/08/23 08/08/23 08/08/23 Range/Units 12:12 13:43 15:02 RBC (3.80-5.40) m/uL Hgb (11.4-16.0) gm/dL Hct (34.0-46.0) % MCHC (31.0-37.0) g/dL RDW (11.5-15.5) % Plt Count (150-450) k/uL Sodium (137-145) mmol/L Chloride (98-107) mmol/L BUN (7-17) mg/dL Creatinine (0.52-1.04) mg/dL Glucose (74-99) mg/dL POC Glucose (mg/dL) 122 H 127 H 125 H (70-110) mg/dL Total Bilirubin (0.2-1.3) mg/dL AST (14-36) U/L ALT (4-34) U/L Total Protein (6.3-8.2) g/dL Albumin (3.5-5.0) g/dL 08/08/23 08/08/23 08/08/23 Range/Units 16:06 17:49 19:02 RBC (3.80-5.40) m/uL Hgb (11.4-16.0) gm/dL Hct (34.0-46.0) % MCHC (31.0-37.0) g/dL RDW (11.5-15.5) % Plt Count (150-450) k/uL Sodium (137-145) mmol/L Chloride (98-107) mmol/L BUN (7-17) mg/dL Creatinine (0.52-1.04) mg/dL Glucose (74-99) mg/dL POC Glucose (mg/dL) 133 H 126 H 135 H (70-110) mg/dL Total Bilirubin (0.2-1.3) mg/dL AST (14-36) U/L ALT (4-34) U/L Total Protein (6.3-8.2) g/dL Albumin (3.5-5.0) g/dL 08/08/23 08/08/23 08/08/23 Range/Units 20:16 21:25 23:05 RBC (3.80-5.40) m/uL Hgb (11.4-16.0) gm/dL Hct (34.0-46.0) % MCHC (31.0-37.0) g/dL RDW (11.5-15.5) % Plt Count (150-450) k/uL Sodium (137-145) mmol/L Chloride (98-107) mmol/L BUN (7-17) mg/dL Creatinine (0.52-1.04) mg/dL Glucose (74-99) mg/dL POC Glucose (mg/dL) 127 H 137 H 132 H (70-110) mg/dL Total Bilirubin (0.2-1.3) mg/dL AST (14-36) U/L ALT (4-34) U/L Total Protein (6.3-8.2) g/dL Albumin (3.5-5.0) g/dL 08/09/23 08/09/23 08/09/23 Range/Units 00:11 02:10 04:03 RBC (3.80-5.40) m/uL Hgb (11.4-16.0) gm/dL Hct (34.0-46.0) % MCHC (31.0-37.0) g/dL RDW (11.5-15.5) % Plt Count (150-450) k/uL Sodium (137-145) mmol/L Chloride (98-107) mmol/L BUN (7-17) mg/dL Creatinine (0.52-1.04) mg/dL Glucose (74-99) mg/dL POC Glucose (mg/dL) 127 H 125 H 120 H (70-110) mg/dL Total Bilirubin (0.2-1.3) mg/dL AST (14-36) U/L ALT (4-34) U/L Total Protein (6.3-8.2) g/dL Albumin (3.5-5.0) g/dL 08/09/23 08/09/23 08/09/23 Range/Units 05:00 05:00 06:35 RBC 3.03 L (3.80-5.40) m/uL Hgb 8.3 L (11.4-16.0) gm/dL Hct 26.9 L (34.0-46.0) % MCHC 30.9 L (31.0-37.0) g/dL RDW 19.9 H (11.5-15.5) % Plt Count 122 L (150-450) k/uL Sodium 135 L (137-145) mmol/L Chloride 108 H (98-107) mmol/L BUN 19 H (7-17) mg/dL Creatinine 0.37 L (0.52-1.04) mg/dL Glucose 104 H (74-99) mg/dL POC Glucose (mg/dL) 118 H (70-110) mg/dL Total Bilirubin 1.4 H (0.2-1.3) mg/dL AST 200 H (14-36) U/L ALT 131 H (4-34) U/L Total Protein 5.0 L (6.3-8.2) g/dL Albumin 3.4 L (3.5-5.0) g/dL
[2023-08-09] MEDS: MAGNESIUM HYDROXIDE 2,400 MG/30 ML CUP PO PRN (08:35)
--- NOTE | 2023-08-09 08:39 | P.PN ---
Subjective Progress Note Date: 08/09/23 Principal diagnosis: Calcific symptomatic congenital bicuspid aortic stenosis, paroxysmal atrial fibrillation. Previous medical history of hypertension, hyperlipidemia, diabetes mellitus type 2, paroxysmal atrial fibrillation on Eliquis for anticoagulation, asthma, severe chronic obstructive pulmonary disease, previous tobacco dependence, GERD, hypothyroid, anemia, TIA with no residual effects, bilateral internal carotid artery stenosis POD #3 aortic valve replacement with 23 mm Inspiris bovine pericardial valve, bilateral pulmonary vein ablation with AtriCure RF clamp, closure of the left atrial appendage with a 35 mm AtriCure clip, epiaortic ultrasonography Postoperative acute blood loss anemia, expected given hemodilution and cardiopulmonary bypass pump as well as history of anemia The patient was seen and examined this morning while sitting up in recliner in the intensive care unit in no acute distress. Currently in sinus rhythm, hemodynamically stable. Currently on IV Primacor. States expected postoperative pain controlled with current medication regimen, denies shortness of breath. Currently on 2 L nasal cannula, able to achieve 1000 mL on her inc entive spirometer. Right internal jugular cordis, left radial arterial line, mediastinal chest tube present. Labs, chest x-rays reviewed. She did ambulate yesterday with assistance. No other new concerns. Objective - Vital Signs Vital signs: Vital Signs Temp 98.3 F 08/09/23 04:00 Pulse 87 08/09/23 07:00 Resp 24 08/09/23 07:00 BP 129/64 08/09/23 07:00 Pulse Ox 96 08/09/23 07:00 FiO2 50 08/06/23 20:30 Intake & Output 08/08/23 08/09/23 08/09/23 18:59 06:59 18:59 Intake Total 1264.252 562.327 92 Output Total 1060 360 15 Balance 204.252 202.327 77 Weight 71.2 kg Intake: IV 749 552 92 Lactated Ringers 1,000 ml 570 480 80 @ 20 mls/hr IV .Q24H [facility] Rx#:[id number] ns for cardiac output 80 ns for pressure flush 99 72 12 Intake, IV Titration 115.252 10.327 Amount Insulin Regular 100 unit 18.795 10.327 In Sodium Chloride 0.9% 100 ml @ Per Protocol IV .Q0M [facility] Rx#:[id number] Milrinone-D5w Pmx 20 mg 96.457 In Dextrose/Water 1 100ml .bag @ 0.1 MCG/KG/MIN 1. 905 mls/hr IV .Q24H [facility] Rx#:[id number] Oral 400 Output: Chest Tube Drainage 70 Chest Tube Mediastinal 70 Urine 990 360 15 Other: Voiding Method Indwelling Catheter Indwelling Catheter ABP, PAP, CO, CI - Last Documented Arterial Blood Pressure 112/98 Pulmonary Artery Pressure 34/3 Cardiac Output 3.5 Cardiac Index 2.1 - Exam CONSTITUTIONAL: Appears comfortable, cooperative, no acute distress RESPIRATORY: Lungs sounds diminished bilaterally. Respirations even, nonlabored. Currently on 2 L nasal cannula with oxygen saturation 94%. Able to achieve 1000 mL on incentive spirometry. Strong cough. CARDIOVASCULAR: S1, S2 present. Regular rate and rhythm, sinus rhythm on telemetry. Sternum stable. Palpable peripheral pulses bilaterally. Generalized edema present. No calf pain or tenderness noted. Heart hugger in place with patient demonstrating appropriate use. Antiembolism stockings, SCDs present. GASTROINTESTINAL: Abdomen soft, nontender, nondistended. Active bowel sounds present 4 quadrants. Tolerating diet. Positive flatus GENITOURINARY: Cartwright present draining clear, yellow urine. Output overnight 20-30 mL per hour, 1350 mL in the last 24 hours INTEGUMENTARY: Skin is warm and dry with evidence of good perfusion. Anterior chest incision well approximated and covered with dry intact dressing NEUROLOGIC: Cranial nerves II through XII intact MUSKULOSKELETAL: Able to move all extremities, strength equal bilaterally PSYCHIATRIC: Alert and oriented to person place and time, appropriate affect, intact judgment and insight INVASIVE LINES AND TUBES: Mediastinal chest tube present and connected to wall suction, no air leak present, 200 mL serosanguineous drainage in the last 24 hours. A/V epicardial pacemaker wires present, connected to generator, turned off. Right internal jugular cordis, left radial arterial line present. Last CVP 9. - Allied health notes Allied health notes reviewed: nursing - Labs CBC & Chem 7: 08/09/23 05:00 08/09/23 05:00 Labs: Abnormal Lab Results - Last 24 Hours (Table) 08/08/23 08/08/23 08/08/23 Range/Units 09:02 10:08 11:06 RBC (3.80-5.40) m/uL Hgb (11.4-16.0) gm/dL Hct (34.0-46.0) % MCHC (31.0-37.0) g/dL RDW (11.5-15.5) % Plt Count (150-450) k/uL Sodium (137-145) mmol/L Chloride (98-107) mmol/L BUN (7-17) mg/dL Creatinine (0.52-1.04) mg/dL Glucose (74-99) mg/dL POC Glucose (mg/dL) 154 H 155 H 140 H (70-110) mg/dL Total Bilirubin (0.2-1.3) mg/dL AST (14-36) U/L ALT (4-34) U/L Total Protein (6.3-8.2) g/dL Albumin (3.5-5.0) g/dL 08/08/23 08/08/23 08/08/23 Range/Units 12:12 13:43 15:02 RBC (3.80-5.40) m/uL Hgb (11.4-16.0) gm/dL Hct (34.0-46.0) % MCHC (31.0-37.0) g/dL RDW (11.5-15.5) % Plt Count (150-450) k/uL Sodium (137-145) mmol/L Chloride (98-107) mmol/L BUN (7-17) mg/dL Creatinine (0.52-1.04) mg/dL Glucose (74-99) mg/dL POC Glucose (mg/dL) 122 H 127 H 125 H (70-110) mg/dL Total Bilirubin (0.2-1.3) mg/dL AST (14-36) U/L ALT (4-34) U/L Total Protein (6.3-8.2) g/dL Albumin (3.5-5.0) g/dL 08/08/23 08/08/23 08/08/23 Range/Units 16:06 17:49 19:02 RBC (3.80-5.40) m/uL Hgb (11.4-16.0) gm/dL Hct (34.0-46.0) % MCHC (31.0-37.0) g/dL RDW (11.5-15.5) % Plt Count (150-450) k/uL Sodium (137-145) mmol/L Chloride (98-107) mmol/L BUN (7-17) mg/dL Creatinine (0.52-1.04) mg/dL Glucose (74-99) mg/dL POC Glucose (mg/dL) 133 H 126 H 135 H (70-110) mg/dL Total Bilirubin (0.2-1.3) mg/dL AST (14-36) U/L ALT (4-34) U/L Total Protein (6.3-8.2) g/dL Albumin (3.5-5.0) g/dL 08/08/23 08/08/23 08/08/23 Range/Units 20:16 21:25 23:05 RBC (3.80-5.40) m/uL Hgb (11.4-16.0) gm/dL Hct (34.0-46.0) % MCHC (31.0-37.0) g/dL RDW (11.5-15.5) % Plt Count (150-450) k/uL Sodium (137-145) mmol/L Chloride (98-107) mmol/L BUN (7-17) mg/dL Creatinine (0.52-1.04) mg/dL Glucose (74-99) mg/dL POC Glucose (mg/dL) 127 H 137 H 132 H (70-110) mg/dL Total Bilirubin (0.2-1.3) mg/dL AST (14-36) U/L ALT (4-34) U/L Total Protein (6.3-8.2) g/dL Albumin (3.5-5.0) g/dL 08/09/23 08/09/23 08/09/23 Range/Units 00:11 02:10 04:03 RBC (3.80-5.40) m/uL Hgb (11.4-16.0) gm/dL Hct (34.0-46.0) % MCHC (31.0-37.0) g/dL RDW (11.5-15.5) % Plt Count (150-450) k/uL Sodium (137-145) mmol/L Chloride (98-107) mmol/L BUN (7-17) mg/dL Creatinine (0.52-1.04) mg/dL Glucose (74-99) mg/dL POC Glucose (mg/dL) 127 H 125 H 120 H (70-110) mg/dL Total Bilirubin (0.2-1.3) mg/dL AST (14-36) U/L ALT (4-34) U/L Total Protein (6.3-8.2) g/dL Albumin (3.5-5.0) g/dL 08/09/23 08/09/23 08/09/23 Range/Units 05:00 05:00 06:35 RBC 3.03 L (3.80-5.40) m/uL Hgb 8.3 L (11.4-16.0) gm/dL Hct 26.9 L (34.0-46.0) % MCHC 30.9 L (31.0-37.0) g/dL RDW 19.9 H (11.5-15.5) % Plt Count 122 L (150-450) k/uL Sodium 135 L (137-145) mmol/L Chloride 108 H (98-107) mmol/L BUN 19 H (7-17) mg/dL Creatinine 0.37 L (0.52-1.04) mg/dL Glucose 104 H (74-99) mg/dL POC Glucose (mg/dL) 118 H (70-110) mg/dL Total Bilirubin 1.4 H (0.2-1.3) mg/dL AST 200 H (14-36) U/L ALT 131 H (4-34) U/L Total Protein 5.0 L (6.3-8.2) g/dL Albumin 3.4 L (3.5-5.0) g/dL - Imaging and Cardiology Chest x-ray: report reviewed, image reviewed Assessment and Plan Assessment: Calcific symptomatic congenital bicuspid aortic stenosis, status post aortic valve replacement with 23 mm Inspiris bovine pericardial valve Hypertension Hyperlipidemia, treated, cholesterol 151, LDL 79 Diabetes mellitus type 2, hemoglobin A1c 6.3% Paroxysmal atrial fibrillation on Eliquis for anticoagulation and flecainide as an outpatient, status post bilateral pulmonary vein ablation with AtriCure RF clamp, closure of the left atrial appendage with a 35 mm AtriCure clip Asthma Severe chronic obstructive pulmonary disease, preoperative FEV1 40% of predicted with DLCO 46% of predicted Previous tobacco dependence, quit March 2022 GERD Hypothyroid, on Synthroid, TSH 0.843 Anemia TIA with no residual effects Bilateral internal carotid artery stenosis 50 to 69% Acute blood loss anemia, expected Elevated transaminases, likely medication induced Plan: Continue to maximize medical therapy with aspirin, statin, Plavix, beta-ky. Will increase beta-ky therapy as tolerated. Upon discharge will discontinue Plavix, decrease aspirin to baby aspirin, and re-add Eliquis per home dose Continue cozaar for afterload reduction Continue flecainide per patient's home dose. No Eliquis until all lines/tubes are discontinued Likely will discontinue IV Primacor today Discontinue Cordis, arterial line Will monitor daily labs and x-rays. Electrolyte replacement per protocol Wean O2 as tolerated. Encourage incentive spirometry use 10 times every hour while awake. Bronchodilators per pulmonology Increase activity, ambulate as tolerated. PT/OT/cardiac rehab consulted GI/DVT prophylaxis Pain control per current medication regimen Insulin management per internal medicine Likely will discontinue mediastinal chest tube Discontinue Cartwright catheter, may bladder scan and straight cath for greater than 300 mL residual Continue to record strict accurate intake and output Daily weights More recommendations to follow based on patient's progress
[2023-08-09] MEDS: BENZOCAINE/MENTHOL LOZENG 1 EACH LOZENGE MUCOUS MEM PRN (09:46)
[2023-08-09] MEDS: FUROSEMIDE 10 MG/ML 2 ML VIAL IV ONE (10:29)
[2023-08-09 11:44] LABS: Glucose,Whole Blood 156 mg/dL (70-110)
--- NOTE | 2023-08-09 12:06 | P.PN ---
Subjective Progress Note Date: 08/09/23 This is a 58-year-old female patient with a history of hypertension, hyperlipidemia, diabetes mellitus, paroxysmal atrial fibrillation anticoagulated with Eliquis, gastroesophageal reflux disease, hypothyroidism, chronic obstructive pulmonary disease, former smoker. She presented here to the emergency room last month with progressive shortness of breath. She was found to have a bicuspid aortic valve with severe aortic valve stenosis. She was brought back today electively for surgery. She had undergone aortic valve replacement with 23 mm Inspiris bovine pericardial valve, bilateral pulmonary vein ablation with atrial cure RF clamp, closure of the left atrial appendage with a 35 mm atrial cure clip and epi aortic ultrasonography. She is seen today postoperatively in the intensive care unit. She is intubated on the mechanical ventilator and assist-control mode at a rate of 12, tidal volume 350, FiO2 100% and a PEEP of 5. Blood gases reveal a PaO2 of 356, pCO2 59 and a pH of 7.19. She is currently sedated on propofol at 30 mcg/kg/min. Amiodarone drip at 1 mg/min. Lactated Ringer's at 20 MLS per hour. She has a right, left and mediastinal split chest tubes in place. She has pacemaker wires in place currently atrial paced. Her cardiac output is 3.4. Cardiac index 2.1. PA pres sures 43/14 with a CVP of 22. She has a right IJ [place]-Brandy catheter in place. Right radial arterial line in place. She has received 2 units of packed red blood cells. Current hemoglobin 9.1. Platelets 92,000. White count 9.3. INR 1.4. Sodium 144. Potassium 3.5. Bicarb 24. BUN 8. Creatinine 0.49. Glucose 107. AST 69. ALT 22. Chest x-ray reveals postsurgical changes with [place]-Brandy catheter tip in place. Chest tubes in place. No evidence of pneumothorax. The patient is seen today August 07, 2023 in follow-up in the intensive care unit. She is awake and alert in no acute distress. Sitting up in a chair at the bedside. Postoperative day #1. She is maintaining O2 saturations in the 90s on 2 L/min per nasal cannula. She is on a Primacor drip at 0.2 mcg/kg/min. Insulin drip at 3 units/h. Lactated Ringer's at 50 MLS per hour. Chest x-ray shows basilar atelectasis. Mediastinal, left and right chest tubes remain in place. Right internal jugular [place]-Brandy catheter remains in place. Cardiac output 3.7. Cardiac index 2.3. Pressure 43/5. CVP 12. Blood pressure stable. White count 11.9. Hemoglobin 9.0. Platelets 123. Sodium 140. Potassium 4.4. Bicarb 22. BUN 12. Creatinine 0.51. Glucose 104. AST 99. ALT 31. She is working well with the incentive spirometer. She is continued on bronchodilators. Heparin for DVT prophylaxis. The patient is seen today August 08, 2023 in follow-up in the intensive care unit. Postoperative day #2. She remains awake and alert in no acute distress. Sitting up in a chair at the bedside. Maintaining O2 saturations in the 90s on 3 L/min per nasal cannula. She has lactated Ringer's at 50 MLS per hour. Insulin drip at 2 units/h. Continues with chest tubes in place. Cardiac output 3.7. Cardiac index 2.3. CVP 7. Is afebrile. Hemodynamically stable. Chest x-ray reveals improving pulmonary vascular congestion. Suspect continued small effusions. She did receive 2 units of packed red blood cells this admission. Current hemoglobin 8.9. Platelets 121. White count 11.1. Sodium 136. Potassium 4.4. Bicarb 21. BUN 17. Creatinine 0.49. Glucose 140. AST 198. ALT 86. She remains on bronchodilators. Heparin for DVT prophylaxis. Working well with the incentive spirometer. The patient is seen today August 09, 2023 in follow-up in the intensive care unit. Postoperative day #3. She is currently sitting up in a chair. Awake and alert in no acute distress. She is maintaining good O2 saturations in the 90s on 2 L/min per nasal cannula. She remains on lactated Ringer's at 40 MLS per hour. Continued on Primacor at 0.1 mcg per kilogram per minute. Chest x-ray reveals postsurgical changes, lung parenchyma stable. No pleural effusion, focal consolidation or pneumothorax. She is status post 2 units of packed red blood cells this admission. Current hemoglobin 8.3. Platelets 122. White count 9.4. Sodium 135. Potassium 4.0. Bicarb 24. BUN 19. Creatinine 0.37. Glucose 104. AST 200. ALT 131. Monitor. Heparin for DVT prophylaxis. Objective - Vital Signs Vital signs: Vital Signs Temp 98.5 F 08/09/23 08:00 Pulse 77 08/09/23 11:00 Resp 42 H 08/09/23 11:00 BP 106/64 08/09/23 11:00 Pulse Ox 94 L 08/09/23 11:00 FiO2 50 08/06/23 20:30 Intake & Output 08/08/23 08/09/23 08/09/23 18:59 06:59 18:59 Intake Total 1264.252 562.327 129 Output Total 1060 360 40 Balance 204.252 202.327 89 Weight 71.2 kg Intake: IV 749 552 129 Lactated Ringers 1,000 ml 570 480 120 @ 20 mls/hr IV .Q24H ALYSSA Rx#:[id number] ns for cardiac output 80 ns for pressure flush 99 72 9 Intake, IV Titration 115.252 10.327 Amount Insulin Regular 100 unit 18.795 10.327 In Sodium Chloride 0.9% 100 ml @ Per Protocol IV .Q0M ALYSSA Rx#:[id number] Milrinone-D5w Pmx 20 mg 96.457 In Dextrose/Water 1 100ml .bag @ 0.1 MCG/KG/MIN 1. 905 mls/hr IV .Q24H ALYSSA Rx#:[id number] Oral 400 Output: Chest Tube Drainage 70 Chest Tube Mediastinal 70 Urine 990 360 40 Other: Voiding Method Indwelling Catheter Indwelling Catheter Indwelling Catheter ABP, PAP, CO, CI - Last Documented Arterial Blood Pressure 112/98 Pulmonary Artery Pressure 34/3 Cardiac Output 3.5 Cardiac Index 2.1 - Exam GENERAL EXAM: Awake, alert 58-year-old female, up in a chair, on 2 L nasal cannula, in no apparent distress. HEAD: Normocephalic. EYES: Normal reaction of pupils, equal size. NOSE: Clear with pink turbinates. THROAT: No erythema or exudates. NECK: No masses, no JVD. Right IJ cordis in place. CHEST: Sternal dressing dry and intact. Heart hugger in place. Mmediastinal chest tube in place. Pacer wires in place. LUNGS: Equal air entry with no crackles, wheeze, rhonchi or dullness. CVS: S1 and S2 normal with no audible murmur, regular rhythm. ABDOMEN: No hepatosplenomegaly, no guarding or rigidity. SPINE: No scoliosis or deformity SKIN: No rashes CENTRAL NERVOUS SYSTEM: No focal deficits, tone is normal in all 4 extremities. EXTREMITIES: Radial arterial line in place. There is no peripheral edema. Peripheral pulses are intact. - Labs CBC & Chem 7: 08/09/23 05:00 08/09/23 05:00 Labs: Abnormal Lab Results - Last 24 Hours (Table) 08/08/23 08/08/23 08/08/23 Range/Units 12:12 13:43 15:02 RBC (3.80-5.40) m/uL Hgb (11.4-16.0) gm/dL Hct (34.0-46.0) % MCHC (31.0-37.0) g/dL RDW (11.5-15.5) % Plt Count (150-450) k/uL Sodium (137-145) mmol/L Chloride (98-107) mmol/L BUN (7-17) mg/dL Creatinine (0.52-1.04) mg/dL Glucose (74-99) mg/dL POC Glucose (mg/dL) 122 H 127 H 125 H (70-110) mg/dL Total Bilirubin (0.2-1.3) mg/dL AST (14-36) U/L ALT (4-34) U/L Total Protein (6.3-8.2) g/dL Albumin (3.5-5.0) g/dL 08/08/23 08/08/23 08/08/23 Range/Units 16:06 17:49 19:02 RBC (3.80-5.40) m/uL Hgb (11.4-16.0) gm/dL Hct (34.0-46.0) % MCHC (31.0-37.0) g/dL RDW (11.5-15.5) % Plt Count (150-450) k/uL Sodium (137-145) mmol/L Chloride (98-107) mmol/L BUN (7-17) mg/dL Creatinine (0.52-1.04) mg/dL Glucose (74-99) mg/dL POC Glucose (mg/dL) 133 H 126 H 135 H (70-110) mg/dL Total Bilirubin (0.2-1.3) mg/dL AST (14-36) U/L ALT (4-34) U/L Total Protein (6.3-8.2) g/dL Albumin (3.5-5.0) g/dL 08/08/23 08/08/23 08/08/23 Range/Units 20:16 21:25 23:05 RBC (3.80-5.40) m/uL Hgb (11.4-16.0) gm/dL Hct (34.0-46.0) % MCHC (31.0-37.0) g/dL RDW (11.5-15.5) % Plt Count (150-450) k/uL Sodium (137-145) mmol/L Chloride (98-107) mmol/L BUN (7-17) mg/dL Creatinine (0.52-1.04) mg/dL Glucose (74-99) mg/dL POC Glucose (mg/dL) 127 H 137 H 132 H (70-110) mg/dL Total Bilirubin (0.2-1.3) mg/dL AST (14-36) U/L ALT (4-34) U/L Total Protein (6.3-8.2) g/dL Albumin (3.5-5.0) g/dL 08/09/23 08/09/23 08/09/23 Range/Units 00:11 02:10 04:03 RBC (3.80-5.40) m/uL Hgb (11.4-16.0) gm/dL Hct (34.0-46.0) % MCHC (31.0-37.0) g/dL RDW (11.5-15.5) % Plt Count (150-450) k/uL Sodium (137-145) mmol/L Chloride (98-107) mmol/L BUN (7-17) mg/dL Creatinine (0.52-1.04) mg/dL Glucose (74-99) mg/dL POC Glucose (mg/dL) 127 H 125 H 120 H (70-110) mg/dL Total Bilirubin (0.2-1.3) mg/dL AST (14-36) U/L ALT (4-34) U/L Total Protein (6.3-8.2) g/dL Albumin (3.5-5.0) g/dL 08/09/23 08/09/23 08/09/23 Range/Units 05:00 05:00 06:35 RBC 3.03 L (3.80-5.40) m/uL Hgb 8.3 L (11.4-16.0) gm/dL Hct 26.9 L (34.0-46.0) % MCHC 30.9 L (31.0-37.0) g/dL RDW 19.9 H (11.5-15.5) % Plt Count 122 L (150-450) k/uL Sodium 135 L (137-145) mmol/L Chloride 108 H (98-107) mmol/L BUN 19 H (7-17) mg/dL Creatinine 0.37 L (0.52-1.04) mg/dL Glucose 104 H (74-99) mg/dL POC Glucose (mg/dL) 118 H (70-110) mg/dL Total Bilirubin 1.4 H (0.2-1.3) mg/dL AST 200 H (14-36) U/L ALT 131 H (4-34) U/L Total Protein 5.0 L (6.3-8.2) g/dL Albumin 3.4 L (3.5-5.0) g/dL 08/09/23 Range/Units 11:42 RBC (3.80-5.40) m/uL Hgb (11.4-16.0) gm/dL Hct (34.0-46.0) % MCHC (31.0-37.0) g/dL RDW (11.5-15.5) % Plt Count (150-450) k/uL Sodium (137-145) mmol/L Chloride (98-107) mmol/L BUN (7-17) mg/dL Creatinine (0.52-1.04) mg/dL Glucose (74-99) mg/dL POC Glucose (mg/dL) 156 H (70-110) mg/dL Total Bilirubin (0.2-1.3) mg/dL AST (14-36) U/L ALT (4-34) U/L Total Protein (6.3-8.2) g/dL Albumin (3.5-5.0) g/dL Assessment and Plan Assessment: Symptomatic congenital bicuspid aortic stenosis. Status post aortic valve replacement with 23 mm Inspiris bovine pericardial valve, bilateral pulmonary vein ablation with atricure RF clamp, closure of the left atrial appendage with a 35 mm atricure clip. Postoperative day #3 History of paroxysmal atrial fibrillation, anticoagulated with Eliquis in the outpatient setting Transaminitis Chronic obstructive pulmonary disease Former smoker Hypothyroidism Hypertension Hyperlipidemia Diabetes mellitus Gastroesophageal reflux disease History of anemia Plan: The patient was seen and evaluated Chest x-ray, labs and medications reviewed Stable and on 2 L nasal cannula Working well with the incentive spirometer Continue bronchodilators Heparin for DVT prophylaxis Increase her activity as tolerated We will continue to follow I have personally seen and examined the patient, performed the documentation and the assessment and plan as written. Number of minutes spent on the visit: 10.
[2023-08-09 17:00] LABS: Glucose,Whole Blood 156 mg/dL (70-110)
[2023-08-09] MEDS: bisacodyL 10 MG SUPP RECTAL PRN (17:05)
--- NOTE | 2023-08-09 19:30 | P.PN ---
Subjective Progress Note Date: 08/09/23 Patient pleasant 58-year-old female is admitted for elective aortic valve replacement with a bovine pericardial valve bilateral pulmonary ablation and closure of the left atrial appendage. Patient is extubated at this time patient has Burn[place]-Brandy in place which is being managed by cardiothoracic surgery. P jeff does have a history of COPD has been some wheezing. Patient is also on milrinone drip patient is CVP of 22 cardiac index of 2.1. Patient is on insulin drip he is diabetic, uses glipizide 10 mg p.o. twice daily. Patient has a mediastinal chest tube left pleural and right pleural chest tubes were removed. Patient does have some leukocytosis patient is complaining of some soreness at the surgical site area. 08/08/2023 Patient seen and evaluated in follow-up today post aortic valve replacement and currently sitting up in the chair lethargic although arousable. Patient is a diabetic currently maintained on insulin drip and will transition to sliding scale along with long-acting as needed with Accu-Cheks ACHS. Hemoglobin is stable above 8 and platelets being monitored recommend follow-up labs in the a.m. chest x-ray reveals some improving vascular congestion. Patient is currently afebrile and white count has normalized. Patient reports some shortness of breath with chest wall pain with no reports of palpitations noted. 08/09/2023 Patient is evaluated in follow up today in the intensive care unit. Postoperative aortic valve. Patient is sitting up in the chair more awake and alert today. Tolerating some diet. No BM yet. Continues with temporary pacer wires, and also has mediastinal chest tube in place. Patient has been maintained on IV primacor overnight. Eliquis remains on hold per CT surgery. Blood glucose trending up to the 150s. Received a dose of IV lasix today. Review of systems: Constitutional: reports of fatigue, no fever, or chills Cardiovascular: No reports of chest pain or palpitations, reports chest wall pain Respiratory: reports of shortness of breath and occasional cough GI: No reports of nausea, vomiting, or diarrhea, reports not much of an appetite : No reports of dysuria or retention Neurovascular: reports of generalized weakness All medications have been reviewed PHYSICAL EXAMINATION: GENERAL: The patient is asleep although easily arousable, alert and oriented x3, not in any acute distress. Well developed, well nourished. HEENT: Pupils are round and equally reacting to light. EOMI. No scleral icterus. No conjunctival pallor. Normocephalic, atraumatic. No pharyngeal erythema. No thyromegaly. CARDIOVASCULAR: S1 and S2 muffled PULMONARY: Diminished breath sounds bilaterally otherwise chest is clear to auscultation, no wheezing, few noted crackles at the bases. Mediastinal CT and pacer wires noted. ABDOMEN: Soft, nontender, nondistended, normoactive bowel sounds. No palpable organomegaly. MUSCULOSKELETAL: No joint swelling or deformity. EXTREMITIES: No cyanosis, clubbing, or pedal edema. Generalized edema noted of lower extremities NEUROLOGICAL: Gross neurological examination did not reveal any focal deficits. Diffusely weak SKIN: No rashes. Pale Assessment and plan -Symptomatic anastomotic stenosis patient had a bicuspid aortic valve status post replacement along with above-mentioned procedures. Patient remains on milrinone drip, being managed by cardiothoracic surgery. -Paroxysmal atrial fibrillation patient is presently sinus rhythm status post left atrial appendage closure, patient is on anticoagulation with Eliquis which is being held until all chest tubes and lines are dc'd per CT surgery. -COPD with mild acute exacerbation patient is on bronchodilators for this -Hypothyroidism resumed on levothyroxine -Type 2 diabetes mellitus patient is on IV insulin at this time and we will transition to sliding scale as well as long-acting as needed and recommend Accu- Cheks before meals and at bedtime and 2 AM. Continue holding oral diabetic agents at this time and resume on discharge. Add small dose of levemir at HS and blood sugar is trending upwards. -Hyperlipidemia history -Gastroesophageal reflux disease, continue Protonix -DVT prophylaxis: As per primary service -GI prophylaxis -Full code Plan: Patient is status post aortic valve replacement maintained in the ICU with multiple medical consultations following. Patient is continued on insulin drip and will transition to sliding scale with Accu-Cheks ACHS and 2 AM. Will add long-acting and monitor blood sugar closely for tight glycemic control Incentive spirometer at the bedside encouraged to continue using at least 10 times every hour while awake Patient with history of COPD recommend to continue with DuoNeb treatments and supplemental oxygen. Wean FiO2 as tolerated, currently on 2 L PT/OT therapy to work with the patient We will continue to follow with cardiothoracic surgery hospitalization. Thank you kindly for this consultation. The impression and plan of care has been dictated by Nadia Marcum, Nurse Practitioner as directed. Dr. Malick MD I have performed a history and physical examination and medical decision making of this patient, discussed the same with the dictator, and agree with the dictators assessment and plan as written, documented as a scribe. Based on total visit time, I have performed more than 50% of this visit. Objective - Vital Signs Vital signs: Vital Signs Temp 98.5 F 08/09/23 08:00 Pulse 88 08/09/23 19:00 Resp 21 08/09/23 19:00 BP 114/68 08/09/23 19:00 Pulse Ox 93 L 08/09/23 19:00 FiO2 50 08/06/23 20:30 Intake & Output 08/09/23 08/09/23 08/10/23 06:59 18:59 06:59 Intake Total 562.327 672 Output Total 360 790 0 Balance 202.327 -118 0 Weight 71.2 kg Intake: IV 552 172 Lactated Ringers 1,000 ml 480 160 @ 20 mls/hr IV .Q24H ALYSSA Rx#:[id number] ns for pressure flush 72 12 Intake, IV Titration 10.327 Amount Insulin Regular 100 unit 10.327 In Sodium Chloride 0.9% 100 ml @ Per Protocol IV .Q0M ALYSSA Rx#:[id number] Oral 500 Output: Urine 360 790 0 Other: Voiding Method Indwelling Catheter Indwelling Catheter # Bowel Movements 1 ABP, PAP, CO, CI - Last Documented Arterial Blood Pressure 112/98 Pulmonary Artery Pressure 34/3 Cardiac Output 3.5 Cardiac Index 2.1 - Labs CBC & Chem 7: 08/09/23 05:00 08/09/23 05:00 Labs: Abnormal Lab Results - Last 24 Hours (Table) 08/08/23 08/08/23 08/08/23 Range/Units 20:16 21:25 23:05 RBC (3.80-5.40) m/uL Hgb (11.4-16.0) gm/dL Hct (34.0-46.0) % MCHC (31.0-37.0) g/dL RDW (11.5-15.5) % Plt Count (150-450) k/uL Sodium (137-145) mmol/L Chloride (98-107) mmol/L BUN (7-17) mg/dL Creatinine (0.52-1.04) mg/dL Glucose (74-99) mg/dL POC Glucose (mg/dL) 127 H 137 H 132 H (70-110) mg/dL Total Bilirubin (0.2-1.3) mg/dL AST (14-36) U/L ALT (4-34) U/L Total Protein (6.3-8.2) g/dL Albumin (3.5-5.0) g/dL 08/09/23 08/09/23 08/09/23 Range/Units 00:11 02:10 04:03 RBC (3.80-5.40) m/uL Hgb (11.4-16.0) gm/dL Hct (34.0-46.0) % MCHC (31.0-37.0) g/dL RDW (11.5-15.5) % Plt Count (150-450) k/uL Sodium (137-145) mmol/L Chloride (98-107) mmol/L BUN (7-17) mg/dL Creatinine (0.52-1.04) mg/dL Glucose (74-99) mg/dL POC Glucose (mg/dL) 127 H 125 H 120 H (70-110) mg/dL Total Bilirubin (0.2-1.3) mg/dL AST (14-36) U/L ALT (4-34) U/L Total Protein (6.3-8.2) g/dL Albumin (3.5-5.0) g/dL 08/09/23 08/09/23 08/09/23 Range/Units 05:00 05:00 06:35 RBC 3.03 L (3.80-5.40) m/uL Hgb 8.3 L (11.4-16.0) gm/dL Hct 26.9 L (34.0-46.0) % MCHC 30.9 L (31.0-37.0) g/dL RDW 19.9 H (11.5-15.5) % Plt Count 122 L (150-450) k/uL Sodium 135 L (137-145) mmol/L Chloride 108 H (98-107) mmol/L BUN 19 H (7-17) mg/dL Creatinine 0.37 L (0.52-1.04) mg/dL Glucose 104 H (74-99) mg/dL POC Glucose (mg/dL) 118 H (70-110) mg/dL Total Bilirubin 1.4 H (0.2-1.3) mg/dL AST 200 H (14-36) U/L ALT 131 H (4-34) U/L Total Protein 5.0 L (6.3-8.2) g/dL Albumin 3.4 L (3.5-5.0) g/dL 08/09/23 08/09/23 Range/Units 11:42 16:58 RBC (3.80-5.40) m/uL Hgb (11.4-16.0) gm/dL Hct (34.0-46.0) % MCHC (31.0-37.0) g/dL RDW (11.5-15.5) % Plt Count (150-450) k/uL Sodium (137-145) mmol/L Chloride (98-107) mmol/L BUN (7-17) mg/dL Creatinine (0.52-1.04) mg/dL Glucose (74-99) mg/dL POC Glucose (mg/dL) 156 H 156 H (70-110) mg/dL Total Bilirubin (0.2-1.3) mg/dL AST (14-36) U/L ALT (4-34) U/L Total Protein (6.3-8.2) g/dL Albumin (3.5-5.0) g/dL Assessment and Plan Time with Patient: Less than 30
[2023-08-09 19:46] LABS: Glucose,Whole Blood 252 mg/dL (70-110)
[2023-08-09] MEDS: INSULIN DETEMIR (LEVEMIR) 100 UNIT/ML SYR SQ SCH (20:28)
[2023-08-10 01:22] LABS: Glucose,Whole Blood 130 mg/dL (70-110)
[2023-08-10 04:06] LABS: Anisocytosis Moderate; HCT 26.6 % (34.0-46.0); HGB 8.4 gm/dL (11.4-16.0); MCH 28.3 pg (25.0-35.0); MCHC 31.5 g/dL (31.0-37.0); Mean Platelet Volume 8.4; Platelet Count 136 k/uL (150-450); RBC 2.96 m/uL (3.80-5.40)
[2023-08-10 04:24] LABS: ALT 130 U/L (4-34); AST 152 U/L (14-36); African American GFR (CKD) >90 (>60 ml/min/1.73 sqM); Albumin 3.2 g/dL (3.5-5.0); Alkaline Phosphatase 64 U/L (38-126); Anion Gap 6 mmol/L; Blood Urea Nitrogen 21 mg/dL (7-17); Calcium 8.6 mg/dL (8.4-10.2); Carbon Dioxide 26 mmol/L (22-30); Chloride 105 mmol/L (98-107); Glucose 115 mg/dL (74-99); Non-African American GFR(CKD) >90 (>60 ml/min/1.73 sqM); Potassium 3.5 mmol/L (3.5-5.1); Sodium 137 mmol/L (137-145); Total Bilirubin 1.5 mg/dL (0.2-1.3)
[2023-08-10 06:35] LABS: Glucose,Whole Blood 145 mg/dL (70-110)
[2023-08-10] MEDS: POTASSIUM CHLORIDE ER 20 MEQ TAB.ER PO SCH (06:38)
--- NOTE | 2023-08-10 07:19 | XR ---
EXAMINATION TYPE: XR chest 1V portable DATE OF EXAM: 08/10/2023 5:47 AM CLINICAL INDICATION:Female, 58 years old with history of post cardiac surgery; [facility] COMPARISON: Chest radiograph from one day prior. TECHNIQUE: XR chest 1V portable Frontal view of the chest. FINDINGS: Lungs/Pleura: There is no evidence of pleural effusion, focal consolidation, or pneumothorax. Pulmonary vascularity: Unremarkable. Heart/mediastinum: Cardiomediastinal silhouette is prominent in size. Atherosclerotic calcifications are seen in the aorta. Left atrial appendage occlusion device is present. Aortic valve repair change s. Musculoskeletal: No acute osseous pathology. Other findings: None Lines/Tubes: IMPRESSION: Postsurgical changes exam/ lung parenchyma is stable.
[2023-08-10] MEDS: HYDROcodone/APAP 5-325MG 1 EACH TAB PO PRN (08:05)
--- NOTE | 2023-08-10 08:06 | P.PN ---
Subjective Progress Note Date: 08/10/23 Principal diagnosis: Calcific symptomatic congenital bicuspid aortic stenosis, paroxysmal atrial fibrillation. Previous medical history of hypertension, hyperlipidemia, diabetes mellitus type 2, paroxysmal atrial fibrillation on Eliquis for anticoagulation, asthma, severe chronic obstructive pulmonary disease, previous tobacco dependence, GERD, hypothyroid, anemia, TIA with no residual effects, bilateral internal carotid artery stenosis POD #4 aortic valve replacement with 23 mm Inspiris bovine pericardial valve, bilateral pulmonary vein ablation with AtriCure RF clamp, closure of the left atrial appendage with a 35 mm AtriCure clip, epiaortic ultrasonography Postoperative acute blood loss anemia, expected given hemodilution and cardiopulmonary bypass pump as well as history of anemia The patient was seen and examined this morning while sitting up in recliner in the intensive care unit in no acute distress. Currently in sinus rhythm, hemodynamically stable. States expected postoperative pain controlled with current medication regimen, denies shortness of breath. States she did not sleep more than 1 hour last night and does not feel good this morning because of it. States she noticed that her breathing feels worse since she has not had her Trelegy since she has been here. Currently on 1 L nasal cannula, able to achieve 750-1000 mL on her incentive spirometer. Labs, chest x-rays reviewed. She did ambulate yesterday with assistance, received first postoperative shower yesterday. No other new concerns. Objective - Vital Signs Vital signs: Vital Signs Temp 98.4 F 08/10/23 04:00 Pulse 86 08/10/23 07:00 Resp 16 08/10/23 07:00 BP 123/58 08/10/23 07:00 Pulse Ox 92 L 08/10/23 07:00 FiO2 50 08/06/23 20:30 Intake & Output 08/09/23 08/10/23 08/10/23 18:59 06:59 18:59 Intake Total 672 Output Total 790 300 0 Balance -118 -300 0 Weight 71.1 kg Intake: IV 172 Lactated Ringers 1,000 ml 160 @ 20 mls/hr IV .Q24H [facility] Rx#:[id number] ns for pressure flush 12 Oral 500 Output: Urine 790 300 0 Other: Voiding Method Indwelling Catheter Bedside Commode # Voids 1 # Bowel Movements 1 ABP, PAP, CO, CI - Last Documented Arterial Blood Pressure 112/98 Pulmonary Artery Pressure 34/3 Cardiac Output 3.5 Cardiac Index 2.1 - Exam CONSTITUTIONAL: Appears comfortable, cooperative, no acute distress RESPIRATORY: Lungs sounds diminished bilaterally. Respirations even, nonlabored. Currently on 1 L nasal cannula with oxygen saturation 92%. Able to achieve 750-1000 mL on incentive spirometry. Strong cough. CARDIOVASCULAR: S1, S2 present. Regular rate and rhythm, sinus rhythm on telemetry. Sternum stable. Palpable peripheral pulses bilaterally. Generalized edema present. No calf pain or tenderness noted. Heart hugger in place with patient demonstrating appropriate use. Antiembolism stockings, SCDs present. GASTROINTESTINAL: Abdomen soft, nontender, nondistended. Active bowel sounds present 4 quadrants. Tolerating diet. Positive bowel movement 08/08 GENITOURINARY: Continues to void, output 1090 in the last 24 hours INTEGUMENTARY: Skin is warm and dry with evidence of good perfusion. Anterior chest incision well approximated NEUROLOGIC: Cranial nerves II through XII intact MUSKULOSKELETAL: Able to move all extremities, strength equal bilaterally PSYCHIATRIC: Alert and oriented to person place and time, appropriate affect, intact judgment and insight INVASIVE LINES AND TUBES: A/V epicardial pacemaker wires present, grounded - Allied health notes Allied health notes reviewed: nursing - Labs CBC & Chem 7: 08/10/23 03:29 08/10/23 03:29 Labs: Abnormal Lab Results - Last 24 Hours (Table) 08/09/23 08/09/23 08/09/23 Range/Units 11:42 16:58 19:45 RBC (3.80-5.40) m/uL Hgb (11.4-16.0) gm/dL Hct (34.0-46.0) % RDW (11.5-15.5) % Plt Count (150-450) k/uL BUN (7-17) mg/dL Creatinine (0.52-1.04) mg/dL Glucose (74-99) mg/dL POC Glucose (mg/dL) 156 H 156 H 252 H (70-110) mg/dL Total Bilirubin (0.2-1.3) mg/dL AST (14-36) U/L ALT (4-34) U/L Total Protein (6.3-8.2) g/dL Albumin (3.5-5.0) g/dL 08/10/23 08/10/2308/09/24 Range/Units 01:21 03:29 03:29 RBC 2.96 L (3.80-5.40) m/uL Hgb 8.4 L (11.4-16.0) gm/dL Hct 26.6 L (34.0-46.0) % RDW 20.0 H (11.5-15.5) % Plt Count 136 L (150-450) k/uL BUN 21 H (7-17) mg/dL Creatinine 0.45 L (0.52-1.04) mg/dL Glucose 115 H (74-99) mg/dL POC Glucose (mg/dL) 130 H (70-110) mg/dL Total Bilirubin 1.5 H (0.2-1.3) mg/dL AST 152 H (14-36) U/L ALT 130 H (4-34) U/L Total Protein 5.0 L (6.3-8.2) g/dL Albumin 3.2 L (3.5-5.0) g/dL 08/10/23 Range/Units 06:34 RBC (3.80-5.40) m/uL Hgb (11.4-16.0) gm/dL Hct (34.0-46.0) % RDW (11.5-15.5) % Plt Count (150-450) k/uL BUN (7-17) mg/dL Creatinine (0.52-1.04) mg/dL Glucose (74-99) mg/dL POC Glucose (mg/dL) 145 H (70-110) mg/dL Total Bilirubin (0.2-1.3) mg/dL AST (14-36) U/L ALT (4-34) U/L Total Protein (6.3-8.2) g/dL Albumin (3.5-5.0) g/dL - Imaging and Cardiology Chest x-ray: report reviewed, image reviewed Assessment and Plan Assessment: Calcific symptomatic congenital bicuspid aortic stenosis, status post aortic valve replacement with 23 mm Inspiris bovine pericardial valve Hypertension Hyperlipidemia, treated, cholesterol 151, LDL 79 Diabetes mellitus type 2, hemoglobin A1c 6.3% Paroxysmal atrial fibrillation on Eliquis for anticoagulation and flecainide as an outpatient, status post bilateral pulmonary vein ablation with AtriCure RF clamp, closure of the left atrial appendage with a 35 mm AtriCure clip Asthma Severe chronic obstructive pulmonary disease, preoperative FEV1 40% of predicted with DLCO 46% of predicted Previous tobacco dependence, quit March 2022 GERD Hypothyroid, on Synthroid, TSH 0.843 Anemia TIA with no residual effects Bilateral internal carotid artery stenosis 50 to 69% Acute blood loss anemia, expected Elevated transaminases, likely medication induced Plan: Continue to maximize medical therapy with aspirin, statin, Plavix, beta-ky. Will increase beta-ky therapy as tolerated. Upon discharge will discontinue Plavix, decrease aspirin to baby aspirin, and re-add Eliquis per home dose Continue cozaar for afterload reduction Continue flecainide per patient's home dose. No Eliquis until all lines/tubes are discontinued Will monitor daily labs and x-rays. Electrolyte replacement per protocol Wean O2 as tolerated. Encourage incentive spirometry use 10 times every hour while awake. Bronchodilators per pulmonology Increase activity, ambulate as tolerated. PT/OT/cardiac rehab consulted GI/DVT prophylaxis Pain control per current medication regimen Insulin management per internal medicine Continue to record strict accurate intake and output Daily weights, shower daily will place transfer orders for 3 S. cardiac stepdown unit, may transfer when bed available More recommendations to follow based on patient's progress
--- NOTE | 2023-08-10 08:39 | P.PN ---
Subjective Progress Note Date: 08/10/23 Principal diagnosis: VHD The patient is a pleasant 58-year-old female patient with a past medical history significant for valvular heart disease and known severe symptomatic aortic stenosis and paroxysmal atrial fibrillation as well as multiple comorbid conditions who was diagnosed recently with severe symptomatic aortic stenosis documented to be bicuspid aortic valve by transesophageal echocardiogram. The patient subsequently underwent a heart catheterization which revealed normal coronaries. Then she referred to undergo aortic valve replacement. Yesterday she underwent electively aortic valve replacement using bioprosthetic valve. This is postoperation day #1. The patient overall seems to be stable. She has been maintaining normal sinus mechanism. Currently she is on amiodarone IV. She will be restarted back on flecainide orally and she was on the flecainide before the surgery. No need for the patient to go on oral amiodarone along with flecainide. Urine output has been adequate. Blood work including CBC and BMP came in to be unremarkable as well. The chest x-ray seems to be slightly wet but she does have marginally low blood pressure. Otherwise she is on aspirin and she is on a statin. The examination is remarkable for stable vital signs with soft blood pressure and diminished breathing sounds bilaterally and she has mild upper and lower extremities edema noted. August 08, 2023 The patient was seen and evaluated this morning. She seems to be congested. The chest x-ray appears to be wet as well. Urine output has been low as well. With that being said I am going to give patient 20 mg of IV Lasix. She continues to be on Primacor. Cardiac index continues to be marginally low. Otherwise she is on Plavix. She continues to be on flecainide. I would consider increasing the dose of flecainide from 50 mg p.o. twice daily to 100 mg p.o. twice daily. Restart the patient back on oral anticoagulation once her pacer and lines are out. The examination is remarkable for diminished breathing sounds bilaterally and the patient appears to be quite congested and coughing and regular rate and rhythm and no edema was noted in the lower extremities. August 09, 2023 The patient was seen and evaluated this morning. She continues to have con gestion and she does have bilateral rhonchi. Her CVP was elevated. She continues to be on Primacor. The chest x-ray was reviewed and seems to be slightly better than yesterday. Urine output has been on the low end. With all of that I am going to give the patient 20 mg of Lasix IV and continue monitor the kidney function and electrolytes and follow-up with the patient. The examination is remarkable for diminished breathing sounds bilaterally and bilateral rhonchi and regular rhythm. August 10, 2023 The patient was seen and evaluated this morning. She is doing better. She is not as congested as yesterday. She still have the pacer wire in place. Once out she need to be started on oral anticoagulation. She has been maintaining normal sinus mechanism. Urine output has been improved. She is off Primacor at this point. From a cardiac standpoint of view, we will continue the current medical regimen. The examination is remarkable for regular rhythm with diminished breathing sounds bilaterally and no edema was noted. Assessment Status post aortic valve replacement for severe symptomatic bicuspid aortic valve stenosis Paroxysmal atrial fibrillation Multiple comorbid conditions Plan Continue the current medical regimen Consider increasing the dose of flecainide Restart the patient back on oral anticoagulation once the pacer and lines out Follow-up with the patient Objective - Vital Signs Vital signs: Vital Signs Temp 98.2 F 08/10/23 08:00 Pulse 89 08/10/23 08:00 Resp 22 08/10/23 08:00 BP 115/61 08/10/23 08:00 Pulse Ox 96 08/10/23 08:00 FiO2 50 08/06/23 20:30 Intake & Output 08/09/23 08/10/23 08/10/23 18:59 06:59 18:59 Intake Total 672 200 Output Total 790 300 0 Balance -118 -300 200 Weight 71.1 kg Intake: IV 172 Lactated Ringers 1,000 ml 160 @ 20 mls/hr IV .Q24H [facility] Rx#:[id number] ns for pressure flush 12 Oral 500 200 Output: Urine 790 300 0 Other: Voiding Method Indwelling Catheter Bedside Commode # Voids 1 # Bowel Movements 1 ABP, PAP, CO, CI - Last Documented Arterial Blood Pressure 112/98 Pulmonary Artery Pressure 34/3 Cardiac Output 3.5 Cardiac Index 2.1 - Labs CBC & Chem 7: 08/10/23 03:29 08/10/23 03:29 Labs: Abnormal Lab Results - Last 24 Hours (Table) 08/09/23 08/09/23 08/09/23 Range/Units 11:42 16:58 19:45 RBC (3.80-5.40) m/uL Hgb (11.4-16.0) gm/dL Hct (34.0-46.0) % RDW (11.5-15.5) % Plt Count (150-450) k/uL BUN (7-17) mg/dL Creatinine (0.52-1.04) mg/dL Glucose (74-99) mg/dL POC Glucose (mg/dL) 156 H 156 H 252 H (70-110) mg/dL Total Bilirubin (0.2-1.3) mg/dL AST (14-36) U/L ALT (4-34) U/L Total Protein (6.3-8.2) g/dL Albumin (3.5-5.0) g/dL 08/10/23 08/10/23 08/10/23 Range/Units 01:21 03:29 03:29 RBC 2.96 L (3.80-5.40) m/uL Hgb 8.4 L (11.4-16.0) gm/dL Hct 26.6 L (34.0-46.0) % RDW 20.0 H (11.5-15.5) % Plt Count 136 L (150-450) k/uL BUN 21 H (7-17) mg/dL Creatinine 0.45 L (0.52-1.04) mg/dL Glucose 115 H (74-99) mg/dL POC Glucose (mg/dL) 130 H (70-110) mg/dL Total Bilirubin 1.5 H (0.2-1.3) mg/dL AST 152 H (14-36) U/L ALT 130 H (4-34) U/L Total Protein 5.0 L (6.3-8.2) g/dL Albumin 3.2 L (3.5-5.0) g/dL 08/10/23 Range/Units 06:34 RBC (3.80-5.40) m/uL Hgb (11.4-16.0) gm/dL Hct (34.0-46.0) % RDW (11.5-15.5) % Plt Count (150-450) k/uL BUN (7-17) mg/dL Creatinine (0.52-1.04) mg/dL Glucose (74-99) mg/dL POC Glucose (mg/dL) 145 H (70-110) mg/dL Total Bilirubin (0.2-1.3) mg/dL AST (14-36) U/L ALT (4-34) U/L Total Protein (6.3-8.2) g/dL Albumin (3.5-5.0) g/dL
--- NOTE | 2023-08-10 11:58 | P.PN ---
Subjective Progress Note Date: 08/10/23 This is a 58-year-old female patient with a history of hypertension, hyperlipidemia, diabetes mellitus, paroxysmal atrial fibrillation anticoagulated with Eliquis, gastroesophageal reflux disease, hypothyroidism, chronic obstructive pulmonary disease, former smoker. She presented here to the emergency room last month with progressive shortness of breath. She was found to have a bicuspid aortic valve with severe aortic valve stenosis. She was brought back today electively for surgery. She had undergone aortic valve replacement with 23 mm Inspiris bovine pericardial valve, bilateral pulmonary vein ablation with atrial cure RF clamp, closure of the left atrial appendage with a 35 mm atrial cure clip and epi aortic ultrasonography. She is seen today postoperatively in the intensive care unit. She is intubated on the mechanical ventilator and assist-control mode at a rate of 12, tidal volume 350, FiO2 100% and a PEEP of 5. Blood gases reveal a PaO2 of 356, pCO2 59 and a pH of 7.19. She is currently sedated on propofol at 30 mcg/kg/min. Amiodarone drip at 1 mg/min. Lactated Ringer's at 20 MLS per hour. She has a right, left and mediastinal split chest tubes in place. She has pacemaker wires in place currently atrial paced. Her cardiac output is 3.4. Cardiac index 2.1. PA pres sures 43/14 with a CVP of 22. She has a right IJ [place] catheter in place. Right radial arterial line in place. She has received 2 units of packed red blood cells. Current hemoglobin 9.1. Platelets 92,000. White count 9.3. INR 1.4. Sodium 144. Potassium 3.5. Bicarb 24. BUN 8. Creatinine 0.49. Glucose 107. AST 69. ALT 22. Chest x-ray reveals postsurgical changes with [place] catheter tip in place. Chest tubes in place. No evidence of pneumothorax. The patient is seen today August 07, 2023 in follow-up in the intensive care unit. She is awake and alert in no acute distress. Sitting up in a chair at the bedside. Postoperative day #1. She is maintaining O2 saturations in the 90s on 2 L/min per nasal cannula. She is on a Primacor drip at 0.2 mcg/kg/min. Insulin drip at 3 units/h. Lactated Ringer's at 50 MLS per hour. Chest x-ray shows basilar atelectasis. Mediastinal, left and right chest tubes remain in place. Right internal jugular [place] catheter remains in place. Cardiac output 3.7. Cardiac index 2.3. Pressure 43/5. CVP 12. Blood pressure stable. White count 11.9. Hemoglobin 9.0. Platelets 123. Sodium 140. Potassium 4.4. Bicarb 22. BUN 12. Creatinine 0.51. Glucose 104. AST 99. ALT 31. She is working well with the incentive spirometer. She is continued on bronchodilators. Heparin for DVT prophylaxis. The patient is seen today August 08, 2023 in follow-up in the intensive care unit. Postoperative day #2. She remains awake and alert in no acute distress. Sitting up in a chair at the bedside. Maintaining O2 saturations in the 90s on 3 L/min per nasal cannula. She has lactated Ringer's at 50 MLS per hour. Insulin drip at 2 units/h. Continues with chest tubes in place. Cardiac output 3.7. Cardiac index 2.3. CVP 7. Is afebrile. Hemodynamically stable. Chest x-ray reveals improving pulmonary vascular congestion. Suspect continued small effusions. She did receive 2 units of packed red blood cells this admission. Current hemoglobin 8.9. Platelets 121. White count 11.1. Sodium 136. Potassium 4.4. Bicarb 21. BUN 17. Creatinine 0.49. Glucose 140. AST 198. ALT 86. She remains on bronchodilators. Heparin for DVT prophylaxis. Working well with the incentive spirometer. The patient is seen today August 09, 2023 in follow-up in the intensive care unit. Postoperative day #3. She is currently sitting up in a chair. Awake and alert in no acute distress. She is maintaining good O2 saturations in the 90s on 2 L/min per nasal cannula. She remains on lactated Ringer's at 40 MLS per hour. Continued on Primacor at 0.1 mcg per kilogram per minute. Chest x-ray reveals postsurgical changes, lung parenchyma stable. No pleural effusion, focal consolidation or pneumothorax. She is status post 2 units of packed red blood cells this admission. Current hemoglobin 8.3. Platelets 122. White count 9.4. Sodium 135. Potassium 4.0. Bicarb 24. BUN 19. Creatinine 0.37. Glucose 104. AST 200. ALT 131. Monitor. Heparin for DVT prophylaxis. The patient is seen today August 10, 2023 in follow-up on the regular medical floor. Postoperative day #4. She is sitting up in a chair. Awake and alert in no acute distress. She has a loose cough currently. Chest x-ray reveals no evidence of pleural effusion, focal consolidation or pneumothorax. She is afebrile. She is maintaining good O2 saturations in the 90s on 1 to 2 L of oxygen per nasal cannula. She is working well with the incentive spirometer. White count 9.0. Hemoglobin 8.4. Platelets 136. Sodium 137. Potassium 3.5. Bicarb 26. BUN 21. Creatinine 0.45. Glucose 115. AST 152. ALT 130. Objective - Vital Signs Vital signs: Vital Signs Temp 98.2 F 08/10/23 08:00 Pulse 72 08/10/23 10:00 Resp 11 L 08/10/23 10:00 BP 125/63 08/10/23 10:00 Pulse Ox 94 L 08/10/23 10:00 FiO2 50 08/06/23 20:30 Intake & Output 08/09/23 08/10/23 08/10/23 18:59 06:59 18:59 Intake Total 672 200 Output Total 790 300 0 Balance -118 -300 200 Weight 71.1 kg Intake: IV 172 Lactated Ringers 1,000 ml 160 @ 20 mls/hr IV .Q24H [facility] Rx#:[id number] ns for pressure flush 12 Oral 500 200 Output: Urine 790 300 0 Other: Voiding Method Indwelling Catheter Bedside Commode # Voids 1 # Bowel Movements 1 ABP, PAP, CO, CI - Last Documented Arterial Blood Pressure 112/98 Pulmonary Artery Pressure 34/3 Cardiac Output 3.5 Cardiac Index 2.1 - Exam GENERAL EXAM: Awake, pleasant 58-year-old female, sitting up in a chair, on 1-2 L nasal cannula, in no apparent distress. HEAD: Normocephalic. EYES: Normal reaction of pupils, equal size. NOSE: Clear with pink turbinates. THROAT: No erythema or exudates. NECK: No masses, no JVD. CHEST: Sternal dressing dry and intact. Heart hugger in place. LUNGS: Equal air entry with no crackles, wheeze, rhonchi or dullness. CVS: S1 and S2 normal with no audible murmur, regular rhythm. ABDOMEN: No hepatosplenomegaly, no guarding or rigidity. SPINE: No scoliosis or deformity SKIN: No rashes CENTRAL NERVOUS SYSTEM: No focal deficits, tone is normal in all 4 extremities. EXTREMITIES: There is no peripheral edema. Peripheral pulses are intact. - Labs CBC & Chem 7: 08/10/23 03:29 08/10/23 03:29 Labs: Abnormal Lab Results - Last 24 Hours (Table) 08/09/23 08/09/23 08/10/23 Range/Units 16:58 19:45 01:21 RBC (3.80-5.40) m/uL Hgb (11.4-16.0) gm/dL Hct (34.0-46.0) % RDW (11.5-15.5) % Plt Count (150-450) k/uL BUN (7-17) mg/dL Creatinine (0.52-1.04) mg/dL Glucose (74-99) mg/dL POC Glucose (mg/dL) 156 H 252 H 130 H (70-110) mg/dL Total Bilirubin (0.2-1.3) mg/dL AST (14-36) U/L ALT (4-34) U/L Total Protein (6.3-8.2) g/dL Albumin (3.5-5.0) g/dL 08/10/23 08/10/23 08/10/23 Range/Units 03:29 03:29 06:34 RBC 2.96 L (3.80-5.40) m/uL Hgb 8.4 L (11.4-16.0) gm/dL Hct 26.6 L (34.0-46.0) % RDW 20.0 H (11.5-15.5) % Plt Count 136 L (150-450) k/uL BUN 21 H (7-17) mg/dL Creatinine 0.45 L (0.52-1.04) mg/dL Glucose 115 H (74-99) mg/dL POC Glucose (mg/dL) 145 H (70-110) mg/dL Total Bilirubin 1.5 H (0.2-1.3) mg/dL AST 152 H (14-36) U/L ALT 130 H (4-34) U/L Total Protein 5.0 L (6.3-8.2) g/dL Albumin 3.2 L (3.5-5.0) g/dL Assessment and Plan Assessment: Symptomatic congenital bicuspid aortic stenosis. Status post aortic valve replacement with 23 mm Inspiris bovine pericardial valve, bilateral pulmonary vein ablation with atricure RF clamp, closure of the left atrial appendage with a 35 mm atricure clip. Postoperative day #4 History of paroxysmal atrial fibrillation, anticoagulated with Eliquis in the outpatient setting Transaminitis Chronic obstructive pulmonary disease Former smoker Hypothyroidism Hypertension Hyperlipidemia Diabetes mellitus Gastroesophageal reflux disease History of anemia Plan: The patient was seen and evaluated Chest x-ray, labs and medications reviewed Stable and on 1-2 L nasal cannula Working well with the incentive spirometer Add a flutter valve Continue bronchodilators Increase her activity as tolerated I have personally seen and examined the patient, performed the documentation and the assessment and plan as written. Number of minutes spent on the visit: 10.
[2023-08-10 12:09] LABS: Glucose,Whole Blood 135 mg/dL (70-110)
[2023-08-10 16:31] LABS: Glucose,Whole Blood 125 mg/dL (70-110)
--- NOTE | 2023-08-10 17:35 | P.PN ---
Subjective Progress Note Date: 08/10/23 Patient pleasant 58-year-old female is admitted for elective aortic valve replacement with a bovine pericardial valve bilateral pulmonary ablation and closure of the left atrial appendage. Patient is extubated at this time patient has [place] in place which is being managed by cardiothoracic surgery. P jeff does have a history of COPD has been some wheezing. Patient is also on milrinone drip patient is CVP of 22 cardiac index of 2.1. Patient is on insulin drip he is diabetic, uses glipizide 10 mg p.o. twice daily. Patient has a mediastinal chest tube left pleural and right pleural chest tubes were removed. Patient does have some leukocytosis patient is complaining of some soreness at the surgical site area. 08/08/2023 Patient seen and evaluated in follow-up today post aortic valve replacement and currently sitting up in the chair lethargic although arousable. Patient is a diabetic currently maintained on insulin drip and will transition to sliding scale along with long-acting as needed with Accu-Cheks ACHS. Hemoglobin is stable above 8 and platelets being monitored recommend follow-up labs in the a.m. chest x-ray reveals some improving vascular congestion. Patient is currently afebrile and white count has normalized. Patient reports some shortness of breath with chest wall pain with no reports of palpitations noted. 08/09/2023 Patient is evaluated in follow up today in the intensive care unit. Postoperative aortic valve. Patient is sitting up in the chair more awake and alert today. Tolerating some diet. No BM yet. Continues with temporary pacer wires, and also has mediastinal chest tube in place. Patient has been maintained on IV primacor overnight. Eliquis remains on hold per CT surgery. Blood glucose trending up to the 150s. Received a dose of IV lasix today. 08/10/2023 Patient evaluated in follow up in the ICU. Patient is postoperative aortic valve. Chest tube and stokes catheter have been removed. Had a bowel movement. Continues to report shortness of breath. AST and ALT are elevated. PT/OT are on consultation and patient needs encouragement to be up out of bed. Review of systems: Constitutional: reports of fatigue, no fever, or chills Cardiovascular: No reports of chest pain or palpitations, reports chest wall pain Respiratory: reports of shortness of breath and occasional cough GI: No reports of nausea, vomiting, or diarrhea, reports not much of an appetite : No reports of dysuria or retention Neurovascular: reports of generalized weakness All medications have been reviewed PHYSICAL EXAMINATION: GENERAL: The patient is asleep although easily arousable, alert and oriented x3, not in any acute distress. Well developed, well nourished. HEENT: Pupils are round and equally reacting to light. EOMI. No scleral icterus. No conjunctival pallor. Normocephalic, atraumatic. No pharyngeal erythema. No thyromegaly. CARDIOVASCULAR: S1 and S2 muffled PULMONARY: Diminished breath sounds bilaterally otherwise chest is clear to auscultation, no wheezing, few noted crackles at the bases. ABDOMEN: Soft, nontender, nondistended, normoactive bowel sounds. No palpable organomegaly. MUSCULOSKELETAL: No joint swelling or deformity. EXTREMITIES: No cyanosis, clubbing, or pedal edema. Generalized edema noted of lower extremities NEUROLOGICAL: Gross neurological examination did not reveal any focal deficits. Diffusely weak SKIN: No rashes. Pale Assessment and plan -Symptomatic anastomotic stenosis patient had a bicuspid aortic valve status post replacement along with above-mentioned procedures. Patient is off the milrinone drip -Paroxysmal atrial fibrillation patient is presently sinus rhythm status post left atrial appendage closure, patient is on anticoagulation with Eliquis which is being held until all chest tubes and lines are dc'd per CT surgery. -COPD with mild acute exacerbation patient is on bronchodilators for this -Hypothyroidism resumed on levothyroxine -Type 2 diabetes mellitus patient is on sliding scale as well as long-acting as needed and recommend Accu-Cheks before meals and at bedtime and 2 AM. Continue holding oral diabetic agents at this time and resume on discharge. Add small dose of levemir at HS and blood sugar is trending upwards. -Hyperlipidemia history -Gastroesophageal reflux disease, continue Protonix -Transaminitis monitor trends -DVT prophylaxis: As per primary service -GI prophylaxis -Full code Plan: Patient is status post aortic valve replacement maintained in the ICU with multiple medical consultations following. Patient is continued on insulin drip and will transition to sliding scale with Accu-Cheks ACHS and 2 AM. Will add long-acting and monitor blood sugar closely for tight glycemic control Incentive spirometer at the bedside encouraged to continue using at least 10 times every hour while awake Patient with history of COPD recommend to continue with DuoNeb treatments and supplemental oxygen. Wean FiO2 as tolerated, currently on 2 L PT/OT therapy to work with the patient We will continue to follow with cardiothoracic surgery hospitalization. Thank you kindly for this consultation. The impression and plan of care has been dictated by Nadia Marcum, Nurse Practitioner as directed. Dr. Malick MD I have performed a history and physical examination and medical decision making of this patient, discussed the same with the dictator, and agree with the dictators assessment and plan as written, documented as a scribe. Based on total visit time, I have performed more than 50% of this visit. Objective - Vital Signs Vital signs: Vital Signs Temp 98.0 F 08/10/23 16:00 Pulse 84 08/10/23 16:22 Resp 22 08/10/23 16:00 BP 120/67 08/10/23 16:00 Pulse Ox 95 08/10/23 16:00 FiO2 50 08/06/23 20:30 Intake & Output 08/09/23 08/10/23 08/10/23 18:59 06:59 18:59 Intake Total 672 200 Output Total 790 300 0 Balance -118 -300 200 Weight 71.1 kg Intake: IV 172 Lactated Ringers 1,000 ml 160 @ 20 mls/hr IV .Q24H ALYSSA Rx#:[id number] ns for pressure flush 12 Oral 500 200 Output: Urine 790 300 0 Other: Voiding Method Indwelling Catheter Bedside Commode Toilet # Voids 1 # Bowel Movements 1 ABP, PAP, CO, CI - Last Documented Arterial Blood Pressure 112/98 Pulmonary Artery Pressure 34/3 Cardiac Output 3.5 Cardiac Index 2.1 - Labs CBC & Chem 7: 08/10/23 03:29 08/10/23 03:29 Labs: Abnormal Lab Results - Last 24 Hours (Table) 08/09/23 08/10/23 08/10/23 Range/Units 19:45 01:21 03:29 RBC 2.96 L (3.80-5.40) m/uL Hgb 8.4 L (11.4-16.0) gm/dL Hct 26.6 L (34.0-46.0) % RDW 20.0 H (11.5-15.5) % Plt Count 136 L (150-450) k/uL BUN (7-17) mg/dL Creatinine (0.52-1.04) mg/dL Glucose (74-99) mg/dL POC Glucose (mg/dL) 252 H 130 H (70-110) mg/dL Total Bilirubin (0.2-1.3) mg/dL AST (14-36) U/L ALT (4-34) U/L Total Protein (6.3-8.2) g/dL Albumin (3.5-5.0) g/dL 08/10/23 08/10/23 08/10/23 Range/Units 03:29 06:34 12:08 RBC (3.80-5.40) m/uL Hgb (11.4-16.0) gm/dL Hct (34.0-46.0) % RDW (11.5-15.5) % Plt Count (150-450) k/uL BUN 21 H (7-17) mg/dL Creatinine 0.45 L (0.52-1.04) mg/dL Glucose 115 H (74-99) mg/dL POC Glucose (mg/dL) 145 H 135 H (70-110) mg/dL Total Bilirubin 1.5 H (0.2-1.3) mg/dL AST 152 H (14-36) U/L ALT 130 H (4-34) U/L Total Protein 5.0 L (6.3-8.2) g/dL Albumin 3.2 L (3.5-5.0) g/dL 08/10/23 Range/Units 16:30 RBC (3.80-5.40) m/uL Hgb (11.4-16.0) gm/dL Hct (34.0-46.0) % RDW (11.5-15.5) % Plt Count (150-450) k/uL BUN (7-17) mg/dL Creatinine (0.52-1.04) mg/dL Glucose (74-99) mg/dL POC Glucose (mg/dL) 125 H (70-110) mg/dL Total Bilirubin (0.2-1.3) mg/dL AST (14-36) U/L ALT (4-34) U/L Total Protein (6.3-8.2) g/dL Albumin (3.5-5.0) g/dL Assessment and Plan Time with Patient: Less than 30
[2023-08-10 20:13] LABS: Glucose,Whole Blood 184 mg/dL (70-110)
[2023-08-11 02:44] LABS: Glucose,Whole Blood 127 mg/dL (70-110)
[2023-08-11 05:07] LABS: Anisocytosis Moderate; HCT 27.6 % (34.0-46.0); HGB 8.6 gm/dL (11.4-16.0); Hypochromasia Slight; MCH 28.5 pg (25.0-35.0); MCHC 31.3 g/dL (31.0-37.0); Mean Platelet Volume 8.4; Platelet Count 155 k/uL (150-450); RBC 3.03 m/uL (3.80-5.40); RDW 20.2 % (11.5-15.5); WBC 7.7 k/uL (3.8-10.6)
[2023-08-11 05:16] LABS: ALT 109 U/L (4-34); AST 100 U/L (14-36); African American GFR (CKD) >90 (>60 ml/min/1.73 sqM); Albumin 3.3 g/dL (3.5-5.0); Alkaline Phosphatase 67 U/L (38-126); Anion Gap 4 mmol/L; Blood Urea Nitrogen 19 mg/dL (7-17); Calcium 8.5 mg/dL (8.4-10.2); Carbon Dioxide 27 mmol/L (22-30); Chloride 106 mmol/L (98-107); Glucose 111 mg/dL (74-99); Magnesium 1.8 mg/dL (1.6-2.3); Non-African American GFR(CKD) >90 (>60 ml/min/1.73 sqM); Potassium 3.7 mmol/L (3.5-5.1); Sodium 137 mmol/L (137-145); Total Bilirubin 1.2 mg/dL (0.2-1.3); Total Protein 5.2 g/dL (6.3-8.2)
[2023-08-11 06:22] LABS: Glucose,Whole Blood 130 mg/dL (70-110)
[2023-08-11] MEDS: POTASSIUM CHLORIDE ER 20 MEQ TAB.ER PO SCH (06:59)
[2023-08-11] MEDS: MAGNESIUM SULFATE-D5W PMX 1 GM in DEXTROSE/WATER 1 100ML.BAG IVPB ONE (07:00)
--- NOTE | 2023-08-11 08:07 | P.PN ---
Subjective Progress Note Date: 08/11/23 Principal diagnosis: Calcific symptomatic congenital bicuspid aortic stenosis, paroxysmal atrial fibrillation. Previous medical history of hypertension, hyperlipidemia, diabetes mellitus type 2, paroxysmal atrial fibrillation on Eliquis for anticoagulation, asthma, severe chronic obstructive pulmonary disease, previous tobacco dependence, GERD, hypothyroid, anemia, TIA with no residual effects, bilateral internal carotid artery stenosis POD #5 aortic valve replacement with 23 mm Inspiris bovine pericardial valve, bilateral pulmonary vein ablation with AtriCure RF clamp, closure of the left atrial appendage with a 35 mm AtriCure clip, epiaortic ultrasonography Postoperative acute blood loss anemia, expected given hemodilution and cardiopulmonary bypass pump as well as history of anemia The patient was seen and examined this morning while sitting up in recliner in the intensive care unit in no acute distress. Currently in sinus rhythm, hemodynamically stable. States expected postoperative pain controlled with current medication regimen, denies shortness of breath. Patient does complain of some dizziness but has no other new complaints. Currently on room air, able to achieve 750 mL on her incentive spirometer. Labs, chest x-rays reviewed. She did ambulate yesterday with assistance. Transfer orders were placed yesterday for 3 S. cardiac stepdown unit, no bed available. No other new concerns. Objective - Vital Signs Vital signs: Vital Signs Temp 98.4 F 08/11/23 04:00 Pulse 82 08/11/23 06:00 Resp 20 08/11/23 06:00 BP 138/67 08/11/23 04:00 Pulse Ox 95 08/11/23 06:00 FiO2 50 08/06/23 20:30 Intake & Output 08/10/23 08/11/23 08/11/23 18:59 06:59 18:59 Intake Total 200 Output Total 0 500 Balance 200 -500 Intake: Oral 200 Output: Urine 0 500 Other: Voiding Method Toilet Toilet # Voids 1 ABP, PAP, CO, CI - Last Documented Arterial Blood Pressure 112/98 Pulmonary Artery Pressure 34/3 Cardiac Output 3.5 Cardiac Index 2.1 - Exam CONSTITUTIONAL: Appears comfortable, cooperative, no acute distress RESPIRATORY: Lungs sounds diminished bilaterally. Respirations even, nonlabored. Currently on room air with oxygen saturation 91%. Able to achieve 750 mL on incentive spirometry. Strong cough. CARDIOVASCULAR: S1, S2 present. Regular rate and rhythm, sinus rhythm on telemetry. Sternum stable. Palpable peripheral pulses bilaterally. Generalized edema present. No calf pain or tenderness noted. Heart hugger in place with patient demonstrating appropriate use. Antiembolism stockings, SCDs present. GASTROINTESTINAL: Abdomen soft, nontender, nondistended. Active bowel sounds present 4 quadrants. Tolerating diet. Positive bowel movement 6/8 GENITOURINARY: Continues to void INTEGUMENTARY: Skin is warm and dry with evidence of good perfusion. Anterior chest incision well approximated NEUROLOGIC: Cranial nerves II through XII intact MUSKULOSKELETAL: Able to move all extremities, strength equal bilaterally PSYCHIATRIC: Alert and oriented to person place and time, appropriate affect, intact judgment and insight INVASIVE LINES AND TUBES: A/V epicardial pacemaker wires present, grounded - Allied health notes Allied health notes reviewed: nursing - Labs CBC & Chem 7: 08/11/23 04:17 08/11/23 04:17 Labs: Abnormal Lab Results - Last 24 Hours (Table) 08/10/23 08/10/23 08/10/23 Range/Units 12:08 16:30 20:12 RBC (3.80-5.40) m/uL Hgb (11.4-16.0) gm/dL Hct (34.0-46.0) % RDW (11.5-15.5) % BUN (7-17) mg/dL Creatinine (0.52-1.04) mg/dL Glucose (74-99) mg/dL POC Glucose (mg/dL) 135 H 125 H 184 H (70-110) mg/dL AST (14-36) U/L ALT (4-34) U/L Total Protein (6.3-8.2) g/dL Albumin (3.5-5.0) g/dL 08/11/23 08/11/23 08/11/23 Range/Units 02:41 04:17 04:17 RBC 3.03 L (3.80-5.40) m/uL Hgb 8.6 L (11.4-16.0) gm/dL Hct 27.6 L (34.0-46.0) % RDW 20.2 H (11.5-15.5) % BUN 19 H (7-17) mg/dL Creatinine 0.43 L (0.52-1.04) mg/dL Glucose 111 H (74-99) mg/dL POC Glucose (mg/dL) 127 H (70-110) mg/dL AST 100 H (14-36) U/L ALT 109 H (4-34) U/L Total Protein 5.2 L (6.3-8.2) g/dL Albumin 3.3 L (3.5-5.0) g/dL 08/11/23 Range/Units 06:20 RBC (3.80-5.40) m/uL Hgb (11.4-16.0) gm/dL Hct (34.0-46.0) % RDW (11.5-15.5) % BUN (7-17) mg/dL Creatinine (0.52-1.04) mg/dL Glucose (74-99) mg/dL POC Glucose (mg/dL) 130 H (70-110) mg/dL AST (14-36) U/L ALT (4-34) U/L Total Protein (6.3-8.2) g/dL Albumin (3.5-5.0) g/dL - Imaging and Cardiology Chest x-ray: image reviewed Assessment and Plan Assessment: Calcific symptomatic congenital bicuspid aortic stenosis, status post aortic valve replacement with 23 mm Inspiris bovine pericardial valve Hypertension Hyperlipidemia, treated, cholesterol 151, LDL 79 Diabetes mellitus type 2, hemoglobin A1c 6.3% Paroxysmal atrial fibrillation on Eliquis for anticoagulation and flecainide as an outpatient, status post bilateral pulmonary vein ablation with AtriCure RF clamp, closure of the left atrial appendage with a 35 mm AtriCure clip Asthma Severe chronic obstructive pulmonary disease, preoperative FEV1 40% of predicted with DLCO 46% of predicted Previous tobacco dependence, quit March 2022 GERD Hypothyroid, on Synthroid, TSH 0.843 Anemia TIA with no residual effects Bilateral internal carotid artery stenosis 50 to 69% Acute blood loss anemia, expected Elevated transaminases, likely medication induced Plan: Continue to maximize medical therapy with aspirin, statin, Plavix, beta-ky. Will increase beta-ky therapy as tolerated, increased to 25 mg twice daily today. Upon discharge will discontinue Plavix, decrease aspirin to baby aspirin, and re-add Eliquis per home dose Continue cozaar for afterload reduction, increased to 25 mg daily today Continue flecainide per patient's home dose. No Eliquis until pacemaker wires are discontinued Will monitor daily labs and x-rays. Electrolyte replacement per protocol Wean O2 as tolerated. Encourage incentive spirometry use 10 times every hour while awake. Bronchodilators per pulmonology Increase activity, ambulate as tolerated. PT/OT/cardiac rehab consulted GI/DVT prophylaxis Pain control per current medication regimen Insulin management per internal medicine Continue to record strict accurate intake and output Daily weights, shower daily Transfer orders were placed for 3 S. cardiac stepdown unit, may transfer when bed available Discharge planning in progress. Anticipate discharge to home with home care in the next 24 to 48 hours More recommendations to follow based on patient's progress
[2023-08-11] MEDS: METOPROLOL TARTRATE 25 MG TAB PO SCH (08:28)
[2023-08-11] MEDS ORDERED: LOSARTAN 25 MG TAB PO SCH (09:00)
--- NOTE | 2023-08-11 10:55 | XR ---
EXAMINATION TYPE: XR chest 2V DATE OF EXAM: 08/11/2023 COMPARISON: 08/10/2023 HISTORY: Shortness of breath TECHNIQUE: Frontal and lateral views of the chest are obtained. FINDINGS: Scattered senescent parenchymal changes noted. Hyperinflation compatible with COPD. Postoperative left pleural-parenchymal density seen at the lung bases. Sternotomy wires and left atri al clip in place as well as valvular prosthesis. Heart size is stable. Mediastinal structures are stable and grossly unremarkable. No evidence for hilar prominence. Degenerative changes dorsal spine. IMPRESSION: 1. No evidence for acute pulmonary disease.
[2023-08-11 11:57] LABS: Glucose,Whole Blood 152 mg/dL (70-110)
[2023-08-11] MEDS: LOSARTAN 25 MG TAB PO SCH (11:59)
[2023-08-11] MEDS: INSULIN ASPART (NovoLOG) 100 UNIT/ML VIAL SQ SCH (11:59)
--- NOTE | 2023-08-11 13:51 | P.PN ---
Subjective Progress Note Date: 08/11/23 [facility] The patient is a pleasant 58-year-old female patient with a past medical history significant for valvular heart disease and known severe symptomatic aortic stenosis and paroxysmal atrial fibrillation as well as multiple comorbid conditions who was diagnosed recently with severe symptomatic aortic stenosis documented to be bicuspid aortic valve by transesophageal echocardiogram. The patient subsequently underwent a heart catheterization which revealed normal coronaries. Then she referred to undergo aortic valve replacement. Yesterday she underwent electively aortic valve replacement using bioprosthetic valve. This is postoperation day #1. The patient overall seems to be stable. She has been maintaining normal sinus mechanism. Currently she is on amiodarone IV. She will be restarted back on flecainide orally and she was on the flecainide before the surgery. No need for the patient to go on oral amiodarone along with flecainide. Urine output has been adequate. Blood work including CBC and BMP came in to be unremarkable as well. The chest x-ray seems to be slightly wet but she does have marginally low blood pressure. Otherwise she is on aspirin and she is on a statin. The examination is remarkable for stable vital signs with soft blood pressure and diminished breathing sounds bilaterally and she has mild upper and lower extremities edema noted. August 08, 2023 The patient was seen and evaluated this morning. She seems to be congested. The chest x-ray appears to be wet as well. Urine output has been low as well. With that being said I am going to give patient 20 mg of IV Lasix. She continues to be on Primacor. Cardiac index continues to be marginally low. Oth erwise she is on Plavix. She continues to be on flecainide. I would consider increasing the dose of flecainide from 50 mg p.o. twice daily to 100 mg p.o. twice daily. Restart the patient back on oral anticoagulation once her pacer and lines are out. The examination is remarkable for diminished breathing sounds bilaterally and the patient appears to be quite congested and coughing and regular rate and rhythm and no edema was noted in the lower extremities. August 09, 2023 The patient was seen and evaluated this morning. She continues to have congestion and she does have bilateral rhonchi. Her CVP was elevated. She continues to be on Primacor. The chest x-ray was reviewed and seems to be slightly better than yesterday. Urine output has been on the low end. With all of that I am going to give the patient 20 mg of Lasix IV and continue monitor the kidney function and electrolytes and follow-up with the patient. The examination is remarkable for diminished breathing sounds bilaterally and bilateral rhonchi and regular rhythm. August 10, 2023 The patient was seen and evaluated this morning. She is doing better. She is not as congested as yesterday. She still have the pacer wire in place. Once out she need to be started on oral anticoagulation. She has been maintaining normal sinus mechanism. Urine output has been improved. She is off Primacor at this point. From a cardiac standpoint of view, we will continue the current medical regimen. The examination is remarkable for regular rhythm with diminished breathing sounds bilaterally and no edema was noted. August 11, 2023 Patient is seen and examined at bedside this a.m. Patient is doing well. She is ambulating in the unit without any difficulty. Has complained of some dizziness and generalized weakness. Assessment Status post aortic valve replacement for severe symptomatic bicuspid aortic valve stenosis Paroxysmal atrial fibrillation Multiple comorbid conditions Plan Continue the current medical regimen Continue aspirin, Plavix and beta-ky, flecainide, losartan Holding Eliquis until pacemaker wires are discontinued. Upon discharge we will reinitiate Eliquis and discontinue Plavix Patient is being transferred to 3 S. telemetry floor. Objective - Vital Signs Vital signs: Vital Signs Temp 98.1 F 08/11/23 12:00 Pulse 70 08/11/23 12:00 Resp 23 08/11/23 12:00 BP 113/71 08/11/23 12:00 Pulse Ox 92 L 08/11/23 12:00 FiO2 50 08/06/23 20:30 Intake & Output 08/10/23 08/11/23 08/11/23 18:59 06:59 18:59 Intake Total 200 Output Total 200 500 200 Balance 0 -500 -200 Intake: Oral 200 Output: Urine 200 500 200 Other: Voiding Method Toilet Toilet Toilet # Voids 1 1 1 # Bowel Movements 1 ABP, PAP, CO, CI - Last Documented Arterial Blood Pressure 112/98 Pulmonary Artery Pressure 34/3 Cardiac Output 3.5 Cardiac Index 2.1 - Labs CBC & Chem 7: 08/11/23 04:17 08/11/23 04:17 Labs: Abnormal Lab Results - Last 24 Hours (Table) 08/10/23 08/10/23 08/11/23 Range/Units 16:30 20:12 02:41 RBC (3.80-5.40) m/uL Hgb (11.4-16.0) gm/dL Hct (34.0-46.0) % RDW (11.5-15.5) % BUN (7-17) mg/dL Creatinine (0.52-1.04) mg/dL Glucose (74-99) mg/dL POC Glucose (mg/dL) 125 H 184 H 127 H (70-110) mg/dL AST (14-36) U/L ALT (4-34) U/L Total Protein (6.3-8.2) g/dL Albumin (3.5-5.0) g/dL 08/11/23 08/11/23 08/11/23 Range/Units 04:17 04:17 06:20 RBC 3.03 L (3.80-5.40) m/uL Hgb 8.6 L (11.4-16.0) gm/dL Hct 27.6 L (34.0-46.0) % RDW 20.2 H (11.5-15.5) % BUN 19 H (7-17) mg/dL Creatinine 0.43 L (0.52-1.04) mg/dL Glucose 111 H (74-99) mg/dL POC Glucose (mg/dL) 130 H (70-110) mg/dL AST 100 H (14-36) U/L ALT 109 H (4-34) U/L Total Protein 5.2 L (6.3-8.2) g/dL Albumin 3.3 L (3.5-5.0) g/dL 08/11/23 Range/Units 11:56 RBC (3.80-5.40) m/uL Hgb (11.4-16.0) gm/dL Hct (34.0-46.0) % RDW (11.5-15.5) % BUN (7-17) mg/dL Creatinine (0.52-1.04) mg/dL Glucose (74-99) mg/dL POC Glucose (mg/dL) 152 H (70-110) mg/dL AST (14-36) U/L ALT (4-34) U/L Total Protein (6.3-8.2) g/dL Albumin (3.5-5.0) g/dL
--- NOTE | 2023-08-11 14:57 | P.PN ---
Subjective Progress Note Date: 08/11/23 Patient pleasant 58-year-old female is admitted for elective aortic valve replacement with a bovine pericardial valve bilateral pulmonary ablation and closure of the left atrial appendage. Patient is extubated at this time patient has [place]-Brandy in place which is being managed by cardiothoracic surgery. P jeff does have a history of COPD has been some wheezing. Patient is also on milrinone drip patient is CVP of 22 cardiac index of 2.1. Patient is on insulin drip he is diabetic, uses glipizide 10 mg p.o. twice daily. Patient has a mediastinal chest tube left pleural and right pleural chest tubes were removed. Patient does have some leukocytosis patient is complaining of some soreness at the surgical site area. 08/08/2023 Patient seen and evaluated in follow-up today post aortic valve replacement and currently sitting up in the chair lethargic although arousable. Patient is a diabetic currently maintained on insulin drip and will transition to sliding scale along with long-acting as needed with Accu-Cheks ACHS. Hemoglobin is stable above 8 and platelets being monitored recommend follow-up labs in the a.m. chest x-ray reveals some improving vascular congestion. Patient is currently afebrile and white count has normalized. Patient reports some shortness of breath with chest wall pain with no reports of palpitations noted. 08/09/2023 Patient is evaluated in follow up today in the intensive care unit. Postoperative aortic valve. Patient is sitting up in the chair more awake and alert today. Tolerating some diet. No BM yet. Continues with temporary pacer wires, and also has mediastinal chest tube in place. Patient has been maintained on IV primacor overnight. Eliquis remains on hold per CT surgery. Blood glucose trending up to the 150s. Received a dose of IV lasix today. 08/10/2023 Patient evaluated in follow up in the ICU. Patient is postoperative aortic valve. Chest tube and stokes catheter have been removed. Had a bowel movement. Continues to report shortness of breath. AST and ALT are elevated. PT/OT are on consultation and patient needs encouragement to be up out of bed. 08/11/2023 Patient is evaluated today remains in the intensive care unit. Patient is po stoperative aortic valve. Patients main complaint today is her chronic lower back pain. Appetite has been increasing and patient is tolerating more diet, blood glucose up in the 150s and insulin has been increased. Patient encouraged to ambulate and continue using incentive spirometer. Her chest xray today is showing no acute pulmonary disease. Review of systems: Constitutional: reports of fatigue, no fever, or chills Cardiovascular: No reports of chest pain or palpitations, reports chest wall pain Respiratory: reports of shortness of breath and occasional cough GI: No reports of nausea, vomiting, or diarrhea, reports not much of an appetite : No reports of dysuria or retention Neurovascular: reports of generalized weakness All medications have been reviewed PHYSICAL EXAMINATION: GENERAL: The patient is asleep although easily arousable, alert and oriented x3, not in any acute distress. Well developed, well nourished. HEENT: Pupils are round and equally reacting to light. EOMI. No scleral icterus. No conjunctival pallor. Normocephalic, atraumatic. No pharyngeal erythema. No thyromegaly. CARDIOVASCULAR: S1 and S2 muffled PULMONARY: Diminished breath sounds bilaterally otherwise chest is clear to auscultation, no wheezing, few noted crackles at the bases. ABDOMEN: Soft, nontender, nondistended, normoactive bowel sounds. No palpable organomegaly. MUSCULOSKELETAL: No joint swelling or deformity. EXTREMITIES: No cyanosis, clubbing, or pedal edema. Generalized edema noted of lower extremities NEUROLOGICAL: Gross neurological examination did not reveal any focal deficits. Diffusely weak SKIN: No rashes. Pale Assessment and plan -Symptomatic anastomotic stenosis patient had a bicuspid aortic valve status post replacement along with above-mentioned procedures. Patient is off the milrinone drip -Paroxysmal atrial fibrillation patient is presently sinus rhythm status post left atrial appendage closure, patient is on anticoagulation with Eliquis which is being held until all chest tubes and lines are dc'd per CT surgery. -COPD with mild acute exacerbation patient is on bronchodilators for this -Hypothyroidism resumed on levothyroxine -Type 2 diabetes mellitus patient is on sliding scale as well as long-acting as needed and recommend Accu-Cheks before meals and at bedtime and 2 AM. Continue holding oral diabetic agents at this time and resume on discharge. Add small dose of levemir at HS and blood sugar is trending upwards. -Hyperlipidemia history -Gastroesophageal reflux disease, continue Protonix -Transaminitis monitor trends -DVT prophylaxis: As per primary service -GI prophylaxis -Full code Plan: Patient is status post aortic valve replacement maintained in the ICU with multiple medical consultations following. Continue sliding scale with Accu-Cheks ACHS and 2 AM. Scheduled meal time and also long acting insulin added and monitor blood sugar closely for tight glycemic control Incentive spirometer at the bedside encouraged to continue using at least 10 times every hour while awake Patient with history of COPD recommend to continue with DuoNeb treatments and supplemental oxygen. Wean FiO2 as tolerated, currently on 2 L Add lidocaine patch for her chronic lower back pain PT/OT therapy to work with the patient We will continue to follow with cardiothoracic surgery hospitalization. Thank you kindly for this consultation. The impression and plan of care has been dictated by Nadia Marcum, Nurse Practitioner as directed. Dr. Malick MD I have performed a history and physical examination and medical decision making of this patient, discussed the same with the dictator, and agree with the dictators assessment and plan as written, documented as a scribe. Based on total visit time, I have performed more than 50% of this visit. Objective - Vital Signs Vital signs: Vital Signs Temp 98.4 F 08/11/23 04:00 Pulse 87 08/11/23 08:51 Resp 20 08/11/23 06:00 BP 138/67 08/11/23 04:00 Pulse Ox 94 L 08/11/23 08:38 FiO2 50 08/06/23 20:30 Intake & Output 08/10/23 08/11/23 08/11/23 18:59 06:59 18:59 Intake Total 200 Output Total 0 500 Balance 200 -500 Intake: Oral 200 Output: Urine 0 500 Other: Voiding Method Toilet Toilet # Voids 1 ABP, PAP, CO, CI - Last Documented Arterial Blood Pressure 112/98 Pulmonary Artery Pressure 34/3 Cardiac Output 3.5 Cardiac Index 2.1 - Labs CBC & Chem 7: 08/11/23 04:17 08/11/23 04:17 Labs: Abnormal Lab Results - Last 24 Hours (Table) 08/10/23 08/10/23 08/10/23 Range/Units 12:08 16:30 20:12 RBC (3.80-5.40) m/uL Hgb (11.4-16.0) gm/dL Hct (34.0-46.0) % RDW (11.5-15.5) % BUN (7-17) mg/dL Creatinine (0.52-1.04) mg/dL Glucose (74-99) mg/dL POC Glucose (mg/dL) 135 H 125 H 184 H (70-110) mg/dL AST (14-36) U/L ALT (4-34) U/L Total Protein (6.3-8.2) g/dL Albumin (3.5-5.0) g/dL 08/11/23 08/11/23 08/11/23 Range/Units 02:41 04:17 04:17 RBC 3.03 L (3.80-5.40) m/uL Hgb 8.6 L (11.4-16.0) gm/dL Hct 27.6 L (34.0-46.0) % RDW 20.2 H (11.5-15.5) % BUN 19 H (7-17) mg/dL Creatinine 0.43 L (0.52-1.04) mg/dL Glucose 111 H (74-99) mg/dL POC Glucose (mg/dL) 127 H (70-110) mg/dL AST 100 H (14-36) U/L ALT 109 H (4-34) U/L Total Protein 5.2 L (6.3-8.2) g/dL Albumin 3.3 L (3.5-5.0) g/dL 08/11/23 Range/Units 06:20 RBC (3.80-5.40) m/uL Hgb (11.4-16.0) gm/dL Hct (34.0-46.0) % RDW (11.5-15.5) % BUN (7-17) mg/dL Creatinine (0.52-1.04) mg/dL Glucose (74-99) mg/dL POC Glucose (mg/dL) 130 H (70-110) mg/dL AST (14-36) U/L ALT (4-34) U/L Total Protein (6.3-8.2) g/dL Albumin (3.5-5.0) g/dL Assessment and Plan Time with Patient: Less than 30
--- NOTE | 2023-08-11 15:22 | P.PN ---
Subjective Progress Note Date: 08/11/23 This is a 58-year-old female patient with a history of hypertension, hyperlipidemia, diabetes mellitus, paroxysmal atrial fibrillation anticoagulated with Eliquis, gastroesophageal reflux disease, hypothyroidism, chronic obstructive pulmonary disease, former smoker. She presented here to the emergency room last month with progressive shortness of breath. She was found to have a bicuspid aortic valve with severe aortic valve stenosis. She was brought back today electively for surgery. She had undergone aortic valve replacement with 23 mm Inspiris bovine pericardial valve, bilateral pulmonary vein ablation with atrial cure RF clamp, closure of the left atrial appendage with a 35 mm atrial cure clip and epi aortic ultrasonography. She is seen today postoperatively in the intensive care unit. She is intubated on the mechanical ventilator and assist-control mode at a rate of 12, tidal volume 350, FiO2 100% and a PEEP of 5. Blood gases reveal a PaO2 of 356, pCO2 59 and a pH of 7.19. She is currently sedated on propofol at 30 mcg/kg/min. Amiodarone drip at 1 mg/min. Lactated Ringer's at 20 MLS per hour. She has a right, left and mediastinal split chest tubes in place. She has pacemaker wires in place currently atrial paced. Her cardiac output is 3.4. Cardiac index 2.1. PA pre ssures 43/14 with a CVP of 22. She has a right IJ [place]Brandy catheter in place. Right radial arterial line in place. She has received 2 units of packed red blood cells. Current hemoglobin 9.1. Platelets 92,000. White count 9.3. INR 1.4. Sodium 144. Potassium 3.5. Bicarb 24. BUN 8. Creatinine 0.49. Glucose 107. AST 69. ALT 22. Chest x-ray reveals postsurgical changes with [place]andy catheter tip in place. Chest tubes in place. No evidence of pneumothorax. The patient is seen today August 07, 2023 in follow-up in the intensive care unit. She is awake and alert in no acute distress. Sitting up in a chair at the bedside. Postoperative day #1. She is maintaining O2 saturations in the 90s on 2 L/min per nasal cannula. She is on a Primacor drip at 0.2 mcg/kg/min. Insulin drip at 3 units/h. Lactated Ringer's at 50 MLS per hour. Chest x-ray shows basilar atelectasis. Mediastinal, left and right chest tubes remain in place. Right internal jugular [place] catheter remains in place. Cardiac output 3.7. Cardiac index 2.3. Pressure 43/5. CVP 12. Blood pressure stable. White count 11.9. Hemoglobin 9.0. Platelets 123. Sodium 140. Potassium 4.4. Bicarb 22. BUN 12. Creatinine 0.51. Glucose 104. AST 99. ALT 31. She is working well with the incentive spirometer. She is continued on bronchodilators. Heparin for DVT prophylaxis. The patient is seen today August 08, 2023 in follow-up in the intensive care unit. Postoperative day #2. She remains awake and alert in no acute distress. Sitting up in a chair at the bedside. Maintaining O2 saturations in the 90s on 3 L/min per nasal cannula. She has lactated Ringer's at 50 MLS per hour. Insulin drip at 2 units/h. Continues with chest tubes in place. Cardiac output 3.7. Cardiac index 2.3. CVP 7. Is afebrile. Hemodynamically stable. Chest x-ray reveals improving pulmonary vascular congestion. Suspect continued small effusions. She did receive 2 units of packed red blood cells this admission. Current hemoglobin 8.9. Platelets 121. White count 11.1. Sodium 136. Potassium 4.4. Bicarb 21. BUN 17. Creatinine 0.49. Glucose 140. AST 198. ALT 86. She remains on bronchodilators. Heparin for DVT prophylaxis. Working well with the incentive spirometer. The patient is seen today August 09, 2023 in follow-up in the intensive care unit. Postoperative day #3. She is currently sitting up in a chair. Awake and alert in no acute distress. She is maintaining good O2 saturations in the 90s on 2 L/min per nasal cannula. She remains on lactated Ringer's at 40 MLS per hour. Continued on Primacor at 0.1 mcg per kilogram per minute. Chest x-ray reveals postsurgical changes, lung parenchyma stable. No pleural effusion, focal consolidation or pneumothorax. She is status post 2 units of packed red blood cells this admission. Current hemoglobin 8.3. Platelets 122. White count 9.4. Sodium 135. Potassium 4.0. Bicarb 24. BUN 19. Creatinine 0.37. Glucose 104. AST 200. ALT 131. Monitor. Heparin for DVT prophylaxis. The patient is seen today August 10, 2023 in follow-up on the regular medical floor. Postoperative day #4. She is sitting up in a chair. Awake and alert in no acute distress. She has a loose cough currently. Chest x-ray reveals no evidence of pleural effusion, focal consolidation or pneumothorax. She is afebrile. She is maintaining good O2 saturations in the 90s on 1 to 2 L of oxygen per nasal cannula. She is working well with the incentive spirometer. White count 9.0. Hemoglobin 8.4. Platelets 136. Sodium 137. Potassium 3.5. Bicarb 26. BUN 21. Creatinine 0.45. Glucose 115. AST 152. ALT 130. On 08/11/2023, the patient is being seen for a follow-up. The patient is doing well. No specific complaints. The patient is postop day #5 following a aortic valve placement and the patient has a bovine pericardial tissue valve inserted. The patient is currently in normal sinus rhythm. Using incentive spirometer and she is pulling approximately 750 cc. Urine output is stable. Patient is in normal sinus rhythm. The patient has no specific complaints. Chest x-ray findings are also stable. No evidence of any pneumothorax. White count of 7.7 hemoglobin 8.6 and a platelet count of 155. BUN is 19 with a creatinine of 0.43, sodium levels at 137 with a potassium level of 3.7. Rest of the electrolytes are normal. LFTs are stable. The patient is currently on anticoagulation with Eliquis 5 mg p.o. twice daily and epicardial leads were removed. Patient is also on metoprolol 25 mg twice a day, Cozaar 25 mg p.o. daily for blood pressure control and the patient is on Levemir insulin 8 units at bedtime and NovoLog 2 units with meals and a sliding scale coverage. Objective - Vital Signs Vital signs: Vital Signs Temp 98.4 F 08/11/23 08:00 Pulse 71 08/11/23 10:00 Resp 14 08/11/23 10:00 BP 144/66 08/11/23 08:00 Pulse Ox 94 L 08/11/23 08:38 FiO2 50 08/06/23 20:30 Intake & Output 08/10/23 08/11/23 08/11/23 18:59 06:59 18:59 Intake Total 200 Output Total 200 500 Balance 0 -500 Intake: Oral 200 Output: Urine 200 500 Other: Voiding Method Toilet Toilet Toilet # Voids 1 1 # Bowel Movements 1 ABP, PAP, CO, CI - Last Documented Arterial Blood Pressure 112/98 Pulmonary Artery Pressure 34/3 Cardiac Output 3.5 Cardiac Index 2.1 - Exam GENERAL EXAM: Awake, pleasant 58-year-old female, sitting up in a chair, on room air oxygen, in no apparent distress. HEAD: Normocephalic. EYES: Normal reaction of pupils, equal size. NOSE: Clear with pink turbinates. THROAT: No erythema or exudates. NECK: No masses, no JVD. CHEST: Sternal dressing dry and intact. Heart hugger in place. LUNGS: Equal air entry with no crackles, wheeze, rhonchi or dullness. CVS: S1 and S2 normal with no audible murmur, regular rhythm. ABDOMEN: No hepatosplenomegaly, no guarding or rigidity. SPINE: No scoliosis or deformity SKIN: No rashes CENTRAL NERVOUS SYSTEM: No focal deficits, tone is normal in all 4 extremities. EXTREMITIES: There is no peripheral edema. Peripheral pulses are intact. - Labs CBC & Chem 7: 08/11/23 04:17 08/11/23 04:17 Labs: Abnormal Lab Results - Last 24 Hours (Table) 08/10/23 08/10/23 08/10/23 Range/Units 12:08 16:30 20:12 RBC (3.80-5.40) m/uL Hgb (11.4-16.0) gm/dL Hct (34.0-46.0) % RDW (11.5-15.5) % BUN (7-17) mg/dL Creatinine (0.52-1.04) mg/dL Glucose (74-99) mg/dL POC Glucose (mg/dL) 135 H 125 H 184 H (70-110) mg/dL AST (14-36) U/L ALT (4-34) U/L Total Protein (6.3-8.2) g/dL Albumin (3.5-5.0) g/dL 08/11/23 08/11/23 08/11/23 Range/Units 02:41 04:17 04:17 RBC 3.03 L (3.80-5.40) m/uL Hgb 8.6 L (11.4-16.0) gm/dL Hct 27.6 L (34.0-46.0) % RDW 20.2 H (11.5-15.5) % BUN 19 H (7-17) mg/dL Creatinine 0.43 L (0.52-1.04) mg/dL Glucose 111 H (74-99) mg/dL POC Glucose (mg/dL) 127 H (70-110) mg/dL AST 100 H (14-36) U/L ALT 109 H (4-34) U/L Total Protein 5.2 L (6.3-8.2) g/dL Albumin 3.3 L (3.5-5.0) g/dL 08/11/23 Range/Units 06:20 RBC (3.80-5.40) m/uL Hgb (11.4-16.0) gm/dL Hct (34.0-46.0) % RDW (11.5-15.5) % BUN (7-17) mg/dL Creatinine (0.52-1.04) mg/dL Glucose (74-99) mg/dL POC Glucose (mg/dL) 130 H (70-110) mg/dL AST (14-36) U/L ALT (4-34) U/L Total Protein (6.3-8.2) g/dL Albumin (3.5-5.0) g/dL Assessment and Plan Plan: Symptomatic congenital bicuspid aortic stenosis. Status post aortic valve replacement with 23 mm Inspiris bovine pericardial valve, bilateral pulmonary vein ablation with atricure RF clamp, closure of the left atrial appendage with a 35 mm atricure clip. Postoperative day #5 Hypoacute hypoxic respiratory failure currently on room air oxygen, using the incentive spirometer, pulling approximately 750 cc paroxysmal atrial fibrillation, anticoagulated with Eliquis in the outpatient setting, continue patient to be restarted in the epicardial leads to be removed., LFTs are stable Transaminitis Chronic obstructive pulmonary disease, maintained on Trelegy Ellipta on outpatient basis Former smoker Hypothyroidism Hypertension Hyperlipidemia Diabetes mellitus Gastroesophageal reflux disease History of anemia Plan: The patient is currently on room air oxygen Working well with the incentive spirometer Patient is ambulating Continue aspirin Continue metoprolol Continue losartan Anticoagulation with Eliquis Continue bronchodilators Increase her activity as tolerated
[2023-08-11] MEDS: LIDOCAINE 4% PATCH TOPICAL SCH (15:36)
[2023-08-11 16:35] LABS: Glucose,Whole Blood 212 mg/dL (70-110)
[2023-08-11 20:19] LABS: Glucose,Whole Blood 119 mg/dL (70-110)
[2023-08-11] MEDS: APIXABAN 5 MG TAB PO SCH (20:39)
[2023-08-11] MEDS: INSULIN DETEMIR (LEVEMIR) 100 UNIT/ML SYR SQ SCH (21:01)
[2023-08-11 22:33] VITALS: RESP 18
[2023-08-12 02:48] LABS: Glucose,Whole Blood 146 mg/dL (70-110)
[2023-08-12] MEDS: ALPRAZolam 0.25 MG TAB PO STA (05:53)
[2023-08-12 06:08] LABS: Glucose,Whole Blood 157 mg/dL (70-110)
--- NOTE | 2023-08-12 06:34 | XR ---
EXAMINATION TYPE: XR chest 2V DATE OF EXAM: 08/12/2023 COMPARISON: Chest x-ray one day earlier. HISTORY: Post open cardiac surgery. TECHNIQUE: Frontal and lateral views of the chest are obtained. FINDINGS: Overlying sternal wires with left atrial appendage clip are redemonstrated. Metallic aorti c valve redemonstrated. Cardiac silhouette size less prominent. Small right pleural effusion slightly larger versus prior. Left lung remains clear. Osseous structures are intact. IMPRESSION: Small right pleural effusion slightly increased in size from one day earlier.
[2023-08-12 07:47] LABS: Anisocytosis Moderate; HCT 27.9 % (34.0-46.0); HGB 8.7 gm/dL (11.4-16.0); Hypochromasia Slight; MCH 28.4 pg (25.0-35.0); MCHC 31.1 g/dL (31.0-37.0); MCV 91.2 fL (80.0-100.0); Mean Platelet Volume 9.3; Platelet Count 245 k/uL (150-450); RBC 3.06 m/uL (3.80-5.40); RDW 20.3 % (11.5-15.5); WBC 9.7 k/uL (3.8-10.6)
[2023-08-12 07:57] VITALS: BP 145/76; TEMP 97.8
[2023-08-12] MEDS: ASPIRIN 81 MG PO SCH (07:58)
[2023-08-12 08:11] VITALS: PULSE 80
[2023-08-12 08:11] LABS: ALT 84 U/L (4-34); AST 77 U/L (14-36); African American GFR (CKD) >90 (>60 ml/min/1.73 sqM); Albumin 3.5 g/dL (3.5-5.0); Alkaline Phosphatase 76 U/L (38-126); Anion Gap 5 mmol/L; Blood Urea Nitrogen 18 mg/dL (7-17); Calcium 8.5 mg/dL (8.4-10.2); Carbon Dioxide 26 mmol/L (22-30); Chloride 105 mmol/L (98-107); Glucose 128 mg/dL (74-99); Magnesium 1.8 mg/dL (1.6-2.3); Non-African American GFR(CKD) >90 (>60 ml/min/1.73 sqM); Potassium 3.9 mmol/L (3.5-5.1); Sodium 136 mmol/L (137-145); Total Bilirubin 1.4 mg/dL (0.2-1.3); Total Protein 5.7 g/dL (6.3-8.2)
--- NOTE | 2023-08-12 08:18 | P.PN ---
Subjective Progress Note Date: 08/12/23 Principal diagnosis: Calcific symptomatic congenital bicuspid aortic stenosis, paroxysmal atrial fibrillation. Previous medical history of hypertension, hyperlipidemia, diabetes mellitus type 2, paroxysmal atrial fibrillation on Eliquis for anticoagulation, asthma, severe chronic obstructive pulmonary disease, previous tobacco dependence, GERD, hypothyroid, anemia, TIA with no residual effects, bilateral internal carotid artery stenosis POD #6 aortic valve replacement with 23 mm Inspiris bovine pericardial valve, bilateral pulmonary vein ablation with AtriCure RF clamp, closure of the left atrial appendage with a 35 mm AtriCure clip, epiaortic ultrasonography Postoperative acute blood loss anemia, expected given hemodilution and cardiopulmonary bypass pump as well as history of anemia The patient was seen and examined this morning while sitting up at the bedside on the cardiac stepdown unit in no acute distress eating breakfast. Currently in sinus rhythm, hemodynamically stable. States expected postoperative pain controlled with current medication regimen, denies shortness of breath. Currently on room air, able to achieve 1000 mL on her incentive spirometer. Labs, chest x-rays reviewed. She did ambulate yesterday with assistance, received shower. Apparently this morning patient got dressed and packed up her items and stated she was going home, she was teary-eyed. Internal medicine was called and patient was given Xanax, upon assessment patient is doing better, anticipates discharge to home with home care today. No other new concerns. Objective - Vital Signs Vital signs: Vital Signs Temp 97.8 F 08/12/23 07:55 Pulse 80 08/12/23 08:07 Resp 18 08/12/23 07:55 BP 145/76 08/12/23 07:55 Pulse Ox 92 L 08/12/23 07:55 FiO2 50 08/06/23 20:30 Intake & Output 08/11/23 08/12/23 08/12/23 18:59 06:59 18:59 Intake Total 10 Output Total 350 150 Balance -350 -140 Weight 71.6 kg Intake: IV 10 0.9 10 Output: Urine 350 150 Other: Voiding Method Toilet Toilet # Voids 1 1 ABP, PAP, CO, CI - Last Documented Arterial Blood Pressure 112/98 Pulmonary Artery Pressure 34/3 Cardiac Output 3.5 Cardiac Index 2.1 - Exam CONSTITUTIONAL: Appears comfortable, cooperative, no acute distress RESPIRATORY: Lungs sounds diminished bilaterally. Respirations even, nonlabored. Currently on room air with oxygen saturation 92-94%. Able to achieve 1000 mL on incentive spirometry. Strong cough. CARDIOVASCULAR: S1, S2 present. Regular rate and rhythm, sinus rhythm on telemetry. Sternum stable. Palpable peripheral pulses bilaterally. Trace generalized edema present. No calf pain or tenderness noted. Heart hugger in place with patient demonstrating appropriate use. Antiembolism stockings, SCDs present. GASTROINTESTINAL: Abdomen soft, nontender, nondistended. Active bowel sounds present 4 quadrants. Tolerating diet. Positive bowel movement 08/09 GENITOURINARY: Continues to void INTEGUMENTARY: Skin is warm and dry with evidence of good perfusion. Anterior chest incision well approximated NEUROLOGIC: Cranial nerves II through XII intact MUSKULOSKELETAL: Able to move all extremities, strength equal bilaterally PSYCHIATRIC: Alert and oriented to person place and time, appropriate affect, intact judgment and insight - Allied health notes Allied health notes reviewed: nursing - Labs CBC & Chem 7: 08/12/23 06:04 08/12/23 06:04 Labs: Abnormal Lab Results - Last 24 Hours (Table) 08/11/23 08/11/23 08/11/23 Range/Units 11:56 16:33 20:18 RBC (3.80-5.40) m/uL Hgb (11.4-16.0) gm/dL Hct (34.0-46.0) % RDW (11.5-15.5) % Sodium (137-145) mmol/L BUN (7-17) mg/dL Creatinine (0.52-1.04) mg/dL Glucose (74-99) mg/dL POC Glucose (mg/dL) 152 H 212 H 119 H (70-110) mg/dL Total Bilirubin (0.2-1.3) mg/dL AST (14-36) U/L ALT (4-34) U/L Total Protein (6.3-8.2) g/dL 08/12/23 08/12/23 08/12/23 Range/Units 02:46 06:04 06:04 RBC 3.06 L (3.80-5.40) m/uL Hgb 8.7 L (11.4-16.0) gm/dL Hct 27.9 L (34.0-46.0) % RDW 20.3 H (11.5-15.5) % Sodium 136 L (137-145) mmol/L BUN 18 H (7-17) mg/dL Creatinine 0.44 L (0.52-1.04) mg/dL Glucose 128 H (74-99) mg/dL POC Glucose (mg/dL) 146 H (70-110) mg/dL Total Bilirubin 1.4 H (0.2-1.3) mg/dL AST 77 H (14-36) U/L ALT 84 H (4-34) U/L Total Protein 5.7 L (6.3-8.2) g/dL 08/12/23 Range/Units 06:07 RBC (3.80-5.40) m/uL Hgb (11.4-16.0) gm/dL Hct (34.0-46.0) % RDW (11.5-15.5) % Sodium (137-145) mmol/L BUN (7-17) mg/dL Creatinine (0.52-1.04) mg/dL Glucose (74-99) mg/dL POC Glucose (mg/dL) 157 H (70-110) mg/dL Total Bilirubin (0.2-1.3) mg/dL AST (14-36) U/L ALT (4-34) U/L Total Protein (6.3-8.2) g/dL - Imaging and Cardiology Chest x-ray: report reviewed, image reviewed Assessment and Plan Assessment: Calcific symptomatic congenital bicuspid aortic stenosis, status post aortic valve replacement with 23 mm Inspiris bovine pericardial valve Hypertension Hyperlipidemia, treated, cholesterol 151, LDL 79 Diabetes mellitus type 2, hemoglobin A1c 6.3% Paroxysmal atrial fibrillation on Eliquis for anticoagulation and flecainide as an outpatient, status post bilateral pulmonary vein ablation with AtriCure RF clamp, closure of the left atrial appendage with a 35 mm AtriCure clip Asthma Severe chronic obstructive pulmonary disease, preoperative FEV1 40% of predicted with DLCO 46% of predicted Previous tobacco dependence, quit March 2022 GERD Hypothyroid, on Synthroid, TSH 0.843 Anemia TIA with no residual effects Bilateral internal carotid artery stenosis 50 to 69% Acute blood loss anemia, expected Elevated transaminases, likely medication induced Plan: Continue to maximize medical therapy with low-dose aspirin, statin, beta- ky. Continue cozaar for afterload reduction Continue flecainide per patient's home dose. Eliquis restarted yesterday after pacemaker wires were discontinued Will monitor daily labs and x-rays. Electrolyte replacement per protocol Wean O2 as tolerated. Encourage incentive spirometry use 10 times every hour while awake. Bronchodilators per pulmonology Increase activity, ambulate as tolerated. PT/OT/cardiac rehab consulted GI/DVT prophylaxis Pain control per current medication regimen Insulin management per internal medicine Continue to record strict accurate intake and output Daily weights, shower daily Discharge planning in progress. Anticipate discharge to home with home care this morning More recommendations to follow based on patient's progress
[2023-08-12] MEDS: MAGNESIUM OXIDE 400 MG TAB PO STA (09:39)
[2023-08-12] MEDS: POTASSIUM BICARBONATE/CIT AC 20 MEQ TABLET.EFF PO ONE (09:40)
--- NOTE | 2023-08-12 10:37 | P.DS ---
Providers Date of admission: 08/06/23 06:00 Expected date of discharge: 08/12/23 Attending physician: Maurice Lind Consults: 08/06/23 12:43 Consult Physician Routine Consulting Provider: Christopher Park Consult Reason/Comments: Sustainable Design Consultant Consult: post cardiac surgery Do you want consulting provider notified?: Yes Consult Physician Routine Consulting Provider: Hussain Polo Consult Reason/Comments: Artifacts Conservator Consult: post cardiac surgery Do you want consulting provider notified?: Yes Consult Physician Routine Consulting Provider: Dash Teresa Consult Reason/Comments: francois callejas pt Do you want consulting provider notified?: Yes Primary care physician: [place] O[facility] Hospital Course: FINAL DIAGNOSIS: Calcific symptomatic congenital bicuspid aortic stenosis Hypertension Hyperlipidemia, treated, cholesterol 151, LDL 79 Diabetes mellitus type 2, hemoglobin A1c 6.3% Paroxysmal atrial fibrillation on Eliquis for anticoagulation and flecainide as an outpatient Asthma Severe chronic obstructive pulmonary disease, preoperative FEV1 40% of predicted with DLCO 46% of predicted Previous tobacco dependence, quit March 2022 GERD Hypothyroid, on Synthroid, TSH 0.843 Anemia TIA with no residual effects Bilateral internal carotid artery stenosis 50 to 69% Acute blood loss anemia, expected Elevated transaminases, likely medication induced PRINCIPAL PROCEDURE: Aortic valve replacement with 23 mm Inspiris bovine pericardial valve Bilateral pulmonary vein ablation with AtriCure RF clamp Closure of the left atrial appendage with a 35 mm AtriCure clip Epiaortic ultrasonography HISTORY OF PRESENT ILLNESS: This is a 58-year-old female patient who follow outpatient with RUSS Correa for primary care and Dr. Polo for cardiology. She recently presented to the emergency department here at [facility] on May 21, 2023 with complaints of progressive shortness of breath and episodes of dizziness. The patient reported that her shortness of breath was worse when she was laying down at night to sleep. Transthoracic echocardiogram demonstrated normal left ventricular size and function, ejection fraction 55%, mild concentric left ventricular hypertrophy, possible bicuspid aortic valve, trace aortic valve regurgitation, moderate to severe aortic valve stenosis with aortic valve area 0.40 cm, peak/mean gradient 62/38 mmHg, mild mitral and tricuspid regurgitation. She was recommended to undergo cardiac catheterization and transesophageal echocardiogram. MEHRAN revealed bicuspid aortic valve with fusion of the right and left coronary cusps, severe aortic valve stenosis with mean gradient of 58 mmHg and peak systolic velocity of almost 5 m/s, normal left ventricular systolic function with mild concentric left ventricular hypertrophy, mild mitral valve regurgitation. Cardiac catheterization demonstrated normal coronary artery angiogram with a dominant left coronary artery system. Consultation was placed to Dr. Lind from cardiothoracic surgery for treatment recommendations. She was recommended to undergo elective aortic valve replacement with bilateral pulmonary vein ablation. The usual perioperative course was discussed in detail with the patient and her family, all risks and benefits were explained, all questions were answered, and consent was obtained to proceed with surgery. The patient was scheduled for elective surgery at the earliest possible date after obtaining dental clearance. HOSPITAL COURSE: The patient was brought to the hospital on 08/06/23, taken to the preoperative area, prepared in the usual fashion, and subsequently taken to the operating room where Dr. Lind performed bioprosthetic aortic valve replacement. Upon completion of surgery the patient was transferred to the cardiovascular intensive care unit where she was recovered and monitored hemodynamically. She was extubated, all lines, tubes, and drips were discontinued when appropriate, and she was transferred to 3 S. cardiac stepdown unit for further monitoring and rehabilitation. Her oxygen was titrated down, she continued to work with physical and occupational therapy, she was tolerating oral diet, her pain was controlled, and she was ready to be discharged to home [facility] with home care on postoperative day #6. She received written and verbal instruction regarding her medications, activity restrictions, signs and symptoms requiring physician notification, and follow-up appointments. Patient Condition at Discharge: Stable Plan - Discharge Summary Discharge Rx Participant: Yes New Discharge Prescriptions: New Acetaminophen Tab [Tylenol] 650 mg PO Q4HR PRN tab PRN Reason: Fever and/ or Mild Pain Losartan [Cozaar] 25 mg PO DAILY@1200 #30 tab Sennosides-Docusate Sodium [Senokot-S] 2 each PO HS PRN tab PRN Reason: Constipation Continue HYDROcodone/APAP 5-325MG [[place] 5-325] 1 tab PO TID PRN PRN Reason: Pain Montelukast [Singulair] 10 mg PO DAILY Levothyroxine Sodium [Synthroid] 75 mcg PO DAILY DULoxetine HCL [Cymbalta] 60 mg PO HS Multivitamins, Thera [Multivitamin (formulary)] 1 tab PO DAILY Mirtazapine [Remeron] 15 mg PO HS Cyclobenzaprine [Flexeril] 10 mg PO BID PRN PRN Reason: Muscle Spasm Loratadine [Claritin] 10 mg PO DAILY Atorvastatin Calcium [Lipitor] 10 mg PO HS glipiZIDE [Glucotrol] 10 mg PO BID Flecainide [Tambocor] 50 mg PO Q12H Ipratropium-Albuterol Nebulize [Duoneb 0.5 mg-3 mg/3 ml Soln] 3 ml INHALATION RT-QID PRN PRN Reason: Shortness Of Breath PARoxetine HCL [Paxil] 30 mg PO DAILY Ascorbic Acid [Vitamin C] 500 mg PO DAILY Albuterol Sulfate [Albuterol Sulfate Hfa] 2 puff INHALATION RT-QID PRN PRN Reason: Shortness Of Breath Omeprazole 20 mg PO DAILY Metoprolol Tartrate [Lopressor] 25 mg PO BID #60 tab Furosemide [Lasix] 20 mg PO DAILY PRN PRN Reason: Shortness Of Breath Ferrous Sulfate [Iron (65 MG Elemental)] 325 mg PO DAILY Apixaban [Eliquis] 5 mg PO BID Fluticasone/Umeclidin/Vilanter [Trelegy Ellipta 100-62.5-25] 1 inhalation INHALATION DAILY Changed Aspirin 81 mg PO DAILY #0 Discontinued Butalb/APAP/Caff 50-325-40Mg [Fioricet 50-325-40] 1 tab PO TID PRN PRN Reason: Headache Mupirocin [Mupirocin 2%] 1 applic NASAL BID Discharge Medication List DULoxetine HCL [Cymbalta] 60 mg PO HS 11/22/15 [History] HYDROcodone/APAP 5-325MG [[place] 5-325] 1 tab PO TID PRN 11/22/15 [History] Levothyroxine Sodium [Synthroid] 75 mcg PO DAILY 11/22/15 [History] Montelukast [Singulair] 10 mg PO DAILY 11/22/15 [History] Multivitamins, Thera [Multivitamin (formulary)] 1 tab PO DAILY 11/22/15 [History] Cyclobenzaprine [Flexeril] 10 mg PO BID PRN 07/20/17 [History] Loratadine [Claritin] 10 mg PO DAILY 07/20/17 [History] Mirtazapine [Remeron] 15 mg PO HS 07/20/17 [History] Albuterol Sulfate [Albuterol Sulfate Hfa] 2 puff INHALATION RT-QID PRN 07/01/21 [History] Atorvastatin Calcium [Lipitor] 10 mg PO HS 07/01/21 [History] Omeprazole 20 mg PO DAILY 07/01/21 [History] glipiZIDE [Glucotrol] 10 mg PO BID 07/01/21 [History] Metoprolol Tartrate [Lopressor] 25 mg PO BID #60 tab 07/03/21 [Rx] Flecainide [Tambocor] 50 mg PO Q12H 02/04/22 [History] Ipratropium-Albuterol Nebulize [Duoneb 0.5 mg-3 mg/3 ml Soln] 3 ml INHALATION RT-QID PRN 02/04/22 [History] PARoxetine HCL [Paxil] 30 mg PO DAILY 02/04/22 [History] Ascorbic Acid [Vitamin C] 500 mg PO DAILY 07/18/23 [History] Ferrous Sulfate [Iron (65 MG Elemental)] 325 mg PO DAILY 07/18/23 [History] Furosemide [Lasix] 20 mg PO DAILY PRN 07/18/23 [History] Apixaban [Eliquis] 5 mg PO BID 07/30/23 [History] Fluticasone/Umeclidin/Vilanter [Trelegy Ellipta 100-62.5-25] 1 inhalation INHALATION DAILY 07/30/23 [History] Acetaminophen Tab [Tylenol] 650 mg PO Q4HR PRN tab 08/12/23 [Rx] Aspirin 81 mg PO DAILY #0 08/12/23 [Rx] Losartan [Cozaar] 25 mg PO DAILY@1200 #30 tab 08/12/23 [Rx] Sennosides-Docusate Sodium [Senokot-S] 2 each PO HS PRN tab 08/12/23 [Rx] Follow up Appointment(s)/Referral(s): Rehab Emelina CINTRON,Cardiac [NON-STAFF] - 4 Weeks (You will receive a phone call in approximately 4-6 weeks for evaluation for cardiac rehab) Francois Correa NPC [REFERRING] - 1 Week (Voicemail left with office of need for appointment; will notify you when appointment made) Hussain Polo MD [STAFF PHYSICIAN] - 08/16/23 9:45 am Maurice Lind MD [STAFF PHYSICIAN] - 09/11/23 2:00 pm Malcom Reyes NPC [Nurse Practitioner] - 08/19/23 1:00 pm (You will be seen in the surgeon's office behind the hospital in [facility], [address]. Office phone number is ) [facility], [NON-STAFF] - 1-2 Days (You should be seen the day after discharge, then 2-3 times per week until you start cardiac rehab) Jany Diego MD [STAFF PHYSICIAN] - 08/27/23 9:00 am Ambulatory/Diagnostic Orders: Complete Blood Count w/diff [LAB.AMB] Time Frame: 3 Days, Location: None Selected Comprehensive Metabolic Panel [LAB.AMB] Time Frame: 3 Days, Location: None Selected Activity/Diet/Wound Care/Special Instructions: DISCHARGE INSTRUCTIONS: 1. No driving for 4 weeks, or until physician gives their ok. 2. The patient should sleep in their own bed, no medical bed needed. 3. Stairs are not an issue. If the bedroom is upstairs, it is advised that the patient go up at night and down in the morning for the first week. Go slowly, using handrail and take 1 step at a time. 4. BILLY hose are to be worn for 30 days post surgery or until physician discontinues. 5. Heart hugger is to be worn 100% of the time until physician discontinues.(except when showering) 6. No lifting, pushing, or pulling more than 10 pounds for 12 weeks. The physician will advise of any restriction changes. 7. The patient is expected to continue the prescribed walking program. 8. Continue pain control per as needed orders. 9. Continue with incentive spirometry and splinting/heart hugger until o therwise directed by the physician. 10. Must shower daily using liquid antibacterial soap 11. Routine sternal incision care. No powders, lotions, ointments on incisions. No dressings are necessary on incisions unless they are draining. Dermabond tape is to remain on sternal incision until surgeon follow-up. 12. Please call surgeon/FINANCIAL ANALYSIS CONSULTANT for temp greater than 101 F or purulent drainage from incisions. 13. You should weigh yourself daily, record and bring log with you to follow up appointments. 14. All prescriptions given by surgeon for 30 days. Refills need to be filled through tree trimmer helper/primary care physician. 15. A Red armband has been placed on the patient. It should be worn for 30 days post discharge from surgery and will be removed by the cardiac surgeons. If an ER visit is necessary, please make sure the number on the Red armband is called before going to ER. 16. You have been referred to and are expected to begin Cardiac Rehab in approximately 4-6 weeks. 17. Quitting smoking is the most important step you can take to improve your health. For additional information and assistance to quit smoking, please call the [place] tobacco quit line (3-041-RPVE-NOW/ ) or online: [email or web address]-[email or web address]-qu it-[email or web address] HOME HEALTH SERVICES TO PROVIDE: RN SKILLED HOME CARE SERVICES FOR POST-OP SURGICAL PATIENTS WITH THE FOLLOWING: Coronary Artery Bypass Surgery (CABG), Mitral Valve Replacement/Repair ( MVR), Aortic Valve Replacement/Repair (AVR) RN TO CONTINUE EDUCATION FROM ``ROAD TO A HEALTH HEART PATIENT EDUCATION MANUAL (GIVEN TO PATIENT IN THE HOSPITAL) MEDICATION RECONCILIATION WITH EDUCATION NEEDED ON FIRST HOME VISIT EMPHASIZE IMPORTANCE OF WEARING BREAST SUPPORT/HEART HUGGER ENCOURAGE USE OF INCENTIVE SPIROMETER 10 X EVERY HOUR WHILE AWAKE ENCOURAGE UTILIZATION OF LOWER EXTREMITY COMPRESSION STOCKINGS/BILLY HOSE and ELEVATE LEGS ABOVE LEVEL OF HEART WHILE AT REST. ENCOURAGE AMBULATION 3-5x/day INCREASING TOLERATES, WHILE AVOIDING EXTREMES IN TEMPERATURE FREQUENCY: RN TO OPEN THE PATIENT WITHIN 24 HOURS OF DISCHARGE FROM THE HOSPITAL WITH TELEHEALTH INSTALLED AT [facility] [place], RN TO VISIT 2-3 X A WEEK FOR 4 WEEKS ESTABLISHED BY PATIENT NEEDS. LABORATORY: CBC, CMP TO BE DRAWN ON THE THIRD DAY HOME, (RAN STAT) FAX RESULTS TO [phone]. TELEHEALTH PARAMETERS: WEIGHT: NOTIFY MD OF WEIGHT GAIN OF 2 LBS IN 24 HOURS OR 5 LBS IN ONE WEEK HR: NOTIFY MD OF HR <55 BPM OR HR>100 BPM BP: NOTIFY MD IF BP <90/55 OR BP>140/100 O2 SAT: NOTIFY MD IF PO2<93% ON ROOM AIR SEND TELEHEALTH REPORT TO ELECTRICAL UNIT REBUILDER AND CARDIOVASCULAR SURGEON THE FIRST WEEK OF CARE AND THEN BI-WEEKLY. PLEASE ADDITIONALLY COMMUNICATE ANY ABNORMALS AND NEW FINDINGS TO THE SURGEONS OFFICE. Discharge Disposition: HOME WITH HOME HEALTH SERVICES
[2023-08-12 11:24] LABS: Glucose,Whole Blood 122 mg/dL (70-110)
--- NOTE | 2023-08-12 12:12 | P.PN ---
Subjective HISTORY OF PRESENT ILLNESS: Patient examined this morning the bedside. Patient denies chest pain or pressure. She denies shortness of breath. Vital signs are stable. Telemetry reveals sinus mechanism. She states she is being discharged today. PHYSICAL EXAM: VITAL SIGNS: Reviewed. GENERAL: Well-developed in no acute distress. NECK: Supple. No JVD or thyromegaly LUNGS: Respirations even and unlabored. Lungs essentially clear to auscultation bilaterally. HEART: Regular rate and rhythm. S1 and S2 heard. EXTREMITIES: Normal range of motion. No clubbing or cyanosis. Peripheral pulses intact. No lower extremity edema ASSESSMENT: Calcific symptomatic congenital bicuspid aortic stenosis, status post aortic valve replacement Paroxysmal atrial fibrillation Hypertension Hyperlipidemia Diabetes History of asthma COPD Former nicotine dependence History of TIA PLAN: Continue current cardiac medications Continue postoperative management per CT surgery Patient is stable for discharge home today from a cardiac standpoint She is to follow-up postdischarge in the office Nurse practitioner note has been reviewed by physician. Signing provider agrees with the documented findings, assessment, and plan of care documented by POST MANAGER as a scribe. Objective - Vital Signs Vital signs: Vital Signs Temp 97.8 F 08/12/23 07:55 Pulse 80 08/12/23 08:18 Resp 18 08/12/23 07:55 BP 145/76 08/12/23 07:55 Pulse Ox 92 L 08/12/23 07:55 FiO2 50 08/06/23 20:30 Intake & Output 08/11/23 08/12/23 08/12/23 18:59 06:59 18:59 Intake Total 10 360 Output Total 350 150 Balance -350 -140 360 Weight 71.6 kg Intake: IV 10 0.9 10 Oral 360 Output: Urine 350 150 Other: Voiding Method Toilet Toilet Toilet # Voids 1 1 ABP, PAP, CO, CI - Last Documented Arterial Blood Pressure 112/98 Pulmonary Artery Pressure 34/3 Cardiac Output 3.5 Cardiac Index 2.1 - Labs CBC & Chem 7: 08/12/23 06:04 08/12/23 06:04 Labs: Abnormal Lab Results - Last 24 Hours (Table) 08/11/23 08/11/23 08/12/23 Range/Units 16:33 20:18 02:46 RBC (3.80-5.40) m/uL Hgb (11.4-16.0) gm/dL Hct (34.0-46.0) % RDW (11.5-15.5) % Sodium (137-145) mmol/L BUN (7-17) mg/dL Creatinine (0.52-1.04) mg/dL Glucose (74-99) mg/dL POC Glucose (mg/dL) 212 H 119 H 146 H (70-110) mg/dL Total Bilirubin (0.2-1.3) mg/dL AST (14-36) U/L ALT (4-34) U/L Total Protein (6.3-8.2) g/dL 08/12/23 08/12/23 08/12/23 Range/Units 06:04 06:04 06:07 RBC 3.06 L (3.80-5.40) m/uL Hgb 8.7 L (11.4-16.0) gm/dL Hct 27.9 L (34.0-46.0) % RDW 20.3 H (11.5-15.5) % Sodium 136 L (137-145) mmol/L BUN 18 H (7-17) mg/dL Creatinine 0.44 L (0.52-1.04) mg/dL Glucose 128 H (74-99) mg/dL POC Glucose (mg/dL) 157 H (70-110) mg/dL Total Bilirubin 1.4 H (0.2-1.3) mg/dL AST 77 H (14-36) U/L ALT 84 H (4-34) U/L Total Protein 5.7 L (6.3-8.2) g/dL 08/12/23 Range/Units 11:22 RBC (3.80-5.40) m/uL Hgb (11.4-16.0) gm/dL Hct (34.0-46.0) % RDW (11.5-15.5) % Sodium (137-145) mmol/L BUN (7-17) mg/dL Creatinine (0.52-1.04) mg/dL Glucose (74-99) mg/dL POC Glucose (mg/dL) 122 H (70-110) mg/dL Total Bilirubin (0.2-1.3) mg/dL AST (14-36) U/L ALT (4-34) U/L Total Protein (6.3-8.2) g/dL
--- NOTE | 2023-08-12 12:37 | P.PN ---
Subjective Progress Note Date: 08/12/23 This is a 58-year-old female patient with a history of hypertension, hyperlipidemia, diabetes mellitus, paroxysmal atrial fibrillation anticoagulated with Eliquis, gastroesophageal reflux disease, hypothyroidism, chronic obstructive pulmonary disease, former smoker. She presented here to the emergency room last month with progressive shortness of breath. She was found to have a bicuspid aortic valve with severe aortic valve stenosis. She was brought back today electively for surgery. She had undergone aortic valve replacement with 23 mm Inspiris bovine pericardial valve, bilateral pulmonary vein ablation with atrial cure RF clamp, closure of the left atrial appendage with a 35 mm atrial cure clip and epi aortic ultrasonography. She is seen today postoperatively in the intensive care unit. She is intubated on the mechanical ventilator and assist-control mode at a rate of 12, tidal volume 350, FiO2 100% and a PEEP of 5. Blood gases reveal a PaO2 of 356, pCO2 59 and a pH of 7.19. She is currently sedated on propofol at 30 mcg/kg/min. Amiodarone drip at 1 mg/min. Lactated Ringer's at 20 MLS per hour. She has a right, left and mediastinal split chest tubes in place. She has pacemaker wires in place currently atrial paced. Her cardiac output is 3.4. Cardiac index 2.1. PA pre ssures 43/14 with a CVP of 22. She has a right IJ [place]-Brandy catheter in place. Right radial arterial line in place. She has received 2 units of packed red blood cells. Current hemoglobin 9.1. Platelets 92,000. White count 9.3. INR 1.4. Sodium 144. Potassium 3.5. Bicarb 24. BUN 8. Creatinine 0.49. Glucose 107. AST 69. ALT 22. Chest x-ray reveals postsurgical changes with [place]-Brandy catheter tip in place. Chest tubes in place. No evidence of pneumothorax. The patient is seen today August 07, 2023 in follow-up in the intensive care unit. She is awake and alert in no acute distress. Sitting up in a chair at the bedside. Postoperative day #1. She is maintaining O2 saturations in the 90s on 2 L/min per nasal cannula. She is on a Primacor drip at 0.2 mcg/kg/min. Insulin drip at 3 units/h. Lactated Ringer's at 50 MLS per hour. Chest x-ray shows basilar atelectasis. Mediastinal, left and right chest tubes remain in place. Right internal jugular [place]-Brandy catheter remains in place. Cardiac output 3.7. Cardiac index 2.3. Pressure 43/5. CVP 12. Blood pressure stable. White count 11.9. Hemoglobin 9.0. Platelets 123. Sodium 140. Potassium 4.4. Bicarb 22. BUN 12. Creatinine 0.51. Glucose 104. AST 99. ALT 31. She is working well with the incentive spirometer. She is continued on bronchodilators. Heparin for DVT prophylaxis. The patient is seen today August 08, 2023 in follow-up in the intensive care unit. Postoperative day #2. She remains awake and alert in no acute distress. Sitting up in a chair at the bedside. Maintaining O2 saturations in the 90s on 3 L/min per nasal cannula. She has lactated Ringer's at 50 MLS per hour. Insulin drip at 2 units/h. Continues with chest tubes in place. Cardiac output 3.7. Cardiac index 2.3. CVP 7. Is afebrile. Hemodynamically stable. Chest x-ray reveals improving pulmonary vascular congestion. Suspect continued small effusions. She did receive 2 units of packed red blood cells this admission. Current hemoglobin 8.9. Platelets 121. White count 11.1. Sodium 136. Potassium 4.4. Bicarb 21. BUN 17. Creatinine 0.49. Glucose 140. AST 198. ALT 86. She remains on bronchodilators. Heparin for DVT prophylaxis. Working well with the incentive spirometer. The patient is seen today August 09, 2023 in follow-up in the intensive care unit. Postoperative day #3. She is currently sitting up in a chair. Awake and alert in no acute distress. She is maintaining good O2 saturations in the 90s on 2 L/min per nasal cannula. She remains on lactated Ringer's at 40 MLS per hour. Continued on Primacor at 0.1 mcg per kilogram per minute. Chest x-ray reveals postsurgical changes, lung parenchyma stable. No pleural effusion, focal consolidation or pneumothorax. She is status post 2 units of packed red blood cells this admission. Current hemoglobin 8.3. Platelets 122. White count 9.4. Sodium 135. Potassium 4.0. Bicarb 24. BUN 19. Creatinine 0.37. Glucose 104. AST 200. ALT 131. Monitor. Heparin for DVT prophylaxis. The patient is seen today August 10, 2023 in follow-up on the regular medical floor. Postoperative day #4. She is sitting up in a chair. Awake and alert in no acute distress. She has a loose cough currently. Chest x-ray reveals no evidence of pleural effusion, focal consolidation or pneumothorax. She is afebrile. She is maintaining good O2 saturations in the 90s on 1 to 2 L of oxygen per nasal cannula. She is working well with the incentive spirometer. White count 9.0. Hemoglobin 8.4. Platelets 136. Sodium 137. Potassium 3.5. Bicarb 26. BUN 21. Creatinine 0.45. Glucose 115. AST 152. ALT 130. On 08/11/2023, the patient is being seen for a follow-up. The patient is doing well. No specific complaints. The patient is postop day #5 following a aortic valve placement and the patient has a bovine pericardial tissue valve inserted. The patient is currently in normal sinus rhythm. Using incentive spirometer and she is pulling approximately 750 cc. Urine output is stable. Patient is in normal sinus rhythm. The patient has no specific complaints. Chest x-ray findings are also stable. No evidence of any pneumothorax. White count of 7.7 hemoglobin 8.6 and a platelet count of 155. BUN is 19 with a creatinine of 0.43, sodium levels at 137 with a potassium level of 3.7. Rest of the electrolytes are normal. LFTs are stable. The patient is currently on anticoagulation with Eliquis 5 mg p.o. twice daily and epicardial leads were removed. Patient is also on metoprolol 25 mg twice a day, Cozaar 25 mg p.o. daily for blood pressure control and the patient is on Levemir insulin 8 units at bedtime and NovoLog 2 units with meals and a sliding scale coverage. 08/12/2023, the patient is being seen for a follow-up. The patient is ambulating. The patient is on room air oxygen he denies having any respite difficulties. No cough sputum production chest tightness or wheezing. The patient is recovering from her cardiac surgery. She is currently postop day #6. Cardiac rhythm is sinus. White cell count is 9.7 with a hemoglobin of 8.7. BUN is 18 with a creatinine of 0.4 and a sodium level of 133. The patient is aspirin. The patient is on anticoagulation with Eliquis 5 mg p.o. twice a day. The patient remains on metoprolol 25 mg p.o. twice daily, flecainide 50 mg twice a day and Cozaar 25 mg p.o. daily. Rest of the medications remain unchanged. Blood sugar controlled with Glucotrol. Remains on Cymbalta. Remains on Paxil. Remains on Lipitor. Follow-up chest x-ray shows small bilateral pleural effusions. Postthoracotomy changes. No evidence of any pneumothorax. Objective - Vital Signs Vital signs: Vital Signs Temp 97.8 F 08/12/23 07:55 Pulse 80 08/12/23 08:18 Resp 18 08/12/23 07:55 BP 145/76 08/12/23 07:55 Pulse Ox 92 L 08/12/23 07:55 FiO2 50 08/06/23 20:30 Intake & Output 08/11/23 08/12/23 08/12/23 18:59 06:59 18:59 Intake Total 10 Output Total 350 150 Balance -350 -140 Weight 71.6 kg Intake: IV 10 0.9 10 Output: Urine 350 150 Other: Voiding Method Toilet Toilet Toilet # Voids 1 1 ABP, PAP, CO, CI - Last Documented Arterial Blood Pressure 112/98 Pulmonary Artery Pressure 34/3 Cardiac Output 3.5 Cardiac Index 2.1 - Exam GENERAL EXAM: Awake, pleasant 58-year-old female, sitting up in a chair, on room air oxygen, in no apparent distress. HEAD: Normocephalic. EYES: Normal reaction of pupils, equal size. NOSE: Clear with pink turbinates. THROAT: No erythema or exudates. NECK: No masses, no JVD. CHEST: Sternal dressing dry and intact. Heart hugger in place. LUNGS: Equal air entry with no crackles, wheeze, rhonchi or dullness. CVS: S1 and S2 normal with no audible murmur, regular rhythm. ABDOMEN: No hepatosplenomegaly, no guarding or rigidity. SPINE: No scoliosis or deformity SKIN: No rashes CENTRAL NERVOUS SYSTEM: No focal deficits, tone is normal in all 4 extremities. EXTREMITIES: There is no peripheral edema. Peripheral pulses are intact. - Labs CBC & Chem 7: 08/12/23 06:04 08/12/23 06:04 Labs: Abnormal Lab Results - Last 24 Hours (Table) 08/11/23 08/11/23 08/11/23 Range/Units 11:56 16:33 20:18 RBC (3.80-5.40) m/uL Hgb (11.4-16.0) gm/dL Hct (34.0-46.0) % RDW (11.5-15.5) % Sodium (137-145) mmol/L BUN (7-17) mg/dL Creatinine (0.52-1.04) mg/dL Glucose (74-99) mg/dL POC Glucose (mg/dL) 152 H 212 H 119 H (70-110) mg/dL Total Bilirubin (0.2-1.3) mg/dL AST (14-36) U/L ALT (4-34) U/L Total Protein (6.3-8.2) g/dL 08/12/23 08/12/23 08/12/23 Range/Units 02:46 06:04 06:04 RBC 3.06 L (3.80-5.40) m/uL Hgb 8.7 L (11.4-16.0) gm/dL Hct 27.9 L (34.0-46.0) % RDW 20.3 H (11.5-15.5) % Sodium 136 L (137-145) mmol/L BUN 18 H (7-17) mg/dL Creatinine 0.44 L (0.52-1.04) mg/dL Glucose 128 H (74-99) mg/dL POC Glucose (mg/dL) 146 H (70-110) mg/dL Total Bilirubin 1.4 H (0.2-1.3) mg/dL AST 77 H (14-36) U/L ALT 84 H (4-34) U/L Total Protein 5.7 L (6.3-8.2) g/dL 08/12/23 Range/Units 06:07 RBC (3.80-5.40) m/uL Hgb (11.4-16.0) gm/dL Hct (34.0-46.0) % RDW (11.5-15.5) % Sodium (137-145) mmol/L BUN (7-17) mg/dL Creatinine (0.52-1.04) mg/dL Glucose (74-99) mg/dL POC Glucose (mg/dL) 157 H (70-110) mg/dL Total Bilirubin (0.2-1.3) mg/dL AST (14-36) U/L ALT (4-34) U/L Total Protein (6.3-8.2) g/dL Assessment and Plan Plan: Symptomatic congenital bicuspid aortic stenosis. Status post aortic valve replacement with 23 mm Inspiris bovine pericardial valve, bilateral pulmonary vein ablation with atricure RF clamp, closure of the left atrial appendage with a 35 mm atricure clip. Postoperative day # 6 acute hypoxic respiratory failure currently on room air oxygen, using the incentive spirometer, pulling approximately 750 cc, chest x-ray shows postthoracotomy changes and small bilateral pleural effusions. paroxysmal atrial fibrillation, anticoagulated with Eliquis in the outpatient setting, continue patient to be restarted and the patient is also on a combinati on of metoprolol and Tambocor. Transaminitis Chronic obstructive pulmonary disease, maintained on Trelegy Ellipta on outpatient basis Former smoker Hypothyroidism Hypertension Hyperlipidemia Diabetes mellitus Gastroesophageal reflux disease History of anemia Plan: The patient is currently on room air oxygen Working well with the incentive spirometer Maintained on Trelegy Ellipta on outpatient basis and this will be continued for COPD Patient is ambulating Continue aspirin Continue metoprolol Continue losartan Anticoagulation with Eliquis Continue Tambocor and the patient's cardiac rhythm is sinus Continue bronchodilators Increase her activity as tolerated Discharge planning is in progress.
--- NOTE | 2023-08-12 15:13 | P.PN ---
Subjective Progress Note Date: 08/12/23 Patient pleasant 58-year-old female is admitted for elective aortic valve replacement with a bovine pericardial valve bilateral pulmonary ablation and closure of the left atrial appendage. Patient is extubated at this time patient has [place]-Brandy in place which is being managed by cardiothoracic surgery. P jeff does have a history of COPD has been some wheezing. Patient is also on milrinone drip patient is CVP of 22 cardiac index of 2.1. Patient is on insulin drip he is diabetic, uses glipizide 10 mg p.o. twice daily. Patient has a mediastinal chest tube left pleural and right pleural chest tubes were removed. Patient does have some leukocytosis patient is complaining of some soreness at the surgical site area. 08/08/2023 Patient seen and evaluated in follow-up today post aortic valve replacement and currently sitting up in the chair lethargic although arousable. Patient is a diabetic currently maintained on insulin drip and will transition to sliding scale along with long-acting as needed with Accu-Cheks ACHS. Hemoglobin is stable above 8 and platelets being monitored recommend follow-up labs in the a.m. chest x-ray reveals some improving vascular congestion. Patient is currently afebrile and white count has normalized. Patient reports some shortness of breath with chest wall pain with no reports of palpitations noted. 08/09/2023 Patient is evaluated in follow up today in the intensive care unit. Postoperative aortic valve. Patient is sitting up in the chair more awake and alert today. Tolerating some diet. No BM yet. Continues with temporary pacer wires, and also has mediastinal chest tube in place. Patient has been maintained on IV primacor overnight. Eliquis remains on hold per CT surgery. Blood glucose trending up to the 150s. Received a dose of IV lasix today. 08/10/2023 Patient evaluated in follow up in the ICU. Patient is postoperative aortic valve. Chest tube and stokes catheter have been removed. Had a bowel movement. Continues to report shortness of breath. AST and ALT are elevated. PT/OT are on consultation and patient needs encouragement to be up out of bed. 08/11/2023 Patient is evaluated today remains in the intensive care unit. Patient is po stoperative aortic valve. Patients main complaint today is her chronic lower back pain. Appetite has been increasing and patient is tolerating more diet, blood glucose up in the 150s and insulin has been increased. Patient encouraged to ambulate and continue using incentive spirometer. Her chest xray today is showing no acute pulmonary disease. 08/12/2023 Is evaluated today in follow-up has been transferred out of the ICU and on the medical floor. Patient is postoperative aortic valve replacement. Patient is anticoagulated with Eliquis. Chest x-ray today reveals small right pleural effusion slightly increased in size from 1 day earlier. Blood glucose has been in the 120s. AST ALT have been proved. Will continue on oral glipizide on discharge and will not require any injectable insulin. Patient has a follow-up with her medical biller coder scheduled for August 15 and will also follow-up with her cardiothoracic team on August 18. Patient needs to make a follow-up appoint with her PCP Yoselin Correa in 1 to 2 days. Review of systems: Constitutional: reports of fatigue, no fever, or chills Cardiovascular: No reports of chest pain or palpitations, reports chest wall pain Respiratory: reports of shortness of breath and occasional cough GI: No reports of nausea, vomiting, or diarrhea, reports not much of an appetite : No reports of dysuria or retention Neurovascular: reports of generalized weakness All medications have been reviewed PHYSICAL EXAMINATION: GENERAL: The patient is asleep although easily arousable, alert and oriented x3, not in any acute distress. Well developed, well nourished. HEENT: Pupils are round and equally reacting to light. EOMI. No scleral icterus. No conjunctival pallor. Normocephalic, atraumatic. No pharyngeal erythema. No thyromegaly. CARDIOVASCULAR: S1 and S2 muffled PULMONARY: Diminished breath sounds bilaterally otherwise chest is clear to auscultation, no wheezing, few noted crackles at the bases. ABDOMEN: Soft, nontender, nondistended, normoactive bowel sounds. No palpable organomegaly. MUSCULOSKELETAL: No joint swelling or deformity. EXTREMITIES: No cyanosis, clubbing, or pedal edema. Generalized edema noted of lower extremities NEUROLOGICAL: Gross neurological examination did not reveal any focal deficits. Diffusely weak SKIN: No rashes. Pale Assessment and plan -Symptomatic anastomotic stenosis patient had a bicuspid aortic valve status post replacement along with above-mentioned procedures. Patient is off the milrinone drip -Paroxysmal atrial fibrillation patient is presently sinus rhythm status post l eft atrial appendage closure, patient is on anticoagulation with Eliquis which is being held until all chest tubes and lines are dc'd per CT surgery. -COPD with mild acute exacerbation patient is on bronchodilators for this -Hypothyroidism resumed on levothyroxine -Type 2 diabetes mellitus patient is on sliding scale as well as long-acting as needed and recommend Accu-Cheks before meals and at bedtime and 2 AM. Continue holding oral diabetic agents at this time and resume on discharge. Add small dose of levemir at HS and blood sugar is trending upwards. -Hyperlipidemia history -Gastroesophageal reflux disease, continue Protonix -Transaminitis monitor trends -DVT prophylaxis: As per primary service -GI prophylaxis -Full code Plan: Patient is status post aortic valve replacement maintained in the ICU with multiple medical consultations following. Continue sliding scale with Accu-Cheks ACHS and 2 AM. Scheduled meal time and also long acting insulin added and monitor blood sugar closely for tight glycemic control patient will continue her oral provide on discharge, not require any more insulin Patient has been resumed on her Eliquis on discharge Incentive spirometer at the bedside encouraged to continue using at least 10 times every hour while awake Patient with history of COPD recommend to continue with DuoNeb treatments and supplemental oxygen. Patient has been weaned to room air. Add lidocaine patch for her chronic lower back pain PT/OT therapy to work with the patient We will continue to follow with cardiothoracic surgery hospitalization. Thank you kindly for this consultation. Patient is discharged home today. The impression and plan of care has been dictated by Nadia Marcum, Nurse Practitioner as directed. Dr. Malick MD I have performed a history and physical examination and medical decision making of this patient, discussed the same with the dictator, and agree with the dictators assessment and plan as written, documented as a scribe. Based on total visit time, I have performed more than 50% of this visit. Objective - Vital Signs Vital signs: Vital Signs Temp 97.8 F 08/12/23 07:55 Pulse 80 08/12/23 08:18 Resp 18 08/12/23 07:55 BP 145/76 08/12/23 07:55 Pulse Ox 92 L 08/12/23 07:55 FiO2 50 08/06/23 20:30 Intake & Output 08/11/23 08/12/23 08/12/23 18:59 06:59 18:59 Intake Total 10 360 Output Total 350 150 Balance -350 -140 360 Weight 71.6 kg Intake: IV 10 0.9 10 Oral 360 Output: Urine 350 150 Other: Voiding Method Toilet Toilet Toilet # Voids 1 1 ABP, PAP, CO, CI - Last Documented Arterial Blood Pressure 112/98 Pulmonary Artery Pressure 34/3 Cardiac Output 3.5 Cardiac Index 2.1 - Labs CBC & Chem 7: 08/12/23 06:04 08/12/23 06:04 Labs: Abnormal Lab Results - Last 24 Hours (Table) 08/11/23 08/11/23 08/12/23 Range/Units 16:33 20:18 02:46 RBC (3.80-5.40) m/uL Hgb (11.4-16.0) gm/dL Hct (34.0-46.0) % RDW (11.5-15.5) % Sodium (137-145) mmol/L BUN (7-17) mg/dL Creatinine (0.52-1.04) mg/dL Glucose (74-99) mg/dL POC Glucose (mg/dL) 212 H 119 H 146 H (70-110) mg/dL Total Bilirubin (0.2-1.3) mg/dL AST (14-36) U/L ALT (4-34) U/L Total Protein (6.3-8.2) g/dL 08/12/23 08/12/23 08/12/23 Range/Units 06:04 06:04 06:07 RBC 3.06 L (3.80-5.40) m/uL Hgb 8.7 L (11.4-16.0) gm/dL Hct 27.9 L (34.0-46.0) % RDW 20.3 H (11.5-15.5) % Sodium 136 L (137-145) mmol/L BUN 18 H (7-17) mg/dL Creatinine 0.44 L (0.52-1.04) mg/dL Glucose 128 H (74-99) mg/dL POC Glucose (mg/dL) 157 H (70-110) mg/dL Total Bilirubin 1.4 H (0.2-1.3) mg/dL AST 77 H (14-36) U/L ALT 84 H (4-34) U/L Total Protein 5.7 L (6.3-8.2) g/dL 08/12/23 Range/Units 11:22 RBC (3.80-5.40) m/uL Hgb (11.4-16.0) gm/dL Hct (34.0-46.0) % RDW (11.5-15.5) % Sodium (137-145) mmol/L BUN (7-17) mg/dL Creatinine (0.52-1.04) mg/dL Glucose (74-99) mg/dL POC Glucose (mg/dL) 122 H (70-110) mg/dL Total Bilirubin (0.2-1.3) mg/dL AST (14-36) U/L ALT (4-34) U/L Total Protein (6.3-8.2) g/dL Assessment and Plan Time with Patient: Less than 30
== END 2023-08-12 12:19 | disposition home health service (06) | DRG 163 ==
LOC: 2ORMAIN 06:00 → 2SICU 11:32 → 3SCARD 08-11 19:04
PROVIDERS: ADMIT Thoracic Surgery (Cardiothoracic Vascular Surgery); ATTEND Thoracic Surgery (Cardiothoracic Vascular Surgery)
PROC: 30233N1 Transfusion of Nonautologous Red Blood Cells into Peripheral Vein, Percutaneous Approach (ICD-10-PCS; principal; 2023-08-06 08:00)
PROC: 025T0ZZ Destruction of Left Pulmonary Vein, Open Approach (ICD-10-PCS; principal; 2023-08-06 08:00)
PROC: 025S0ZZ Destruction of Right Pulmonary Vein, Open Approach (ICD-10-PCS; principal; 2023-08-06 08:00)
PROC: 02L70CK Occlusion of Left Atrial Appendage with Extraluminal Device, Open Approach (ICD-10-PCS; principal; 2023-08-06 08:00)
PROC: B24BZZ4 Ultrasonography of Heart with Aorta, Transesophageal (ICD-10-PCS; principal; 2023-08-06 08:00)
PROC: 02RF08Z Replacement of Aortic Valve with Zooplastic Tissue, Open Approach (ICD-10-PCS; principal; 2023-08-06 08:00)
PROC: 5A1221Z Performance of Cardiac Output, Continuous (ICD-10-PCS; principal; 2023-08-06 08:00)
DX: Q23.1 Congenital insufficiency of aortic valve (principal); I48.0 Paroxysmal atrial fibrillation; I10 Essential (primary) hypertension; E78.5 Hyperlipidemia, unspecified; E11.9 Type 2 diabetes mellitus without complications; K21.9 Gastro-esophageal reflux disease without esophagitis; M19.90 Unspecified osteoarthritis, unspecified site; G47.30 Sleep apnea, unspecified; D62 Acute posthemorrhagic anemia; E03.9 Hypothyroidism, unspecified; J96.01 Acute respiratory failure with hypoxia; T50.905A Adverse effect of unspecified drugs, medicaments and biological substances, initial encounter; R74.01 Elevation of levels of liver transaminase levels; I65.23 Occlusion and stenosis of bilateral carotid arteries; D72.829 Elevated white blood cell count, unspecified; G89.29 Other chronic pain; M54.50 Low back pain, unspecified; J44.1 Chronic obstructive pulmonary disease with (acute) exacerbation; J98.11 Atelectasis; M79.7 Fibromyalgia; Z88.5 Allergy status to narcotic agent; Z79.01 Long term (current) use of anticoagulants; Z88.8 Allergy status to other drugs, medicaments and biological substances; Z87.891 Personal history of nicotine dependence; Z86.73 Personal history of transient ischemic attack (TIA), and cerebral infarction without residual deficits; Z79.82 Long term (current) use of aspirin; Z79.84 Long term (current) use of oral hypoglycemic drugs; Z79.890 Hormone replacement therapy; Z79.899 Other long term (current) drug therapy
CPT/HCPCS: 71045; 71046; 80053; 82330; 82805; 83735; 85025; 85027; 85610; 85730; 86850; 86891; 86900; 86901; 86920; 88305; 88311; 94640; 94667; 94668; 94760

== ENCOUNTER 2023-08-12 21:01 | Emergency (ER) | payer OTHER ==
--- NOTE | 2023-08-12 21:23 | ED ---
General Adult HPI - General Chief complaint: Recheck/Abnormal Lab/Rx Stated complaint: Post op complications Time Seen by Provider: 08/12/23 21:07 Source: patient Mode of arrival: EMS Limitations: no limitations - History of Present Illness Initial comments: Dictation was produced using [employer] dictation software. please excuse any grammatical, word or spelling errors. Chief Complaint: 58-year-old female presents to the emergency department with leaking surgical site History of Present Illness: Patient 58-year-old female she postop day 6 for open and cardiac aortic valve surgery. She was in the hospital and discharged yesterday. Patient states that she has been doing fine. She went to bed earlier this afternoon to take a nap. She napped for about 2 hours woke up and noticed that her surgical site dressings and pants were soaked. Patient states that her surgical drains were removed recently. Patient denies any other complaints. Denies any pain complaints. No shortness of breath. No chest pain. No nausea or vomiting. The ROS documented in this emergency department record has been reviewed and confirmed by me. Those systems with pertinent positive or negative responses have been documented in the HPI. All other systems are other negative and/or noncontributory. - Related Data Home Medications Medication Instructions Recorded Confirmed DULoxetine HCL [Cymbalta] 60 mg PO HS 11/22/15 08/06/23 HYDROcodone/APAP 5-325MG [Holiday 1 tab PO TID PRN 11/22/15 08/06/23 5-325] Levothyroxine Sodium [Synthroid] 75 mcg PO DAILY 11/22/15 08/06/23 Montelukast [Singulair] 10 mg PO DAILY 11/22/15 08/06/23 Multivitamins, Thera [Multivitamin 1 tab PO DAILY 11/22/15 08/06/23 (formulary)] Cyclobenzaprine [Flexeril] 10 mg PO BID PRN 07/20/17 08/06/23 Loratadine [Claritin] 10 mg PO DAILY 07/20/17 08/06/23 Mirtazapine [Remeron] 15 mg PO HS 07/20/17 08/06/23 Albuterol Sulfate [Albuterol 2 puff INHALATION RT-QID PRN 07/01/21 08/06/23 Sulfate Hfa] Atorvastatin Calcium [Lipitor] 10 mg PO HS 07/01/21 08/06/23 Omeprazole 20 mg PO DAILY 07/01/21 08/06/23 glipiZIDE [Glucotrol] 10 mg PO BID 07/01/21 08/06/23 Flecainide [Tambocor] 50 mg PO Q12H 02/04/22 08/06/23 Ipratropium-Albuterol Nebulize 3 ml INHALATION RT-QID PRN 02/04/22 08/06/23 [Duoneb 0.5 mg-3 mg/3 ml Soln] PARoxetine HCL [Paxil] 30 mg PO DAILY 02/04/22 08/06/23 Ascorbic Acid [Vitamin C] 500 mg PO DAILY 07/18/23 08/06/23 Ferrous Sulfate [Iron (65 MG 325 mg PO DAILY 07/18/23 08/06/23 Elemental)] Furosemide [Lasix] 20 mg PO DAILY PRN 07/18/23 08/06/23 Apixaban [Eliquis] 5 mg PO BID 07/30/23 08/06/23 Fluticasone/Umeclidin/Vilanter 1 inhalation INHALATION DAILY 07/30/23 08/06/23 [Trelepanfilo Ellipta 100-62.5-25] Previous Rx's Medication Instructions Recorded Metoprolol Tartrate [Lopressor] 25 mg PO BID #60 tab 07/03/21 Acetaminophen Tab [Tylenol] 650 mg PO Q4HR PRN tab 08/12/23 Aspirin 81 mg PO DAILY #0 08/12/23 Losartan [Cozaar] 25 mg PO DAILY@1200 #30 tab 08/12/23 Sennosides-Docusate Sodium 2 each PO HS PRN tab 08/12/23 [Senokot-S] Allergies Allergy/AdvReac Type Severity Reaction Status Date / Time morphine Allergy Rash/Hives/Shortness Verified 08/06/23 06:08 of breath pregabalin [From Lyrica] Allergy Rash/Hives/Skin Verified 08/06/23 06:08 peels Review of Systems ROS Statement: Those systems with pertinent positive or pertinent negative responses have been documented in the HPI. ROS Other: All systems not noted in ROS Statement are negative. Past Medical History Past Medical History: Atrial Fibrillation, COPD, Diabetes Mellitus, Fibromyalg ia, Hyperlipidemia, Hypertension, Osteoarthritis (OA), Thyroid Disorder Additional Past Medical History / Comment(s): back pain "pretty much all the time", SOB w/exertion History of Any Multi-Drug Resistant Organisms: None Reported Past Surgical History: Section, Cholecystectomy, Hysterectomy, Tonsillectomy Additional Past Surgical History / Comment(s): tumor removal from rt lower pelvis with partial hysterectomy, leep procedure, Past Anesthesia/Blood Transfusion Reactions: No Reported Reaction Smoking Status: Former smoker - Past Family History Mother Family Medical History: Cancer, COPD, Diabetes Mellitus, GERD/Reflux, Hypertension, Osteoarthritis (OA), Sleep Apnea/CPAP/BIPAP Additional Family Medical History / Comment(s): lung CA Sister(s) Family Medical History: Supraventricular Tachycardia (SVT) Additional Family Medical History / Comment(s): elevated liver enzymes,lung CA Son(s) Family Medical History: Cancer, Supraventricular Tachycardia (SVT) Additional Family Medical History / Comment(s): testicular CA Father Additional Family Medical History / Comment(s): Blood clot mesenteric artery General Exam - General Exam Comments Initial Comments: PHYSICAL EXAM: General Impression: Alert and oriented x3, not in acute distress HEENT: Normocephalic atraumatic, extra-ocular movements intact, pupils equal and reactive to light bilaterally, mucous membranes moist. Cardiovascular: Heart regular rate and rhythm Chest: Able to complete full sentences, no retractions, no tachypnea Abdomen: abdomen soft, non-tender, non-distended, no organomegaly Musculoskeletal: Pulses present and equal in all extremities, no peripheral edema Motor: no focal deficits noted Neurological: CN II-XII grossly intact, no focal motor or sensory deficits noted Skin: I right upper abdomen surgical site little leaking of serosanguineous fluid. Otherwise clean and intact without any signs of infection or erythema Psych: Normal affect and mood Limitations: no limitations Course Vital Signs 08/12/23 08/12/23 08/12/23 21:02 22:10 23:11 Temperature 98.8 F Pulse Rate 71 71 72 Respiratory 20 16 16 Rate Blood Pressure 132/77 130/73 144/74 O2 Sat by Pulse 95 94 L 95 Oximetry EKG Findings - EKG Comments: EKG Findings:: My EKG interpretation: Ventricular rate 70, sinus rhythm,. 153, cures 82, QTc 417. No NM prolongation, no QTC prolongation, no ST or T-wave changes noted. EKG compared to August 06, 2023 showing no changes. Overall, this EKG is unremarkable Medical Decision Making - Medical Decision Making Was pt. sent in by a medical professional or institution ([facility] Santiago, AGRICULTURAL SCIENTIST, urgent care, hospital, or jail...) When possible be specific @ -No Did you speak to anyone other than the patient for history (EMS, parent, family, police, friend...)? What history was obtained from this source @ -No Did you review nursing and triage notes (agree or disagree)? Why? @ -I reviewed and agree with nursing and triage notes Were old charts reviewed (outside hosp., previous admission, EMS record, old EKG, old radiological studies, urgent care reports/EKG's, jail records)? Report findings @ -No old charts were reviewed Differential Diagnosis (chest pain, altered mental status, abdominal pain women, abdominal pain men, vaginal bleeding, musculoskeletal, weakness, fever, dyspnea, syncope, headache, dizziness, GI bleed, back pain, seizure, CVA, palpatations, mental health)? @ -Postoperative bleeding, postoperative infection EKG interpreted by me (3pts min.). @ -None done X-rays interpreted by me (1pt min.). @ -None done CT interpreted by me (1pt min.). @ -None done U/S interpreted by me (1pt. min.). @ -None done What testing was considered but not performed or refused? (CT, X-rays, U/S, labs)? Why? @ -None What meds were considered but not given or refused? Why? @ -None Did you discuss the management of the patient with other professionals (professionals i.e. COREY Santiago, AGRICULTURAL SCIENTIST, lab, RT, psych nurse, social media project manager, document management analyst, teacher, equal employment opportunity officer, watch case polisher)? Give summary @ -No Was smoking cessation discussed for >3mins.? @ -No Was critical care preformed (if so, how long)? @ -No Were there social determinants of health that impacted care today? How? (Homelessness, low income, unemployed, alcoholism, drug addiction, transportation, low edu. Level, literacy, decrease access to med. care, fpc, rehab)? @ -No Was there de-escalation of care discussed even if they declined (Discuss DNR or withdrawal of care, no Hospice)? DNR status @ -No What co-morbidities impacted this encounter? (DM, HTN, Smoking, COPD, CAD, Cancer, CVA, ARF, Chemo, Hep., AIDS, mental health diagnosis, sleep apnea, morbid obesity)? @ -None Was patient admitted / discharged? Hospital course, mention meds given and route, prescriptions, significant lab abnormalities, going to OR and other pertinent info. @ -58-year-old female presents to the emergency department with clinical presentation consistent with postoperative leakage of the surgical site. Right upper abdomen surgical site slightly leaky of serosanguineous fluid. Otherwise patient well-appearing in no acute distress. Vital signs stable. Undiagnosed new problem with uncertain prognosis? @ -No Drug Therapy requiring intensive monitoring for toxicity (Heparin, Nitro, Insulin, Cardizem)? @ -No Were any procedures done? @ -No Diagnosis/symptom? Acute, or Chronic, or Acute on Chronic? Uncomplicated (without systemic symptoms) or Complicated (systemic symptoms)? @ -Surgical site leakage Side effects of treatment? @ -No Exacerbation, Progression, or Severe Exacerbation? @ -No Poses a threat to life or bodily function? How? (Chest pain, USA, NC, pneumonia, PE, COPD, DKA, ARF, appy, cholecystitis, CVA, Diverticulitis, Homicidal, [place] icidal, threat to staff... and all critical care pts) @ -No - Lab Data Result diagrams: 08/12/23 21:36 08/12/23 21:36 Lab Results 08/12/23 08/12/23 Range/Units 21:36 21:36 WBC 10.9 H (3.8-10.6) k/uL RBC 3.14 L (3.80-5.40) m/uL Hgb 9.5 L (11.4-16.0) gm/dL Hct 28.5 L (34.0-46.0) % MCV 90.7 (80.0-100.0) fL MCH 30.3 (25.0-35.0) pg MCHC 33.4 (31.0-37.0) g/dL RDW 20.5 H (11.5-15.5) % Plt Count 245 (150-450) k/uL MPV 8.3 Neutrophils % 73 % Lymphocytes % 16 % Monocytes % 6 % Eosinophils % 2 % Basophils % 0 % Neutrophils # 8.0 H (1.3-7.7) k/uL Lymphocytes # 1.8 (1.0-4.8) k/uL Monocytes # 0.6 (0-1.0) k/uL Eosinophils # 0.2 (0-0.7) k/uL Basophils # 0.0 (0-0.2) k/uL Hypochromasia Slight Anisocytosis Moderate Sodium 137 (137-145) mmol/L Potassium 3.8 (3.5-5.1) mmol/L Chloride 105 (98-107) mmol/L Carbon Dioxide 29 (22-30) mmol/L Anion Gap 3 mmol/L BUN 18 H (7-17) mg/dL Creatinine 0.45 L (0.52-1.04) mg/dL Est GFR (CKD-EPI)AfAm >90 (>60 ml/min/1.73 sqM) Est GFR (CKD-EPI)NonAf >90 (>60 ml/min/1.73 sqM) Glucose 136 H (74-99) mg/dL Calcium 8.8 (8.4-10.2) mg/dL Disposition Clinical Impression: Postoperative leak Disposition: HOME SELF-CARE Condition: Good Instructions (If sedation given, give patient instructions): Aortic Valve Replacement (DC) Is patient prescribed a controlled substance at d/c from ED?: No Referrals: Pantera Jha [Primary Care Provider] - 1-2 days Maurice Lind MD [STAFF PHYSICIAN] - 1-2 days Time of Disposition: 21:23
[2023-08-12 21:52] LABS: Anisocytosis Moderate; Basophils % (A) 0 %; Eosinophils # (A) 0.2 k/uL (0-0.7); Eosinophils % (A) 2 %; HCT 28.5 % (34.0-46.0); HGB 9.5 gm/dL (11.4-16.0); Hypochromasia Slight; Lymphocytes # (A) 1.8 k/uL (1.0-4.8); Lymphocytes % (A) 16 %; MCH 30.3 pg (25.0-35.0); MCHC 33.4 g/dL (31.0-37.0); MCV 90.7 fL (80.0-100.0); Mean Platelet Volume 8.3; Monocytes # (A) 0.6 k/uL (0-1.0); Monocytes % (A) 6 %; Neutrophils % (A) 73 %; Platelet Count 245 k/uL (150-450); RBC 3.14 m/uL (3.80-5.40); RDW 20.5 % (11.5-15.5); WBC 10.9 k/uL (3.8-10.6)
--- NOTE | 2023-08-12 21:53 | XR ---
EXAMINATION TYPE: XR chest 2V DATE OF EXAM: 08/12/2023 9:48 PM CLINICAL INDICATION:Female, 58 years old with history of leaking surgical site; [facility] COMPARISON: Chest radiographs from 08/12/2023 TECHNIQUE: XR chest 2V Frontal and lateral views of the chest. FINDINGS: Lungs/Pleura: There is no evidence of pleural effusion, focal consolidation, or pneumothorax. Pulmonary vascularity: Unremarkable. Heart/mediastinum: Cardiomediastinal silhouette is unremarkable. Left atrial appendage occlusion dev ice again present. Prosthetic aortic valve again identified. Musculoskeletal: No acute osseous pathology. Median sternotomy wires are identified. IMPRESSION: No acute cardiopulmonary disease/process.
[2023-08-12 22:03] LABS: African American GFR (CKD) >90 (>60 ml/min/1.73 sqM); Anion Gap 3 mmol/L; Blood Urea Nitrogen 18 mg/dL (7-17); Calcium 8.8 mg/dL (8.4-10.2); Carbon Dioxide 29 mmol/L (22-30); Chloride 105 mmol/L (98-107); Glucose 136 mg/dL (74-99); Non-African American GFR(CKD) >90 (>60 ml/min/1.73 sqM); Potassium 3.8 mmol/L (3.5-5.1); Sodium 137 mmol/L (137-145)
[2023-08-12 22:11] VITALS: RESP 16
[2023-08-13 00:08] VITALS: BP 143/75; PULSE 70; TEMP 97.8
== END 2023-08-13 00:08 | disposition home or self-care (01) ==
LOC: EC 21:01
DX: T81.49XA Infection following a procedure, other surgical site, initial encounter (principal); J95.812 Postprocedural air leak; Z87.891 Personal history of nicotine dependence; Z88.5 Allergy status to narcotic agent; Z88.8 Allergy status to other drugs, medicaments and biological substances; Z90.49 Acquired absence of other specified parts of digestive tract
CPT/HCPCS: 36415; 71046; 80048; 85025; 93005; 99284

== ENCOUNTER → 2023-09-12 | Day surgery (SDC) | payer OTHER ==
[~2023-09-12] MED LIST changes: -ALPRAZolam 0.25 MG TAB PO PRN; -ALPRAZolam 0.5 MG TAB PO PRN; -ATORVASTATIN 80 MG TAB PO STA; -HEPARIN SODIUM 1,000 UN/ML (10ML VL) ONE; -HEPARIN SODIUM,PORCINE (1 ML) 2,500 UNIT in SODIUM CHLORIDE 0.9% 250 ML IRRIGATION PRN; -HEPARIN SODIUM,PORCINE 10,000 UNIT in SODIUM CHLORIDE 0.9% 1,000 ML IRRIGATION PRN; -LIDOCAINE 1% INJ 10MG/ML (20 ML MDV) ONE; -NITROGLYCERIN SL TABS 0.4 MG TAB SUBLINGUAL ONE; -NITROGLYCERIN SL TABS 0.4 MG TAB SUBLINGUAL PRN; -RX INFO: IV CONTRAST WAS GIVEN 1 EACH MISC MISCELLANE PRN; -SODIUM CHLORIDE 0.9% 1,000 ML IV SCH; +SODIUM CHLORIDE 0.9% 500 ML 500 ML in EMPTY BAG 1 BAG IV PRN; -VERAPAMIL 2.5 MG/ML 2 ML AMP ONE; -fentaNYL (PF) 50 MCG/ML 2 ML AMP ONE
[2023-09-12 11:42] VITALS: BP 144/76; RESP 16; TEMP 98.5
[2023-09-12 11:45] VITALS: PULSE 82
== END ==
LOC: PROCWHC3 11:25
PROVIDERS: ATTEND Internal Medicine Critical Care Medicine
DX: Z53.8 Procedure and treatment not carried out for other reasons (principal); J90 Pleural effusion, not elsewhere classified

== ENCOUNTER 2023-10-08 14:46 | Emergency (ER) | payer OTHER ==
[2023-10-08] MEDS ORDERED: SODIUM CHLORIDE 0.9% 1,000 ML BAG ONE (18:51)
[2023-10-08] MEDS ORDERED: KETOROLAC 15 MG/ML 1 ML VIAL ONE (18:53)
[2023-10-08] MEDS ORDERED: AMOXIC-POT CLAV 875-125MG 1 EACH TAB ONE (22:19)
--- NOTE | 2023-11-06 13:31 | CT ---
EXAM: CT abdomen pelvis with contrast. DATE OF EXAM: 10/08/23 INDICATION: Patient age:CARON CAAL : 1965 Reason for study: ABD AND PELVIS DIABETIC PATIENT, B-8 CR-0.49 GFR-128.8 WITH CONTRAST. CTDI 15.3 DP L 673.1 COMPARISON: None, please note PACS downtime occurred during the radiologist interpretation of these i mages with limited priors/reports.. TECHNIQUE: CT abdomen pelvis with axial imaging and sagittal and coronal reformats following the administration of 100 cc of Isovue-300 IV contrast material.. One or more CT dose reduction strategies were utilized during this examination. Total DLP administered was 673.1 mGycm. FINDINGS: LOWER CHEST: Unremarkable ABDOMEN LIVER: Diffusely hypoattenuating parenchyma. GALLBLADDER AND BILE DUCTS: The gallbladder is surgically absent. PANCREAS: Unremarkable. SPLEEN: Unremarkable. ADRENAL GLANDS: Unremarkable. KIDNEYS AND URETERS: No evidence of hydronephrosis or renal calculus. The ureters are unremarkable. PELVIS BLADDER: Unremarkable REPRODUCTIVE: Unremarkable. ABDOMEN & PELVIS STOMACH AND BOWEL: Circumferential wall thickening of the descending colon and sigmoid colon and rect um. Wall thickening worse in the sigmoid colon measuring up to 12 mm. Scattered colonic diverticula. Stomach and duodenum are unremarkable. No evidence of bowel obstruction. PERITONEUM: No evidence of pneumoperitoneum or free fluid. VASCULATURE: No evidence of aortic aneurysm. MUSCULOSKELETAL: No acute osseous abnormalities LYMPH NODES: No gross evidence for lymphadenopathy. SOFT TISSUE/ABDOMINAL WALL: Unremarkable IMPRESSION: 1. Colitis involving the ascending colon/sigmoid colon and rectum. No organizing fluid collection or evidence for perforation. 2. Colonic diverticulosis. 3. Hepatic steatosis
== END 2023-10-08 22:25 | disposition home or self-care (01) ==
LOC: EC 14:46
DX: K52.9 Noninfective gastroenteritis and colitis, unspecified (principal); Z88.5 Allergy status to narcotic agent; Z88.8 Allergy status to other drugs, medicaments and biological substances
CPT/HCPCS: 80053; 83605; 85025; 81003; 74177; 99284; 96374; 96361 ×3; J1885; Q9967

== ENCOUNTER → 2024-06-18 | Outpatient (CLI) | payer OTHER | END | disposition home or self-care (01) | LOC: LABWHC1 15:05 | PROVIDERS: ATTEND Nurse Practitioner Family | DX: E11.9 Type 2 diabetes mellitus without complications (principal) | CPT/HCPCS: 36415; 83036 ==